=== PATIENT | female | born 1935 | race Caucasian/White ===

== ENCOUNTER 2019-03-15 10:59 | Inpatient (IN) | payer MEDICARE, OTHER, SELFPAY ==
[2019-03-15] VITALS (16 sets, daily range): BP systolic 157–183; BP diastolic 70–89; PULSE 78–97; RESP 18–32; TEMP 36.8–38.7; O2SAT 91–98; BMI 34.4
--- NOTE | 2019-03-15 11:12 | XR_ITS ---
WS: [id number] Portable AP upright chest, 03/15/2019 Clinical Data: cough Comparison: Portable chest, 12/09/2016. Findings: No nodules, masses or effusions are seen. The heart is normal. The pulmonary vascularity is not increased. No pneumonia or pneumothorax is seen. The patient has a poor inspiratory effort. The aortic arch and descending aorta are tortuous. XR/XR chest 1V portable [id number] Impression: Negative chest.
--- NOTE | 2019-03-15 11:12 | CT_ITS ---
WS: [id number] CT scan of the head, 03/15/2019 Clinical Data: CASTRO/AMS Comparison: CT head, 01/04/2019. DLP: 1464.[address] scans at [facility] use at least one of these dose optimization techniques: automat ed exposure control; mA and/or kV adjustment per patient size (includes targeted exams where dose is matched to clinical indication); or iterative reconstruction. Findings: The ventricular system is moderately dilated without shift. No recent infarct or hemorrhage is seen. There are no abnormal intracerebral masses. The cerebellum and brainstem are not remarkable. Bony windows of the skull and skull base show no fractures or erosions. The mastoid air cells, business intern al auditory canals, sella turcica, intraorbital contents, and paranasal sinuses are unremarkable. CT/CT head wo con* [id number] Impression: No change in moderate cerebral atrophy.
--- NOTE | 2019-03-15 11:12 | CT_ITS ---
WS: [id number] CT scan of the abdomen and pelvis without Oral and IV contrast. Additional two-dimensional coronal an d sagittal reconstruction was performed. 03/15/2019 Clinical Data: Abdominal Pain Comparison: CT abdomen and pelvis, 01/04/2019. DLP: 1203.[address] scans at [facility] use at least one of these dose optimization techniques: automat ed exposure control; mA and/or kV adjustment per patient size (includes targeted exams where dose is matched to clinical indication); or iterative reconstruction. Findings: The lower lungs show no nodules, masses or effusions. There is mitral valve calcification and right hilar devora calcification. The liver, spleen, adrenal glands and pancreas are normal. The gallbladder is not imaged. The kidneys show no cysts, masses, hydronephrosis or renal calculi. The abdominal aorta is normal in size with minimal calcification in the wall. No appendicitis or diverticulitis is seen. No abscess, adenopathy, ascites, mass, obstruction or free air is seen. The stomach, small bowel and colon show no abnormalities. The bladder has a catheter within. The uterus is absent.. No inguinal hernia is seen. The bones of the lower thorax, lumbar spine, pelvis, and hips show degenerative change of the lower t horacic and all lumbar vertebral bodies. There is posterior lumbar fusion of the L5-S1 level.. CT/CT abdomen pelvis wo con [id number] Impression: Negative for acute intra-abdominal or pelvic abnormalities.
--- NOTE | 2019-03-15 11:13 | ECG_ITS ---
Measurements Intervals [place] Rate: 89 P: 31 LA: 163 QRS: -34 QRSD: 100 T: 68 QT: 347 QTc: 423 SINUS RHYTHM LEFT AXIS DEVIATION [QRS AXIS < -30] PATTERN CONSISTENT WITH PULMONARY DISEASE Compared to ECG 05/17/2018 20:27:52 No significant changes Electronically Signed On 03-15-2019 13:46:57 SURGICAL SERVICES COORDINATOR by Adrianna Burk M.D. [id number]
[2019-03-15] MEDS: sodium chloride 0.9% 1,000 ML 100 ML IV (11:42)
--- NOTE | 2019-03-15 11:43 | PC.NURSE ---
pt FS blood glucose 216. RN notified.
[2019-03-15 11:45] LABS: Glucose Point of Care 216 mg/dL (70-110)
[2019-03-15] MEDS: ondansetron 2 mg/ML SDV 2 mL 4 MG IVP (11:46)
[2019-03-15] MEDS: cefTRIAXone 1,000 MG in sodium chloride 0.9% (plus) 50 ML 100 MG IV (11:51)
[2019-03-15 11:56] LABS: Basophils % 0.1 %; Hematocrit 36.2 % (37.0-47.0); Hemoglobin 12.3 g/dL (11.5-15.3); Lymphocytes # 0.6 10^3/uL (0.8-4.8); Lymphocytes % 4.3 %; Mean Corpuscular Hemoglobin 32.9 pg (28.0-34.0); Mean Corpuscular Volume 96.8 fL (81-99); Mean Platelet Volume 10.2 fL (7.4-10.4); Monocytes # 0.6 10^3/uL (0.2-0.9); Monocytes % 4.1 %; Neutrophils # 13.2 10^3/uL (1.8-7.7); Neutrophils % 88.4 %; Nucleated Red Blood Cells % 0 %; Platelet Count 125 10^3/cmm (130-400); Red Blood Count 3.74 10^6/uL (4.1-5.3)
[2019-03-15 11:57] LABS: ABG PCO2 26.9 mmHg (35-45); ABG PH Result 7.47 (7.35-7.45); Arterial Blood Gas Hematocrit 39.3 % (37-47); Base Excess ABG -2.9 mmol/L (-2.0-2.0); Blood Gas Allen Test Pos; Blood Gas Sample Site Brachial, left; Blood Gas Sample Type Arterial; HCO3 ABG 19.5 mmol/L (22-26); PO2 ABG 50.4 mmHg (80.0-100.0)
--- NOTE | 2019-03-15 12:09 | ED_ITS ---
HPI - Altered Mental Status General: Chief Complaint: Altered Mental Status Stated Complaint: Fever, UTI Time Seen by Provider: 03/15/19 11:03 Source: patient, family, EMS, RN notes reviewed and old records reviewed Mode of arrival: EMS Limitations: altered mental status History of Present Illness: HPI narrative: Nadja is a pleasant 83-year-old female brought in by her family with report of confusion and generalized weakness. The patient had symptoms of a UTI and was seen by Dr. Lara in the office 2 days ago and she was placed on antibiotics. The next day the patient began with her confusion and generalized weakness. She did not want to eat or drink. The day progressed and she improved a mild amount but was still very far off her normal. The patient lives alone with her . Today the patient is more confused and weak and unable to ambulate. It is unknown if there have been any fevers. The patient is confused and alert to self only. She denies having any pain presently. MD complaint: altered mental status, confusion and decreased responsiveness Onset (ago): day(s) (2) Severity: moderate Consistency of symptoms: Getting Worse Review of Systems General: Reports: ROS unobtainable due to medical condition (Altered mental status/confusion) PFSH ED PFSH: Statuses (acute, chronic, etc) shown below reflect problem list status as previously entered and may not be historically accurate Medical History Depression (Acute) GERD (gastroesophageal reflux disease) (Acute) HTN (hypertension) (Acute) Hypothyroidism (Acute) GERALDO (obstructive sleep apnea) (Acute) Family History Son Diabetes Brother Stroke Cancer Hypertension Sister Cancer Hypertension Social History Smoking and tobacco status: never smoked Alcohol intake: never Physical Exam Const: COMMON NORMALS: no apparent distress and well nourished EXAM LIMITATIONS: altered mental status GENERAL APPEARANCE: cooperative, disheveled, lethargic and ill appearing NUTRITIONAL APPEARANCE: obese ORIENTATION/CONSCIOUSNESS: Yes awake, Yes oriented to person and Yes lethargic HENMT: COMMON NORMALS: normocephalic, head/scalp atraumatic, hearing grossly normal bilaterally, external ears normal, EAC's normal, external nose normal and moist oral mucous membranes HEAD & SCALP: normal to inspection, normocephalic and atraumatic FACE & SINUS: normal facial exam and face symmetric NOSE: external nose normal and nares normal EXTERNAL EAR: Yes external ears normal EXTERNAL AUDITORY CANAL: EAC's normal MOUTH: oral and palatal mucosa normal and tongue normal Eye: COMMON NORMALS: PERRL, EOMs intact bilaterally, conjunctivae normal and no scleral icterus GENERAL EYE: normal appearance of both eyes and normal light reflex CONJUNCTIVA: Yes conjunctivae normal SCLERA: sclerae normal CORNEA: Yes corneas normal PUPIL: Yes PERRL DIRECT OPHTHALMOSCOPY: Yes normal light reflex Neck/C-Spine: COMMON NORMALS: full ROM, no lymphadenopathy, supple, no meningeal signs and no JVD GENERAL: Yes normal visual inspection and Yes trachea midline CERVICAL SPINE: Yes cervical ROM normal Chest: COMMONS NORMALS: inspection of chest normal and palpation of chest normal Resp: COMMON NORMALS: normal respiratory effort, no retractions, no use of accessory muscles and clear to auscultation bilaterally EFFORT & INSPECTION: Yes able to speak in complete sentences AUSCULTATION: clear to auscultation bilaterally Cardio: COMMON NORMALS: no JVD, regular rate, regular rhythm, S1 normal heart sound, S2 normal heart sound, no gallops, no clicks, no murmurs and no rub JUGULAR VENOUS DISTENTION: no JVD RATE: regular rate RHYTHM: regular rhythm HEART SOUNDS: S1 normal and S2 normal GI: COMMON NORMALS: soft to palpation, no hepatosplenomegaly and no masses INSPECTION: Yes normal to inspection PALPATION: Yes soft, Yes tender Details: LUQ and Yes no hepatosplenomegaly : COMMON NORMALS: Yes no CVA tenderness BLADDER/KIDNEY EXAM: Yes no CVA tenderness Back/Pelvis: COMMON NORMALS: no CVA tenderness, thoracic and lumbar spine normal to inspection, no thoracic nor lumbar tenderness and thoraco-lumbar ROM normal Extremity: COMMON NORMALS: normal to inspection, full ROM, normal capillary refill, no joint enlargement, no clubbing, cyanosis or edema and no calf tenderness Neuro: COMMON NORMALS: CN's II-XII intact bilaterally, moves all extremities, no focal motor deficits and no sensory deficits noted SENSORIUM/ORIENTATION: Yes oriented to person and Yes lethargic MENINGEAL SIGNS: Yes no meningeal signs Psych: COMMON NORMALS: mental status grossly normal, thought process normal, cooperative, affect normal, speech normal and activity/motor behavior normal SPEECH: Yes normal speech THOUGHT PROCESS: normal thought process Skin: COMMON NORMALS: no rashes or lesions noted, skin turgor normal, no jaundice, no petechiae and no mottling GENERAL SKIN EXAM: no rashes or lesions noted and turgor normal Course Vital Signs: Vital signs: Vital Signs Temperature 100.3 F H 03/15/19 15:12 Pulse Rate 87 03/15/19 15:12 Respiratory Rate 26 H 03/15/19 12:13 Blood Pressure 167/84 03/15/19 15:12 Pulse Oximetry 94 03/15/19 15:13 MDM - Altered Mental Status MDM Narrative: Medical decision making narrative: 1540?Mrs. Dimas is a pleasant 83-year-old female who was diagnosed as an outpatient with a UTI. She did not start her antibiotics until the next day but was already worse with confusion, generalized weakness and decreased appetite. She has acute renal insufficiency I believe from decreased intake and she still has her UTI. I have given her dose of Rocephin and IV fluids to help hydrate her. Her mental status is unchanged at this time but we will go ahead and admit her to the hospital for IV hydration. The patient continues to states she has no pain and I have reviewed the case in full with Dr. Sprague and he is agreeable to admission. Lab Data: Attestation: I reviewed the patient's lab results. Labs: Lab Results 03/15/19 03/15/19 03/15/19 Range/Units 11:32 11:32 11:32 WBC 15.0 H (4.0-10.0) 10^3/ uL RBC 3.74 L (4.1-5.3) 10^6/u L Hgb 12.3 (11.5-15.3) g/dL Hct 36.2 L (37.0-47.0) % MCV 96.8 (81-99) fL MCH 32.9 (28.0-34.0) pg MCHC 34.0 (30.0-36.0) g/dL RDW 14.0 (12.1-15.1) % Plt Count 125 L (130-400) 10^3/c mm MPV 10.2 (7.4-10.4) fL Neut % (Auto) 88.4 % Lymph % (Auto) 4.3 % Cedar % (Auto) 4.1 % Eos % (Auto) 0.0 % Baso % (Auto) 0.1 % Neut # (Auto) 13.2 H (1.8-7.7) 10^3/u L Lymph # (Auto) 0.6 L (0.8-4.8) 10^3/u L Cedar # (Auto) 0.6 (0.2-0.9) 10^3/u L Eos # (Auto) 0.0 (0.0-0.8) 10^3/u L Baso # (Auto) 0.0 (0.0-0.1) 10^3/u L Nucleated RBC % (a uto) 0 % Nucleated RBCs # 0.0 /100WBC Specimen Type Sample Site ABG pH (7.35-7.45) ABG pCO2 (35-45) mmHg ABG pO2 (80.0-100.0) mmH g ABG HCO3 (22-26) mmol/L ABG Base Excess (-2.0-2.0) mmol/ L Dario Test Hematocrit (37-47) % Oil House Attendant ID Sodium 131 L (136-145) mmol/L Potassium 4.0 (3.5-5.1) mmol/L Chloride 97 L (98-107) mmol/L Carbon Dioxide 20 L (22-29) mmol/L Anion Gap 18.0 (5-19) BUN 34 H (8-23) mg/dL Creatinine 1.9 H (0.5-0.9) mg/dL Glucose 203 H (74-106) mg/dL POC Glucose (70-110) mg/dL Lactic Acid 2.5 H (0.5-2.2) mmol/L Lactate (0.5-2.2) mmol/L Calcium 9.6 (8.8-10.2) mg/Dl Magnesium 1.9 (1.7-2.3) mg/dL Total Bilirubin 2.6 H (0.15-1.2) mg/dL AST 26 (0-32) U/L ALT 24 (0-33) U/L Alkaline Phosphata se 128 H (35-105) IU/L Ammonia (11-51) umol/L Troponin T Baselin e (0-10) ng/mL Troponin T 120 [address] [place] (0-10) ng/mL Delta Troponin T (0-10) ABS# Total Protein 7.2 (6.6-8.7) g/dL Albumin 3.8 (3.5-5.2) g/dL Globulin 3.4 (1.3-4.6) g/dL Urine Color (Yellow) Urine Appearance (CLEAR) Urine pH (5-7) Ur Specific Gravit y (1.005-1.030) Urine Protein (Negative) Urine Glucose (UA) (Normal) Urine Ketones (Negative) Urine Occult Blood (Negative) Urine Nitrate (Negative) Urine Bilirubin (NEGATIVE) Urine Urobilinogen (Negative) mg/dL Ur Leukocyte Lauren ase (Negative) Urine RBC (0-2) /hpf Urine WBC (0-5) /hpf Ur Squamous Epith Cells (0-5) Urine Bacteria (NONE) Influenza Type A A g (Negative) POC Influenza B Ag (Negative) 03/15/19 03/15/19 03/15/19 Range/Units 11:32 11:32 11:40 WBC (4.0-10.0) 10^3/ uL RBC (4.1-5.3) 10^6/u L Hgb (11.5-15.3) g/dL Hct (37.0-47.0) % MCV (81-99) fL MCH (28.0-34.0) pg MCHC (30.0-36.0) g/dL RDW (12.1-15.1) % Plt Count (130-400) 10^3/c mm MPV (7.4-10.4) fL Neut % (Auto) % Lymph % (Auto) % Cedar % (Auto) % Eos % (Auto) % Baso % (Auto) % Neut # (Auto) (1.8-7.7) 10^3/u L Lymph # (Auto) (0.8-4.8) 10^3/u L Cedar # (Auto) (0.2-0.9) 10^3/u L Eos # (Auto) (0.0-0.8) 10^3/u L Baso # (Auto) (0.0-0.1) 10^3/u L Nucleated RBC % (a uto) % Nucleated RBCs # /100WBC Specimen Type Sample Site ABG pH (7.35-7.45) ABG pCO2 (35-45) mmHg ABG pO2 (80.0-100.0) mmH g ABG HCO3 (22-26) mmol/L ABG Base Excess (-2.0-2.0) mmol/ L Dario Test Hematocrit (37-47) % Oil House Attendant ID Sodium (136-145) mmol/L Potassium (3.5-5.1) mmol/L Chloride (98-107) mmol/L Carbon Dioxide (22-29) mmol/L Anion Gap (5-19) BUN (8-23) mg/dL Creatinine (0.5-0.9) mg/dL Glucose (74-106) mg/dL POC Glucose 216 (70-110) mg/dL Lactic Acid (0.5-2.2) mmol/L Lactate (0.5-2.2) mmol/L Calcium (8.8-10.2) mg/Dl Magnesium (1.7-2.3) mg/dL Total Bilirubin (0.15-1.2) mg/dL AST (0-32) U/L ALT (0-33) U/L Alkaline Phosphata se (35-105) IU/L Ammonia 19 (11-51) umol/L Troponin T Baselin e 40 H (0-10) ng/mL Troponin T 120 Min [place] (0-10) ng/mL Delta Troponin T (0-10) ABS# Total Protein (6.6-8.7) g/dL Albumin (3.5-5.2) g/dL Globulin (1.3-4.6) g/dL Urine Color (Yellow) Urine Appearance (CLEAR) Urine pH (5-7) Ur Specific Gravit y (1.005-1.030) Urine Protein (Negative) Urine Glucose (UA) (Normal) Urine Ketones (Negative) Urine Occult Blood (Negative) Urine Nitrate (Negative) Urine Bilirubin (NEGATIVE) Urine Urobilinogen (Negative) mg/dL Ur Leukocyte Lauren ase (Negative) Urine RBC (0-2) /hpf Urine WBC (0-5) /hpf Ur Squamous Epith Cells (0-5) Urine Bacteria (NONE) Influenza Type A A g (Negative) POC Influenza B Ag (Negative) 03/15/19 03/15/19 03/15/19 Range/Units 11:40 11:45 11:45 WBC (4.0-10.0) 10^3/ uL RBC (4.1-5.3) 10^6/u L Hgb (11.5-15.3) g/dL Hct (37.0-47.0) % MCV (81-99) fL MCH (28.0-34.0) pg MCHC (30.0-36.0) g/dL RDW (12.1-15.1) % Plt Count (130-400) 10^3/c mm MPV (7.4-10.4) fL Neut % (Auto) % Lymph % (Auto) % Cedar % (Auto) % Eos % (Auto) % Baso % (Auto) % Neut # (Auto) (1.8-7.7) 10^3/u L Lymph # (Auto) (0.8-4.8) 10^3/u L Cedar # (Auto) (0.2-0.9) 10^3/u L Eos # (Auto) (0.0-0.8) 10^3/u L Baso # (Auto) (0.0-0.1) 10^3/u L Nucleated RBC % (a uto) % Nucleated RBCs # /100WBC Specimen Type Arterial Sample Site Brachial, left ABG pH 7.47 H (7.35-7.45) ABG pCO2 26.9 L (35-45) mmHg ABG pO2 50.4 L (80.0-100.0) mmH g ABG HCO3 19.5 L (22-26) mmol/L ABG Base Excess -2.9 L (-2.0-2.0) mmol/ L Dario Test Pos Hematocrit 39.3 (37-47) % Oil House Attendant ID jmn Sodium (136-145) mmol/L Potassium (3.5-5.1) mmol/L Chloride (98-107) mmol/L Carbon Dioxide (22-29) mmol/L Anion Gap (5-19) BUN (8-23) mg/dL Creatinine (0.5-0.9) mg/dL Glucose (74-106) mg/dL POC Glucose (70-110) mg/dL Lactic Acid (0.5-2.2) mmol/L Lactate (0.5-2.2) mmol/L Calcium (8.8-10.2) mg/Dl Magnesium (1.7-2.3) mg/dL Total Bilirubin (0.15-1.2) mg/dL AST (0-32) U/L ALT (0-33) U/L Alkaline Phosphata se (35-105) IU/L Ammonia (11-51) umol/L Troponin T Baselin e (0-10) ng/mL Troponin T 120 [address] [place] (0-10) ng/mL Delta Troponin T (0-10) ABS# Total Protein (6.6-8.7) g/dL Albumin (3.5-5.2) g/dL Globulin (1.3-4.6) g/dL Urine Color Dark yellow (Yellow) Urine Appearance Sl hazy (CLEAR) Urine pH 5 (5-7) Ur Specific Gravit y 1.010 (1.005-1.030) Urine Protein 1+ H (Negative) Urine Glucose (UA) Norm (Normal) Urine Ketones 1+ H (Negative) Urine Occult Blood 2+ H (Negative) Urine Nitrate Positive H (Negative) Urine Bilirubin Neg (NEGATIVE) Urine Urobilinogen 4 H (Negative) mg/dL Ur Leukocyte Lauren ase 2+ H (Negative) Urine RBC 0-4 H (0-2) /hpf Urine WBC 25-40 H (0-5) /hpf Ur Squamous Epith Cells 0-4 H (0-5) Urine Bacteria 4+ H (NONE) Influenza Type A A g Negative (Negative) POC Influenza B Ag Negative (Negative) 03/15/19 03/15/19 Range/Units 13:51 14:36 WBC (4.0-10.0) 10^3/ uL RBC (4.1-5.3) 10^6/u L Hgb (11.5-15.3) g/dL Hct (37.0-47.0) % MCV (81-99) fL MCH (28.0-34.0) pg MCHC (30.0-36.0) g/dL RDW (12.1-15.1) % Plt Count (130-400) 10^3/c mm MPV (7.4-10.4) fL Neut % (Auto) % Lymph % (Auto) % Cedar % (Auto) % Eos % (Auto) % Baso % (Auto) % Neut # (Auto) (1.8-7.7) 10^3/u L Lymph # (Auto) (0.8-4.8) 10^3/u L Cedar # (Auto) (0.2-0.9) 10^3/u L Eos # (Auto) (0.0-0.8) 10^3/u L Baso # (Auto) (0.0-0.1) 10^3/u L Nucleated RBC % (a uto) % Nucleated RBCs # /100WBC Specimen Type Sample Site ABG pH (7.35-7.45) ABG pCO2 (35-45) mmHg ABG pO2 (80.0-100.0) mmH g ABG HCO3 (22-26) mmol/L ABG Base Excess (-2.0-2.0) mmol/ L Dario Test Hematocrit (37-47) % Oil House Attendant ID Sodium (136-145) mmol/L Potassium (3.5-5.1) mmol/L Chloride (98-107) mmol/L Carbon Dioxide (22-29) mmol/L Anion Gap (5-19) BUN (8-23) mg/dL Creatinine (0.5-0.9) mg/dL Glucose (74-106) mg/dL POC Glucose (70-110) mg/dL Lactic Acid (0.5-2.2) mmol/L Lactate 3.2 H (0.5-2.2) mmol/L Calcium (8.8-10.2) mg/Dl Magnesium (1.7-2.3) mg/dL Total Bilirubin (0.15-1.2) mg/dL AST (0-32) U/L ALT (0-33) U/L Alkaline Phosphata se (35-105) IU/L Ammonia (11-51) umol/L Troponin T Baselin e (0-10) ng/mL Troponin T [address] [place] 31.64 H (0-10) ng/mL Delta Troponin T -8.36 L (0-10) ABS# Total Protein (6.6-8.7) g/dL Albumin (3.5-5.2) g/dL Globulin (1.3-4.6) g/dL Urine Color (Yellow) Urine Appearance (CLEAR) Urine pH (5-7) Ur Specific Gravit y (1.005-1.030) Urine Protein (Negative) Urine Glucose (UA) (Normal) Urine Ketones (Negative) Urine Occult Blood (Negative) Urine Nitrate (Negative) Urine Bilirubin (NEGATIVE) Urine Urobilinogen (Negative) mg/dL Ur Leukocyte Lauren ase (Negative) Urine RBC (0-2) /hpf Urine WBC (0-5) /hpf Ur Squamous Epith Cells (0-5) Urine Bacteria (NONE) Influenza Type A A g (Negative) POC Influenza B Ag (Negative) Imaging Data^: CT Head: Radiologist's impression: [place] [address] CT Scan Report Signed Patient: Nadja Dimas MR#: [id number] : 1935 Acct:[id number] Age/Sex: 83 / F ADM Date: 03/15/19 Loc: ER Attending Dr: Ordering Physician: Cristina Pineda DO Date of Service: 03/15/19 Procedure(s): CT head wo con* [id number] Accession Number(s): [id number] Report Number: [id number] WS: [id number] CT scan of the head, 03/15/2019 Clinical Data: CASTRO/AMS Comparison: CT head, 01/04/2019. DLP: 1464.[address] scans at [facility] use at least one of these dose optimization techniques: automated exposure control; mA and/or kV adjustment per patient size (includes targeted exams where dose is matched to clinical indication); or iterative reconstruction. Findings: The ventricular system is moderately dilated without shift. No recent infarct or hemorrhage is seen. There are no abnormal intracerebral masses. The cerebellum and brainstem are not remarkable. Bony windows of the skull and skull base show no fractures or erosions. The mastoid air cells, internal auditory canals, sella turcica, intraorbital contents, and paranasal sinuses are unremarkable. CT/CT head wo con* [id number] Impression: No change in moderate cerebral atrophy. Dictated By: Kathleen Duncan MD Signed By: Kathleen Duncan MD Signed Date/Time:03/15/191318 DD/ 1316 CT Abd/Pel: Radiologist's impression: [address] [place] [address] CT Scan Report Signed Patient: Nadja Dimas MR#: [id number] : 1935 Acct:[id number] Age/Sex: 83 / F ADM Date: 03/15/19 Loc: ER Attending Dr: Ordering Physician: Cristina Pineda DO Date of Service: 03/15/19 Procedure(s): CT abdomen pelvis wo con [id number] Accession Number(s): [id number] Report Number: [id number] WS: [id number] CT scan of the abdomen and pelvis without Oral and IV contrast. Additional two- dimensional coronal and sagittal reconstruction was performed. 03/15/2019 Clinical Data: Abdominal Pain Comparison: CT abdomen and pelvis, 01/04/2019. DLP: 1203.[address] scans at [facility] use at least one of these dose optimization techniques: automated exposure control; mA and/or kV adjustment per patient size (includes targeted exams where dose is matched to clinical indication); or iterative reconstruction. Findings: The lower lungs show no nodules, masses or effusions. There is mitral valve calcification and right hilar devora calcification. The liver, spleen, adrenal glands and pancreas are normal. The gallbladder is not imaged. The kidneys show no cysts, masses, hydronephrosis or renal calculi. The abdominal aorta is normal in size with minimal calcification in the wall. No appendicitis or diverticulitis is seen. No abscess, adenopathy, ascites, mass, obstruction or free air is seen. The stomach, small bowel and colon show no abnormalities. The bladder has a catheter within. The uterus is absent.. No inguinal hernia is seen. The bones of the lower thorax, lumbar spine, pelvis, and hips show degenerative change of the lower thoracic and all lumbar vertebral bodies. There is posterior lumbar fusion of the L5-S1 level.. CT/CT abdomen pelvis wo con [id number] Impression: Negative for acute intra-abdominal or pelvic abnormalities. Dictated By: Kathleen Duncan MD Signed By: Kathleen Duncan MD Signed Date/Time:03/15/191328 DD/ 132 EKG Data^: EKG 1: Attestation: I personally reviewed and interpreted this EKG as follows: (EKG performed interpreted at 1137 -normal sinus rhythm at 92 beats a minute, left axis deviation, nonspecific ST and T wave changes, normal QTC.) Discharge Plan Discharge Patient Disposition: Admitted As Inpatient Clinical Impression: Acute UTI Altered mental status Qualifiers: Altered mental status type: somnolence Qualified Code(s): R40.0 - Somnolence Sepsis Qualifiers: Sepsis type: sepsis due to unspecified organism Sepsis acute organ dysfunction status: with acute organ dysfunction Severe sepsis acute organ dysfunction type: acute renal failure Acute renal failure type: unspecified Severe sepsis shock status: without septic shock Qualified Code(s): A41.9 - Sepsis, unspecified organism Condition: Stable Coding Level of Care Code ED Warehouse Team Member for Chg Fwd Exam Problem Focused
[2019-03-15 12:10] LABS: Lactic Sepsis W/Reflex 2.5 mmol/L (0.5-2.2)
[2019-03-15 12:12] LABS: Alanine Aminotransferase 24 U/L (0-33); Albumin Level 3.8 g/dL (3.5-5.2); Alkaline Phosphatase 128 IU/L (35-105); Aspartate Amino Transferase 26 U/L (0-32); Blood Urea Nitrogen 34 mg/dL (8-23); Calcium 9.6 mg/Dl (8.8-10.2); Carbon Dioxide 20 mmol/L (22-29); Chloride 97 mmol/L (98-107); Globulin 3.4 g/dL (1.3-4.6); Glucose 203 mg/dL (74-106); Magnesium 1.9 mg/dL (1.7-2.3); Sodium 131 mmol/L (136-145); Total Bilirubin 2.6 mg/dL (0.15-1.2); Total Protein 7.2 g/dL (6.6-8.7)
[2019-03-15 12:16] LABS: Troponin(5th) Baseline 40 ng/mL (0-10)
[2019-03-15 12:17] LABS: Ammonia 19 umol/L (11-51)
[2019-03-15 12:56] LABS: Influenza A by IFA Negative (Negative); Influenza B by IFA Negative (Negative)
[2019-03-15 13:36] LABS: Reflex Lactate Order Y
[2019-03-15 14:25] LABS: Troponin 5 2HR 31.64 ng/mL (0-10)
[2019-03-15 14:38] LABS: Troponin 5 2HR Delta -8.36 ABS# (0-10)
[2019-03-15 14:54] LABS: Glucose Urine UA Norm (Normal); Protein Urine 1+ (Negative); Urine Appearance SL Hazy (CLEAR); Urine Color Dark Yellow (Yellow); pH Urine 5 (5-7)
[2019-03-15 14:55] LABS: Bilirubin Urine Neg (NEGATIVE); Blood Urine 2+ (Negative); Ketones Urine 1+ (Negative); Leukocyte Esterase Urine 2+ (Negative); Nitrate Urine Positive (Negative); Urobilinogen Urine 4 mg/dL (Negative)
[2019-03-15 14:57] LABS: Add Urine Culture? Yes; Bacteria Urine 4+; RBC Urine 0-4 /hpf (0-2); Squamous Epithelial Cell Urine 0-4 (0-5); WBC Urine 25-40 /hpf (0-5)
[2019-03-15 15:08] LABS: Lactate (Lactic Acid level) 3.2 mmol/L (0.5-2.2)
--- NOTE | 2019-03-15 17:13 | ECG_ITS ---
Measurements Intervals [place] Rate: 92 P: 49 TN: 164 QRS: -31 QRSD: 94 T: 71 QT: 343 QTc: 426 SINUS RHYTHM LEFT AXIS DEVIATION [QRS AXIS < -30] PATTERN CONSISTENT WITH PULMONARY DISEASE Compared to ECG 05/17/2018 20:27:52 No significant changes Electronically Signed On 03-15-2019 13:57:23 MOVEMENT THERAPIST by Adrianna Burk M.D. [id number]
[2019-03-15 19:30] LABS: Troponin 5 6HR 32.21 ng/L (0-10)
[2019-03-15] MEDS: acetaminophen 650 mg Supp PR (21:42)
[2019-03-15] MEDS: enoxaparin 30 mg/0.3 mL Syringe SUBCUT (21:42)
[2019-03-16] MEDS: cefTRIAXone 1,000 MG in sodium chloride 0.9% (plus) 50 ML 100 MG IV ×2 (00:13→20:49)
[2019-03-16] MEDS: sodium chloride 0.9% 1,000 ML 100 ML IV ×2 (00:14→14:37)
--- NOTE | 2019-03-16 00:45 | PM.HP ---
Providers/Chief Complaint Admitting Physician: Sarah Florentino MD Primary Care Provider: Jamal Lara Chief Complaint: Fever, UTI History of Present Illness Nadja Dimas is a 83 year old female with PMH Depression , GERD , HTN ,Hypothyroidism , GERALDO who presented to the ER with family today for AMS. No history available from patient as she is drowsy. per family at bedside she was diagnosed with a UTI three days ago by PCP when she complained of worsening incontinence and some R side abdominal pain. She started taking doxycycline as prescribed yesterday. Through the day, she gradually became more drowsy. Yesterday she was able to eat and communicate, however since this morning family has been unable to wake her. No h/o fall. on my exam, she only opens her eyes to calling name, but otherwise but is unable to answer any questions. Review of Systems General: Reports: ROS unobtainable due to mental status Medications/Allergies Allergies Allergy/AdvReac Type Severity Reaction Status Date / Time tizanidine [From Zanaflex] Allergy Mild Unknown Verified 03/15/19 11:15 ciprofloxacin [From Cipro] Allergy ALGY-Rash Verified 03/15/19 11:15 meperidine [From Demerol] Allergy ADR-Confusi Verified 03/15/19 11:15 on Penicillins Allergy ALGY-Swell Verified 03/13/19 13:10 Lip/Tongue/Throat PFSH Acute PFSH: Statuses (acute, chronic, etc) shown below reflect problem list status as previously entered and may not be historically accurate Medical History Depression (Acute) GERD (gastroesophageal reflux disease) (Acute) HTN (hypertension) (Acute) Hypothyroidism (Acute) GERALDO (obstructive sleep apnea) (Acute) Family History Son Diabetes Brother Stroke Cancer Hypertension Sister Cancer Hypertension Social History Smoking and tobacco status: never smoked Alcohol intake: never Vitals/I&O/Wt Last Vital Signs Temp 101.7 F H 03/15/19 23:31 Pulse 97 03/15/19 23:31 Resp 22 H 03/15/19 23:31 BP 158/70 03/15/19 23:31 Pulse Ox 95 03/15/19 23:31 03/15/19 03/15/19 03/16/19 14:59 22:59 06:59 Intake Total 1000 / 1000 Output Total 250 / 250 Balance 750 / 750 Weight last 48 hrs Weight 85.275 kg Physical Exam Narrative: EXAM NARRATIVE: Gen: lethargic, opens eyes to calling name but no futher response. HEENT: B/L equal and recative pupils. 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: obtunded, only opens eyes to calling name, doesnt follow other commands Urinary Catheter Management^: Hernandez: Cath Placed During This Visit: no Sepsis: Is patient septic: Yes Focused sepsis exam performed: Yes Date exam was performed: 03/16/19 Data Micro: Micro: Microbiology 03/15/19 11:32 Blood Culture - Pr eliminary Blood SPECIMEN [facility] 03/15/19 11:40 Blood Culture - Pr eliminary Blood SPECIMEN [facility] Other Data: Other data: CT head and abdomen: no acute process CXR: no pneumonia + UA A&P Assessment and plan (1) Altered mental status: Status: Acute Qualifiers: Altered mental status type: somnolence Qualified Code(s): R40.0 - Somnolence Code(s): R41.82 - Altered mental status, unspecified (2) Sepsis: meets criteria with leukocytosis and fever Status: Acute Qualifiers: Acute renal failure type: unspecified Sepsis acute organ dysfunction status: with acute organ dysfunction Sepsis type: sepsis due to unspecified organism Severe sepsis acute organ dysfunction type: acute renal failure Severe sepsis shock status: without septic shock Qualified Code(s): A41.9 - Sepsis, unspecified organism; R65.20 - Severe sepsis without septic shock; N17.9 - Acute kidney failure, unspecified Code(s): A41.9 - Sepsis, unspecified organism (3) Acute UTI: Status: Acute Code(s): N39.0 - Urinary tract infection, site not specified (4) SELVIN (acute kidney injury): Status: Acute Code(s): N17.9 - Acute kidney failure, unspecified Additional A&P Information Additional A&P Information: - Sepsis likely secondary to UTI. Started on 100 ml/hr fluids - empiric ceftriaxone for possible UTI. Urine cx pending previous cx shows E.coli, mostly susceptible isolate AMS likely related to metabolic encephalopathy from sepsis. Ct head negative for acute process. 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
[2019-03-16 04:00] VITALS: BP 160/75; PULSE 92; RESP 19; TEMP 36.9; O2SAT 96
[2019-03-16 05:24] LABS: Basophils % 0.2 %; Eosinophils % 0.1 %; Hematocrit 35.4 % (37.0-47.0); Hemoglobin 11.9 g/dL (11.5-15.3); Lymphocytes # 0.9 10^3/uL (0.8-4.8); Lymphocytes % 7.1 %; Mean Corpuscular HGB Conc 33.6 g/dL (30.0-36.0); Mean Corpuscular Hemoglobin 31.3 pg (28.0-34.0); Mean Corpuscular Volume 93.2 fL (81-99); Mean Platelet Volume 10.8 fL (7.4-10.4); Monocytes # 0.8 10^3/uL (0.2-0.9); Monocytes % 6.6 %; Neutrophils # 10.4 10^3/uL (1.8-7.7); Neutrophils % 84.6 %; Nucleated Red Blood Cells % 0 %; Platelet Count 99 10^3/cmm (130-400); Red Cell Distribution Width 14.3 % (12.1-15.1); White Blood Count 12.3 10^3/uL (4.0-10.0)
[2019-03-16 05:49] LABS: Blood Urea Nitrogen 34 mg/dL (8-23); Calcium 9.4 mg/Dl (8.8-10.2); Carbon Dioxide 19 mmol/L (22-29); Chloride 103 mmol/L (98-107); Glucose 191 mg/dL (74-106); Sodium 133 mmol/L (136-145)
[2019-03-16 07:51] VITALS: BP 163/80; PULSE 96; RESP 17; TEMP 36.8; O2SAT 91
--- NOTE | 2019-03-16 08:22 | PC.NURSE ---
pt opens eyes spontaneously, follows simple commands and does speak on occasion.
[2019-03-16 12:00] VITALS: BP 135/79; PULSE 80; RESP 16; TEMP 37.7; O2SAT 95
[2019-03-16 15:33] LABS: Lactic Sepsis W/Reflex 1.4 mmol/L (0.5-2.2)
[2019-03-16 16:00] VITALS: BP 143/84; PULSE 70; RESP 18; TEMP 37.9; O2SAT 96
--- NOTE | 2019-03-16 17:06 | PC.CHAP ---
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 matting machine operator visit [] Patient/Family/Request visit [] Outpatient visit [] Follow-up visit [] Physician referral [] Code/Alert [x] Routine visit [] Staff referral [] Actively dying [] Patient sleeping [x] Family support [] [] Out of room [] Palliative care [] [] Receiving care in room [] Pre-surgical visit [] Trauma [] Long length of stay [] ICU visit [] Other: Relational/Emotional Strength [x] Patient feels connected with others/family/visitors/staff [] Distress [] Loneliness/isolation [] Abandonment Spirituality of Patient [x] Person of Nevae[place] x[] Attends [employer] of their [place] [x] Believes in Prayer [] Reads Bible or Mu-Ism materials [] There are Spiritual issues to be addressed Assisted Living Associate Interventions [x] Prayer [x] Active listening [x] Non-anxious presence [] Spiritual/emotional support [] Crisis/trauma care [] Spiritual counseling [] Bereavement support [] Provided bereavement packet [] Provided Bible/devotional materials [] Provided toy/stuffed animal, coloring book to patient or family member [] Completed spiritual assessment [] Provided Communion [] Anointing/[place] [] Salvation [] Other: Impact on Illness or Injury [] Angry [] Fearful [] Anxious [] Often cries [] Exhaustion [] Unable to work [] Unable to attend episcopal [] Unable to walk/stand [] Unable to read [] Unable to drive [] Unable to eat/drink [] Unable to sleep [] Unable to be with family [] Other: Summary Assisted Living Associate spent 1 hour visiting with patient and sister. we had prayer. Time spent with patient
[2019-03-16 20:00] VITALS: BP 166/72; PULSE 88; RESP 20; TEMP 37.9; O2SAT 95
--- NOTE | 2019-03-16 20:03 | P.PN_ITS ---
Subjective Subjective: Interval history: Seen today morning while patient is sitting in chair. C/o mild dysuria. Denies any N/V, abd pain, CP, SOB.T max 100.8F in last 24 hrs. Bcx positive for GNR Medications: Reviewed: Yes Vitals/I&O/Wt Last Vital Signs Temp 100.2 F H 03/16/19 16:00 Pulse 70 03/16/19 16:00 Resp 18 03/16/19 16:00 BP 143/84 03/16/19 16:00 Pulse Ox 96 03/16/19 16:00 03/16/19 03/16/19 03/16/19 06:59 14:59 22:59 Intake Total 50 / 1050 950.000 / 950.000 Output Total 850 / 1100 650 / 650 Balance -800 / -50 950.000 / 950.000 -650 / 300.000 Weight last 48 hrs Weight 86.381 kg Weight 85.275 kg Physical Exam Narrative: EXAM NARRATIVE: General: No acute distress, AO x3, lethargic HEENT: PERRLA, pupils bilaterally equal and reactive Chest: Normal vesicular breath sounds, no added sounds, equal good air entry bilaterally CVS: S1-S2 regular, no murmurs, no tachycardia, no gallops, no rubs Abdomen: Soft, nontender, no organomegaly, bowel sounds present,ghotra catheter present Neuro: No focal deficits, no facial deformity, AO x3, power 3/5 in all limbs Urinary Catheter Management^: Ghotra: Cath Placed During This Visit: no Data Micro: Micro: Microbiology 03/15/19 11:40 Blood Culture - Pr eliminary Blood Gram Negative R ods 03/15/19 11:32 Blood Culture - Pr eliminary Blood Gram Negative R ods A&P Assessment and plan (1) Gram negative sepsis: Status: Acute Code(s): A41.50 - Gram-negative sepsis, unspecified (2) Acute UTI: Status: Acute Code(s): N39.0 - Urinary tract infection, site not specified (3) Altered mental status: Status: Acute Qualifiers: Altered mental status type: somnolence Qualified Code(s): R40.0 - Somnolence Code(s): R41.82 - Altered mental status, unspecified (4) SELVIN (acute kidney injury): Status: Acute Code(s): N17.9 - Acute kidney failure, unspecified (5) HTN (hypertension): Status: Acute Code(s): I10 - Essential (primary) hypertension Additional A&P Information Additional A&P Information: Gram negative sepsis with toxic metabolic encephalopathy due to UTI: Mentation improving. WBC improving. Stat BCx till negative 2 sets to determine length of Abx course c/w rocephin as patient is improving. Will de-escalate as per Cx sensitivities. Contine to monitor vitals. IVF- NS @ 100 cc/hr SELVIN:2/2 sepsis and home losartan. Improving. Baseline creat 1.0 C/e IVF HTN: Hold antihypertensive in view of sepsis. monitor BP. Hold psych meds in view of lethargy. hold methotrexate in view of SELVIN. Keep NPO as patient still lethargic. Lovenox for DVT PPx. Famotidine for PUD FC. 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
[2019-03-16 20:33] VITALS: PULSE 81; RESP 16; O2SAT 97
[2019-03-16] MEDS: enoxaparin 30 mg/0.3 mL Syringe SUBCUT (20:48)
[2019-03-17] VITALS (13 sets, daily range): BP systolic 104–170; BP diastolic 72–85; PULSE 75–100; RESP 16–26; TEMP 36.6–37.6; O2SAT 93–100
[2019-03-17] MEDS: sodium chloride 0.9% 1,000 ML 100 ML IV ×2 (00:59→09:37)
[2019-03-17] MEDS: venlafaxine 75 mg Tablet PO (09:38)
[2019-03-17] MEDS: aspirin 81 mg EC Tablet PO (09:38)
[2019-03-17 13:33] LABS: Basophils % 0.1 %; Eosinophils % 0.2 %; Hematocrit 34.4 % (37.0-47.0); Hemoglobin 10.8 g/dL (11.5-15.3); Lymphocytes # 0.9 10^3/uL (0.8-4.8); Lymphocytes % 9.2 %; Mean Corpuscular HGB Conc 31.4 g/dL (30.0-36.0); Mean Corpuscular Hemoglobin 31.4 pg (28.0-34.0); Mean Platelet Volume 10.3 fL (7.4-10.4); Monocytes # 1.1 10^3/uL (0.2-0.9); Monocytes % 11.1 %; Neutrophils # 7.7 10^3/uL (1.8-7.7); Neutrophils % 78.2 %; Nucleated Red Blood Cells % 0 %; Platelet Count 68 10^3/cmm (130-400); Red Blood Count 3.44 10^6/uL (4.1-5.3); Red Cell Distribution Width 14.5 % (12.1-15.1); White Blood Count 9.9 10^3/uL (4.0-10.0)
[2019-03-17] MEDS: amlodipine 5 mg Tablet PO (13:37)
[2019-03-17 13:45] LABS: Alanine Aminotransferase 15 U/L (0-33); Albumin Level 2.6 g/dL (3.5-5.2); Alkaline Phosphatase 124 IU/L (35-105); Anion Gap 14.9 (5-19); Aspartate Amino Transferase 19 U/L (0-32); Blood Urea Nitrogen 29 mg/dL (8-23); Calcium 9.5 mg/Dl (8.8-10.2); Carbon Dioxide 19 mmol/L (22-29); Chloride 109 mmol/L (98-107); Glucose 140 mg/dL (74-106); Potassium 3.9 mmol/L (3.5-5.1); Sodium 139 mmol/L (136-145); Total Bilirubin 1.1 mg/dL (0.15-1.2); Total Protein 6.6 g/dL (6.6-8.7)
--- NOTE | 2019-03-17 14:43 | PM.PN ---
Subjective Subjective: Interval history: No acute events overnight. This morning on evaluation patient is sitting comfortably in bed more awake than yesterday but still very lethargic. Denies of having any acute complaints. Denies of having any nausea, vomiting, chest pain, headache, dysuria. States she is feeling hungry. Medications: Reviewed: Yes (Will discontinue Lovenox as platelet counts trending down.) Vitals/I&O/Wt Last Vital Signs Temp 99.6 F 03/17/19 12:00 Pulse 84 03/17/19 12:00 Resp 18 03/17/19 12:00 BP 154/85 03/17/19 12:00 Pulse Ox 96 03/17/19 12:00 03/16/19 03/17/19 03/17/19 22:59 06:59 14:59 Intake Total 60 / 0649.113 0881 / 2010.000 863.333 / 863.333 Output Total 650 / 650 1000 / 1650 Balance -590 / 360.000 0 / 360.000 863.333 / 863.333 Weight last 48 hrs Weight 72.983 kg Weight 86.381 kg Physical Exam Narrative: EXAM NARRATIVE: EXAM NARRATIVE: General: No acute distress, AO x3, lethargic HEENT: PERRLA, pupils bilaterally equal and reactive Chest: Normal vesicular breath sounds, no added sounds, equal good air entry bilaterally CVS: S1-S2 regular, no murmurs, no tachycardia, no gallops, no rubs Abdomen: Soft, nontender, no organomegaly, bowel sounds present,ghotra catheter present Neuro: No focal deficits, no facial deformity, AO x3, power 3/5 in all limbs Urinary Catheter Management^: Ghotra: Cath Placed During This Visit: Yes. Data Micro: Micro: Microbiology 03/15/19 11:40 Urine Culture - Pr eliminary Urine,Clean Catch Gram Negative R ods 03/16/19 21:26 Blood Culture - Pr eliminary Blood SPECIMEN [facility] 03/16/19 21:20 Blood Culture - Pr eliminary Blood SPECIMEN [facility] 03/15/19 11:40 Blood Culture - Pr eliminary Blood Gram Negative R ods 03/15/19 11:32 Blood Culture - Pr eliminary Blood Gram Negative R ods A&P Assessment and plan (1) Gram negative sepsis: Status: Acute Code(s): A41.50 - Gram-negative sepsis, unspecified (2) Altered mental status: Status: Acute Qualifiers: Altered mental status type: somnolence Qualified Code(s): R40.0 - Somnolence Code(s): R41.82 - Altered mental status, unspecified (3) SELVIN (acute kidney injury): Status: Acute Code(s): N17.9 - Acute kidney failure, unspecified (4) Acute UTI: Status: Acute Code(s): N39.0 - Urinary tract infection, site not specified (5) HTN (hypertension): Status: Acute Code(s): I10 - Essential (primary) hypertension Additional A&P Information Additional A&P Information: Gram negative sepsis with toxic metabolic encephalopathy due to UTI: Mentation improving. WBC normal now. c/w rocephin as patient is improving. Follow-up blood cultures and will de-escalate as per Cx sensitivities. Contine to monitor vitals. Decrease IV fluids to 50 cc/h as patient looks tachypneic today but maintaining saturations. O2 supplementation keeping saturation over 92%. CARLY Ghotra. SELVIN:2/2 sepsis and home losartan. Improving. Baseline creat 1.0 C/w IVF HTN: Blood pressure trending up today. Morning blood pressure over 170. We will start patient on low-dose of amlodipine 5 mg daily as losartan cannot be given due to SELVIN and do not want to give a higher dose to avoid hypotension. Thrombocytopenia: Most likely secondary to sepsis. Cannot rule out HIT but following platelets count is not 50%. Continue to monitor for any bleeding. Fall precautions. We will stop Lovenox for now given the fall and platelet counts and will continue to monitor. Hold psych meds in view of lethargy. hold methotrexate in view of SELVIN. Start on cardiac diet today. Aspiration precautions. SCDs for DVT PPx. Stop Lovenox due to thrombocytopenia Famotidine for PUD FC. Attestations Medical Necessity Statement*: Needs continued hospitalization for management of gram-negative sepsis Time Spent in Patient Care: Greater than 35 minutes Coding Level of Care Code Acute Compliance Examiner for [facility] Fwd Diagnoses Gram negative sepsis A41.50 Altered mental status R40.0 Altered mental status type: somnolence SELVIN (acute kidney injury) N17.9 Acute UTI N39.0 HTN (hypertension) I10
[2019-03-17] MEDS: famotidine 20 mg/2 mL INJ IVP (15:28)
--- NOTE | 2019-03-17 18:19 | PC.NURSE ---
Pt resting in bed with eyes closed when entering room. Pt arouses to verbal stimuli and falls back to sleep easily. Sarah care done at this time.
[2019-03-17] MEDS: cefTRIAXone 1,000 MG in sodium chloride 0.9% (plus) 50 ML 100 MG IV (20:44)
--- NOTE | 2019-03-17 20:51 | PC.RESP ---
auto cpap 8-20 cmh2o
[2019-03-18] VITALS (8 sets, daily range): BP systolic 129–182; BP diastolic 72–84; PULSE 72–80; RESP 16–20; TEMP 36.6–37.2; O2SAT 90–99
[2019-03-18] MEDS: famotidine 20 mg/2 mL INJ IVP ×2 (03:29→15:46)
[2019-03-18] MEDS: sodium chloride 0.9% 1,000 ML 100 ML IV (06:03)
[2019-03-18 06:16] LABS: Basophils % 0.3 %; Eosinophils % 0.2 %; Hemoglobin 9.8 g/dL (11.5-15.3); Lymphocytes # 1.1 10^3/uL (0.8-4.8); Lymphocytes % 9.6 %; Mean Corpuscular HGB Conc 31.6 g/dL (30.0-36.0); Mean Corpuscular Hemoglobin 30.9 pg (28.0-34.0); Mean Corpuscular Volume 97.8 fL (81-99); Monocytes # 1.1 10^3/uL (0.2-0.9); Monocytes % 10.1 %; Neutrophils # 8.5 10^3/uL (1.8-7.7); Neutrophils % 76.8 %; Nucleated Red Blood Cells % 0 %; Platelet Count 56 10^3/cmm (130-400); Red Blood Count 3.17 10^6/uL (4.1-5.3); Red Cell Distribution Width 14.3 % (12.1-15.1); White Blood Count 11.1 10^3/uL (4.0-10.0)
[2019-03-18 06:53] LABS: Alanine Aminotransferase 15 U/L (0-33); Albumin Level 2.7 g/dL (3.5-5.2); Alkaline Phosphatase 122 IU/L (35-105); Anion Gap 14.6 (5-19); Aspartate Amino Transferase 22 U/L (0-32); Blood Urea Nitrogen 27 mg/dL (8-23); Calcium 9.6 mg/Dl (8.8-10.2); Carbon Dioxide 19 mmol/L (22-29); Chloride 112 mmol/L (98-107); Glucose 183 mg/dL (74-106); Potassium 3.6 mmol/L (3.5-5.1); Sodium 142 mmol/L (136-145); Total Bilirubin 1.3 mg/dL (0.15-1.2); Total Protein 5.7 g/dL (6.6-8.7)
[2019-03-18] MEDS: amlodipine 5 mg Tablet PO (08:48)
[2019-03-18] MEDS: aspirin 81 mg EC Tablet PO (08:48)
[2019-03-18] MEDS: venlafaxine 75 mg Tablet PO (08:56)
--- NOTE | 2019-03-18 09:45 | PC.NURSE ---
Dr. Foster in room at this time. Verbal order received to hold fluids and administer Lasix. Fluids stopped at this time.
--- NOTE | 2019-03-18 11:45 | PC.SOCIAL ---
Pg 2 of IMM was explained to the patient, she was too weak to sign, she verbalized understanding and had no questions. Form was initialed by nurse and placed in chart.
--- NOTE | 2019-03-18 12:24 | P.PN_ITS ---
Subjective Subjective: Interval history: Overnight patient was in no respiratory distress was found to be hypoxic on room air so was placed on BiPAP. This morning on evaluation patient is sitting comfortably in chair and continues to remain lethargic Denies of having any acute complaints. Denies of having any nausea, vomiting, chest pain, headache, dysuria. She is complaining of mild shortness of breath but denies any chest pain or cough. Medications: Reviewed: Yes (Will discontinue Lovenox as platelet counts trending down.) Vitals/I&O/Wt Last Vital Signs Temp 98.9 F 03/18/19 11:38 Pulse 76 03/18/19 11:38 Resp 18 03/18/19 11:38 BP 143/72 03/18/19 11:38 Pulse Ox 90 03/18/19 11:38 03/17/19 03/18/19 03/18/19 22:59 06:59 14:59 Intake Total 1360 / 2223.333 440 / 2663.333 240 / 240 Balance 1360 / 1123.333 440 / 1563.333 240 / 240 Weight last 48 hrs Weight 72.983 kg Physical Exam Narrative: EXAM NARRATIVE: EXAM NARRATIVE: General: No acute distress, AO x3, lethargic HEENT: PERRLA, pupils bilaterally equal and reactive Chest: Normal vesicular breath sounds, bilateral lower zone fine crackles present, equal good air entry bilaterally CVS: S1-S2 regular, no murmurs, no tachycardia, no gallops, no rubs Abdomen: Soft, nontender, no organomegaly, bowel sounds present,ghotra catheter present Neuro: No focal deficits, no facial deformity, AO x3, power 3/5 in all limbs Urinary Catheter Management^: Ghotra: Cath Placed During This Visit: no Data Micro: Micro: Microbiology 03/15/19 11:40 Blood Culture - Pr eliminary Blood Escherichia col i esbl 03/15/19 11:32 Blood Culture - Pr eliminary Blood Escherichia col i esbl 03/18/19 05:44 Blood Culture - Pr eliminary Blood SPECIMEN [facility] 03/18/19 05:48 Blood Culture - Pr eliminary Blood SPECIMEN [facility] 03/16/19 21:20 Blood Culture - Pr eliminary Blood Gram Negative R ods 03/16/19 21:26 Blood Culture - Pr eliminary Blood Gram Negative R ods 03/15/19 11:40 Urine Culture - Pr eliminary Urine,Clean Catch Gram Negative R ods A&P Assessment and plan (1) Gram negative sepsis: Status: Acute Code(s): A41.50 - Gram-negative sepsis, unspecified (2) Altered mental status: Status: Acute Qualifiers: Altered mental status type: somnolence Qualified Code(s): R40.0 - Somnolence Code(s): R41.82 - Altered mental status, unspecified (3) SELVIN (acute kidney injury): Status: Acute Code(s): N17.9 - Acute kidney failure, unspecified (4) Acute UTI: Status: Acute Code(s): N39.0 - Urinary tract infection, site not specified (5) HTN (hypertension): Status: Acute Code(s): I10 - Essential (primary) hypertension Additional A&P Information Additional A&P Information: Gram negative sepsis with toxic metabolic encephalopathy due to UTI: Blood cultures and urine culture this morning ESBL E. coli. After blood cultures remain positive antibiotics were already changed to Primaxin yesterday. We will continue with Primaxin at renal dose. Repeat blood cultures. We will continue blood cultures daily till we have 2 sets negative to determine the length of treatment. Patient will most likely need a PICC line once blood cultures clear for 14-day course of IV antibiotics after negative blood cultures. Contine to monitor vitals. O2 supplementation keeping saturation over 92%. David CARRO[place] on March 17. Patient mildly lethargic. Encouraged patient and family for oral diet. We will continue with aspiration precautions. Contact precautions for ESBL. SELVIN:2/2 sepsis and home losartan. Resolved. Creatinine 1.1 today with a baseline creatinine of 1. Discontinue IV fluids in view of mild fluid overload. Medications reviewed for nephrotoxic drugs. HTN: Blood pressures better controlled after starting 5 mg amlodipine. 1 number earlier this morning showing systolic blood pressure of 170. We will continue on 5 mg of amlodipine to avoid any low blood pressures because of gram- negative sepsis. Thrombocytopenia: Most likely secondary to sepsis. Cannot rule out HIT but following platelets count is not 50%. Platelets remain stable but low. Continue to monitor for any bleeding. Fall precautions. We will stop Lovenox for now given the fall and platelet counts and will continue to monitor. Shortness of breath: Most likely due to mild fluid overload. We will stop IV fluids. Will give IV Lasix 10 mg today and monitor intake and output. Hold psych meds in view of lethargy. hold methotrexate in view of SELVIN. Start on cardiac diet today. Aspiration precautions. SCDs for DVT PPx. Stop Lovenox due to thrombocytopenia Famotidine for PUD FC. Attestations Medical Necessity Statement*: Discontinued hospitalization for management of gram-negative bacteremia. 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
[2019-03-18] MEDS: FUROsemide 10 mg/mL SDV 2mL IVP (13:29)
[2019-03-18] MEDS: acetaminophen 325 mg Tablet 650 MG PO (21:24)
[2019-03-19] VITALS (10 sets, daily range): BP systolic 133–181; BP diastolic 70–82; PULSE 65–85; RESP 17–24; TEMP 36.3–37.6; O2SAT 93–98
[2019-03-19] MEDS: famotidine 20 mg/2 mL INJ IVP ×2 (02:50→17:02)
[2019-03-19 06:24] LABS: Basophils # 0.1 10^3/uL (0.0-0.1); Basophils % 0.4 %; Eosinophils # 0.1 10^3/uL (0.0-0.8); Eosinophils % 0.7 %; Hematocrit 33.4 % (37.0-47.0); Hemoglobin 10.9 g/dL (11.5-15.3); Lymphocytes # 1.8 10^3/uL (0.8-4.8); Lymphocytes % 11.9 %; Mean Corpuscular HGB Conc 32.6 g/dL (30.0-36.0); Mean Corpuscular Hemoglobin 32.2 pg (28.0-34.0); Mean Corpuscular Volume 98.8 fL (81-99); Mean Platelet Volume 10.5 fL (7.4-10.4); Monocytes # 1.1 10^3/uL (0.2-0.9); Monocytes % 7.6 %; Neutrophils # 10.4 10^3/uL (1.8-7.7); Neutrophils % 70.7 %; Nucleated Red Blood Cells % 0 %; Platelet Count 50 10^3/cmm (130-400); Red Blood Count 3.38 10^6/uL (4.1-5.3); Red Cell Distribution Width 14.5 % (12.1-15.1); White Blood Count 14.7 10^3/uL (4.0-10.0)
[2019-03-19 06:35] LABS: Alanine Aminotransferase 17 U/L (0-33); Albumin Level 2.5 g/dL (3.5-5.2); Alkaline Phosphatase 133 IU/L (35-105); Anion Gap 12.3 (5-19); Aspartate Amino Transferase 29 U/L (0-32); Blood Urea Nitrogen 25 mg/dL (8-23); Calcium 9.7 mg/Dl (8.8-10.2); Carbon Dioxide 21 mmol/L (22-29); Chloride 113 mmol/L (98-107); Globulin 3.1 g/dL (1.3-4.6); Glucose 164 mg/dL (74-106); Potassium 3.3 mmol/L (3.5-5.1); Sodium 143 mmol/L (136-145); Total Bilirubin 1.7 mg/dL (0.15-1.2); Total Protein 5.6 g/dL (6.6-8.7)
[2019-03-19] MEDS: aspirin 81 mg EC Tablet PO (10:20)
[2019-03-19] MEDS: venlafaxine 75 mg Tablet PO (10:21)
[2019-03-19] MEDS: amlodipine 5 mg Tablet PO (10:21)
--- NOTE | 2019-03-19 12:14 | PM.PN ---
Subjective Subjective: Interval history: No acute events overnight. On evaluation this morning patient is more awake, lying comfortably in bed is alert and oriented to self, place but is not really sure why she is in the hospital and has been intermittently confused as per the daughter who is bedside. Patient denies of having any nausea, vomiting, abdominal pain, dysuria but states he is not hungry at the moment. As per the daughter patient did not eat much of her breakfast. Medications: Reviewed: Yes (Will discontinue Lovenox as platelet counts trending down.) Vitals/I&O/Wt Last Vital Signs Temp 97.5 F L 03/19/19 11:24 Pulse 85 03/19/19 11:24 Resp 18 03/19/19 11:24 BP 150/74 03/19/19 11:24 Pulse Ox 98 03/19/19 11:24 03/18/19 03/19/19 03/19/19 22:59 06:59 14:59 Intake Total 340 / 820 340 / 1160 240 / 240 Balance 340 / 820 340 / 1160 240 / 240 Physical Exam Narrative: EXAM NARRATIVE: EXAM NARRATIVE: General: No acute distress, AO x3, more awake. HEENT: PERRLA, pupils bilaterally equal and reactive Chest: Normal vesicular breath sounds, bilateral lower zone fine crackles present, equal good air entry bilaterally CVS: S1-S2 regular, no murmurs, no tachycardia, no gallops, no rubs Abdomen: Soft, nontender, no organomegaly, bowel sounds present,ghotra catheter present Neuro: No focal deficits, no facial deformity, AO x3, power 3/5 in all limbs Urinary Catheter Management^: Ghotra: Cath Placed During This Visit: no Data Micro: Micro: Microbiology 03/18/19 05:44 Blood Culture - Pr eliminary Blood NEGATIVE TO NGOZI E 03/18/19 05:48 Blood Culture - Pr eliminary Blood NEGATIVE TO NGOZI E 03/15/19 11:40 Urine Culture - Fi nal Urine,Clean Catch Escherichia col i esbl 03/15/19 11:40 Blood Culture - Pr eliminary Blood Escherichia col i esbl 03/15/19 11:32 Blood Culture - Pr eliminary Blood Escherichia col i esbl 03/16/19 21:20 Blood Culture - Pr eliminary Blood Gram Negative R ods 03/16/19 21:26 Blood Culture - Pr eliminary Blood Gram Negative R ods A&P Assessment and plan (1) Gram negative sepsis: Status: Acute Code(s): A41.50 - Gram-negative sepsis, unspecified (2) Altered mental status: Status: Acute Qualifiers: Altered mental status type: somnolence Qualified Code(s): R40.0 - Somnolence Code(s): R41.82 - Altered mental status, unspecified (3) SELVIN (acute kidney injury): Status: Acute Code(s): N17.9 - Acute kidney failure, unspecified (4) Acute UTI: Status: Acute Code(s): N39.0 - Urinary tract infection, site not specified (5) HTN (hypertension): Status: Acute Code(s): I10 - Essential (primary) hypertension Additional A&P Information Additional A&P Information: Gram negative sepsis with toxic metabolic encephalopathy due to UTI: Blood cultures and urine culture this morning ESBL E. coli. After blood cultures remain positive antibiotics were already changed to Primaxin yesterday. While being on Primaxin patient has remained hemodynamically stable, afebrile but her white count is trending up. Patient has been getting to 50 mg every 6 hours which was renally dosed. But most likely patient needs a higher CHRIS so will increase the dose to 500 mg every 6 hours and monitor renal functions closely. Repeat blood cultures. We will continue blood cultures daily till we have 2 sets negative to determine the length of treatment. Patient will most likely need a PICC line once blood cultures clear for 14-day course of IV antibiotics after negative blood cultures. Contine to monitor vitals. O2 supplementation keeping saturation over 92%. David CARRO[place] on March 17. Patient more awake today. Encouraged patient and family for oral diet. We will continue with aspiration precautions. Contact precautions for ESBL. SELVIN:2/2 sepsis and home losartan. Resolved. Creatinine 1.1 today with a baseline creatinine of 1. Will monitor renal functions with higher dose of Primaxin. HTN: Blood pressures better controlled after starting 5 mg amlodipine. We will continue on 5 mg of amlodipine to avoid any low blood pressures because of gram-negative sepsis. Thrombocytopenia: Most likely secondary to sepsis. Cannot rule out HIT but following platelets count is not 50%. Platelets remain stable but low. Continue to monitor for any bleeding. Fall precautions. We will stop Lovenox for now given the fall and platelet counts and will continue to monitor. Shortness of breath: Resolved after stopping IV fluids and 10 mg of Lasix yesterday. Hold psych meds in view of lethargy. hold methotrexate in view of SELVIN. Continue on cardiac diet.. Aspiration precautions. SCDs for DVT PPx. Stop Lovenox due to thrombocytopenia Famotidine for PUD FC. Attestations Medical Necessity Statement*: Needs continued hospitalization for management of ESBL E. coli bacteremia Time Spent in Patient Care: 16 - 35 minutes Coding Level of Care Code Acute Disc Pad Knockout Worker for [facility] Fwd Diagnoses Gram negative sepsis A41.50 Altered mental status R40.0 Altered mental status type: somnolence SELVIN (acute kidney injury) N17.9 Acute UTI N39.0 HTN (hypertension) I10
[2019-03-20] VITALS (11 sets, daily range): BP systolic 132–181; BP diastolic 71–89; PULSE 71–81; RESP 16–20; TEMP 35.9–37.3; O2SAT 95–99
[2019-03-20] MEDS: famotidine 20 mg/2 mL INJ IVP ×2 (03:44→14:18)
[2019-03-20 04:10] LABS: Basophils # 0.1 10^3/uL (0.0-0.1); Basophils % 0.3 %; Eosinophils # 0.1 10^3/uL (0.0-0.8); Eosinophils % 0.6 %; Hematocrit 30.2 % (37.0-47.0); Lymphocytes # 2.1 10^3/uL (0.8-4.8); Lymphocytes % 13.5 %; Mean Corpuscular HGB Conc 33.1 g/dL (30.0-36.0); Mean Corpuscular Hemoglobin 30.6 pg (28.0-34.0); Mean Corpuscular Volume 92.4 fL (81-99); Mean Platelet Volume 11.6 fL (7.4-10.4); Monocytes # 0.8 10^3/uL (0.2-0.9); Monocytes % 5.4 %; Neutrophils # 10.7 10^3/uL (1.8-7.7); Neutrophils % 68.8 %; Nucleated Red Blood Cells % 0 %; Platelet Count 59 10^3/cmm (130-400); Red Blood Count 3.27 10^6/uL (4.1-5.3); Red Cell Distribution Width 14.4 % (12.1-15.1); White Blood Count 15.5 10^3/uL (4.0-10.0)
[2019-03-20 04:17] LABS: Alanine Aminotransferase 17 U/L (0-33); Alkaline Phosphatase 130 IU/L (35-105); Anion Gap 14.1 (5-19); Aspartate Amino Transferase 28 U/L (0-32); Blood Urea Nitrogen 22 mg/dL (8-23); Calcium 9.3 mg/Dl (8.8-10.2); Carbon Dioxide 21 mmol/L (22-29); Chloride 111 mmol/L (98-107); Globulin 2.4 g/dL (1.3-4.6); Glucose 178 mg/dL (74-106); Potassium 3.1 mmol/L (3.5-5.1); Sodium 143 mmol/L (136-145); Total Bilirubin 1.6 mg/dL (0.15-1.2); Total Protein 5.4 g/dL (6.6-8.7)
[2019-03-20 05:49] LABS: Slide Review Slide Review Perform
[2019-03-20] MEDS: amlodipine 5 mg Tablet PO (09:17)
[2019-03-20] MEDS: venlafaxine 75 mg Tablet PO (09:17)
[2019-03-20] MEDS: aspirin 81 mg EC Tablet PO (09:17)
--- NOTE | 2019-03-20 10:55 | PC.SOCIAL ---
IMM Update Pg 2 of IMM given and explained to patient. Voiced understanding. Copy provided to patient and chart updated.
--- NOTE | 2019-03-20 12:06 | CT_ITS ---
WS: [id number] CT ABDOMEN PELVIS TECHNIQUE: Noncontrast CT of the abdomen and pelvis with coronal and sagittal reformatted images. CLINICAL INFORMATION: r/o obstrcutive uropathy COMPARISON: DLP: 1787.[address] scans at [facility] use at least one of these dose optimization techniques: automat ed exposure control; mA and/or kV adjustment per patient size (includes targeted exams where dose is matched to clinical indication); or iterative reconstruction. FINDINGS: Noncontrast liver is normal. Splenomegaly. Spleen measures 14.3 cm pole to pole. Small splenule. Calc ified subcarinal and right hilar lymph nodes. Fatty atrophy of the pancreas. Adrenal glands are rama l. No hydronephrosis. No obstructing renal or ureteral calculi. Pelvic phleboliths. Small amount of free fluid in the pelvis. Diverticulosis. No evidence of acute diverticulitis. No abdominal lymphadenopathy. No inguinal lymphadenopathy. 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 CT/CT kidney stone 60305 IMPRESSION: 1. No hydronephrosis. No obstructing renal or ureteral calculi. 2. Splenomegaly measuring 14.3 cm [id number]. 3. No abdominal lymphadenopathy. 4. Diverticulosis. No evidence of diverticulitis. 5. Small amount of free fluid in the pelvis. 6. Prior postoperative changes pedicle screw fixation L5-S1.
--- NOTE | 2019-03-20 18:16 | PM.PN ---
Subjective Subjective: Interval history: No new events. Patient remains afebrile and hemodynamically stable. She is awake alert and oriented. White blood cell count seem to be trending up to 15 again today. No complaints of urinary underlying obstruction. Medications: Reviewed: Yes Vitals/I&O/Wt Last Vital Signs Temp 98.4 F 03/20/19 15:57 Pulse 76 03/20/19 15:57 Resp 18 03/20/19 15:57 BP 132/71 03/20/19 15:57 Pulse Ox 96 03/20/19 15:57 03/20/19 03/20/19 03/20/19 06:59 14:59 22:59 Intake Total 100 / 760 700 / 700 100 / 800 Balance 100 / 610 700 / 700 100 / 800 Weight last 48 hrs Weight 86.999 kg Weight 72.983 kg Weight 86.863 kg Physical Exam Narrative: EXAM NARRATIVE: GEN: Awake, alert and oriented, no acute distress CVS: S1S@ N RS: CTA B/L Abd: Soft, nt/nd , bs+ STORAGE BATTERY CHARGER: no focal neuro deficits Urinary Catheter Management^: Hernandez: Cath Placed During This Visit: no Data Micro: Micro: Microbiology 03/16/19 21:20 Blood Culture - Pr eliminary Blood Escherichia col i esbl 03/16/19 21:26 Blood Culture - Pr eliminary Blood Escherichia col i esbl A&P Assessment and plan (1) Gram negative sepsis: Status: Acute Code(s): A41.50 - Gram-negative sepsis, unspecified (2) Altered mental status: Status: Acute Qualifiers: Altered mental status type: somnolence Qualified Code(s): R40.0 - Somnolence Code(s): R41.82 - Altered mental status, unspecified (3) SELVIN (acute kidney injury): Status: Acute Code(s): N17.9 - Acute kidney failure, unspecified (4) Acute UTI: Status: Acute Code(s): N39.0 - Urinary tract infection, site not specified (5) HTN (hypertension): Status: Acute Code(s): I10 - Essential (primary) hypertension Additional A&P Information Gram negative sepsis with toxic metabolic encephalopathy due to UTI: Blood cultures and urine culture ESBL E. coli. Currently appropriately covered with Primaxin. While being on Primaxin patient has remained hemodynamically stable, afebrile but her white count is trending up. We will repeat a CT of her abdomen to ensure there is no ongoing urinary obstruction that may be contributing to elevated white blood cell count. Assuming white blood cell count trends down and patient's blood cultures from the 12th remain clear, we will plan to discharge patient with a 14-day course of IV ertapenem. O2 supplementation keeping saturation over 92%. Contact precautions for ESBL. SELVIN:Resolved. HTN Blood pressures better controlled after starting 5 mg amlodipine. Thrombocytopenia: Most likely secondary to sepsis. Cannot rule out HIT but following platelets count is not 50%. Platelets remain stable but low. Continue to monitor for any bleeding. Fall precautions. We will stop Lovenox for now given the fall and platelet counts and will continue to monitor. Hold psych meds in view of lethargy. hold methotrexate in view of SELVIN. Continue on cardiac diet.. Aspiration precautions. SCDs for DVT PPx. Stop Lovenox due to thrombocytopenia Famotidine for PUD FC. Attestations Medical Necessity Statement*: Remains admitted for management of gram-negative sepsis, leukocytosis currently increasing undergoing evaluation. Coding Level of Care Code Acute Dehydrogenation Converter Operator for [facility] Fwd Diagnoses Gram negative sepsis A41.50 Altered mental status R40.0 Altered mental status type: somnolence SELVIN (acute kidney injury) N17.9 Acute UTI N39.0 HTN (hypertension) I10
[2019-03-21] VITALS (9 sets, daily range): BP systolic 122–173; BP diastolic 67–82; PULSE 75–83; RESP 16–24; TEMP 36.3–36.9; O2SAT 96–100; BMI 35.0
[2019-03-21] MEDS: famotidine 20 mg/2 mL INJ IVP ×2 (02:51→16:44)
--- NOTE | 2019-03-21 09:21 | PM.PN ---
Subjective Subjective: Interval history: Patient remains afebrile and hemodynamically stable. White count climbing up to 18 today. No acute overnight events. Thrombocytopenia improving. Patient also reports 2-3 episodes of diarrhea since this morning. No complaints of pain anywhere. Daughter reports history today that patient has had on and off drainage of bile-like fluid from a possible sinus tract in the right upper quadrant. She states this is been ongoing for many years. She has not noticed any recent discharge however excoriation is seen over the site and states that she cannot be sure if she was having this more recently. Medications: Reviewed: Yes Vitals/I&O/Wt Last Vital Signs Temp 97.4 F L 03/21/19 04:00 Pulse 82 03/21/19 08:03 Resp 17 03/21/19 08:03 BP 162/82 03/21/19 04:00 Pulse Ox 98 03/21/19 08:03 03/20/19 03/21/19 03/21/19 22:59 06:59 14:59 Intake Total 320 / 1020 100 / 1120 Output Total 150 / 150 Balance 170 / 870 100 / 970 Weight last 48 hrs Weight 86.999 kg Weight 72.983 kg Weight 86.863 kg Physical Exam Narrative: EXAM NARRATIVE: GEN: Awake, alert and oriented, no acute distress CVS: S1S2 N RS: CTA B/L Abd: Soft, nt/nd , bs+ COOK FISH EGGS: no focal neuro deficits Urinary Catheter Management^: Hernandez: Cath Placed During This Visit: no Data Micro: Micro: Microbiology 03/16/19 21:20 Blood Culture - Pr eliminary Blood Escherichia col i esbl 03/16/19 21:26 Blood Culture - Pr eliminary Blood Escherichia col i esbl A&P Assessment and plan (1) Gram negative sepsis: Status: Acute Code(s): A41.50 - Gram-negative sepsis, unspecified (2) Altered mental status: Status: Acute Qualifiers: Altered mental status type: somnolence Qualified Code(s): R40.0 - Somnolence Code(s): R41.82 - Altered mental status, unspecified (3) SELVIN (acute kidney injury): Status: Acute Code(s): N17.9 - Acute kidney failure, unspecified (4) Acute UTI: Status: Acute Code(s): N39.0 - Urinary tract infection, site not specified (5) HTN (hypertension): Status: Acute Code(s): I10 - Essential (primary) hypertension Additional A&P Information Gram negative sepsis with toxic metabolic encephalopathy due to UTI: Blood cultures and urine culture ESBL E. coli. Currently appropriately covered with Primaxin. While being on Primaxin patient has remained hemodynamically stable, afebrile but her white count is trending up, now up to [address] of her abdomen did not show any obstruction within the urinary tract. Note however was made of some free pelvic fluid which was not present on initial CT. Above findings were discussed with radiology. 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 no evidence of the latter could be seen on noncontrast studies that have been performed already, however given that patient's white count continues to rise in spite of clinical improvement I would want to rule out persisting intra-abdominal sources. Therefore we will proceed with CT of the chest abdomen pelvis with contrast. Prior to the CT we will try to obtain a C. difficile PCR from the stool as C. difficile infection could also explain her rising white count. O2 supplementation keeping saturation over 92%. Contact precautions for ESBL. SELVIN:Resolved. HTN Blood pressures better controlled after starting 5 mg amlodipine. Thrombocytopenia: Most likely secondary to sepsis. Now improving. Lovenox on hold in case HIT was contributing. Continue on cardiac diet.. Aspiration precautions. SCDs for DVT PPx. Stop Lovenox due to thrombocytopenia Famotidine for PUD FC. Attestations Medical Necessity Statement*: Gram-negative septicemia improving however leukocytosis trending up. Ongoing evaluation for persistent sources of infection. Coding Level of Care Code Acute Parole Hearing Officer for g Fwd Diagnoses Gram negative sepsis A41.50 Altered mental status R40.0 Altered mental status type: somnolence SELVIN (acute kidney injury) N17.9 Acute UTI N39.0 HTN (hypertension) I10
[2019-03-21 11:12] LABS: Basophils # 0.1 10^3/uL (0.0-0.1); Basophils % 0.4 %; Eosinophils # 0.1 10^3/uL (0.0-0.8); Eosinophils % 0.5 %; Hematocrit 34.4 % (37.0-47.0); Hemoglobin 11.3 g/dL (11.5-15.3); Lymphocytes # 2.3 10^3/uL (0.8-4.8); Lymphocytes % 12.4 %; Mean Corpuscular HGB Conc 32.8 g/dL (30.0-36.0); Mean Corpuscular Hemoglobin 30.9 pg (28.0-34.0); Mean Platelet Volume 11.5 fL (7.4-10.4); Monocytes # 0.6 10^3/uL (0.2-0.9); Monocytes % 3.5 %; Neutrophils # 12.6 10^3/uL (1.8-7.7); Neutrophils % 68.9 %; Nucleated Red Blood Cells % 0 %; Platelet Count 104 10^3/cmm (130-400); Red Blood Count 3.66 10^6/uL (4.1-5.3); Red Cell Distribution Width 14.8 % (12.1-15.1); White Blood Count 18.2 10^3/uL (4.0-10.0)
[2019-03-21] MEDS: venlafaxine 75 mg Tablet PO (11:15)
[2019-03-21] MEDS: amlodipine 5 mg Tablet PO (11:15)
[2019-03-21] MEDS: aspirin 81 mg EC Tablet PO (11:15)
[2019-03-21 11:22] LABS: Alanine Aminotransferase 20 U/L (0-33); Albumin Level 3.3 g/dL (3.5-5.2); Alkaline Phosphatase 173 IU/L (35-105); Anion Gap 15.7 (5-19); Aspartate Amino Transferase 29 U/L (0-32); Blood Urea Nitrogen 16 mg/dL (8-23); Calcium 9.8 mg/Dl (8.8-10.2); Carbon Dioxide 22 mmol/L (22-29); Chloride 104 mmol/L (98-107); Globulin 3.7 g/dL (1.3-4.6); Glucose 124 mg/dL (74-106); Sodium 139 mmol/L (136-145); Total Bilirubin 1.2 mg/dL (0.15-1.2)
[2019-03-21 11:44] LABS: Slide Review Slide Review Perform
[2019-03-21 11:46] LABS: Absolute Segmented Neutrophil 12.7 10/cmm (1.6-7.1); Anisocytosis 1+; Band Neutrophils Absolute 1.8 10^3/cmm (0.0-1.2); Lymphocytes 9 %; Monocytes Absolute 0.4 10^3/cmm (0.1-0.6); Platelet Estimate Decreased (Normal); Polychromasia 1+; Segmented Neutrophils 70 %; Total Cells Counted 100 (0-100)
[2019-03-21 11:48] LABS: Potassium 2.7 mmol/L (3.5-5.1)
--- NOTE | 2019-03-21 15:57 | XR_ITS ---
WS: [id number] PORTABLE CHEST HISTORY: PICC PLACEMENT COMPARISON: 03/15/2019 RIGHT PICC line has been placed with tip in the mid SVC. No complications. Slightly better aeration bilaterally. LEFT congestion. No pleural effusion or pneumothorax. Cardiac size: Normal. Mediastinum/Aorta: Mild atherosclerosis aorta. No osseous abnormality seen. XR/XR chest 1V portable [id number] IMPRESSION: Satisfactory placement of a right-sided PICC line.
[2019-03-21] MEDS: potassium chloride premix 40 MEQ/100 ML PREMIX 25 MEQ IV ×2 (16:48→21:24)
[2019-03-21] MEDS: lidocaine 1% INJ 20 mL 5 ML IV (16:50)
--- NOTE | 2019-03-21 17:21 | PC.NURSE ---
PICC RIGHT arm in and ready for use. Primary nurse notified.
--- NOTE | 2019-03-21 18:34 | CTR_ITS ---
PROCEDURE INFORMATION: Exam: CT Chest With Contrast Exam date and time: 03/21/2019 6:48 PM Age: 83 years old Clinical indication: Abnormal findings; Abnormal lab test; Abnormal diagnostic tests; Abnormal ekg; Prior surgery; Surgery type: Cholecystectomy. Lumbar. Appendectomy; Patient HX: Elevated wbc and septicemia; Additional info: Gram negative septicemia, rising wbc, R/O intra-abdominal source TECHNIQUE: Imaging protocol: Computed tomography of the chest with intravenous contrast. Total DLP: 1984.12 mGy-cm Radiation optimization: All CT scans at this facility use at least one of these dose optimization techniques: automated exposure control; mA and/or kV adjustment per patient size (includes targeted exams where dose is matched to clinical indication); or iterative reconstruction. Contrast material: VISI 320; Contrast volume: 95 ml; Contrast route: PICC; COMPARISON: CR XR chest 1V portable [id number] 03/21/2019 4:17 PM FINDINGS: Heart size within normal limits. Calcifications noted at the periphery of the mitral valve. Enlarged right paratracheal lymph node measuring 1.6 cm short axis on series 2, image 17. Calcified lymph nodes right of the esophagus. Calcified right tracheobronchial lymph nodes. These findings are consistent with old granulomatous disease. Minimal atherosclerotic calcification of the thoracic aorta. The major mediastinal vessels are otherwise unremarkable. Mild interstitial thickening throughout both lungs, suggesting pulmonary edema. Mild atelectasis and/or pneumonia in the right lower lobe posteriorly as well as the left lower lobe posteriorly. No pneumothorax. Small bilateral pleural effusions (right is larger). Regional bones are unremarkable. IMPRESSION: 1. Mild atelectasis and/or pneumonia in the right lower lobe posteriorly as well as the left lower lobe posteriorly. 2. Mild interstitial thickening throughout both lungs, suggesting pulmonary edema. 3. Small bilateral pleural effusions (right is larger). PROCEDURE INFORMATION: Exam: CT Abdomen And Pelvis With Contrast Exam date and time: 03/21/2019 6:48 PM Age: 83 years old Clinical indication: Abnormal findings; Abnormal lab test; Abnormal diagnostic tests; Abnormal ekg; Prior surgery; Surgery type: Cholecystectomy. Lumbar. Appendectomy; Patient HX: Elevated wbc and septicemia; Additional info: Gram negative septicemia, rising wbc, R/O intra-abdominal source TECHNIQUE: Imaging protocol: Computed tomography of the abdomen and pelvis with intravenous contrast. Total DLP: 1983.12 mGy-cm Radiation optimization: All CT scans at this facility use at least one of these dose optimization techniques: automated exposure control; mA and/or kV adjustment per patient size (includes targeted exams where dose is matched to clinical indication); or iterative reconstruction. Contrast material: VISI 320; Contrast volume: 95 ml; Contrast route: PICC; COMPARISON: CR XR chest 1V portable [id number] 03/21/2019 4:17 PM FINDINGS: A few small calcified granulomata are noted in the liver. Many small calcified granuloma noted in the spleen. The pancreas, adrenal glands, and kidneys are unremarkable. The appendix is not identified, consistent with appendectomy. No evidence of bowel obstruction. Mild inflammatory change/edema near the mid ascending colon (series 3, image 48). This could indicate diverticulitis or focal colitis (such as from infection or inflammatory bowel disease). Diverticulosis of the descending and sigmoid colon without identified diverticulitis in this region. No free intraperitoneal air identified. Small amount of perihepatic and perisplenic free fluid. Mild free fluid in the left paracolic gutter and pelvis. These findings are abnormal but nonspecific. The bladder is unremarkable. The uterus is not seen and is presumed surgically absent. The abdominal aorta is nonaneurysmal. Mild degenerative changes of the lumbar spine. Status post posterior surgical fusion of L5-S1. Status post L5 laminectomy. If additional or more detailed information is needed, an addendum can be generated on request. CT/CT chest abd pel w con* IMPRESSION: 1. Mild inflammatory change/edema near the mid ascending colon. This could indicate diverticulitis or focal colitis (such as from infection or inflammatory bowel disease). No perforation or abscess identified. 2. Small amount of perihepatic and perisplenic free fluid. Mild free fluid in the left paracolic gutter and pelvis. These findings are abnormal but nonspecific. Radiation Dose CTDIVOL = (mGy): DLP = 1983.12~1983.12 (mGy-cm)
--- NOTE | 2019-03-22 02:36 | PC.PHAR ---
Renal dosing for Primaxin. Changed from 500 mg q6h to 250 mg q6h due to CRCL of 33.12
[2019-03-22 02:41] VITALS: BP 138/85; PULSE 79; RESP 24; TEMP 36.5; O2SAT 98
[2019-03-22] MEDS: famotidine 20 mg/2 mL INJ IVP ×2 (03:53→14:52)
[2019-03-22 04:00] VITALS: BP 147/76; PULSE 73; RESP 20; TEMP 36.6; O2SAT 98
[2019-03-22 04:40] LABS: Basophils % 0.2 %; Eosinophils # 0.1 10^3/uL (0.0-0.8); Eosinophils % 0.4 %; Hematocrit 27.8 % (37.0-47.0); Hemoglobin 9.1 g/dL (11.5-15.3); Lymphocytes # 1.9 10^3/uL (0.8-4.8); Lymphocytes % 15.2 %; Mean Corpuscular HGB Conc 32.7 g/dL (30.0-36.0); Mean Corpuscular Volume 97.9 fL (81-99); Mean Platelet Volume 12.3 fL (7.4-10.4); Monocytes # 0.5 10^3/uL (0.2-0.9); Monocytes % 4.1 %; Neutrophils # 8.7 10^3/uL (1.8-7.7); Neutrophils % 70.3 %; Nucleated Red Blood Cells % 0.2 %; Platelet Count 78 10^3/cmm (130-400); Red Blood Count 2.84 10^6/uL (4.1-5.3); Red Cell Distribution Width 14.6 % (12.1-15.1); White Blood Count 12.4 10^3/uL (4.0-10.0)
[2019-03-22 05:16] LABS: Alanine Aminotransferase 14 U/L (0-33); Albumin Level 2.6 g/dL (3.5-5.2); Alkaline Phosphatase 139 IU/L (35-105); Aspartate Amino Transferase 23 U/L (0-32); Blood Urea Nitrogen 15 mg/dL (8-23); Calcium 9.1 mg/Dl (8.8-10.2); Carbon Dioxide 22 mmol/L (22-29); Chloride 106 mmol/L (98-107); Glucose 146 mg/dL (74-106); Sodium 138 mmol/L (136-145); Total Bilirubin 1.2 mg/dL (0.15-1.2); Total Protein 5.6 g/dL (6.6-8.7)
[2019-03-22] MEDS: iodixanol 320 mg/mL 100mL Btl IV (06:26)
[2019-03-22 06:55] LABS: Slide Review Slide Review Perform
[2019-03-22 08:00] VITALS: BP 157/86; PULSE 76; RESP 18; TEMP 36.4; O2SAT 97
[2019-03-22] MEDS: aspirin 81 mg EC Tablet PO (08:50)
[2019-03-22] MEDS: amlodipine 5 mg Tablet PO (08:50)
[2019-03-22] MEDS: venlafaxine 75 mg Tablet PO (08:50)
[2019-03-22 09:05] VITALS: PULSE 84; RESP 16; O2SAT 98
[2019-03-22 12:00] VITALS: BP 133/67; PULSE 85; RESP 20; TEMP 36.8; O2SAT 97
--- NOTE | 2019-03-22 14:00 | PC.SOCIAL ---
IMM Update Pg 2 of IMM given and explained to patient and family. Copy provided, copy in chart updated.
--- NOTE | 2019-03-22 16:21 | PC.NURSE ---
Discharge Report called to MAY Mendez. Nurse verbalized understanding of the discharge information and did not have any further questions. Family to transport patient.
[2019-03-22 16:33] VITALS: BP 133/67; PULSE 85; RESP 20; TEMP 528.3; TEMP 983; O2SAT 97
--- NOTE | 2019-03-22 22:41 | PM.DCS ---
Discharge Providers Date of Admission: 03/15/19 15:22 Date of Discharge: 03/22/19 Attending Provider at Admission: Sarah Florentino MD Attending Provider at Discharge: Sarah Florentino MD Primary Care Provider: Baldo Lara MD Diagnoses at Discharge Discharge Diagnosis (1) Gram negative sepsis: Status: Acute (2) Altered mental status: Status: Acute Qualifiers: Altered mental status type: somnolence Qualified Code(s): R40.0 - Somnolence (3) SELVIN (acute kidney injury): Status: Acute (4) Acute UTI: Status: Acute (5) HTN (hypertension): Status: Acute Reason for Visit Reason for Visit: Reason For Visit: Fever, UTI Hospital Course Discharge Summary: Nadja Dimas is a 83 year old female with PMH Depression , GERD , HTN ,Hypothyroidism , GERALDO who presented to the ER with family for AMS over 2 days prior to presentation. Work up was significant for +UA, urine culture and blood culture that grew ESBL E.coli. She was treated with Primaxin during course of admission and received iv hydration initially. SELVIN was also noted on admission, which has since resolved. She responded well to treatment and returned back to baseline mental status in ~48 hrs. 2 days prior to discharge she started to develop 2-3 episodes of diarrhea with increasing white count and was diagnosed with uncomplicated C diff colitis for which she has been started on po vancomycin. She is being discharged with advise to complete a 14 day course of abx with iv Ertapenem (03/18-04/01). PICC line was placed on 03/22. Po vancomycin to continue 4 days beyond the last day . Diarrhea is nearly resolved. She is clinically improved compared to admission. CT was performed on admission to r/o ureteric obstruction and was negative. CT abdomen was perfromed yesetrday which showed Mild inflammatory change/edema near the mid ascending colon. This could indicate diverticulitis or focal colitis. No perforation or abscess identified. 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 Urinary Catheter Management^: Hernandez: Cath Placed During This Visit: no Discharge Data Data Completed and Pending: Completed Studies During Hospitalization Category Date Time Status CT abdomen pelvis wo con 21317 Urge nt Cat Scan 03/15/19 11:[address] chest abd pel w con* Routine Cat Scan 03/21/19 18:[address] head wo con* 7 0450 Urgent Cat Scan 03/15/19 11:[address] kidney stone 7 4176 Routine Cat Scan 03/20/19 12:06 Completed CXRP [XR chest 1V portable [id number]] S tat Exams 03/21/19 15:57 Completed XR chest 1V judit ble [id number] Stat Exams 03/15/19 11:12 Completed Pending at discharge Category Date Time Status Blood Culture AM LABS Lab 03/18/19 05:44 Results Blood Culture AM LABS Lab 03/22/19 14:50 Results Blood Culture Sta t Lab 03/15/19 11:32 Results Blood Culture Sta t Lab 03/21/19 17:42 Results Labs from last 24 hours 03/22/19 03/22/19 03:00 03:00 WBC 12.4 H RBC 2.84 L Hgb 9.1 L Hct 27.8 L MCV 97.9 MCH 32.0 MCHC 32.7 RDW 14.6 Plt Count 78 L MPV 12.3 H Neut % (Auto) 70.3 Lymph % (Auto) 15.2 Robeson % (Auto) 4.1 Eos % (Auto) 0.4 Baso % (Auto) 0.2 Neut # (Auto) 8.7 H Lymph # (Auto) 1.9 Robeson # (Auto) 0.5 Eos # (Auto) 0.1 Baso # (Auto) 0.0 Nucleated RBC % (a uto) 0.2 Nucleated RBCs # 0.0 Sodium 138 Potassium 4.0 Chloride 106 Carbon Dioxide 22 Anion Gap 14.0 BUN 15 Creatinine 0.8 Glucose 146 H Calcium 9.1 Total Bilirubin 1.2 AST 23 ALT 14 Alkaline Phosphata se 139 H Total Protein 5.6 L Albumin 2.6 L Globulin 3.0 Vitals: Last Vital Signs Temp 983 F H 03/22/19 16:33 Pulse 85 03/22/19 16:33 Resp 20 H 03/22/19 16:33 BP 133/67 03/22/19 16:33 Pulse Ox 97 03/22/19 16:33 Discharge Plan Discharge Patient Disposition: Xfer SNF Condition: Stable Prescriptions: New ertapenem 1 gram recon soln 1 gm IV DAILY 10 Days RF: 0 acetaminophen 325 mg Tablet 650 mg PO Q4H PRN (Reason: Mild Pain Or Increase Temp) Qty: 0 RF: 0 amlodipine 5 mg Tablet 5 mg PO DAILY 30 Days Qty: 30 RF: 0 bisacodyl 5 mg Tablet,Delayed Release (Dr/Ec) 10 mg PO DAILY PRN (Reason: Constipation) Qty: 0 RF: 0 vancomycin 250 mg capsule 250 mg PO QID 14 Days Qty: 56 RF: 0 Continued venlafaxine 75 mg tablet extended release 24 hr 75 mg PO DAILY RF: 0 tolterodine [Detrol LA] 2 mg capsule,extended release 24hr 2 mg PO BEDTIME RF: 0 pantoprazole 40 mg tablet,delayed release (DR/EC) 40 mg PO BID RF: 0 losartan 100 mg tablet 100 mg PO DAILY RF: 0 albuterol sulfate [Ventolin HFA] 90 mcg/actuation HFA aerosol inhaler 2 puff INHALATION Q4H PRN (Reason: Shortness Of Breath) RF: 0 loratadine 10 mg capsule 10 mg PO DAILY PRN (Reason: Allergy Symptoms) RF: 0 folic acid 1 mg tablet See Rx Instructions .ROUTE .COMPLEX RF: 0 alprazolam 0.25 mg tablet See Rx Instructions .ROUTE .COMPLEX PRN (Reason: anxiety) RF: 0 methotrexate sodium 2.5 mg tablet See Rx Instructions PO .daily as directed RF: 0 doxepin 10 mg capsule 10 - 20 mg PO BEDTIME RF: 0 aspirin [Enteric Coated Aspirin] 81 mg tablet,delayed release (DR/EC) 81 mg PO DAILY RF: 0 Discontinued doxycycline hyclate 100 mg capsule 100 mg PO BID Qty: 10 RF: 0 Discharge Orders: Discharge Order (Routine); Ordered 03/22/19 Ordered By: Sarah Florentino Referrals: [facility] [Outside] Baldo Lara MD [Primary Care Provider] - Discharge Diet: Advance as tolerated Discharge Activity: Resume usual activity Patient Instructions: Laxative, Stimulant (By mouth), Amlodipine (By mouth), Vancomycin (By mouth), Ertapenem (Injection), Urinary Tract Infection in Women (DC), Sepsis (GEN) Discharge Date/Time: 03/22/19 16:30 Discharge Attestations Time Spent in Discharge Care*: greater than 30 min Quality Metrics Clinical Quality Measures During this hospital stay, did patient experience: None Coding Level of Care Code Acute 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
== END 2019-03-22 16:30 | disposition home or self-care (01) | DRG 871 ==
LOC: ER 15:21 → MEDSURG 15:59
PROVIDERS: Student in an Organized Health Care Education/Training Program; Admitting Provider Student in an Organized Health Care Education/Training Program; Emergency Provider Emergency Medicine; Family Provider Internal Medicine; PCP Internal Medicine; Visit Provider Student in an Organized Health Care Education/Training Program
DX: A41.50 Gram-negative sepsis, unspecified (principal); G92 Toxic encephalopathy; N39.0 Urinary tract infection, site not specified; N17.9 Acute kidney failure, unspecified; A04.72 Enterocolitis due to Clostridium difficile, not specified as recurrent; F32.9 Major depressive disorder, single episode, unspecified; K21.9 Gastro-esophageal reflux disease without esophagitis; I10 Essential (primary) hypertension; E03.9 Hypothyroidism, unspecified; G47.33 Obstructive sleep apnea (adult) (pediatric); D69.59 Other secondary thrombocytopenia; B96.20 Unspecified Escherichia coli [E. coli] as the cause of diseases classified elsewhere
CPT/HCPCS: 12345; 36415; 36416; 36592; 36600; 51702; 70450; 71045; 71260; 74176; 74177; 80048; 80053; 81001; 82140; 82803; 82962; 83605; 83735; 84484; 85007; 85025; 87040; 87077; 87086; 87186; 87205; 87493; 87804; 93005; 94640; 94660; 94664; 96360; 96361; 96372; 96374; 96375; 97110; 97161; 97530; 99283; C1751; J0131; J0696; J0743; J1650; J1940; J2001; J2405; J3370; J3480; J3490; J7030; J7050; J7611; Q9967

== ENCOUNTER → 2019-04-16 10:17 | Outpatient (BNVA) | payer MEDICARE, OTHER, SELFPAY | PROVIDERS: Family Provider Internal Medicine; PCP Internal Medicine; Visit Provider Internal Medicine | DX: N39.0 Urinary tract infection, site not specified (principal) | CPT/HCPCS: 81003; 87086 ==

== ENCOUNTER → 2019-07-16 08:43 | Outpatient (BNVA) | payer MEDICARE, OTHER, SELFPAY | PROVIDERS: Family Provider Internal Medicine; PCP Internal Medicine; Visit Provider Specialist | DX: R26.9 Unspecified abnormalities of gait and mobility (principal); I99.8 Other disorder of circulatory system; Z86.73 Personal history of transient ischemic attack (TIA), and cerebral infarction without residual deficits | CPT/HCPCS: 99213 ==

== ENCOUNTER → 2019-07-20 11:13 | Outpatient (BNVA) | payer MEDICARE, OTHER, SELFPAY | PROVIDERS: Family Provider Internal Medicine; PCP Internal Medicine; Visit Provider Dermatology | DX: Z79.899 Other long term (current) drug therapy (principal) | CPT/HCPCS: 80053; 85025 ==

== ENCOUNTER → 2019-09-03 12:02 | Outpatient (BNVA) | payer MEDICARE, OTHER, SELFPAY | PROVIDERS: Family Provider Internal Medicine; PCP Internal Medicine; Visit Provider Dermatology | DX: N39.0 Urinary tract infection, site not specified (principal); Z79.899 Other long term (current) drug therapy | CPT/HCPCS: 80053; 81001; 85025 ==

== ENCOUNTER 2019-10-22 22:20 | Emergency (ER) | payer MEDICARE, OTHER, SELFPAY ==
[2019-10-22 22:37] VITALS: BP 156/79; PULSE 73; RESP 17; TEMP 36.6; O2SAT 95; BMI 34.4
--- NOTE | 2019-10-22 23:10 | W.ED.GENADLT ---
HPI - General Adult General: Chief complaint: General Medical Stated complaint: SWELLING LEFT LEG/FOOT Time Seen by Provider: 10/22/19 23:08 History of Present Illness: HPI narrative: Patient is an 83-year-old female who comes to the ED with bilateral leg swelling. Patient has a past medical history of GERD hypertension and hypothyroidism. She does not currently take any blood thinners. Patient noticed swelling starting approximately a week ago. She noticed some clear fluid weeping from her legs and this past week as well. She noticed that her left leg appears to be a little more swollen than her right. In the last 2 to 3 days she noticed her skin on left foot was developing a red rash. Patient says she has sores on both right and left lower extremities but she has been dealing with those for the past 2 years and there is no acute change in this. Patient is already taking a medication for these chronic sores. Denies fever, chills, chest pain, shortness of breath, nausea/vomiting, bladder or bowel symptoms. Associated symptoms: Reports rash (left foot); Deny chest pain, dyspnea, headache(s), nausea, palpitations or vomiting Review of Systems Const: Denies: fever(s), chills or fatigue Eyes: Denies: change in vision or eye discomfort ENMT: Denies: throat pain, odynophagia, nasal discharge or nasal congestion Card: Denies: chest pain, palpitations, edema, swelling of feet/ankles, dyspnea on exertion or orthopnea Resp: Denies: dyspnea, productive cough or non-productive cough GI: Denies: abdominal pain, nausea, vomiting, diarrhea, constipation or hematochezia : Denies: flank pain, dysuria or hematuria Musc: Reports: extremity swelling (Both right and left lower extremity swelling.); Denies: neck pain or back pain Skin/Breast: Reports: rash (left foot) and skin tenderness (Left foot); Denies: new lesions Neuro: Denies: headache(s), numbness in extremities or weakness in extremities [facility] ED PFSH: Medical History Depression GERD (gastroesophageal reflux disease) HTN (hypertension) Hypothyroidism GERALDO (obstructive sleep apnea) Sepsis Family History Son Diabetes Brother Stroke Cancer Hypertension Sister Cancer Hypertension Social History Smoking and tobacco status: never smoked Alcohol intake: never Marital status: History of recent travel: No Current gender identity: Female Physical Exam Const: COMMON NORMALS: no acute distress, patient oriented x3 and alert GENERAL APPEARANCE: cooperative and comfortable HENMT: COMMON NORMALS: normocephalic HEAD & SCALP: normocephalic MOUTH: Normal oral and palatal mucosa present THROAT: posterior oropharynx normal and uvula midline Eye: COMMON NORMALS: Equal, round and reactive pupils present PUPIL: Yes Equal, round and reactive pupils present Neck/C-Spine: COMMON NORMALS: supple GENERAL: Yes normal visual inspection Resp: COMMON NORMALS: normal respiratory effort, No retractions, No use of accessory muscles and clear to auscultation bilaterally AUSCULTATION: clear to auscultation bilaterally Cardio: COMMON NORMALS: regular rate, regular rhythm, S1 normal heart sound present, S2 normal heart sound present, No gallops present (Cardio), No clicks present (Cardio), No murmurs present (Cardio) and Peripheral pulses 2+ throughout RATE: regular rate RHYTHM: regular rhythm HEART SOUNDS: S1 normal heart sound present and S2 normal heart sound present PERIPHERAL PULSES: Peripheral pulses 2+ throughout GI: COMMON NORMALS: Normal to inspection, nondistended, normoactive bowel sounds present, Soft to palpation, non-tender and no masses PALPATION: Yes Soft to palpation : COMMON NORMALS: Yes no CVA tenderness BLADDER/KIDNEY EXAM: Yes no CVA tenderness Back/Pelvis: COMMON NORMALS: no CVA tenderness Extremity: NARRATIVE EXTREMITY EXAM: Patient also has some red ulcer type sores. GENERAL: Yes edema (2+ pitting edema on lower extremities bilaterally. Edema starts at approximately the ankle and goes all the way up to just below the knee on both legs.) LEFT LOWER EXTREMITY: Yes foot & digits Left foot and digits: Yes inspection (Patient has some erythema of the skin on the left foot approximately over the midfoot.), Yes palpation (Skin is tender and warm upon palpation over rash on midfoot of left foot.) and Yes neurovascular exam (intact) Neuro: COMMON NORMALS: patient oriented x3 and moves all extremities SENSORIUM/ORIENTATION: Yes alert Skin: GENERAL SKIN EXAM: dry skin RASHES: rashes noted Left foot Rash type: Yes maculopapular Rash size (cm): 8 Rash location: on mid left foot Rash distribution: Yes asymmetrical Rash color: Yes erythematous Rash surface: Yes dry, Yes shiny and Yes warm Rash border: Yes smooth Rash tenderness: Yes mild Rash findings consistent with: Yes cellulitis Course Vital Signs: Vital signs: Vital Signs Temperature 97.8 F 10/22/19 22:37 Pulse Rate 78 10/23/19 00:31 Respiratory Rate 16 10/23/19 00:31 Blood Pressure 161/81 10/23/19 00:31 Pulse Oximetry 97 10/23/19 00:31 MDM - General Adult MDM Narrative: Medical decision making narrative: Patient is an 83-year-old male who comes to the ED with bilateral lower extremity edema with left foot rash forming as well. Physical exam showed a patient in no acute distress or pain. She is not short of breath and has no past history of blood clots. Physical exam showed some possible developing cellulitis on left foot with erythema and warmth and tenderness to touch. She has 2+ pitting edema in both right and left lower extremities. Ultrasound venous duplex of left and right lower extremities showed no DVTs or blood clots. Patient diagnosed with cellulitis and lower leg edema and given a prescription for Bactrim. Patient told to follow-up with PCP in the next 7 days for reevaluation. Return to ED precautions given. Patient understood and agreed with plan. Imaging Data^: US Vascular: Attestation: I personally reviewed and interpreted this imaging study as follows: Radiologist's impression: Ultrasound venous duplex of both left and right lower extremities performed?prelim report showed no DVTs or blood clots seen. Discharge Plan Discharge Patient Disposition: Home Clinical Impression: Leg edema Cellulitis Qualifiers: Site of cellulitis: extremity Site of cellulitis of extremity: lower extremity Laterality: left Qualified Code(s): L03.116 - Cellulitis of left lower limb Condition: Stable Prescriptions: New Bactrim DS 800-160 mg tablet 1 tab PO BID 7 Days Qty: 14 RF: 0 No Action pantoprazole 40 mg tablet,delayed release (DR/EC) 40 mg PO BID RF: 0 albuterol sulfate [Ventolin HFA] 90 mcg/actuation HFA aerosol inhaler 2 puff INHALATION Q4H PRN (Reason: Shortness Of Breath) RF: 0 folic acid 1 mg tablet See Rx Instructions .ROUTE .COMPLEX RF: 0 alprazolam 0.25 mg tablet See Rx Instructions .ROUTE .COMPLEX PRN (Reason: anxiety) RF: 0 doxepin 10 mg capsule 10 - 20 mg PO BEDTIME RF: 0 fluconazole [Diflucan] 150 mg tablet 150 mg PO DAILY Qty: 7 RF: 0 loratadine 10 mg capsule 10 mg PO DAILY PRN (Reason: Allergy Symptoms) Qty: 90 RF: 3 tolterodine [Detrol LA] 2 mg capsule,extended release 24hr 2 mg PO BEDTIME Qty: 30 RF: 3 losartan 100 mg tablet 100 mg PO DAILY Qty: 90 RF: 3 venlafaxine 75 mg tablet extended release 24hr 75 mg PO DAILY Qty: 30 RF: 3 acetaminophen 325 mg Tablet 650 mg PO Q4H PRN (Reason: Mild Pain Or Increase Temp) Qty: 0 RF: 0 bisacodyl 5 mg Tablet,Delayed Release (Dr/Ec) 10 mg PO DAILY PRN (Reason: Constipation) Qty: 0 RF: 0 Discharge Orders: Discharge Order (Routine); Ordered 10/23/19 Ordered By: Jesse Guerrier Referrals: Baldo Lara MD [Primary Care Provider] - Discharge Diet: Regular Discharge Activity: Increase activity as tolerated Patient Instructions: Cellulitis (ED), Leg Edema (ED) Activity Restrictions/Additional Instructions: Follow-up with medical provider at your scheduled appointment this coming Tuesday for reevaluation. Take medications as prescribed. Return to the ER or your medical provider if condition worsens. Please read and understand discharge instructions. If any questions, please ask. 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
--- NOTE | 2019-10-22 23:11 | USCV_ITS ---
Nadja Dimas Age: 83 Gender: F : 1935 Exam Date: 10/22/2019 23:58 Ordering Phys: Jesse Guerrier Technologist: Emmanuel Gomez Exam Location: [facility] – [place]_ Indication: BILAT EDEMA HISTORY: Lower extremity pain. PROCEDURES: The venous duplex Doppler examination of both lower extremities was performed in the standard fashion. The following venous structures were evaluated: common femoral vein, profunda vein, proximal portion of the greater saphenous vein, superficial femoral vein, and the popliteal vein. In addition, the posterior tibial and peroneal trunk were evaluated. FINDINGS: Normal 2-D Doppler and augmentation and compressibility throughout the lower extremity venous structures. Additional imaging through the proximal calf veins also reveals no thrombus. Limited evaluation of the greater saphenous vein is patent with no thrombus. CONCLUSIONS No DVT bilateral lower extremities. Dr. Vicki Jay DO (Electronically Signed) Final Date: 23 October 2019 10:44 S
[2019-10-23 00:31] VITALS: BP 161/81; PULSE 78; RESP 16; O2SAT 97
[2019-10-23] MEDS: sulfamethoxazole-trimeth DS 160-800 mg Tablet 1 TAB PO (00:45)
== END 2019-10-23 00:45 | disposition home or self-care (01) ==
PROVIDERS: Emergency Provider Physician Assistant; PCP Internal Medicine
DX: L03.116 Cellulitis of left lower limb (principal); I10 Essential (primary) hypertension; R06.00 Dyspnea, unspecified
CPT/HCPCS: 12345; 93970; 99281; 99283

== ENCOUNTER 2020-05-07 12:43 | Outpatient (CLI) | payer MEDICARE, OTHER, SELFPAY ==
--- NOTE | 2020-05-07 12:59 | MR_ITS ---
WS: [id number] MRI HEAD WITH CONTRAST TECHNIQUE: Sagittal T1, T2 axial, T2 axial FLAIR, axial susceptibility weighted imaging, axial diffus ion weighted images, and coronal T2 images were obtained. Pre and post-T1 axial and post T1 coronal i mages. ADC and FSPGR images. CLINICAL INFORMATION: DEMENTIA COMPARISON: CT March 15, 2019 MRI FINDINGS: No evidence of restricted diffusion to suggest acute ischemia. Incidental T2 shine through in the rig ht periventricular white matter. Moderate small vessel changes. Moderate parenchymal volume loss. Chr onic lacunar infarct in the right ashley radiata. Small vessel changes in the prasanna. Chronic lacunar i nfarct left cerebellum. Normal vascular flow voids at the skull base. No extra axial fluid collection s. No evidence of mass or mass effect. Paranasal sinuses and mastoid air cells well aerated. Normal optic chiasm and pituitary infundibulum. Moderate to advanced symmetric atrophy involving the temporal lobes and hippocampal formations. Normal cavernous sinuses and Meckel's cave. No abnormal ga dolinium enhancement. Normal dural venous sinuses. MR/MR head wo/w con [id number] IMPRESSION: 1. No evidence of restricted diffusion to suggest acute ischemia. 2. Moderate small vessel changes with moderate parenchymal volume loss progres sed since 2018. 3. Small vessel changes in the prasanna. 4. 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 5. Moderate to advanced symmetric atrophy temporal lobes and hippocampal forma tions. 6. No abnormal gadolinium enhancement. 7. No hemosiderin on the susceptibly weighted images.
[2020-05-07] MEDS: gadobenate dimeglumine 20 mL vial IV (13:50)
== END 2020-05-07 12:44 | disposition home or self-care (01) ==
LOC: RADWPI 12:43
PROVIDERS: PCP Internal Medicine; Visit Provider Physician Assistant
DX: F03.90 Unspecified dementia, unspecified severity, without behavioral disturbance, psychotic disturbance, mood disturbance, and anxiety (principal); G31.9 Degenerative disease of nervous system, unspecified; I63.9 Cerebral infarction, unspecified
CPT/HCPCS: 70553; A9577

== ENCOUNTER 2020-05-25 07:32 | Emergency (ER) | payer MEDICARE, OTHER, SELFPAY ==
[2020-05-25 07:33] VITALS: BP 190/99; PULSE 77; RESP 17; TEMP 36.4; O2SAT 97; BMI 31.8
--- NOTE | 2020-05-25 07:42 | W.ED.EXTPRO ---
HPI - Extremity Problem General: Chief complaint: Extremity Problem,Nontraumatic Stated complaint: R HIP PAIN RADIATING DOWN R LEG Time Seen by Provider: 05/25/20 07:33 Source: patient and family Mode of arrival: wheelchair Limitations: no limitations History of Present Illness: HPI Narrative: Patient is an 84-year-old female who presents to ED today with a complaint of right hip pain. She states pain is been present over the past few days. She has not had any known injury or trauma. She states pain seems to start in the posterior lateral aspect of her hip and radiate down into her leg. She has not had any problems with sciatica previously. She denies lower back pain. Patient has been ambulatory without assistance. She denies lower extremity weakness. She is not having any issues with urinary retention or bowel incontinence. MD Complaint: extremity pain (R hip) Onset (ago): day(s) Pain Consistency: constant Location: right and lower extremity Severity scale (1-10): 10 Relieving factors: nothing Exacerbating factors: weight bearing and walking Associated symptoms: Reports no associated symptoms; Deny chest pain or fever(s) Review of Systems Const: Denies: fever(s), chills, fatigue or malaise Card: Denies: chest pain Resp: Denies: dyspnea GI: Denies: abdominal pain, nausea or vomiting : Denies: flank pain, difficulty voiding, dysuria, urinary frequency, urinary urgency or urinary hesitancy Musc: Reports: joint pain (R hip); Denies: neck pain, back pain, extremity pain, extremity swelling, joint swelling, joint redness, joint warmth or limited range of motion Skin/Breast: Denies: erythema Neuro: Denies: numbness in extremities, weakness in extremities, sensory changes or frequent falls [facility] ED PFSH: Medical History Depression GERD (gastroesophageal reflux disease) HTN (hypertension) Hypothyroidism GERALDO (obstructive sleep apnea) Sepsis Family History Son Diabetes Brother Stroke Cancer Hypertension Sister Cancer Hypertension Social History Smoking and tobacco status: never smoked Alcohol intake: never Marital status: History of recent travel: No Current gender identity: Female Physical Exam Const: COMMON NORMALS: no acute distress, average body habitus, patient oriented x3, no limitations, healthy appearing, alert and well nourished GENERAL APPEARANCE: cooperative ORIENTATION/CONSCIOUSNESS: Yes awake, Yes oriented to person, Yes oriented to place and Yes oriented to time Neck/C-Spine: COMMON NORMALS: full ROM CERVICAL SPINE: No pain with cervical ROM and No Cervical spine tenderness : COMMON NORMALS: Yes no CVA tenderness BLADDER/KIDNEY EXAM: Yes no CVA tenderness Back/Pelvis: COMMON NORMALS: no CVA tenderness, thoracic and lumbar spine normal to inspection, no thoracic nor lumbar tenderness and thoraco-lumbar ROM normal THORACIC SPINE/UPPER BACK: Yes normal to inspection and Yes thoracic ROM normal LUMBAR SPINE/LOWER BACK: Yes normal to inspection and Yes lumbar ROM normal PELVIS: Yes no pain with lateral compression SACROILIAC JOINTS: Yes SI joints normal Extremity: GENERAL: Yes normal exam except as noted RIGHT LOWER EXTREMITY: Yes hip joint Right hip: Yes palpation (TTP posterior/lateral hip), Yes ROM (normal) and Yes neurovascular exam (normal) Neuro: COMMON NORMALS: patient oriented x3, moves all extremities, no focal motor deficits, no sensory deficits noted and gait normal SENSORIUM/ORIENTATION: Yes alert, Yes oriented to person, Yes oriented to place and Yes oriented to time Skin: COMMON NORMALS: no rashes or lesions noted GENERAL SKIN EXAM: no rashes or lesions noted Course Vital Signs: Vital signs: Vital Signs Temperature 97.5 F L 05/25/20 07:33 Pulse Rate 70 05/25/20 08:01 Respiratory Rate 18 05/25/20 08:01 Blood Pressure 174/108 05/25/20 08:01 Pulse Oximetry 98 05/25/20 08:01 MDM - Extremity (Nontraumatic) Imaging Data^: XR R hip: Radiologist's impression: [address] [address] XRay Report Signed Patient: Nadja Dimas Unit #: [id number] : 1935 Age/Sex: 84 / F ADM Date: 05/25/20 Loc: ER Room/Bed: Attending Dr: Ordering Provider/Ordering MD: Gem Baptiste Date of Service: 05/25/20 Procedure(s): XR hip RT 2-3V wo/w pel* [id number] Accession Number(s): [id number] Report Number: [id number] PROCEDURE INFORMATION: Exam: XR Right Hip Exam date and time: 05/25/2020 7:45 AM Age: 84 years old Clinical indication: Hip pain; Right hip; Additional info: Pain; One view pelvis too please TECHNIQUE: Imaging protocol: XR Right hip. Views: 1 view hip with pelvis when performed. COMPARISON: CT chest abd pel w con* 03/22/2019 6:39 AM FINDINGS: Bones/joints: No fracture or dislocation. There is mild degenerative changes of the hip joints, manifested by small periarticular osteophytes. The patient is status post L5-S1 fusion. No evidence of hardware related complication. Degenerative changes of the lower lumbar spine seen. Soft tissues: Unremarkable. XR/XR hip RT 2-3V wo/w pel* [id number] IMPRESSION: No acute injury identified. Dictated By: Jimmy Guadalupe Signed By: Jimmy Guadalupe Signed Date/Time: 05/25/20814 DD/ 3 Discharge Plan Discharge Condition: Stable Prescriptions: New Medrol (Jose) 4 mg tablets,dose pack See Rx Instructions .ROUTE .COMPLEX Qty: 21 RF: 0 acetaminophen-codeine 300-15 mg tablet 1 tab PO TID PRN (Reason: pain) Qty: 20 RF: 0 No Action albuterol sulfate [Ventolin HFA] 90 mcg/actuation HFA aerosol inhaler 2 puff INHALATION Q4H PRN (Reason: Shortness Of Breath) RF: 0 folic acid 1 mg tablet See Rx Instructions .ROUTE .COMPLEX RF: 0 alprazolam 0.25 mg tablet See Rx Instructions .ROUTE .COMPLEX PRN (Reason: anxiety) RF: 0 fluconazole [Diflucan] 150 mg tablet 150 mg PO DAILY Qty: 7 RF: 0 loratadine 10 mg capsule 10 mg PO DAILY PRN (Reason: Allergy Symptoms) Qty: 90 RF: 3 losartan 100 mg tablet 100 mg PO DAILY Qty: 90 RF: 3 venlafaxine 75 mg capsule,extended release 24hr See Rx Instructions .ROUTE .COMPLEX Qty: 30 RF: 3 tolterodine 4 mg capsule,extended release 24hr See Rx Instructions .ROUTE .COMPLEX Qty: 30 RF: 3 pantoprazole 40 mg tablet,delayed release (DR/EC) See Rx Instructions .ROUTE .COMPLEX Qty: 180 RF: 3 acetaminophen 325 mg Tablet 650 mg PO Q4H PRN (Reason: Mild Pain Or Increase Temp) Qty: 0 RF: 0 bisacodyl 5 mg Tablet,Delayed Release (Dr/Ec) 10 mg PO DAILY PRN (Reason: Constipation) Qty: 0 RF: 0 Discharge Orders: Discharge ED (Routine); Ordered 05/25/20 Ordered By: Gem Baptiste Referrals: Christofer William MD [Primary Care Provider] - Activity Restrictions/Additional Instructions: As discussed please follow-up with your primary care provider if pain persists past the next week. Do not take Tylenol with the pain medication I prescribed you today as it already has Tylenol in it. Coding Level of Care Code ED Director Of Sustainability for Joelle Marcelino
[2020-05-25] MEDS: ketorolac 30 mg/mL INJ 15 MG IM (07:50)
[2020-05-25 08:01] VITALS: BP 174/108; PULSE 70; RESP 18; O2SAT 98
[2020-05-25] MEDS: orphenadrine 30 mg/mL Inj 2 mL 60 MG IM (08:19)
[2020-05-25 08:53] VITALS: BP 164/101; PULSE 74; RESP 16; O2SAT 97
== END 2020-05-25 08:54 ==
PROVIDERS: Emergency Provider Physician Assistant; PCP Family Medicine
DX: M25.551 Pain in right hip (principal); I10 Essential (primary) hypertension
CPT/HCPCS: 73502; 96372; 99283; J1885; J2360

== ENCOUNTER → 2020-07-01 00:01 | Outpatient (BNVA) | payer MEDICARE, OTHER, SELFPAY | PROVIDERS: PCP Family Medicine; Visit Provider Nurse Practitioner Family | DX: S41.102A Unspecified open wound of left upper arm, initial encounter (principal); X58.XXXA Exposure to other specified factors, initial encounter | CPT/HCPCS: 87070; 87075; 87077; 87184; 87205 ==

== ENCOUNTER 2020-07-17 18:54 | Emergency (ER) | payer MEDICARE, OTHER, SELFPAY ==
[2020-07-17] VITALS (7 sets, daily range): BP systolic 128–142; BP diastolic 64–83; PULSE 72–80; RESP 22–26; O2SAT 93–100; BMI 31.8
--- NOTE | 2020-07-17 19:09 | ECG_ITS ---
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 Measurements Intervals [place] Rate: 78 P: 29 CT: 142 QRS: -37 QRSD: 100 T: 60 QT: 408 QTc: 466 Interpretive Statements SINUS RHYTHM WITH OCCASIONAL SUPRAVENTRICULAR PREMATURE COMPLEXES LEFT AXIS DEVIATION [QRS AXIS < -30] INCOMPLETE RIGHT BUNDLE BRANCH BLOCK [90+ ms QRS DURATION, TERMINAL R IN V1/V2, 40+ ms S IN I/aVL/V4/V5/V6] MINIMAL VOLTAGE CRITERIA FOR LVH, CONSIDER NORMAL VARIANT [MEETS CRITERIA IN ONE OF: R(aVL), S(V1), R(V5), R(V5/V6)+S(V1)] Compared to ECG 03/15/2019 13:13:05 Incomplete right bundle-branch block now present Electronically Signed On 07-18-2020 21:55:45 CDT by Kristopher Fuchs M.D. [id number]
--- NOTE | 2020-07-17 19:10 | XRR_ITS ---
PROCEDURE INFORMATION: Exam: XR Right Ribs with PA Chest Exam date and time: 07/17/2020 7:12 PM Age: 84 years old Clinical indication: Injury or trauma; Fall; Rib area; Blunt trauma (contusions or hematomas); Prior surgery; Surgery type: Lt lumpectomy; Additional info: Right rib pain TECHNIQUE: Imaging protocol: XR Right ribs with PA chest. Views: 3 views Total images: 1 COMPARISON: No relevant prior studies available. FINDINGS: Lungs: No visible pulmonary contusion or consolidated alveolar airspace disease right lung. Left lung not fully imaged. Pleural spaces: No visible pneumothorax, hemothorax, or pleural effusion right lung. Left lung not fully visualized. Heart/Mediastinum: Cardiac structures and configuration with arteriosclerosis. Bones/joints: No radiographically visible rib fracture. Other findings: Obesity. XR/XR ribs RT mn 3V w CXR1V [id number] IMPRESSION: No radiographically visible right rib fracture.
--- NOTE | 2020-07-17 19:10 | XRR_ITS ---
PROCEDURE INFORMATION: Exam: XR Right Shoulder Exam date and time: 07/17/2020 7:12 PM Age: 84 years old Clinical indication: Injury or trauma; Fall; Blunt trauma (contusions or hematomas); Shoulder; Right; Additional info: Right shoulder pain TECHNIQUE: Imaging protocol: XR Right shoulder. Views: 2 or more views. Total images: 3 COMPARISON: No relevant prior studies available. FINDINGS: Bones/joints: No visible fracture, subluxation, or dislocation. Osteopenia/osteoporosis. Mild arthrosis AC joint. Soft tissues: Unremarkable. XR/XR shoulder RT min 2V* [id number] IMPRESSION: No visible fracture.
--- NOTE | 2020-07-17 19:30 | ED_ITS ---
HPI - Chest Pain General: Chief Complaint: Chest Pain Stated Complaint: chest pain Time Seen by Provider: 07/17/20 18:56 History of Present Illness: HPI narrative: The patient is an 84-year-old female who comes to the ER complaining of right-sided chest and shoulder and rib pain that started around 5 PM. She has no history of coronary artery disease. She says she did fall on her left side 4 days ago but has felt fine and is not complaining of pain there. She says it does hurt when she takes deep breath and moves on the right side. EMS picked her up and noted her satting in the lower 90s and placed her on oxygen. They gave 3 nitroglycerin which improved her pain from a 10 to a 7 though it did make her systolic dipped down to 70 briefly. On arrival her blood pressure is 142/64. She points to her right chest and movement of her right shoulder reproduces her pain. MD complaint: chest pain Timing of current episode: constant Onset: during rest Pain location: right chest Pain radiation: none Severity: moderate Quality: sharp Relieving factors: nothing Exacerbating factors: inspiration and movement Associated symptoms: Reports no associated symptoms; Deny abdominal pain, dyspnea or palpitations Review of Systems General: Reports: 10 or more systems reviewed and unremarkable except in HPI and below Const: Denies: fatigue Eyes: Denies: change in vision, blurry vision or eye redness ENMT: Denies: throat pain, swelling of lips/tongue, ear or mastoid pain or nasal congestion Card: Reports: chest pain (Right chest and right shoulder pain); Denies: palpitations, irregular heart rhythm, edema, dyspnea on exertion or orthopnea Resp: Denies: dyspnea, productive cough or non-productive cough GI: Denies: abdominal pain, diarrhea or GI cramping : Denies: flank pain, difficulty voiding, urinary frequency or urinary urgency Musc: Denies: neck pain, back pain, extremity pain, joint pain, joint redness, limited range of motion or muscle weakness Skin/Breast: Denies: rash, pruritus, erythema, skin pain or skin tenderness Neuro: Denies: headache(s), numbness in extremities, weakness in extremities, sensory changes, difficulty walking, dizziness, confusion or Slurred speech present Psych: Denies: anxiety or depression Endo: Denies: polyuria All/Imm: Denies: urticaria, throat swelling or tongue swelling PFSH ED PFS: Medical History (Updated 07/17/20 @ 22:45 by Wilbur Cobos MD) Depression GERD (gastroesophageal reflux disease) HTN (hypertension) Hypothyroidism GERALDO (obstructive sleep apnea) Sepsis Family History Son Diabetes Brother Stroke Cancer Hypertension Sister Cancer Hypertension Social History Smoking and tobacco status: never smoked Second hand smoke exposure: No Alcohol intake: never Lives independently: Yes Household members: spouse Marital status: service: No Current occupational status: retired History of recent travel: No Current gender identity: Female Physical Exam Const: COMMON NORMALS: no acute distress, average body habitus, patient oriented x3, no limitations, healthy appearing, alert and well nourished GENERAL APPEARANCE: cooperative, comfortable, well kempt and well developed ORIENTATION/CONSCIOUSNESS: Yes awake, Yes oriented to person, Yes oriented to place and Yes oriented to time HENMT: COMMON NORMALS: normocephalic, external ears normal and Normal external nose present HEAD & SCALP: normal to inspection and normocephalic NOSE: Normal external nose present EXTERNAL EAR: Yes external ears normal MOUTH: Normal oral and palatal mucosa present THROAT: posterior oropharynx normal Eye: COMMON NORMALS: Equal, round and reactive pupils present and EOMs intact bilaterally GENERAL EYE: appearance normal, both eyes and all related structures PUPIL: Yes Equal, round and reactive pupils present Neck/C-Spine: COMMON NORMALS: full ROM, no lymphadenopathy, no meningeal signs and no JVD GENERAL: Yes normal visual inspection Lymph: LYMPHATIC: no lymphadenopathy noted Chest: COMMONS NORMALS: normal inspection of the chest and normal palpation of entire chest wall Resp: COMMON NORMALS: normal respiratory effort, No retractions, No use of accessory muscles, clear to auscultation bilaterally and percussion normal EFFORT & INSPECTION: Yes able to speak in complete sentences AUSCULTATION: clear to auscultation bilaterally PERCUSSION: percussion normal Cardio: COMMON NORMALS: no JVD, regular rate, regular rhythm, S1 normal heart sound present, S2 normal heart sound present and Peripheral pulses 2+ throughout RATE: regular rate RHYTHM: regular rhythm HEART SOUNDS: S1 normal heart sound present and S2 normal heart sound present PERIPHERAL PULSES: Peripheral pulses 2+ throughout GI: COMMON NORMALS: Normal to inspection, nondistended, normoactive bowel sounds present, Soft to palpation, non-tender and no masses INSPECTION: Yes normal to inspection PALPATION: Yes Soft to palpation : COMMON NORMALS: Yes no CVA tenderness BLADDER/KIDNEY EXAM: Yes no CVA tenderness Back/Pelvis: COMMON NORMALS: no CVA tenderness, thoracic and lumbar spine normal to inspection, no thoracic nor lumbar tenderness and thoraco-lumbar ROM normal Extremity: COMMON NORMALS: normal to inspection, full ROM, capillary refill normal, no joint enlargement and no pedal edema NARRATIVE EXTREMITY EXAM: Mild tenderness to right shoulder. Pain with movement of the shoulder reproduces her chief complaint. Also mild pain to the right lateral ribs. GENERAL: Yes normal exam except as noted Neuro: COMMON NORMALS: patient oriented x3, CN's II-XII intact bilaterally, moves all extremities, no focal motor deficits, no sensory deficits noted and gait normal SENSORIUM/ORIENTATION: Yes alert, Yes oriented to person, Yes oriented to place and Yes oriented to time MENINGEAL SIGNS: Yes no meningeal signs Psych: COMMON NORMALS: mental status grossly normal, Normal thought process present, cooperative, normal affect and speech normal APPEARANCE: Yes well kempt ATTITUDE: Yes calm SPEECH: Yes normal speech THOUGHT PROCESS: Normal thought process present Skin: COMMON NORMALS: no rashes or lesions noted GENERAL SKIN EXAM: no rashes or lesions noted Course Vital Signs: Vital signs: Vital Signs Pulse Rate 78 07/17/20 19:16 Respiratory Rate 22 H 07/17/20 19:00 Blood Pressure 142/64 07/17/20 19:00 Pulse Oximetry 99 07/17/20 19:00 MDM - Chest Pain MDM Narrative: Medical decision making narrative: The patient came to the ER complaining of right-sided chest pain and right shoulder pain. She has had multiple falls in the past 4 days. She uses a walker to get around and her daughter says sometimes she does not use it and falls. The pain is very atypical. First troponin is normal and they declined the second troponin. 2 normal EKGs. The chest pain is very atypical and reproduced by palpation and it is very right-sided. Likely musculoskeletal pain from her falls. Stable for discharge. She will follow-up with her central office repairer next week. Tylenol for pain and return to the ER with worsening symptoms Lab Data: Labs: Lab Results 07/17/20 07/17/20 07/17/20 Range/Units 20:00 20:00 20:00 WBC 9.7 (4.0-10.0) 10^3/ uL RBC 3.52 L (4.1-5.3) 10^6/u L Hgb 11.4 L (11.5-15.3) g/dL Hct 34.4 L (37.0-47.0) % MCV 97.7 (81-99) fL MCH 32.4 (28.0-34.0) pg MCHC 33.1 (30.0-36.0) g/dL RDW 16.2 H (12.1-15.1) % Plt Count 111 L (130-400) 10^3/c mm MPV 9.7 (7.4-10.4) fL Neut % (Auto) 80.7 % Lymph % (Auto) 7.4 % [place] % (Auto) 7.0 % Eos % (Auto) 4.1 % Baso % (Auto) 0.3 % Neut # (Auto) 7.80 H (1.8-7.7) 10^3/u L Lymph # (Auto) 0.7 L (0.8-4.8) 10^3/u L [place] # (Auto) 0.7 (0.2-0.9) 10^3/u L Eos # (Auto) 0.4 (0.0-0.8) 10^3/u L Baso # (Auto) 0.0 (0.0-0.1) 10^3/u L Nucleated RBC % (a uto) 0 % Nucleated RBCs # 0.0 /100WBC D-Dimer 0.59 (0-0.59) ug/mIFE U Sodium 130 L (136-145) mmol/L Potassium 3.8 (3.5-5.1) mmol/L Chloride 100 (98-107) mmol/L Carbon Dioxide 22 (22-29) mmol/L Anion Gap 11.8 (5-19) BUN 17 (8-23) mg/dL Creatinine 1.0 H (0.5-0.9) mg/dL GFR Calculation Not Reportable Glucose 165 H (65-115) mg/dL Calculated Osmolal ity 275 L (285-295) mOsm/k g Calcium 8.5 (8.5-10.5) mg/dL Total Bilirubin 1.6 H (0.15-1.2) mg/dL AST 28 (0-32) U/L ALT 22 (0-33) U/L Alkaline Phosphata se 103 (35-105) IU/L Troponin T Baselin e (0-10) ng/L NT-Pro-B Natriuret Pep 774 H (0-450) pg/mL Total Protein 6.2 L (6.6-8.7) g/dL Albumin 3.4 L (3.5-5.2) g/dL Globulin 2.8 (1.3-4.6) g/dL 07/17/20 Range/Units 20:00 WBC (4.0-10.0) 10^3/ uL RBC (4.1-5.3) 10^6/u L Hgb (11.5-15.3) g/dL Hct (37.0-47.0) % MCV (81-99) fL MCH (28.0-34.0) pg MCHC (30.0-36.0) g/dL RDW (12.1-15.1) % Plt Count (130-400) 10^3/c mm MPV (7.4-10.4) fL Neut % (Auto) % Lymph % (Auto) % [place] % (Auto) % Eos % (Auto) % Baso % (Auto) % Neut # (Auto) (1.8-7.7) 10^3/u L Lymph # (Auto) (0.8-4.8) 10^3/u L [place] # (Auto) (0.2-0.9) 10^3/u L Eos # (Auto) (0.0-0.8) 10^3/u L Baso # (Auto) (0.0-0.1) 10^3/u L Nucleated RBC % (a uto) % Nucleated RBCs # /100WBC D-Dimer (0-0.59) ug/mIFE U Sodium (136-145) mmol/L Potassium (3.5-5.1) mmol/L Chloride (98-107) mmol/L Carbon Dioxide (22-29) mmol/L Anion Gap (5-19) BUN (8-23) mg/dL Creatinine (0.5-0.9) mg/dL GFR Calculation Glucose (65-115) mg/dL Calculated Osmolal ity (285-295) mOsm/k g Calcium (8.5-10.5) mg/dL Total Bilirubin (0.15-1.2) mg/dL AST (0-32) U/L ALT (0-33) U/L Alkaline Phosphata se (35-105) IU/L Troponin T Baselin e 18 H (0-10) ng/L NT-Pro-B Natriuret Pep (0-450) pg/mL Total Protein (6.6-8.7) g/dL Albumin (3.5-5.2) g/dL Globulin (1.3-4.6) g/dL Discharge Plan Discharge Patient Disposition: Home Clinical Impression: Atypical chest pain Condition: Stable Prescriptions: No Action albuterol sulfate [Ventolin HFA] 90 mcg/actuation HFA aerosol inhaler 2 puff INHALATION Q4H PRN (Reason: Shortness Of Breath) RF: 0 folic acid 1 mg tablet See Rx Instructions .ROUTE .COMPLEX RF: 0 alprazolam 0.25 mg tablet See Rx Instructions .ROUTE .COMPLEX PRN (Reason: anxiety) RF: 0 sulfamethoxazole-trimethoprim [Bactrim DS] 800-160 mg tablet 1 tab PO BID Qty: 20 RF: 0 losartan 100 mg tablet 100 mg PO DAILY Qty: 90 RF: 3 tolterodine 4 mg capsule,extended release 24hr See Rx Instructions .ROUTE .COMPLEX Qty: 30 RF: 3 pantoprazole 40 mg tablet,delayed release (DR/EC) See Rx Instructions .ROUTE .COMPLEX Qty: 180 RF: 3 venlafaxine 75 mg capsule,extended release 24hr See Rx Instructions .ROUTE .COMPLEX Qty: 30 RF: 3 loratadine 10 mg capsule 10 mg PO DAILY PRN (Reason: Allergy Symptoms) Qty: 90 RF: 3 mupirocin 2 % ointment 1 applic topical BID Qty: 22 RF: 0 acetaminophen 325 mg Tablet 650 mg PO Q4H PRN (Reason: Mild Pain Or Increase Temp) Qty: 0 RF: 0 bisacodyl 5 mg Tablet,Delayed Release (Dr/Ec) 10 mg PO DAILY PRN (Reason: Constipation) Qty: 0 RF: 0 acetaminophen-codeine 300-15 mg tablet 1 tab PO TID PRN (Reason: pain) Qty: 20 RF: 0 Discharge Orders: Discharge ED (Routine); Ordered 07/17/20 Ordered By: Wilbur Cobos Referrals: Christofer William MD [Primary Care Provider] - Discharge Diet: Advance as tolerated Discharge Activity: Resume usual activity Patient Instructions: Opioid Safety Activity Restrictions/Additional Instructions: You have atypical chest pain as it hurts on the right side of your chest and right shoulder. X-rays have been normal and so has your lab testing. Your first troponin was mostly normal. EKG is also normal. Please follow-up with your central office repairer next week and return to the ER with worsening symptoms. Please be careful not to fall as it is likely your recent falls that are causing your pain. Take Tylenol for your pain Coding Level of Care Code ED Soap Maker for Chg Fwd Exam Comprehensive
[2020-07-17 20:16] LABS: Basophils % 0.3 %; Eosinophils # 0.4 10^3/uL (0.0-0.8); Eosinophils % 4.1 %; Hematocrit 34.4 % (37.0-47.0); Hemoglobin 11.4 g/dL (11.5-15.3); Lymphocytes # 0.7 10^3/uL (0.8-4.8); Lymphocytes % 7.4 %; Mean Corpuscular HGB Conc 33.1 g/dL (30.0-36.0); Mean Corpuscular Hemoglobin 32.4 pg (28.0-34.0); Mean Corpuscular Volume 97.7 fL (81-99); Mean Platelet Volume 9.7 fL (7.4-10.4); Monocytes # 0.7 10^3/uL (0.2-0.9); Neutrophils % 80.7 %; Nucleated Red Blood Cells % 0 %; Platelet Count 111 10^3/cmm (130-400); Red Blood Count 3.52 10^6/uL (4.1-5.3); Red Cell Distribution Width 16.2 % (12.1-15.1); White Blood Count 9.7 10^3/uL (4.0-10.0)
[2020-07-17 20:38] LABS: D Dimer 0.59 ug/mIFEU (0-0.59)
[2020-07-17 20:39] LABS: Troponin(5th) Baseline 18 ng/L (0-10)
[2020-07-17 20:49] LABS: Alanine Aminotransferase 22 U/L (0-33); Albumin Level 3.4 g/dL (3.5-5.2); Alkaline Phosphatase 103 IU/L (35-105); Anion Gap 11.8 (5-19); Aspartate Amino Transferase 28 U/L (0-32); Blood Urea Nitrogen 17 mg/dL (8-23); Calcium 8.5 mg/dL (8.5-10.5); Carbon Dioxide 22 mmol/L (22-29); Chloride 100 mmol/L (98-107); Globulin 2.8 g/dL (1.3-4.6); Glucose 165 mg/dL (65-115); NT Pro B Type Natriuretic Pept 774 pg/mL (0-450); Osmolality Calculated 275 mOsm/kg (285-295); Potassium 3.8 mmol/L (3.5-5.1); Sodium 130 mmol/L (136-145); Total Bilirubin 1.6 mg/dL (0.15-1.2); Total Protein 6.2 g/dL (6.6-8.7)
[2020-07-17 20:53] LABS: Creatinine Clr Calc Pharmacy 41.6197
[2020-07-17] MEDS: acetaminophen 325 mg Tablet 650 MG PO (22:55)
== END 2020-07-17 23:11 | disposition home or self-care (01) ==
PROVIDERS: Emergency Provider Family Medicine; PCP Family Medicine
DX: R07.89 Other chest pain (principal); I10 Essential (primary) hypertension
CPT/HCPCS: 36415; 71101; 73030; 80053; 83880; 84484; 85025; 85378; 93005; 99284

== ENCOUNTER 2020-10-12 01:16 | Inpatient (IN) | payer MEDICARE, OTHER, SELFPAY ==
[2020-10-12] VITALS (8 sets, daily range): BP systolic 100–169; BP diastolic 49–83; PULSE 72–81; RESP 17–22; TEMP 36.2–37.1; O2SAT 95–100; BMI 31.3
--- NOTE | 2020-10-12 01:21 | XRR_ITS ---
PROCEDURE INFORMATION: Exam: XR Chest Exam date and time: 10/12/2020 1:21 AM Age: 84 years old Clinical indication: Other: AMS TECHNIQUE: Imaging protocol: XR of the chest. Views: 1 view. COMPARISON: CR XR ribs RT mn 3V w CXR1V [id number] 07/17/2020 7:13 PM FINDINGS: Lungs: No definite CHF/pulmonary edema. Poor inspiration somewhat limits evaluation, especially of the lung bases. Visible lungs appear essentially clear. Pleural spaces: No visible pneumothorax. No definite pleural fluid. Heart/Mediastinum: Heart size is upper range of normal. Bones/joints: No significant acute finding. XR/XR chest 1V portable [id number] IMPRESSION: 1. No definite CHF or pneumonia. 2. Other findings discussed above.
--- NOTE | 2020-10-12 01:21 | CTR_ITS ---
PROCEDURE INFORMATION: Exam: CT Head Without Contrast Exam date and time: 10/12/2020 1:21 AM Age: 84 years old Clinical indication: Altered mental status/memory loss; Confusion or disorientation; Additional info: AMS TECHNIQUE: Imaging protocol: Computed tomography of the head without contrast. Radiation optimization: All CT scans at this facility use at least one of these dose optimization techniques: automated exposure control; mA and/or kV adjustment per patient size (includes targeted exams where dose is matched to clinical indication); or iterative reconstruction. COMPARISON: CT Brain 03/15/2019 1:02 PM RADIATION DOSE METRICS: Total DLP (mGy-cm): 859.18 FINDINGS: Brain: No acute intracranial hemorrhage or mass effect. There is mild decreased attenuation in the periventricular white matter, likely from microvascular disease. No definite acute infarct by CT. Cerebral ventricles: Ventricle size is normal for age. Paranasal sinuses: Moderate fluid/mucosal thickening in the left frontal sinus. This could represent acute sinusitis, please correlate clinically. Included paranasal sinuses otherwise appear essentially clear. Mastoid air cells: No significant acute finding. Vasculature: Vascular calcifications in the internal carotid and vertebral basilar systems. Bones/joints: No definite acute skull fracture. CT/CT head wo con* [id number] IMPRESSION: 1. No acute intracranial hemorrhage or mass effect. 2. Changes of microvascular disease. 3. Paranasal sinus findings as discussed above. 4. Other findings discussed above. Radiation Dose CTDIVOL = (mGy): DLP = 859.18 (mGy-cm)
--- NOTE | 2020-10-12 01:22 | ECG_ITS ---
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 Measurements Intervals [place] Rate: 77 P: 45 [place]: 190 QRS: -42 QRSD: 89 T: 47 QT: 423 QTc: 481 Interpretive Statements SINUS RHYTHM MARKED LEFT AXIS DEVIATION [QRS AXIS < -30] MODERATE VOLTAGE CRITERIA FOR LVH, CONSIDER NORMAL VARIANT [MEETS CRITERIA IN ONE OF: R(aVL), S(V1), R(V5), R(V5/V6)+S(V1)] POSSIBLE ANTERIOR MYOCARDIAL INFARCTION [30 ms Q WAVE IN V3/V4, OR R < 0.2 mV IN V4], PROBABLY OLD Compared to ECG 07/17/2020 20:20:18 Myocardial infarct finding now present Incomplete right bundle-branch block no longer present Electronically Signed On 10-12-2020 12:13:40 CDT by Kristopher Fuchs M.D. [id number]
--- NOTE | 2020-10-12 01:27 | ED_ITS ---
Documented by User: James Lorenzo MD 10/12/20 03:18 HPI - Altered Mental Status General: Source: EMS Mode of arrival: EMS Limitations: altered mental status History of Present Illness: HPI narrative: 84-year-old female who is here with EMS has had increasing altered mental status and weakness at home over the last day. She lives at home with family. EMS states that family states she has been like this in the past when she gets urinary tract infections. Patient here is able to follow commands but is extremely weak. She is able to tell me her name but is disoriented to time and place and not able to answer very many questions. No known vomiting or diarrhea. No recent head injuries. Review of Systems General: Reports: ROS unobtainable due to mental status PFS ED PFSH: Medical History (Updated 10/12/20 @ 03:03 by James Lorenzo MD) Depression GERD (gastroesophageal reflux disease) HTN (hypertension) Hypothyroidism GERALDO (obstructive sleep apnea) Sepsis Family History Son Diabetes Brother Stroke Cancer Hypertension Sister Cancer Hypertension Social History Smoking and tobacco status: never smoked Second hand smoke exposure: No Alcohol intake: never Lives independently: Yes Household members: spouse Marital status: service: No Current occupational status: retired History of recent travel: No Current gender identity: Female Physical Exam Const: COMMON NORMALS: no acute distress and alert; negative for patient oriented x3 GENERAL APPEARANCE: ill appearing ORIENTATION/CONSCIOUSNESS: Yes oriented to person; not oriented to place and not oriented to time HENMT: COMMON NORMALS: normocephalic and atraumatic HEAD & SCALP: normocephalic and atraumatic Eye: COMMON NORMALS: Equal, round and reactive pupils present and EOMs intact bilaterally PUPIL: Yes Equal, round and reactive pupils present Neck/C-Spine: COMMON NORMALS: full ROM and supple Chest: COMMONS NORMALS: normal inspection of the chest and normal palpation of entire chest wall Resp: COMMON NORMALS: normal respiratory effort, No retractions, No use of accessory muscles and clear to auscultation bilaterally AUSCULTATION: clear to auscultation bilaterally Cardio: COMMON NORMALS: regular rate, regular rhythm and No murmurs present (Cardio) RATE: regular rate RHYTHM: regular rhythm GI: COMMON NORMALS: Normal to inspection, nondistended, normoactive bowel sounds present, Soft to palpation, non-tender and no masses PALPATION: Yes Soft to palpation Extremity: COMMON NORMALS: normal to inspection and full ROM Neuro: COMMON NORMALS: moves all extremities and no focal motor deficits; negative for patient oriented x3 SENSORIUM/ORIENTATION: Yes alert, Yes oriented to person, No oriented to place and No oriented to time Psych: COMMON NORMALS: negative for mental status grossly normal Skin: COMMON NORMALS: no rashes or lesions noted and no wounds GENERAL SKIN EXAM: no rashes or lesions noted Course Vital Signs: Vital signs: Vital Signs Pulse Rate 81 10/12/20 01:31 Respiratory Rate 18 10/12/20 01:31 Blood Pressure 102/49 10/12/20 01:31 Pulse Oximetry 97 10/12/20 01:31 MDM - Altered Mental Status MDM Narrative: Medical decision making narrative: Patient presents here with altered mental status. Patient's head CT here is normal she has no signs of acute stroke. I spoke to the hospitalist who saw patient down the ER and will admit. Lab Data: Labs: Lab Results 10/12/20 10/12/20 10/12/20 Range/Units 01:20 01:20 01:20 WBC 5.4 (4.0-10.0) 10^3/ uL RBC 3.27 L (4.1-5.3) 10^6/u L Hgb 10.6 L (11.5-15.3) g/dL Hct 32.0 L (37.0-47.0) % MCV 97.9 (81-99) fL MCH 32.4 (28.0-34.0) pg MCHC 33.1 (30.0-36.0) g/dL RDW 14.9 (12.1-15.1) % Plt Count 105 L (130-400) 10^3/c mm MPV 10.1 (7.4-10.4) fL Neut % (Auto) 55.1 % Lymph % (Auto) 26.8 % Gosper % (Auto) 14.9 % Eos % (Auto) 2.4 % Baso % (Auto) 0.2 % Neut # (Auto) 3.00 (1.8-7.7) 10^3/u L Lymph # (Auto) 1.5 (0.8-4.8) 10^3/u L Gosper # (Auto) 0.8 (0.2-0.9) 10^3/u L Eos # (Auto) 0.1 (0.0-0.8) 10^3/u L Baso # (Auto) 0.0 (0.0-0.1) 10^3/u L Nucleated RBC % (a uto) 0 % Nucleated RBCs # 0.0 /100WBC PT 15.20 H (12.1-14.9) SECO NDS INR 1.16 (0.8-1.2) Sodium 133 L (136-145) mmol/L Potassium 3.7 (3.5-5.1) mmol/L Chloride 100 (98-107) mmol/L Carbon Dioxide 22 (22-29) mmol/L Anion Gap 14.7 (5-19) BUN 14 (8-23) mg/dL Creatinine 1.5 H (0.5-0.9) mg/dL GFR Calculation Not Reportable Glucose 127 H (65-115) mg/dL POC Glucose (70-110) mg/dL Calculated Osmolal ity 278 L (285-295) mOsm/k g Lactate (0.5-2.2) mmol/L Calcium 8.4 L (8.5-10.5) mg/dL Magnesium 1.8 (1.7-2.3) mg/dL Total Bilirubin 0.8 (0.15-1.2) mg/dL AST 21 (0-32) U/L ALT 13 (0-33) U/L Alkaline Phosphata se 89 (35-105) IU/L Total Protein 5.1 L (6.6-8.7) g/dL Albumin 3.2 L (3.5-5.2) g/dL Globulin 1.9 (1.3-4.6) g/dL Lipase 31 (13-60) U/L Urine Color (Yellow) Urine Appearance (CLEAR) Urine pH (5-7) Ur Specific Gravit y (1.005-1.030) Urine Protein (Negative) Urine Glucose (UA) (Normal) Urine Ketones (Negative) Urine Blood (Negative) Urine Nitrate (Negative) Urine Bilirubin (Negative) Urine Urobilinogen (Negative) mg/dL Ur Leukocyte Lauren ase (Negative) Urine RBC (0-2) /hpf Urine WBC (0-5) /hpf Ur Squamous Epith Cells (0-5) /hpf Amorphous Sediment Urine Bacteria (NONE) /hpf 10/12/20 10/12/20 10/12/20 Range/Units 01:20 01:20 01:43 WBC (4.0-10.0) 10^3/ uL RBC (4.1-5.3) 10^6/u L Hgb (11.5-15.3) g/dL Hct (37.0-47.0) % MCV (81-99) fL MCH (28.0-34.0) pg MCHC (30.0-36.0) g/dL RDW (12.1-15.1) % Plt Count (130-400) 10^3/c mm MPV (7.4-10.4) fL Neut % (Auto) % Lymph % (Auto) % Gosper % (Auto) % Eos % (Auto) % Baso % (Auto) % Neut # (Auto) (1.8-7.7) 10^3/u L Lymph # (Auto) (0.8-4.8) 10^3/u L Gosper # (Auto) (0.2-0.9) 10^3/u L Eos # (Auto) (0.0-0.8) 10^3/u L Baso # (Auto) (0.0-0.1) 10^3/u L Nucleated RBC % (a uto) % Nucleated RBCs # /100WBC PT (12.1-14.9) SECO NDS INR (0.8-1.2) Sodium (136-145) mmol/L Potassium (3.5-5.1) mmol/L Chloride (98-107) mmol/L Carbon Dioxide (22-29) mmol/L Anion Gap (5-19) BUN (8-23) mg/dL Creatinine (0.5-0.9) mg/dL GFR Calculation Glucose (65-115) mg/dL POC Glucose 155 H (70-110) mg/dL Calculated Osmolal ity (285-295) mOsm/k g Lactate 3.0 H (0.5-2.2) mmol/L Calcium (8.5-10.5) mg/dL Magnesium (1.7-2.3) mg/dL Total Bilirubin (0.15-1.2) mg/dL AST (0-32) U/L ALT (0-33) U/L Alkaline Phosphata se (35-105) IU/L Total Protein (6.6-8.7) g/dL Albumin (3.5-5.2) g/dL Globulin (1.3-4.6) g/dL Lipase (13-60) U/L Urine Color Yellow (Yellow) Urine Appearance Clear (CLEAR) Urine pH 5 (5-7) Ur Specific Gravit y 1.010 (1.005-1.030) Urine Protein Trace (Negative) Urine Glucose (UA) Norm (Normal) Urine Ketones Negative (Negative) Urine Blood Neg (Negative) Urine Nitrate Negative (Negative) Urine Bilirubin Neg (Negative) Urine Urobilinogen 1 H (Negative) mg/dL Ur Leukocyte Lauren ase Negative (Negative) Urine RBC 0-4 H (0-2) /hpf Urine WBC 0-4 H (0-5) /hpf Ur Squamous Epith Cells 15-25 H (0-5) /hpf Amorphous Sediment Not Reportable Urine Bacteria 1+ H (NONE) /hpf Imaging Data^: CT Head: Attestation: I personally reviewed and interpreted this imaging study as follows: Radiologist's impression: [address] [address] [address] Scan Report Signed Patient: Nadja Dimas Unit #: [id number] : 1935 Age/Sex: 84 / F ADM Date: 10/12/20 Loc: ER Room/Bed: Attending Dr: Ordering Provider/Ordering MD: James Lorenzo MD Date of Service: 10/12/20 Procedure(s): CT head wo con* [id number] Accession Number(s): [id number] Report Number: [id number] PROCEDURE INFORMATION: Exam: CT Head Without Contrast Exam date and time: 10/12/2020 1:21 AM Age: 84 years old Clinical indication: Altered mental status/memory loss; Confusion or disorientation; Additional info: AMS TECHNIQUE: Imaging protocol: Computed tomography of the head without contrast. Radiation optimization: All CT scans at this facility use at least one of these dose optimization techniques: automated exposure control; mA and/or kV adjustment per patient size (includes targeted exams where dose is matched to clinical indication); or iterative reconstruction. COMPARISON: CT Brain 03/15/2019 1:02 PM RADIATION DOSE METRICS: Total DLP (mGy-cm): 859.18 FINDINGS: Brain: No acute intracranial hemorrhage or mass effect. There is mild decreased attenuation in the periventricular white matter, likely from microvascular disease. No definite acute infarct by CT. Cerebral ventricles: Ventricle size is normal for age. Paranasal sinuses: Moderate fluid/mucosal thickening in the left frontal sinus. This could represent acute sinusitis, please correlate clinically. Included paranasal sinuses otherwise appear essentially clear. Mastoid air cells: No significant acute finding. Vasculature: Vascular calcifications in the internal carotid and vertebral basilar systems. Bones/joints: No definite acute skull fracture. CT/CT head wo con* [id number] IMPRESSION: 1. No acute intracranial hemorrhage or mass effect. 2. Changes of microvascular disease. 3. Paranasal sinus findings as discussed above. 4. Other findings discussed above. Radiation Dose CTDIVOL = (mGy): DLP = 859.18 (mGy-cm) Dictated By: Saad Lee MD Signed By: Saad Lee MD Signed Date/Time: 10/12/20312 DD/ 0 EKG Data^: EKG 1: Attestation: I personally reviewed and interpreted this EKG as follows: EKG interpretation date: 10/12/20 EKG interpretation time: 01:40 Interpretation: nsr hr [address] or t wave abnormalities qrs 89 qtc 455 Discharge Plan Discharge Patient Disposition: Admitted As Inpatient Admit Provider: Genie Paul Clinical Impression: Altered mental status Qualifiers: Altered mental status type: somnolence Qualified Code(s): R40.0 - Somnolence Condition: Stable Coding Level of Care Code 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 [facility] 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 Comprehensive Documented by User: Genie Paul MD 10/12/20 05:53 PFSH ED PFSH: Medical History (Updated 10/12/20 @ 03:03 by James Lorenzo MD) Depression GERD (gastroesophageal reflux disease) HTN (hypertension) Hypothyroidism GERALDO (obstructive sleep apnea) Sepsis Family History Son Diabetes Brother Stroke Cancer Hypertension Sister Cancer Hypertension Social History Smoking and tobacco status: never smoked Second hand smoke exposure: No Alcohol intake: never Lives independently: Yes Household members: spouse Marital status: service: No Current occupational status: retired History of recent travel: No Current gender identity: Female Course Vital Signs: Vital signs: Vital Signs Pulse Rate 81 10/12/20 01:31 Respiratory Rate 18 10/12/20 01:31 Blood Pressure 102/49 10/12/20 01:31 Pulse Oximetry 97 10/12/20 01:31 MDM - Altered Mental Status Lab Data: Labs: Lab Results 10/12/20 10/12/20 10/12/20 Range/Units 01:20 01:20 01:20 WBC 5.4 (4.0-10.0) 10^3/ uL RBC 3.27 L (4.1-5.3) 10^6/u L Hgb 10.6 L (11.5-15.3) g/dL Hct 32.0 L (37.0-47.0) % MCV 97.9 (81-99) fL MCH 32.4 (28.0-34.0) pg MCHC 33.1 (30.0-36.0) g/dL RDW 14.9 (12.1-15.1) % Plt Count 105 L (130-400) 10^3/c mm MPV 10.1 (7.4-10.4) fL Neut % (Auto) 55.1 % Lymph % (Auto) 26.8 % Gosper % (Auto) 14.9 % Eos % (Auto) 2.4 % Baso % (Auto) 0.2 % Neut # (Auto) 3.00 (1.8-7.7) 10^3/u L Lymph # (Auto) 1.5 (0.8-4.8) 10^3/u L Gosper # (Auto) 0.8 (0.2-0.9) 10^3/u L Eos # (Auto) 0.1 (0.0-0.8) 10^3/u L Baso # (Auto) 0.0 (0.0-0.1) 10^3/u L Nucleated RBC % (a uto) 0 % Nucleated RBCs # 0.0 /100WBC PT 15.20 H (12.1-14.9) SECO NDS INR 1.16 (0.8-1.2) Sodium 133 L (136-145) mmol/L Potassium 3.7 (3.5-5.1) mmol/L Chloride 100 (98-107) mmol/L Carbon Dioxide 22 (22-29) mmol/L Anion Gap 14.7 (5-19) BUN 14 (8-23) mg/dL Creatinine 1.5 H (0.5-0.9) mg/dL GFR Calculation Not Reportable Glucose 127 H (65-115) mg/dL POC Glucose (70-110) mg/dL Calculated Osmolal ity 278 L (285-295) mOsm/k g Lactate (0.5-2.2) mmol/L Calcium 8.4 L (8.5-10.5) mg/dL Magnesium 1.8 (1.7-2.3) mg/dL Total Bilirubin 0.8 (0.15-1.2) mg/dL AST 21 (0-32) U/L ALT 13 (0-33) U/L Alkaline Phosphata se 89 (35-105) IU/L Total Protein 5.1 L (6.6-8.7) g/dL Albumin 3.2 L (3.5-5.2) g/dL Globulin 1.9 (1.3-4.6) g/dL Lipase 31 (13-60) U/L Urine Color (Yellow) Urine Appearance (CLEAR) Urine pH (5-7) Ur Specific Gravit y (1.005-1.030) Urine Protein (Negative) Urine Glucose (UA) (Normal) Urine Ketones (Negative) Urine Blood (Negative) Urine Nitrate (Negative) Urine Bilirubin (Negative) Urine Urobilinogen (Negative) mg/dL Ur Leukocyte Lauren ase (Negative) Urine RBC (0-2) /hpf Urine WBC (0-5) /hpf Ur Squamous Epith Cells (0-5) /hpf Amorphous Sediment Urine Bacteria (NONE) /hpf 10/12/20 10/12/20 10/12/20 Range/Units 01:20 01:20 01:43 WBC (4.0-10.0) 10^3/ uL RBC (4.1-5.3) 10^6/u L Hgb (11.5-15.3) g/dL Hct (37.0-47.0) % MCV (81-99) fL MCH (28.0-34.0) pg MCHC (30.0-36.0) g/dL RDW (12.1-15.1) % Plt Count (130-400) 10^3/c mm MPV (7.4-10.4) fL Neut % (Auto) % Lymph % (Auto) % Gosper % (Auto) % Eos % (Auto) % Baso % (Auto) % Neut # (Auto) (1.8-7.7) 10^3/u L Lymph # (Auto) (0.8-4.8) 10^3/u L Gosper # (Auto) (0.2-0.9) 10^3/u L Eos # (Auto) (0.0-0.8) 10^3/u L Baso # (Auto) (0.0-0.1) 10^3/u L Nucleated RBC % (a uto) % Nucleated RBCs # /100WBC PT (12.1-14.9) SECO NDS INR (0.8-1.2) Sodium (136-145) mmol/L Potassium (3.5-5.1) mmol/L Chloride (98-107) mmol/L Carbon Dioxide (22-29) mmol/L Anion Gap (5-19) BUN (8-23) mg/dL Creatinine (0.5-0.9) mg/dL GFR Calculation Glucose (65-115) mg/dL POC Glucose 155 H (70-110) mg/dL Calculated Osmolal ity (285-295) mOsm/k g Lactate 3.0 H (0.5-2.2) mmol/L Calcium (8.5-10.5) mg/dL Magnesium (1.7-2.3) mg/dL Total Bilirubin (0.15-1.2) mg/dL AST (0-32) U/L ALT (0-33) U/L Alkaline Phosphata se (35-105) IU/L Total Protein (6.6-8.7) g/dL Albumin (3.5-5.2) g/dL Globulin (1.3-4.6) g/dL Lipase (13-60) U/L Urine Color Yellow (Yellow) Urine Appearance Clear (CLEAR) Urine pH 5 (5-7) Ur Specific Gravit y 1.010 (1.005-1.030) Urine Protein Trace (Negative) Urine Glucose (UA) Norm (Normal) Urine Ketones Negative (Negative) Urine Blood Neg (Negative) Urine Nitrate Negative (Negative) Urine Bilirubin Neg (Negative) Urine Urobilinogen 1 H (Negative) mg/dL Ur Leukocyte Lauren ase Negative (Negative) Urine RBC 0-4 H (0-2) /hpf Urine WBC 0-4 H (0-5) /hpf Ur Squamous Epith Cells 15-25 H (0-5) /hpf Amorphous Sediment Not Reportable Urine Bacteria 1+ H (NONE) /hpf Discharge Plan Discharge Patient Disposition: Admitted As Inpatient Admit Provider: Genie Paul Clinical Impression: Altered mental status Qualifiers: Altered mental status type: somnolence Qualified Code(s): R40.0 - Somnolence Condition: Stable Coding Level of Care Code 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
[2020-10-12] MEDS: sodium chloride 0.9% 1,000 ML 999 ML IV ×2 (01:36→03:01)
[2020-10-12 01:47] LABS: Glucose Point of Care 155 mg/dL (70-110)
[2020-10-12 01:53] LABS: Basophils % 0.2 %; Eosinophils # 0.1 10^3/uL (0.0-0.8); Eosinophils % 2.4 %; Hemoglobin 10.6 g/dL (11.5-15.3); Lymphocytes # 1.5 10^3/uL (0.8-4.8); Lymphocytes % 26.8 %; Mean Corpuscular HGB Conc 33.1 g/dL (30.0-36.0); Mean Corpuscular Hemoglobin 32.4 pg (28.0-34.0); Mean Corpuscular Volume 97.9 fL (81-99); Mean Platelet Volume 10.1 fL (7.4-10.4); Monocytes # 0.8 10^3/uL (0.2-0.9); Monocytes % 14.9 %; Neutrophils % 55.1 %; Nucleated Red Blood Cells % 0 %; Platelet Count 105 10^3/cmm (130-400); Red Blood Count 3.27 10^6/uL (4.1-5.3); Red Cell Distribution Width 14.9 % (12.1-15.1); White Blood Count 5.4 10^3/uL (4.0-10.0)
[2020-10-12 02:00] LABS: Bilirubin Urine Neg (Negative); Blood Urine Neg (Negative); Glucose Urine UA Norm (Normal); Ketones Urine Negative (Negative); Nitrate Urine Negative (Negative); Protein Urine Trace (Negative); Urine Appearance Clear (CLEAR); Urine Color Yellow (Yellow); pH Urine 5 (5-7)
[2020-10-12 02:01] LABS: Add Urine Microscopic? YES; Leukocyte Esterase Urine Negative (Negative); Urobilinogen Urine 1 mg/dL (Negative)
[2020-10-12 02:02] LABS: Add Urine Culture? No; Bacteria Urine 1+ /hpf; RBC Urine 0-4 /hpf (0-2); Squamous Epithelial Cell Urine 15-25 /hpf (0-5); WBC Urine 0-4 /hpf (0-5)
[2020-10-12 02:08] LABS: Alanine Aminotransferase 13 U/L (0-33); Albumin Level 3.2 g/dL (3.5-5.2); Alkaline Phosphatase 89 IU/L (35-105); Anion Gap 14.7 (5-19); Aspartate Amino Transferase 21 U/L (0-32); Blood Urea Nitrogen 14 mg/dL (8-23); Calcium 8.4 mg/dL (8.5-10.5); Carbon Dioxide 22 mmol/L (22-29); Chloride 100 mmol/L (98-107); Globulin 1.9 g/dL (1.3-4.6); Glucose 127 mg/dL (65-115); Lipase 31 U/L (13-60); Magnesium 1.8 mg/dL (1.7-2.3); Osmolality Calculated 278 mOsm/kg (285-295); Potassium 3.7 mmol/L (3.5-5.1); Sodium 133 mmol/L (136-145); Total Bilirubin 0.8 mg/dL (0.15-1.2); Total Protein 5.1 g/dL (6.6-8.7)
[2020-10-12 02:09] LABS: INR 1.16 (0.8-1.2)
[2020-10-12] MEDS: cefTRIAXone 1,000 MG in sodium chloride 0.9% (plus) 50 ML 100 MG IV (02:20)
--- NOTE | 2020-10-12 05:53 | PM.HP ---
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 Patients daughter stated this is similar Presentation to her prior Urine tract infections. last seen normal around 8:00 p.m.. Patients daughter upon returning home noted that she was difficult to arouse. Due to this EMS was called. Upon arrival patients mental status had slowly improved. She was becoming more alert. Also had been complaining of generalized body aches. Laboratory workup on arrival showed a WBC of 5.4, hemoglobin 10.6 and hematocrit 32.0And a platelet count of 105. Sodium 133, potassium 3.7, chloride of 100, bicarb of 22, BUN of 14 and creatinine of 1.5 which is increased from 1.0 in July of this year. Lactic acid was elevated at 3.0. Head CT and chest x-ray report negative for any acute abnormality. Patient in the emergency room was given Rocephin 1 g IV x1. Upon admission this was changed to Primaxin. Code status was discussed with patients daughter stated that she wished to be a DNR. Review of Systems General: Reports: ROS unobtainable due to medical condition Medications/Allergies Home Medications Medication Instructions Recorded Confirmed Last Taken Type albuterol sulfate 90 mcg/actuation 2 puff INHALATION Q4H PRN 03/02/19 07/01/20 Unknown History aerosol inhaler alprazolam 0.25 mg tablet See Rx Instructions .ROUTE 03/02/19 07/01/20 Unknown History .COMPLEX PRN tab folic acid 1 mg tablet See Rx Instructions .ROUTE 03/02/19 07/01/20 Unknown History .COMPLEX tab acetaminophen 650 mg PO Q4H PRN #0 tab 03/21/19 07/01/20 Unknown Rx bisacodyl 10 mg PO DAILY PRN #0 tab 03/21/19 07/01/20 Unknown Rx tolterodine 4 mg capsule,extended See Rx Instructions .ROUTE 03/31/20 07/01/20 Unknown Rx release 24 hr .COMPLEX #30 cap pantoprazole 40 mg tablet,delayed See Rx Instructions .ROUTE 04/24/20 07/01/20 Unknown Rx release .COMPLEX #180 tab acetaminophen-codeine 1 tab PO TID PRN #20 tab 05/25/20 07/01/20 Unknown Rx venlafaxine 75 mg capsule,extended See Rx Instructions .ROUTE 05/30/20 07/01/20 Unknown Rx release 24 hr .COMPLEX #30 capsule loratadine 10 mg capsule 10 mg PO DAILY PRN #90 cap 06/25/20 07/01/20 Unknown Rx sulfamethoxazole 800 1 tab PO BID #20 tab 07/01/20 07/01/20 Unknown Rx mg-trimethoprim 160 mg tablet mupirocin 2 % topical ointment 1 applic TOPICAL BID #22 g 07/16/20 Unknown Rx losartan 100 mg tablet 100 mg PO DAILY #90 tab 08/26/20 Unknown Rx Allergies Allergy/AdvReac Type Severity Reaction Status Date / Time tizanidine [From Zanaflex] Allergy Mild Unknown Verified 07/17/20 19:17 ciprofloxacin [From Cipro] Allergy ALGY-Rash Verified 07/17/20 19:17 meperidine [From Demerol] Allergy ADR-Confusi Verified 07/17/20 19:17 on Penicillins Allergy ALGY-Swell Verified 07/17/20 19:17 Lip/Tongue/Throat PFSH Acute PFSH: Medical History (Updated 10/12/20 @ 05:59 by Genie Paul MD) Depression GERD (gastroesophageal reflux disease) HTN (hypertension) Hypothyroidism GERALDO (obstructive sleep apnea) Sepsis Family History Son Diabetes Brother Stroke Cancer Hypertension Sister Cancer Hypertension Social History Smoking and tobacco status: never smoked Second hand smoke exposure: No Alcohol intake: never Lives independently: Yes Household members: spouse Marital status: service: No Current occupational status: retired History of recent travel: No Current gender identity: Female Vitals/I&O/Wt Last Vital Signs Temp 97.2 F L 10/12/20 04:20 Pulse 80 10/12/20 04:20 Resp 17 10/12/20 04:20 BP 132/75 10/12/20 04:20 Pulse Ox 95 10/12/20 04:20 10/11/20 10/11/20 10/12/20 14:59 22:59 06:59 Intake Total 2049 Balance 2049 Weight last 48 hrs Weight 80.286 kg Weight 80.286 kg Physical Exam Narrative: EXAM NARRATIVE: General-Confused chronically ill-appearing CVS -regular rate rhythm Chest -nonlabored respiration Abdomen -soft nontender nondistended Extremities- no edema however tender to touch Urinary Catheter Management^: Hernandez: Cath Placed During This Visit: yes Urinary Catheter Date of Insertion: 10/12/20 Data : 10/12/20 01:20 10/12/20 01:20 Micro: Microbiology 10/12/20 01:00 Blood Culture - Preliminary Blood SPECIMEN COLLECTED 10/12/20 01:20 Blood Culture - Preliminary Blood SPECIMEN COLLECTED A&P Assessment and plan (1) Altered mental status: Likely age Infectious NPO until bedside swallow Fall precautions Seizure precautions new line Status: Acute (2) Suspected urinary tract infection: Previous history of ESBL Resume carbapenems Follow-up on blood in urine cultures Repeat lactic acid in a.m. Status: Acute (3) Wound of left upper extremity: Wound care Status: Acute Qualifiers: Encounter type: initial encounter Qualified Code(s): S41.102A - Unspecified open wound of left upper arm, initial encounter (4) SELVIN (acute kidney injury): IV fluids Hernandez catheter placed in ER Repeat BMP soon Status: Acute (5) GERD (gastroesophageal reflux disease): PPI Status: Acute (6) HTN (hypertension): Status: Acute (7) GERALDO (obstructive sleep apnea): Status: Acute Attestations Medical Necessity Statement*: Anticipate over 2 midnights stay in hospital for evaluation and treatment of altered mental status likely due to infectious source Time Spent in Patient Care: Greater than 35 minutes Coding Level of Care Code Acute Tactical Deception Plans Officer for [facility] Fwd Diagnoses Altered mental status R41.82 Suspected urinary tract infection R39.89 Wound of left upper extremity S41.102A Encounter type: initial encounter SELVIN (acute kidney injury) N17.9 GERD (gastroesophageal reflux disease) K21.9 HTN (hypertension) I10 GERALDO (obstructive sleep apnea) G47.33
[2020-10-12] MEDS: heparin 5,000 unit/mL INJ 1 mL 5000 UNIT SUBCUT ×2 (06:21→16:31)
[2020-10-12] MEDS: sodium chloride 0.9% 1,000 ML 75 ML IV (06:24)
[2020-10-12 06:25] LABS: Glucose Point of Care 142 mg/dL (70-110)
[2020-10-12] MEDS: pantoprazole 40 mg SDV IVP (06:27)
--- NOTE | 2020-10-12 10:23 | CTR_ITS ---
PROCEDURE INFORMATION: Exam: CT Abdomen And Pelvis Without Contrast Exam date and time: 10/12/2020 10:23 AM Age: 84 years old Clinical indication: Abdominal pain; Generalized; Additional info: UTI, prince, R/O obstructive uropathy TECHNIQUE: Imaging protocol: Computed tomography of the abdomen and pelvis without contrast. Radiation optimization: All CT scans at this facility use at least one of these dose optimization techniques: automated exposure control; mA and/or kV adjustment per patient size (includes targeted exams where dose is matched to clinical indication); or iterative reconstruction. COMPARISON: CT chest abd pel w con* 03/22/2019 6:39 AM RADIATION DOSE METRICS: Total DLP (mGy-cm): 1733.47 FINDINGS: Tubes, catheters and devices: A balloon bladder catheter is present. Heart: The heart is enlarged. Mediastinal space: A small hiatal hernia is present. The wall of the distal esophagus is mildly thickened in this may reflect lack of distention or mild esophagitis. Liver: Unremarkable.No mass. Gallbladder and bile ducts: The gallbladder is not visualized and there are no clips in the right upper quadrant. It is presumed this is from prior cholecystectomy. No duct dilatation. Pancreas: There is marked haziness of the fat in the upper abdomen adjacent to the pancreas concerning for mild edema of early acute pancreatitis versus motion artifact. Pancreas is otherwise unremarkable in appearance. Spleen: There is mild splenomegaly. An accessory splenule is present. Adrenal glands: Normal. No mass. Kidneys and ureters: There is no evidence of hydronephrosis. There is no evidence of renal calcifications. No obstructing calculus is identified in the ureters. Stomach and bowel: This could also reflect mild reactive edema from adjacent colitis. There is no evidence of intestinal perforation or obstruction. Extensive diverticulosis is present in the distal colon. There is mild wall thickening of the entire colon with subtle haziness of the adjacent fat concerning for diffuse mild colitis greatest involving the cecum and ascending colon. Appendix: No evidence of appendicitis. Intraperitoneal space: There is a small amount of free fluid in the pelvis. No free intraperitoneal air or abscess. Vasculature: The aorta demonstrates mild atherosclerotic calcification. Prominent phleboliths and vascular calcifications are noted in the pelvis. Lymph nodes: Unremarkable.No enlarged lymph nodes. Urinary bladder: The bladder is decompressed. No calculi are identified in the bladder. Reproductive: Unremarkable as visualized. Bones/joints: There is osteopenia. There is a satisfactory appearance of the postoperative fusion in the lower lumbar spine. No acute bony abnormality is identified. Soft tissues: Unremarkable. CT/CT abdomen pelvis wo con [id number] IMPRESSION: 1. There is mild wall thickening of the entire colon with subtle haziness of the adjacent fat concerning for diffuse mild colitis greatest involving the cecum and ascending colon. 2. There is a small amount of free fluid in the pelvis. No free intraperitoneal air or abscess. 3. There is marked haziness of the fat in the upper abdomen adjacent to the pancreas concerning for mild edema of early acute pancreatitis versus motion artifact. This could also reflect mild reactive edema from adjacent colitis. 4. No hydronephrosis or obstructing calculi. The collapsed bladder is unremarkable in appearance. Radiation Dose CTDIVOL = (mGy): DLP = 1733.47 (mGy-cm)
--- NOTE | 2020-10-12 10:31 | PM.PN ---
Subjective Subjective: Interval history: Admitted overnight. H&P and labs appreciated. Patient seen lying comfortably in bed. Awake and alert to self, place, reason being in hospital. States she is feeling a lot better now. Complaining of mild dysuria. Has remained hemodynamically stable and afebrile since admission. As per communication with the daughter over the phone patient has been having occasional dysuria for last 2 to 3 days, occasional chills and myalgias for last 3 days getting worse and yesterday was found to be agitated and confused so was brought to the hospital. Patient did have COVID-19 vaccine earlier in the April. Vitals/I&O/Wt Last Vital Signs Temp 97.7 F 10/12/20 08:00 Pulse 72 10/12/20 08:00 Resp 18 10/12/20 08:00 BP 128/69 10/12/20 08:00 Pulse Ox 96 10/12/20 08:00 10/11/20 10/12/20 10/12/20 22:59 06:59 14:59 Intake Total 2050 / 2050 100 / 100 Output Total 500 / 500 Balance 1550 / 1550 100 / 100 Weight last 48 hrs Weight 84.595 kg Weight 80.286 kg Weight 80.286 kg Physical Exam Narrative: EXAM NARRATIVE: General: No acute distress, AO x 2-3, frail, appearing HEENT: PERRLA, pupils bilaterally equal and reactive Chest: Normal vesicular breath sounds, no added sounds, equal good air entry bilaterally CVS: S1-S2 regular, no murmurs, no tachycardia, no gallops, no rubs Abdomen: Soft, nontender, no organomegaly, bowel sounds present Neuro: No focal deficits, no facial deformity, AO x3, power 5/5 in all limbs Urinary Catheter Management^: Hernandez: Cath Placed During This Visit: yes Reason for Continuing Indwelling Catheter: Other Urinary Catheter Date of Insertion: 10/12/20 Data : 10/12/20 01:20 10/12/20 01:20 Micro: Microbiology 10/12/20 01:00 Blood Culture - Preliminary Blood SPECIMEN COLLECTED 10/12/20 01:20 Blood Culture - Preliminary Blood SPECIMEN COLLECTED A&P Assessment and plan (1) Altered mental status: Status: Acute (2) Suspected urinary tract infection: Status: Acute (3) SELVIN (acute kidney injury): IV fluids Hernandez catheter placed in ER Repeat BMP soon Status: Acute (4) GERD (gastroesophageal reflux disease): PPI Status: Acute (5) HTN (hypertension): Status: Acute (6) GERALDO (obstructive sleep apnea): Status: Acute (7) Wound of left upper extremity: Wound care Status: Acute Qualifiers: Encounter type: initial encounter Qualified Code(s): S41.102A - Unspecified open wound of left upper arm, initial encounter Additional A&P Information Altered mental status: Seems to be improving. Could be secondary to hyponatremia, possible dehydration evident from SELVIN, possible infection. Infectious source could be UTI. UA negative for signs of infection with negative nitrite and leukoesterase but patient complaining of occasional dysuria with a history of ESBL UTI. Hyponatremia:Baseline sodium around 140. Currently 133. Continue with normal saline at 75 cc/h. Check urine lites, urine creatinine, urine lites. Possible infection: Follow blood cultures, urine culture. Check procalcitonin, MRSA swab. Continue with imipenem. Given history of recent MRSA infection start patient on vancomycin. Patient remains afebrile, without leukocytosis for next 24 hours will discontinue antibiotics and monitor. Check COVID-19 PCR, COVID-19 antigen. Isolation precautions. Repeat lactate in a.m. Keep mean arterial pressure over 65, saturation over 90%. Acute kidney injury: Urine studies as above. Strict input output charting. Normal saline at 75 cc/h. Medical reconciliation done for nephrotoxic drugs. Monitor BMP daily. No metabolic acidosis currently. Hypertension: Goal blood pressure less than 140/90 emergency. Blood pressure soft for now. Hold off on home dose of losartan for now. If blood pressures elevated will start patient on amlodipine 10 mg daily. CODE STATUS: Allow natural . Confirmed with patient's daughter. Famotidine for PUD prophylaxis. Heparin for DVT prophylaxis. Clear liquid diet for now. Swallow evaluations. Attestations Medical Necessity Statement*: Patient requires further hospitalization for management of altered mental status, possible UTI, rule out COVID-19, acute kidney injury, hyponatremia requiring IV fluids. Time Spent in Patient Care: Greater than 35 minutes (>than 50% of time spent in counselling and/or direct pt care on unit). Coding Level of Care Code Acute [employer] for Jo[facility] Diagnoses Altered mental status R41.82 Suspected urinary tract infection R39.89 SELVIN (acute kidney injury) N17.9 GERD (gastroesophageal reflux disease) K21.9 HTN (hypertension) I10 GERALDO (obstructive sleep apnea) G47.33 Wound of left upper extremity S41.102A Encounter type: initial encounter
--- NOTE | 2020-10-12 11:11 | PC.PHAR ---
PT IS UNABLE TO VERIFY MEDICATIONS, SPOKE WITH PT DAUGHTER LORETTA DUE TO [facility] BEING CLOSED. LORETTA VERIFIED HOME MEDS. SHE IS UNSURE IF PT IS PROPERLY TAKING MEDS
[2020-10-12 12:30] LABS: Glucose Point of Care 94 mg/dL (70-110)
[2020-10-12 13:07] LABS: SARS Covid-2 Antigen Negative (Negative)
[2020-10-12] MEDS: vancomycin 1,250 MG/250 ML PIGGYBACK 250 MG IV (13:52)
[2020-10-12 14:31] LABS: Procalcitonin 0.12 ng/mL (0-0.5)
[2020-10-12 14:35] LABS: Thyroid Stimulating Hormone 3.99 uIU/mL (0.27-4.20)
[2020-10-12 15:40] LABS: Iron 41 ug/dL (37-145); Percent Saturation 15.1 % (20-50); Total Iron Binding Capacity 270 mcg/dl; Unsaturated Iron Binding 229 ug/dL (112-347)
--- NOTE | 2020-10-12 16:18 | PC.NURSE ---
No Diet Order.
[2020-10-12 17:18] LABS: Glucose Point of Care 103 mg/dL (70-110)
[2020-10-12 22:58] LABS: Potassium, Radom Urine 35 mmol/L; Urine Creatinine 115 mg/dL (28-217); Urine Random Chloride 21 mmol/L; Urine Random Sodium 31 mmol/L
[2020-10-13] VITALS (7 sets, daily range): BP systolic 134–186; BP diastolic 70–84; PULSE 16–88; RESP 16–20; TEMP 36.2–37.1; O2SAT 94–100
[2020-10-13] MEDS: sodium chloride 0.9% 1,000 ML 75 ML IV ×2 (00:24→14:38)
[2020-10-13 02:59] LABS: Glucose Point of Care 165 mg/dL (70-110)
[2020-10-13] MEDS: heparin 5,000 unit/mL INJ 1 mL 5000 UNIT SUBCUT ×2 (03:48→14:38)
[2020-10-13] MEDS: acetaminophen 325 mg Tablet 650 MG PO (03:52)
[2020-10-13] MEDS: pantoprazole 40 mg SDV IVP (05:48)
[2020-10-13 07:37] LABS: Basophils % 0.3 %; Eosinophils # 0.1 10^3/uL (0.0-0.8); Eosinophils % 1.8 %; Hematocrit 37.6 % (37.0-47.0); Hemoglobin 12.5 g/dL (11.5-15.3); Lymphocytes # 1.5 10^3/uL (0.8-4.8); Lymphocytes % 21.9 %; Mean Corpuscular HGB Conc 33.2 g/dL (30.0-36.0); Mean Corpuscular Hemoglobin 32.2 pg (28.0-34.0); Mean Corpuscular Volume 96.9 fL (81-99); Mean Platelet Volume 9.7 fL (7.4-10.4); Monocytes # 0.5 10^3/uL (0.2-0.9); Monocytes % 6.8 %; Neutrophils # 4.54 10^3/uL (1.8-7.7); Neutrophils % 68.7 %; Nucleated Red Blood Cells % 0 %; Platelet Count 109 10^3/cmm (130-400); Red Blood Count 3.88 10^6/uL (4.1-5.3); Red Cell Distribution Width 14.9 % (12.1-15.1); White Blood Count 6.6 10^3/uL (4.0-10.0)
[2020-10-13] MEDS: amlodipine 10 mg Tablet PO (07:42)
[2020-10-13] MEDS: oxybutynin 5 mg Tablet PO (07:42)
[2020-10-13] MEDS: folic acid 1 mg Tablet PO (07:42)
[2020-10-13] MEDS: venlafaxine ER (24HR) 75 mg Capsule PO (07:42)
[2020-10-13] MEDS: ALPRAZolam 0.5 mg Tablet 0.25 MG PO ×3 (07:43→21:07)
[2020-10-13 07:51] LABS: Lactic Sepsis W/Reflex 1.1 mmol/L (0.5-2.2)
[2020-10-13 07:56] LABS: Alanine Aminotransferase 12 U/L (0-33); Albumin Level 3.4 g/dL (3.5-5.2); Alkaline Phosphatase 100 IU/L (35-105); Anion Gap 11.8 (5-19); Aspartate Amino Transferase 18 U/L (0-32); Blood Urea Nitrogen 13 mg/dL (8-23); Calcium 8.5 mg/dL (8.5-10.5); Carbon Dioxide 22 mmol/L (22-29); Chloride 108 mmol/L (98-107); Globulin 2.1 g/dL (1.3-4.6); Glucose 121 mg/dL (65-115); Osmolality Calculated 287 mOsm/kg (285-295); Potassium 3.8 mmol/L (3.5-5.1); Sodium 138 mmol/L (136-145); Total Bilirubin 1.1 mg/dL (0.15-1.2); Total Protein 5.5 g/dL (6.6-8.7)
[2020-10-13 08:19] LABS: Procalcitonin 0.16 ng/mL (0-0.5)
[2020-10-13 11:42] LABS: Glucose Point of Care 203 mg/dL (70-110)
--- NOTE | 2020-10-13 16:25 | PM.PN ---
Subjective Subjective: Interval history: No complaints overnight. Has remained hemodynamically stable and afebrile overnight. Currently on examination sitting up in chair. She is awake and alert to self, place, date, reason for her being in the hospital. She is aware that she was tested for COVID-19 yesterday. She recognizes me as soon as I entered the room. Denies any nausea vomiting, headache. Asking when she can be discharged home. Vitals/I&O/Wt Last Vital Signs Temp 97.1 F L 10/13/20 16:00 Pulse 74 10/13/20 16:00 Resp 17 10/13/20 16:00 BP 138/84 10/13/20 16:00 Pulse Ox 100 10/13/20 16:00 10/13/20 10/13/20 10/13/20 06:59 14:59 22:59 Intake Total 668.75 / 2428.75 1793.75 / 1793.75 100 / 1893.75 Output Total 2300 / 4100 600 / 600 Balance -1631.25 / -1671.25 1193.75 / 1193.75 100 / 1293.75 Weight last 48 hrs Weight 84.595 kg Weight 80.286 kg Weight 80.286 kg Physical Exam Narrative: EXAM NARRATIVE: General: No acute distress, AO x 2-3, frail, appearing HEENT: PERRLA, pupils bilaterally equal and reactive Chest: Normal vesicular breath sounds, no added sounds, equal good air entry bilaterally CVS: S1-S2 regular, no murmurs, no tachycardia, no gallops, no rubs Abdomen: Soft, nontender, no organomegaly, bowel sounds present Neuro: No focal deficits, no facial deformity, AO x3, power 5/5 in all limbs Urinary Catheter Management^: Hernandez: Cath Placed During This Visit: yes Reason for Continuing Indwelling Catheter: Other Urinary Catheter Date of Insertion: 10/12/20 Data : 10/13/20 07:19 10/13/20 07:19 Micro: Microbiology 10/12/20 01:00 Blood Culture - Preliminary Blood NEGATIVE TO DATE 10/12/20 01:20 Blood Culture - Preliminary Blood NEGATIVE TO DATE A&P Assessment and plan (1) Altered mental status: Status: Acute (2) Suspected urinary tract infection: Status: Acute (3) SELVIN (acute kidney injury): Status: Acute (4) GERD (gastroesophageal reflux disease): PPI Status: Acute (5) HTN (hypertension): Status: Acute (6) GERALDO (obstructive sleep apnea): Status: Acute (7) Wound of left upper extremity: Wound care Status: Acute Qualifiers: Encounter type: initial encounter Qualified Code(s): S41.102A - Unspecified open wound of left upper arm, initial encounter Additional A&P Information Altered mental status: Seems to be improving. Could be secondary to hyponatremia, possible dehydration evident from SELVIN, possible infection. Infectious source could be UTI versus colitis. UA negative for signs of infection with negative nitrite and leukoesterase but patient complaining of occasional dysuria with a history of ESBL UTI. CT abdomen pelvis done yesterday shows possible colitis. Hyponatremia:Baseline sodium around 140. Currently 133. Continue with normal saline at 75 cc/h. Check urine lites, urine creatinine, urine lites. Possible infection: Follow blood cultures, urine culture. Procalcitonin negative. Continue with imipenem and vancomycin given recent MRSA skin infection. Wound care Check stool studies. Patient remains afebrile, without leukocytosis for next 24 hours will discontinue antibiotics and monitor. COVID-19 antigen antigen negative. PCR pending. Continue isolation precautions for now. Lactic acidosis has resolved. Keep mean arterial pressure over 65, saturation over 90%. Acute kidney injury: Resolved. Creatinine back at baseline. Normal saline at 75 cc/h. Medical reconciliation done for nephrotoxic drugs. Monitor BMP daily. No metabolic acidosis currently. Hypertension: Goal blood pressure less than 140/90 emergency. Blood pressure soft for now. Hold off on home dose of losartan for now. Continue with amlodipine 10 mg daily for now. CODE STATUS: Allow natural . Confirmed with patient's daughter. Famotidine for PUD prophylaxis. Heparin for DVT prophylaxis. Diet changed to regular as per swallow evaluation. Attestations Medical Necessity Statement*: Requires further hospitalization for management of altered mental status secondary to hyponatremia, possible colitis and UTI, resolving SELVIN while COVID-19 PCR is pending. Time Spent in Patient Care: Greater than 35 minutes (>than 50% of time spent in counselling and/or direct pt care on unit). Coding Level of Care Code Acute Triage Rn for [facility] [place] Diagnoses Altered mental status R41.82 Suspected urinary tract infection R39.89 SELVIN (acute kidney injury) N17.9 GERD (gastroesophageal reflux disease) K21.9 HTN (hypertension) I10 GERALDO (obstructive sleep apnea) G47.33 Wound of left upper extremity S41.102A Encounter type: initial encounter
[2020-10-13 16:44] LABS: Lipase 22 U/L (13-60)
[2020-10-13 17:12] LABS: Glucose Point of Care 123 mg/dL (70-110)
[2020-10-13 21:53] LABS: Quest SARS-CoV-2 RNA NOT DETECTED (NOT DETECTED)
[2020-10-14 00:11] VITALS: BP 166/82; PULSE 76; RESP 15; O2SAT 99
[2020-10-14] MEDS: vancomycin 1,250 MG/250 ML PIGGYBACK 200 MG IV (01:47)
[2020-10-14] MEDS: acetaminophen 325 mg Tablet 650 MG PO (02:45)
[2020-10-14] MEDS: heparin 5,000 unit/mL INJ 1 mL 5000 UNIT SUBCUT (02:49)
[2020-10-14] MEDS: pantoprazole 40 mg SDV IVP (03:27)
[2020-10-14 04:12] VITALS: BP 148/77; PULSE 80; RESP 18; TEMP 36.3; O2SAT 100
[2020-10-14 05:00] LABS: Basophils % 0.5 %; Eosinophils # 0.2 10^3/uL (0.0-0.8); Eosinophils % 2.4 %; Hematocrit 37.4 % (37.0-47.0); Hemoglobin 12.8 g/dL (11.5-15.3); Lymphocytes # 1.4 10^3/uL (0.8-4.8); Lymphocytes % 21.2 %; Mean Corpuscular HGB Conc 34.2 g/dL (30.0-36.0); Mean Corpuscular Hemoglobin 32.4 pg (28.0-34.0); Mean Corpuscular Volume 94.7 fL (81-99); Mean Platelet Volume 9.6 fL (7.4-10.4); Monocytes # 0.6 10^3/uL (0.2-0.9); Monocytes % 8.5 %; Neutrophils # 4.43 10^3/uL (1.8-7.7); Neutrophils % 66.9 %; Nucleated Red Blood Cells % 0 %; Platelet Count 130 10^3/cmm (130-400); Red Blood Count 3.95 10^6/uL (4.1-5.3); Red Cell Distribution Width 14.9 % (12.1-15.1); White Blood Count 6.6 10^3/uL (4.0-10.0)
[2020-10-14 05:21] LABS: Alanine Aminotransferase 12 U/L (0-33); Albumin Level 3.6 g/dL (3.5-5.2); Alkaline Phosphatase 99 IU/L (35-105); Anion Gap 12.7 (5-19); Aspartate Amino Transferase 17 U/L (0-32); Blood Urea Nitrogen 11 mg/dL (8-23); Calcium 8.9 mg/dL (8.5-10.5); Carbon Dioxide 23 mmol/L (22-29); Chloride 107 mmol/L (98-107); Globulin 2.4 g/dL (1.3-4.6); Glucose 132 mg/dL (65-115); Osmolality Calculated 289 mOsm/kg (285-295); Potassium 3.7 mmol/L (3.5-5.1); Sodium 139 mmol/L (136-145); Total Bilirubin 0.9 mg/dL (0.15-1.2)
--- NOTE | 2020-10-14 05:34 | PC.NURSE ---
Shift Note Frequent safety and comfort rounds continue. Orders and nursing care completed as indicated. Patient monitored for response to intervention and treatment(s). Education provided includes cath safety and need, safety with transfers]. Patient verbalized understanding, rested in bed, had difficulty sleeping, Will continue to monitor.
[2020-10-14] MEDS: sodium chloride 0.9% 1,000 ML 75 ML IV (06:01)
[2020-10-14 06:31] LABS: Glucose Point of Care 142 mg/dL (70-110)
[2020-10-14 08:00] VITALS: BP 167/80; PULSE 76; RESP 16; TEMP 36.4; O2SAT 100
[2020-10-14] MEDS: oxybutynin 5 mg Tablet PO (08:46)
[2020-10-14] MEDS: venlafaxine ER (24HR) 75 mg Capsule PO (08:46)
[2020-10-14] MEDS: amlodipine 10 mg Tablet PO (08:46)
[2020-10-14] MEDS: folic acid 1 mg Tablet PO (08:46)
[2020-10-14 11:38] VITALS: BP 138/77; PULSE 84; RESP 16; TEMP 37; O2SAT 99
[2020-10-14 11:45] LABS: Glucose Point of Care 201 mg/dL (70-110)
[2020-10-14 11:55] VITALS: BP 138/77
[2020-10-14] MEDS: losartan 50 mg Tablet PO (11:55)
--- NOTE | 2020-10-14 12:11 | P.DS_ITS ---
Discharge Providers Date of Admission: 10/12/20 03:02 Date of Discharge: October 14, 2020 Attending Provider at Admission: Genie Paul Attending Provider at Discharge: Bib Arevalo MD Primary Care Provider: Christofer William MD Diagnoses at Discharge Discharge Diagnosis (1) Altered mental status: Status: Acute (2) Suspected urinary tract infection: Status: Acute (3) SELVIN (acute kidney injury): Status: Acute (4) GERD (gastroesophageal reflux disease): Status: Acute (5) HTN (hypertension): Status: Acute (6) GERALDO (obstructive sleep apnea): Status: Acute (7) Wound of left upper extremity: Status: Acute Qualifiers: Encounter type: initial encounter Qualified Code(s): S41.102A - Unspecified open wound of left upper arm, initial encounter Reason for Visit Reason for Visit: AMS/ URINARY EPISODE Hospital Course Hospital Course Most of the history taken from patient's daughter over the phone. 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 Patient daughter reported that these symptoms are similar to her past UTIs. As per the daughter she was away taking care of her family in [facility] and when she came back and saw the patient she found her to be altered. As per her this has been ongoing for last 2 weeks and in between patient has been verbally sharp with the patient before and now when she was difficult to arouse she came to the ER. Upon arrival to the ER patients mental status had slowly improved. She was becoming more alert. Also had been complaining of generalized body aches. Laboratory workup on arrival showed a WBC of 5.4, hemoglobin 10.6 and hematocrit 32.0And a platelet count of 105. Sodium 133, potassium 3.7, chloride of 100, bicarb of 22, BUN of 14 and creatinine of 1.5 which is increased from 1.0 in July of this year. Lactic acid was elevated at 3.0. Head CT and chest x-ray report negative for any acute abnormality. Patient in the emergency room was given Rocephin 1 g IV x1. Upon admission this was changed to Primaxin. Code status was discussed with patients daughter stated that she wished to be a DNR. Patient admitted to the hospital for further management of altered mental status which on admission was thought to be secondary to infectious process most likely UTI versus possibly secondary to hyponatremia from dehydration and polypharmacy with psych medication in setting of acute kidney injury. As per daughter patient has also been complaining of ongoing myalgias and subjective fever for which COVID-19 PCR was sent and was ruled out. Patient's UA was not concerning for UTI and urine culture remained negative. During hospitalization patient was on broad-spectrum antibiotics at start which was later deescalated as per the culture results. Patient blood culture, urine culture remained negative. CT abdomen pelvis was done to rule out obstructive nephropathy given SELVIN on presentation. CT abdomen pelvis was consistent with possible colitis. Patient denied having any abdominal pain or diarrhea during hospitalization. Stool studies could not be sent as patient did not have any diarrhea during hospitalization. Her SELVIN improved with IV hydration. Patient worked well with physical and Occupational Therapy. Her mentation also improved and is currently AOx4. Patient is been discharged in hemodynamically stable condition on dose modified psych medications with advised to follow-up with a primary care provider within next 1 week for repeat BMP. Physical Exam Narrative: EXAM NARRATIVE: General: No acute distress, AO x 3, frail, appearing HEENT: PERRLA, pupils bilaterally equal and reactive Chest: Normal vesicular breath sounds, no added sounds, equal good air entry bilaterally CVS: S1-S2 regular, no murmurs, no tachycardia, no gallops, no rubs Abdomen: Soft, nontender, no organomegaly, bowel sounds present Neuro: No focal deficits, no facial deformity, AO x3, power 5/5 in all limbs Urinary Catheter Management^: Hernandez: Cath Placed During This Visit: yes, but has since been removed by the nurse Reason for Continuing Indwelling Catheter: Decision to DC Catheter Urinary Catheter Date of Insertion: 10/12/20 Date Urinary Catheter Removed: 10/14/20 Time Urinary Catheter Discontinued: 11:56 Discharge Data Data Completed and Pending: Completed Studies During Hospitalization Category Date Time Status CT abdomen pelvis wo con 30044 Rout ine Cat Scan 10/12/20 10:[address] head wo con* 7 0450 Urgent Cat Scan 10/12/20 01:21 Completed XR chest 1V judit ble [id number] Urgent Exams 10/12/20 01:21 Completed Pending at discharge Category Date Time Status Blood Culture Sta t Lab 10/12/20 01:00 Results Clostridioides Di fficile PCR Routin e Lab 10/13/20 11:28 Ordered Complete Blood Co unt w/Auto AM LABS Lab 10/15/20 04:00 Ordered Comprehensive Met abolic Panel AM LA BS Lab 10/15/20 04:00 Ordered Enteric Bacterial Panel by PCR Rout ine Lab 10/13/20 11:28 Ordered Enteric Parasite Panel by PCR Routi ne Lab 10/13/20 11:28 Ordered Immunochemical Fe braulio OCB Routine Lab 10/13/20 11:28 Ordered Lactoferrin Routi ne Lab 10/13/20 11:28 Ordered Vancomycin Trough Timed Lab 10/15/20 12:00 Ordered Labs from last 24 hours 10/14/20 10/14/20 10/14/20 11:35 06:25 04:33 WBC RBC Hgb Hct MCV MCH MCHC RDW Plt Count MPV Neut % (Auto) Lymph % (Auto) [place] % (Auto) Eos % (Auto) Baso % (Auto) Neut # (Auto) Lymph # (Auto) [place] # (Auto) Eos # (Auto) Baso # (Auto) Nucleated RBC % (a uto) Nucleated RBCs # Sodium 139 Potassium 3.7 Chloride 107 Carbon Dioxide 23 Anion Gap 12.7 BUN 11 Creatinine 0.8 GFR Calculation Not Reportable Glucose 132 H POC Glucose 201 H 142 H Calculated Osmolal ity 289 Calcium 8.9 Total Bilirubin 0.9 AST 17 ALT 12 Alkaline Phosphata se 99 Total Protein 6.0 L Albumin 3.6 Globulin 2.4 Lipase SARS-CoV-2 RNA (RT -PCR) 10/14/20 10/13/20 10/13/20 04:33 17:04 12:40 WBC 6.6 RBC 3.95 L Hgb 12.8 Hct 37.4 MCV 94.7 MCH 32.4 MCHC 34.2 RDW 14.9 Plt Count 130 MPV 9.6 Neut % (Auto) 66.9 Lymph % (Auto) 21.2 [place] % (Auto) 8.5 Eos % (Auto) 2.4 Baso % (Auto) 0.5 Neut # (Auto) 4.43 Lymph # (Auto) 1.4 [place] # (Auto) 0.6 Eos # (Auto) 0.2 Baso # (Auto) 0.0 Nucleated RBC % (a uto) 0 Nucleated RBCs # 0.0 Sodium Potassium Chloride Carbon Dioxide Anion Gap BUN Creatinine GFR Calculation Glucose POC Glucose 123 H Calculated Osmolal ity Calcium Total Bilirubin AST ALT Alkaline Phosphata se Total Protein Albumin Globulin Lipase 22 SARS-CoV-2 RNA (RT -PCR) 10/12/20 12:30 WBC RBC Hgb Hct MCV MCH MCHC RDW Plt Count MPV Neut % (Auto) Lymph % (Auto) [place] % (Auto) Eos % (Auto) Baso % (Auto) Neut # (Auto) Lymph # (Auto) [place] # (Auto) Eos # (Auto) Baso # (Auto) Nucleated RBC % (a uto) Nucleated RBCs # Sodium Potassium Chloride Carbon Dioxide Anion Gap BUN Creatinine GFR Calculation Glucose POC Glucose Calculated Osmolal ity Calcium Total Bilirubin AST ALT Alkaline Phosphata se Total Protein Albumin Globulin Lipase SARS-CoV-2 RNA (RT -PCR) Not detected Addt'l Data from Hospital Stay: Laboratory Results WBC 6.6 10^3/uL (4.0- 10.0) 10/14/20 04:33 RBC 3.95 10^6/uL (4.1 -5.3) L 10/14/20 04:33 Hgb 12.8 g/dL (11.5-1 5.3) 10/14/20 04:33 Hct 37.4 % (37.0-47.0 ) 10/14/20 04:33 MCV 94.7 fL (81-99) 10/14/20 04:33 MCH 32.4 pg (28.0-34. 0) 10/14/20 04:33 MCHC 34.2 g/dL (30.0-3 6.0) 10/14/20 04:33 RDW 14.9 % (12.1-15.1 ) 10/14/20 04:33 Plt Count 130 10^3/cmm (130 -400) 10/14/20 04:33 MPV 9.6 fL (7.4-10.4) 10/14/20 04:33 Neut % (Auto) 66.9 % 10/14/20 04:33 Lymph % (Auto) 21.2 % 10/14/20 04:33 [place] % (Auto) 8.5 % 10/14/20 04:33 Eos % (Auto) 2.4 % 10/14/20 04:33 Baso % (Auto) 0.5 % 10/14/20 04:33 Neut # (Auto) 4.43 10^3/uL (1.8 -7.7) 10/14/20 04:33 Lymph # (Auto) 1.4 10^3/uL (0.8- 4.8) 10/14/20 04:33 [place]oux # (Auto) 0.6 10^3/uL (0.2- 0.9) 10/14/20 04:33 Eos # (Auto) 0.2 10^3/uL (0.0- 0.8) 10/14/20 04:33 Baso # (Auto) 0.0 10^3/uL (0.0- 0.1) 10/14/20 04:33 Nucleated RBC % (a uto) 0 % 10/14/20 04:33 Nucleated RBCs # 0.0 /100WBC 10/14/20 04:33 PT 15.20 SECONDS (12 .1-14.9) H 10/12/20 01:20 INR 1.16 (0.8-1.2) 10/12/20 01:20 Sodium 139 mmol/L (136-1 45) 10/14/20 04:33 Potassium 3.7 mmol/L (3.5-5 .1) 10/14/20 04:33 Chloride 107 mmol/L (98-10 7) 10/14/20 04:33 Carbon Dioxide 23 mmol/L (22-29) 10/14/20 04:33 Anion Gap 12.7 (5-19) 10/14/20 04:33 BUN 11 mg/dL (8-23) 10/14/20 04:33 Creatinine 0.8 mg/dL (0.5-0. 9) 10/14/20 04:33 GFR Calculation Not Reportable 10/14/20 04:33 Glucose 132 mg/dL (65-115 ) H 10/14/20 04:33 POC Glucose 201 mg/dL (70-110 ) H 10/14/20 11:35 Calculated Osmolal ity 289 mOsm/kg (285- 295) 10/14/20 04:33 Lactic Acid 1.1 mmol/L (0.5-2 .2) 10/13/20 07:19 Lactate 3.0 mmol/L (0.5-2 .2) H 10/12/20 01:20 Calcium 8.9 mg/dL (8.5-10 .5) 10/14/20 04:33 Magnesium 1.8 mg/dL (1.7-2. 3) 10/12/20 01:20 Iron 41 ug/dL (37-145) 10/12/20 01:20 TIBC 270 mcg/dl 10/12/20 01:20 % Saturation 15.1 % (20-50) L 10/12/20 01:20 Unsat Iron Binding 229 ug/dL (112-34 7) 10/12/20 01:20 Total Bilirubin 0.9 mg/dL (0.15-1 .2) 10/14/20 04:33 AST 17 U/L (0-32) 10/14/20 04:33 ALT 12 U/L (0-33) 10/14/20 04:33 Alkaline Phosphata se 99 IU/L (35-105) 10/14/20 04:33 Total Protein 6.0 g/dL (6.6-8.7 ) L 10/14/20 04:33 Albumin 3.6 g/dL (3.5-5.2 ) 10/14/20 04:33 Globulin 2.4 g/dL (1.3-4.6 ) 10/14/20 04:33 Lipase 22 U/L (13-60) 10/13/20 12:40 Procalcitonin 0.16 ng/mL (0-0.5 ) 10/13/20 07:19 TSH 3.99 uIU/mL (0.27 -4.20) 10/12/20 01:20 Urine Color Yellow (Yellow) 10/12/20 01:20 Urine Appearance Clear (CLEAR) 10/12/20 01:20 Urine pH 5 (5-7) 10/12/20 01:20 Ur Specific Gravit y 1.010 (1.005-1.0 30) 10/12/20 01:20 Urine Protein Trace (Negative) 10/12/20 01:20 Urine Glucose (UA) Norm (Normal) 10/12/20 01:20 Urine Ketones Negative (Negati ve) 10/12/20 01:20 Urine Blood Neg (Negative) 10/12/20 01:20 Urine Nitrate Negative (Negati ve) 10/12/20 01:20 Urine Bilirubin Neg (Negative) 10/12/20 01:20 Urine Urobilinogen 1 mg/dL (Negative ) H 10/12/20 01:20 Ur Leukocyte Lauren ase Negative (Negati ve) 10/12/20 01:20 Urine RBC 0-4 /hpf (0-2) H 10/12/20 01:20 Urine WBC 0-4 /hpf (0-5) H 10/12/20 01:20 Ur Squamous Epith Cells 15-25 /hpf (0-5) H 10/12/20 01:20 Amorphous Sediment Not Reportable 10/12/20 01:20 Urine Bacteria 1+ /hpf (NONE) H 10/12/20 01:20 Ur Random Sodium 31 mmol/L 10/12/20 01:20 Ur Random Potassiu m 35 mmol/L 10/12/20 01:20 Ur Random Chloride 21 mmol/L 10/12/20 01:20 Urine Creatinine 115 mg/dL (28-217 ) 10/12/20 01:20 SARS-CoV-2 RNA (RT -PCR) Not detected (NO T DETECTED) 10/12/20 12:30 SARS-CoV-2 Ag (Rap id) Negative (Negati ve) 10/12/20 12:30 Impressions Chest X-Ray 10/12/20 01:21 IMPRESSION: 1. No definite CHF or pneumonia. 2. Other findings discussed above. Head CT 10/12/20 01:21 IMPRESSION: 1. No acute intracranial hemorrhage or mass effect. 2. Changes of microvascular disease. 3. Paranasal sinus findings as discussed above. 4. Other findings discussed above. Radiation Dose CTDIVOL = (mGy): DLP = 859.18 (mGy-cm) Abdomen/Pelvis CT 10/12/20 10:23 IMPRESSION: 1. There is mild wall thickening of the entire colon with subtle haziness of the adjacent fat concerning for diffuse mild colitis greatest involving the cecum and ascending colon. 2. There is a small amount of free fluid in the pelvis. No free intraperitoneal air or abscess. 3. There is marked haziness of the fat in the upper abdomen adjacent to the pancreas concerning for mild edema of early acute pancreatitis versus motion artifact. This could also reflect mild reactive edema from adjacent colitis. 4. No hydronephrosis or obstructing calculi. The collapsed bladder is unremarkable in appearance. Radiation Dose CTDIVOL = (mGy): DLP = 1733.47 (mGy-cm) Microbiology 10/12/20 01:00 Blood Blood Culture - Preliminary NEGATIVE TO DATE 10/12/20 01:20 Blood Blood Culture - Preliminary NEGATIVE TO DATE Vitals: Last Vital Signs Temp 98.6 F 10/14/20 11:38 Pulse 84 10/14/20 11:38 Resp 16 10/14/20 11:38 BP 138/77 10/14/20 11:55 Pulse Ox 99 10/14/20 11:38 Discharge Plan Discharge Patient Disposition: Home Health Service Condition: Stable Prescriptions: New amlodipine 10 mg Tablet 10 mg PO DAILY 30 Days Qty: 30 RF: 0 metronidazole [Flagyl] 500 mg tablet 500 mg PO BID 5 Days Qty: 10 RF: 0 Continued albuterol sulfate [Ventolin HFA] 90 mcg/actuation HFA aerosol inhaler 2 puff INHALATION Q4H PRN (Reason: Shortness Of Breath) RF: 0 folic acid 1 mg tablet 1 mg PO DAILY RF: 0 alprazolam 0.25 mg tablet 0.25 mg PO BID PRN (Reason: anxiety) RF: 0 pantoprazole 40 mg tablet,delayed release (DR/EC) See Rx Instructions .ROUTE .COMPLEX Qty: 180 RF: 3 loratadine 10 mg capsule 10 mg PO DAILY PRN (Reason: Allergy Symptoms) Qty: 90 RF: 3 mupirocin 2 % ointment 1 applic topical BID Qty: 22 RF: 0 acetaminophen 325 mg Tablet 650 mg PO Q4H PRN (Reason: Mild Pain Or Increase Temp) Qty: 0 RF: 0 bisacodyl 5 mg Tablet,Delayed Release (Dr/Ec) 10 mg PO DAILY PRN (Reason: Constipation) Qty: 0 RF: 0 methotrexate sodium 2.5 mg Tablet 17.5 mg PO Q7D RF: 0 oxybutynin chloride 5 mg Tablet 5 mg PO DAILY RF: 0 Changed losartan 100 mg tablet 50 mg PO DAILY Qty: 90 RF: 3 venlafaxine 150 mg Tablet Extended Release 24hr 75 mg PO DAILY Qty: 0 RF: 0 Discharge Orders: Discharge Order (Routine); Ordered 10/14/20 Ordered By: Bib Arevalo Referrals: Christofer William MD [Primary Care Provider] - 7-10 days Discharge Diet: Cardiac Discharge Activity: Resume usual activity Patient Instructions: Opioid Safety Activity Restrictions/Additional Instructions: Please follow-up with a primary care provider within next 1 week. Your dose of losartan has been decreased to 50 mg daily. Amlodipine has been added to your medication list. Your dose of venlafaxine has been decreased to 75 mg. Please repeat CMP in 1 week when you follow-up with a primary care provider. Please take MetroGel which is the antibiotic for next 5 days. Discharge Attestations Time Spent in Discharge Care*: greater than 30 min Specific Discharge Activities: educating patient, discussing with outsole caser/social workers/dc planners, documenting/other paperwork and evaluating patient/reviewing data Status at Discharge: Cognitive status at discharge: cognitively intact , Behavioral status at discharge: cooperative , Functional status at discharge: uses cane/walker Overall status at discharge: patient is back to baseline Quality Metrics Clinical Quality Measures During this hospital stay, did patient experience: None Coding Level of Care Code Acute [facility] DC note Diagnoses Altered mental status R41.82 Suspected urinary tract infection R39.89 SELVIN (acute kidney injury) N17.9 GERD (gastroesophageal reflux disease) K21.9 HTN (hypertension) I10 GERALDO (obstructive sleep apnea) G47.33 Wound of left upper extremity S41.102A Encounter type: initial encounter
--- NOTE | 2020-10-20 10:27 | PC.SOCIAL ---
discharge follow up call made to patient. patient hadn't yet filled her new prescription for amlodipine. wasn't aware of medication changes. went over this information with patient. she states she will have someone pick up attendant new prescription. Patient is receiving home health through [facility]. i spoke with patients nurse, Vera. She is planning to see patient this week and will make sure patients medications are correct. i attempt to call pts daughter Nickie about medications and didn't have success. Patient has follow up appointment with PCP this Tuesday.
== END 2020-10-14 14:27 | disposition home health service (06) | DRG 684 ==
LOC: ER 03:03 → MEDSURG 03:53
PROVIDERS: Admitting Provider Hospitalist; Emergency Provider Emergency Medicine; PCP Family Medicine; Visit Provider Student in an Organized Health Care Education/Training Program
DX: N17.9 Acute kidney failure, unspecified (principal); I10 Essential (primary) hypertension; K21.9 Gastro-esophageal reflux disease without esophagitis; E03.9 Hypothyroidism, unspecified; G47.33 Obstructive sleep apnea (adult) (pediatric); R40.0 Somnolence; S41.102A Unspecified open wound of left upper arm, initial encounter; X58.XXXA Exposure to other specified factors, initial encounter; Z20.822 Contact with and (suspected) exposure to COVID-19; Y99.9 Unspecified external cause status; Z80.9 Family history of malignant neoplasm, unspecified; Z83.3 Family history of diabetes mellitus; Z82.3 Family history of stroke; Z82.49 Family history of ischemic heart disease and other diseases of the circulatory system; Z88.0 Allergy status to penicillin; Z88.8 Allergy status to other drugs, medicaments and biological substances
CPT/HCPCS: 36415; 36416; 51702; 70450; 71045; 74176; 80053; 81001; 82436; 82570; 82962; 83540; 83550; 83605; 83690; 83735; 84133; 84145; 84300; 84443; 85025; 85610; 87040; 87426; 87635; 92610; 93005; 96365; 96367; 96372; 96375; 97161; 97165; 97530; 97535; 99285; C9113; J0696; J0743; J1644; J3370; J7030

== ENCOUNTER → 2020-11-14 10:28 | Outpatient (BNVA) | payer MEDICARE, OTHER, SELFPAY | PROVIDERS: PCP Family Medicine; Visit Provider Physician Assistant | DX: R41.82 Altered mental status, unspecified (principal) | CPT/HCPCS: 81000; 87077; 87086; 87184 ==

== ENCOUNTER → 2020-12-30 11:04 | Outpatient (BNVA) | payer MEDICARE, OTHER, SELFPAY | PROVIDERS: PCP Family Medicine; Visit Provider Urology | DX: N39.0 Urinary tract infection, site not specified (principal); R39.89 Other symptoms and signs involving the genitourinary system | CPT/HCPCS: 81003; 87086 ==

== ENCOUNTER 2021-01-28 10:23 | Inpatient (IN) | payer MEDICARE, OTHER, SELFPAY ==
--- NOTE | 2021-01-28 10:27 | W.ED.GENADLT ---
HPI - General Adult General: Chief complaint: Altered Mental Status Stated complaint: RENAL FAIURE/ LETHARGY/ AMS Time Seen by Provider: 01/28/21 10:27 History of Present Illness: HPI narrative: Ms. Dimas is a 85-year-old lady with history of recurrent UTI ESBL who presents to the emergency department due to altered mental status. Her complaint is shingles which she has on her abdomen and has been present for approximately 1 week. She endorses pain with it but cannot quantify much else. She reports falling and possibly hitting her head 3 days ago preceding dizziness associated with this. History is otherwise limited by patient's mental status, unclear baseline. Supplemental history provided by daughter upon arrival. Typical of patient's UTIs she gets fevers and behavior changes. Over the past day she has had behavior change. She was diagnosed with shingles underneath her right breast and on the right flank/back yesterday and started on valacyclovir and analgesic. Review of Systems General: Reports: ROS unobtainable due to mental status PFS ED PFSH: Medical History Depression GERD (gastroesophageal reflux disease) HTN (hypertension) Hypothyroidism GERALDO (obstructive sleep apnea) Recurrent UTI Sepsis Urgency incontinence Family History Son Diabetes Brother Stroke Cancer Hypertension Sister Cancer Hypertension Mother , at age 86 Heart attack Dementia Father , at age 73 Heart attack Social History Alcohol intake: never Marital status: Current occupational status: retired History of recent travel: No Physical Exam Narrative: EXAM NARRATIVE: GENERAL/CONSTITUTIONAL - well-appearing. No acute distress. Eyes -no scleral icterus, no conjunctival injection ENMT - Atraumatic external nose and ears. Moist mucous membranes NECK - supple. trachea midline CARDIOVASCULAR - regular rate and rhythm. RESPIRATORY -clear to auscultation bilaterally. ABDOMEN/GI - no tenderness to palpation. No distention. No evidence of peritonitis. MSK - Extremities without obvious deformity or tenderness to palpation SKIN - Warm, Dry NEURO - alert but confused. No focal neurologic deficits appreciated on exam. moves all extremities equally. Course ED course: - Patient was seen and evaluated by me at bedside - Patient placed on cardiac monitors, IV access obtained - Initial evaluation notable for no acute distress, nontoxic appearance. Patient is extremely poor historian with somewhat unclear baseline. - Labs notable for no leukocytosis. Mild hyponatremia and decreased bicarb. Negative delta troponin. Urinalysis without obvious evidence of urinary tract infection though upon review of prior this is not uncommon for the patient. - Imaging notable for no acute abnormality noted on head CT to explain the patient's mental status. Due to possible reported fall CT cervical spine was also done and negative for acute fracture. As it turns out it does not sound like patient fell however that was unclear initially. No evidence of pneumonia. - Upon the patient's daughter's arrival further clarification that this is not the patient's typical mental status. She is much more angry and confused. Typically she is well oriented and lives at home. I did witness significant behavior changes and anger expressed by the patient. The daughter reports that this behavior is very typical for the patient has urinary tract infections. - I discussed the case with urology. - Very challenging situation given patient's history. I do not have solid evidence of urinary tract infection however this is been the patient's pattern in the past even when she has urinary tract infections that are culture proven. Therefore antibiotics ordered and patient requires further inpatient treatment as prior ESBL cultures do not allow for further oral antibiotic therapy at home. - Based on patient history, evaluation, labs, and imaging as interpreted the most likely cause of the patient's condition is altered mental status possibly secondary to ESBL urinary tract infection - The results of ED evaluation were discussed with the patient including plan for admission due to requirement for level of care not available if discharged to prevent significant worsening/deterioration. -Hospitalist service contacted and agreed to admit patient. - Patient was admitted without further deterioration or significant events. Vital Signs: Vital signs: Vital Signs Temperature 97.6 F 02/02/21 14:05 Pulse Rate 78 02/02/21 14:05 Respiratory Rate 16 02/02/21 14:05 Blood Pressure 116/74 02/02/21 14:05 Pulse Oximetry 97 02/02/21 14:05 [facility] - General Adult Medical Records: Attestation: I reviewed the patient's medical records. Lab Data: Attestation: I reviewed the patient's lab results. Labs: Lab Results 01/28/21 01/28/21 01/28/21 11:15 11:17 11:17 WBC 7.0 10^3/uL 10^3/ uL (4.0-10.0) RBC 4.00 10^6/uL L 10 ^6/uL (4.1-5.3) Hgb 13.7 g/dL g/dL (11.5-15.3) Hct 39.4 % % (37.0-47.0) MCV 98.5 fl fl (81-99) MCH 34.3 pg H pg (28.0-34.0) MCHC 34.8 g/dL g/dL (30.0-36.0) RDW 14.7 % % (12.1-15.1) Plt Count 125 10^3/cmm L 10 ^3/cmm (130-400) MPV 10.0 fL fL (7.4-10.4) Neut % (Auto) 66.5 % % Lymph % (Auto) 16.9 % % [place] % (Auto) 13.2 % % Eos % (Auto) 2.0 % % Baso % (Auto) 0.4 % % Neut # (Auto) 4.63 10^3/uL 10^3 /uL (1.8-7.7) Lymph # (Auto) 1.2 10^3/uL 10^3/ uL (0.8-4.8) [place] # (Auto) 0.9 10^3/uL 10^3/ uL (0.2-0.9) Eos # (Auto) 0.1 10^3/uL 10^3/ uL (0.0-0.8) Baso # (Auto) 0.0 10^3/uL 10^3/ uL (0.0-0.1) Nucleated RBC % (a uto) 0 % % Nucleated RBCs # 0.0 /100WBC /100W BC Sodium 131 mmol/L L mmol /L (136-145) Potassium 4.0 mmol/L mmol/L (3.5-5.1) Chloride 99 mmol/L mmol/L (98-107) Carbon Dioxide 21 mmol/L L mmol/ L (22-29) Anion Gap 15.0 (5-19) BUN 11 mg/dL mg/dL (8-23) Creatinine 0.8 mg/dL mg/dL (0.5-0.9) GFR Calculation Not Reportable Glucose 137 mg/dL H mg/dL (65-115) POC Glucose 149 mg/dL H mg/dL (70-110) Calculated Osmolal ity 274 mOsm/kg L mOs m/kg (285-295) Lactate Calcium 8.7 mg/dL mg/dL (8.5-10.5) Phosphorus 2.8 mg/dL mg/dL (2.5-4.5) Magnesium 2.0 mg/dL mg/dL (1.7-2.3) Total Bilirubin 1.6 mg/dL H mg/dL (0.15-1.2) AST 29 U/L U/L (0-32) ALT 20 U/L U/L (0-33) Alkaline Phosphata se 144 IU/L H IU/L (35-105) Troponin T Baselin e Troponin T 120 Min [place] Delta Troponin T Total Protein 6.5 g/dL L g/dL (6.6-8.7) Albumin 3.5 g/dL g/dL (3.5-5.2) Globulin 3.0 g/dL g/dL (1.3-4.6) TSH 0.99 uIU/mL uIU/m L (0.27-4.20) Urine Color Urine Appearance Urine pH Ur Specific Gravit y Urine Protein Urine Glucose (UA) Urine Ketones Urine Blood Urine Nitrate Urine Bilirubin Urine Urobilinogen Ur Leukocyte Lauren ase Urine RBC Urine WBC Ur Squamous Epith Cells Amorphous Sediment Urine Bacteria 01/28/21 01/28/21 01/28/21 11:17 11:17 11:22 WBC RBC Hgb Hct MCV MCH MCHC RDW Plt Count MPV Neut % (Auto) Lymph % (Auto) [place] % (Auto) Eos % (Auto) Baso % (Auto) Neut # (Auto) Lymph # (Auto) [place] # (Auto) Eos # (Auto) Baso # (Auto) Nucleated RBC % (a uto) Nucleated RBCs # Sodium Potassium Chloride Carbon Dioxide Anion Gap BUN Creatinine GFR Calculation Glucose POC Glucose Calculated Osmolal ity Lactate 1.5 mmol/L mmol/L (0.5-2.2) Calcium Phosphorus Magnesium Total Bilirubin AST ALT Alkaline Phosphata se Troponin T Baselin e 16 ng/L H ng/L (0-10) Troponin T 120 Min [place] Troponin T Total Protein Albumin Globulin TSH Urine Color Lavern (Yellow) Urine Appearance Clear (CLEAR) Urine pH 5 (5-7) Ur Specific Gravit y 1.015 (1.005-1.030) Urine Protein 2+ H (Negative) Urine Glucose (UA) Norm (Normal) Urine Ketones 1+ H (Negative) Urine Blood Trace H (Negative) Urine Nitrate Negative (Negative) Urine Bilirubin 2+ H (Negative) Urine Urobilinogen 1 mg/dL H mg/dL (Negative) Ur Leukocyte Lauren ase Negative (Negative) Urine RBC 0-4 /hpf H /hpf (0-2) Urine WBC 0-4 /hpf H /hpf (0-5) Ur Squamous Epith Cells 5-10 /hpf H /hpf (0-5) Amorphous Sediment Not Reportable Urine Bacteria 1+ /hpf H /hpf (NONE) 01/28/21 13:35 WBC RBC Hgb Hct MCV MCH MCHC RDW Plt Count MPV Neut % (Auto) Lymph % (Auto) [place] % (Auto) Eos % (Auto) Baso % (Auto) Neut # (Auto) Lymph # (Auto) [place] # (Auto) Eos # (Auto) Baso # (Auto) Nucleated RBC % (a uto) Nucleated RBCs # Sodium Potassium Chloride Carbon Dioxide Anion Gap BUN Creatinine GFR Calculation Glucose POC Glucose Calculated Osmolal ity Lactate Calcium Phosphorus Magnesium Total Bilirubin AST ALT Alkaline Phosphata se Troponin T Baselin e Troponin T 120 Min [place] 13.64 ng/L H ng/L (0-10) Delta Troponin T -2.36 ABS# L ABS# (0-10) Total Protein Albumin Globulin TSH Urine Color Urine Appearance Urine pH Ur Specific Gravit y Urine Protein Urine Glucose (UA) Urine Ketones Urine Blood Urine Nitrate Urine Bilirubin Urine Urobilinogen Ur Leukocyte Lauren ase Urine RBC Urine WBC Ur Squamous Epith Cells Amorphous Sediment Urine Bacteria EKG Data^: EKG 1: Attestation: I personally reviewed and interpreted this EKG as follows: EKG interpretation date: 01/28/21 EKG interpretation time: 11:20 Interpretation: Twelve-lead EKG shows an irregular rhythm at a rate of 84. MA interval 169, QRS duration 93, QTc 419. Left axis deviation. Interpretation: Sinus rhythm. PACs. Computer generated interpretation: Cervical Spine CT 01/28/21 10:41 IMPRESSION: 1. No acute cervical spine fracture. 2. Multilevel extensive bilateral foraminal stenosis and facet arthropathy as above. Chest X-Ray 01/28/21 10:41 IMPRESSION: Stable appearance of the chest, not significantly changed from 10/12/20. Radiation Dose CTDIVOL = (mGy): DLP = (mGy-cm) Head CT 01/28/21 10:41 IMPRESSION: 1. No acute intracranial hemorrhage or edema. 2. Mild atrophy and mild chronic microvascular ischemic disease. Head MRI 01/30/21 11:18 IMPRESSION: 1. Multiple small bilateral lacunar infarcts in several arterial distributions. Consistent with embolic source. Consider evaluation of the heart for source of the emboli. 2. Mild progression of chronic microvascular ischemic changes and prior lacunar infarcts since 05/07/2020. 3. No hemorrhage. Head/Neck CTA 01/31/21 07:00 IMPRESSION: 1. Approximately 60% short-segment stenosis of the ostium left internal carotid artery. 2. Arteriosclerosis of the right common carotid artery bulb with approximately 50% stenosis. 3. Small 4 mm pulmonary nodule left upper lobe. For patients at low risk (minimal or absent history of smoking and of other known risk factors), no routine follow-up is indicated. For patients at high risk (history of smoking or of other known risk factors), consider optional CT Chest at 12 months. (Reference: Stephanie) REFERENCES: 1. Stephanie Treadwell, et al. Guidelines for Management of Incidental Pulmonary Nodules Detected on CT Images: From the Fleischner Society 2017. Radiology. 2017;284(1):228-243. 2. NASCET CRITERIA. The degree of internal carotid artery stenosis is based on NASCET criteria. Normal is no stenosis. Mild is less than 50% stenosis. Moderate is 50-69% stenosis. Severe is 70% to 99% stenosis. Total occlusion is no detectable patent lumen. Radiation Dose CTDIVOL = (mGy): DLP = 1869.2~1869.2 (mGy-cm) EKG 2: Attestation: I personally reviewed and interpreted this EKG as follows: EKG interpretation date: 01/28/21 EKG interpretation time: 13:39 Interpretation: Twelve-lead EKG shows a irregular rhythm at a rate of 83 MA interval 174, QRS duration 93, QTc 418 Left axis deviation Interpretation: Sinus rhythm. PACs. Computer generated interpretation: Cervical Spine CT 01/28/21 10:41 IMPRESSION: 1. No acute cervical spine fracture. 2. Multilevel extensive bilateral foraminal stenosis and facet arthropathy as above. Chest X-Ray 01/28/21 10:41 IMPRESSION: Stable appearance of the chest, not significantly changed from 10/12/20. Radiation Dose CTDIVOL = (mGy): DLP = (mGy-cm) Head CT 01/28/21 10:41 IMPRESSION: 1. No acute intracranial hemorrhage or edema. 2. Mild atrophy and mild chronic microvascular ischemic disease. Head MRI 01/30/21 11:18 IMPRESSION: 1. Multiple small bilateral lacunar infarcts in several arterial distributions. Consistent with embolic source. Consider evaluation of the heart for source of the emboli. 2. Mild progression of chronic microvascular ischemic changes and prior lacunar infarcts since 05/07/2020. 3. No hemorrhage. Head/Neck CTA 01/31/21 07:00 IMPRESSION: 1. Approximately 60% short-segment stenosis of the ostium left internal carotid artery. 2. Arteriosclerosis of the right common carotid artery bulb with approximately 50% stenosis. 3. Small 4 mm pulmonary nodule left upper lobe. For patients at low risk (minimal or absent history of smoking and of other known risk factors), no routine follow-up is indicated. For patients at high risk (history of smoking or of other known risk factors), consider optional CT Chest at 12 months. (Reference: Stephanie) REFERENCES: 1. Stephanie Treadwell, et al. Guidelines for Management of Incidental Pulmonary Nodules Detected on CT Images: From the Fleischner Society 2017. Radiology. 2017;284(1):228-243. 2. NASCET CRITERIA. The degree of internal carotid artery stenosis is based on NASCET criteria. Normal is no stenosis. Mild is less than 50% stenosis. Moderate is 50-69% stenosis. Severe is 70% to 99% stenosis. Total occlusion is no detectable patent lumen. Radiation Dose CTDIVOL = (mGy): DLP = 1869.2~1869.2 (mGy-cm) Discharge Plan Discharge Patient Disposition: Admitted As Inpatient Admit Provider: Sujit Mora Condition: Stable Discharge Diet: Cardiac Discharge Activity: Resume usual activity Coding Level of Care Code ED Industrial Hygenist for Joelle Marcelino
[2021-01-28 10:31] VITALS: BP 186/84; PULSE 84; RESP 16; TEMP 37.3; O2SAT 92
--- NOTE | 2021-01-28 10:41 | XRR_ITS ---
PROCEDURE INFORMATION: Exam: XR Chest Exam date and time: 01/28/2021 10:41 AM Age: 85 years old Clinical indication: Other: AMS TECHNIQUE: Imaging protocol: XR of the chest. Views: 1 view. COMPARISON: CR (CHEST, ) 10/12/2020 1:54 AM FINDINGS: Lungs: Chronic granulomatous disease. Pleural spaces: No pleural effusion. Heart/Mediastinum: No cardiomegaly. Vasculature: Ectasia of the thoracic aorta. Bones/joints: Osteopenia and degenerative change. When correlating with the previous study, no significant interval changes are present. XR/XR chest 1V portable [id number] IMPRESSION: Stable appearance of the chest, not significantly changed from 10/12/20. Radiation Dose CTDIVOL = (mGy): DLP = (mGy-cm)
--- NOTE | 2021-01-28 10:41 | CT_ITS ---
WS: [id number] CT CERVICAL SPINE HISTORY: fall, ams TECHNIQUE: Contiguous 2.5 mm axial imaging performed through the entire cervical spine. Sagittal and coronal reformats also performed. All CT scans at [facility] use at least one of these dose o ptimization techniques: automated exposure control; mA and/or kV adjustment per patient size (include s targeted exams where dose is matched to clinical indication); or iterative reconstruction. DLP: 818.66 mGy.cm COMPARISON: 01/04/2019 Mild curvature cervical spine. Posterior alignment is normal. Craniocervical junction is normal. Late ral masses of C1 and C2 are aligned. Odontoid process is intact. Multilevel facet joint arthritis. Ma rked narrowing of the predental space. No fractures are identified. C2-C3: Central disc protrusion without cord contact. C3-C4: Moderate to severe bilateral facet joint arthritis and hypertrophy. Moderate foraminal stenosi s. C4-C5: Moderate bilateral facet joint arthritis and bony hypertrophy with foraminal stenosis and cent ral disc protrusion. C5-C6: Osteophytic ridging with moderate bilateral facet joint arthritis. Mild bilateral foraminal na rrowing. C6-C7: Diffuse osteophytic ridging. Mild bilateral foraminal narrowing. C7-T1: Normal. Lung apices are clear. Atherosclerotic plaque within the aortic arch. CT/CT cervical spin wo con* [id number] IMPRESSION: 1. No acute cervical spine fracture. 2. Multilevel extensive bilateral foraminal stenosis and facet arthropathy as above.
--- NOTE | 2021-01-28 10:41 | CT_ITS ---
WS: [id number] CT HEAD NONCONTRAST HISTORY: fall, headstrike TECHNIQUE: Contiguous axial imaging performed through the brain in 2.5 mm imaging. Bone and soft tiss ue windows. Sagittal and coronal reformats reviewed. All CT scans at [facility] use at least one of these dose optimization techniques: automated exposure control; mA and/or kV adjustment per pa tient size (includes targeted exams where dose is matched to clinical indication); or iterative recon struction. DLP: 1595.82 mGy.cm COMPARISON: 10/12/2020 No acute intracranial hemorrhage, midline shift or mass effect. Mild symmetric atrophy with mild diffuse chronic microvascular ischemic disease. Tiny lacunar infarct in the anterior limb of the RIGHT internal capsule. Ventricles: Normal size with no hydrocephalus. Paranasal sinuses: As visualized are clear. Mastoid air cells: Well pneumatized. Calvarium and scalp: Skull is intact with no soft tissue edema or swelling. CT/CT head wo con* [id number] IMPRESSION: 1. No acute intracranial hemorrhage or edema. 2. Mild atrophy and mild chronic microvascular ischemic disease.
[2021-01-28 11:25] VITALS: BP 167/89; PULSE 82; O2SAT 92
[2021-01-28 11:25] LABS: Glucose Point of Care 149 mg/dL (70-110)
[2021-01-28 11:32] LABS: Basophils % 0.4 %; Eosinophils # 0.1 10^3/uL (0.0-0.8); Hematocrit 39.4 % (37.0-47.0); Hemoglobin 13.7 g/dL (11.5-15.3); Lymphocytes # 1.2 10^3/uL (0.8-4.8); Lymphocytes % 16.9 %; Mean Corpuscular HGB Conc 34.8 g/dL (30.0-36.0); Mean Corpuscular Hemoglobin 34.3 pg (28.0-34.0); Mean Corpuscular Volume 98.5 fl (81-99); Monocytes # 0.9 10^3/uL (0.2-0.9); Monocytes % 13.2 %; Neutrophils # 4.63 10^3/uL (1.8-7.7); Neutrophils % 66.5 %; Nucleated Red Blood Cells % 0 %; Platelet Count 125 10^3/cmm (130-400); Red Cell Distribution Width 14.7 % (12.1-15.1)
[2021-01-28 11:42] LABS: Add Urine Microscopic? YES; Bilirubin Urine 2+ (Negative); Blood Urine Trace (Negative); Glucose Urine UA Norm (Normal); Ketones Urine 1+ (Negative); Leukocyte Esterase Urine Negative (Negative); Nitrate Urine Negative (Negative); Protein Urine 2+ (Negative); Specific Gravity, Urine 1.015 (1.005-1.030); Urine Appearance Clear (CLEAR); Urine Color Amber (Yellow); Urobilinogen Urine 1 mg/dL (Negative); pH Urine 5 (5-7)
[2021-01-28 11:45] LABS: Lactate (Lactic Acid level) 1.5 mmol/L (0.5-2.2)
[2021-01-28 12:11] LABS: Alanine Aminotransferase 20 U/L (0-33); Albumin Level 3.5 g/dL (3.5-5.2); Alkaline Phosphatase 144 IU/L (35-105); Aspartate Amino Transferase 29 U/L (0-32); Blood Urea Nitrogen 11 mg/dL (8-23); Calcium 8.7 mg/dL (8.5-10.5); Carbon Dioxide 21 mmol/L (22-29); Chloride 99 mmol/L (98-107); Glucose 137 mg/dL (65-115); Osmolality Calculated 274 mOsm/kg (285-295); Phosphorus 2.8 mg/dL (2.5-4.5); Sodium 131 mmol/L (136-145); Thyroid Stimulating Hormone 0.99 uIU/mL (0.27-4.20); Total Bilirubin 1.6 mg/dL (0.15-1.2); Total Protein 6.5 g/dL (6.6-8.7)
[2021-01-28 12:20] LABS: Troponin(5th) Baseline 16 ng/L (0-10)
[2021-01-28 12:24] LABS: Bacteria Urine 1+ /hpf; RBC Urine 0-4 /hpf (0-2); WBC Urine 0-4 /hpf (0-5)
[2021-01-28 12:35] VITALS: BP 179/114; PULSE 80; O2SAT 92
--- NOTE | 2021-01-28 12:42 | ECG_ITS ---
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 Measurements Intervals [place] Rate: 83 P: 31 WA: 174 QRS: -21 QRSD: 93 T: 58 QT: 379 QTc: 446 Interpretive Statements SINUS RHYTHM WITH FREQUENT SUPRAVENTRICULAR PREMATURE COMPLEXES BORDERLINE LEFT AXIS DEVIATION [QRS AXIS < -20] MINIMAL VOLTAGE CRITERIA FOR LVH, CONSIDER NORMAL VARIANT [MEETS CRITERIA IN ONE OF: R(aVL), S(V1), R(V5), R(V5/V6)+S(V1)] Compared to ECG 01/28/2021 11:13:41 No significant changes Electronically Signed On 01-28-2021 17:43:05 LAWN SPRINKLER INSTALLER by Kristopher Fuchs M.D. [id number]
[2021-01-28] MEDS: sodium chloride 0.9% 500 ML 999 ML IV (13:59)
[2021-01-28 14:20] LABS: Troponin 5 2HR 13.64 ng/L (0-10)
[2021-01-28 14:22] LABS: Troponin 5 2HR Delta -2.36 ABS# (0-10)
[2021-01-28 15:38] VITALS: BP 174/86; PULSE 83; O2SAT 94
[2021-01-28 16:28] VITALS: BP 163/84; PULSE 84; O2SAT 94
--- NOTE | 2021-01-28 16:42 | ECG_ITS ---
[facility] Test Date: 2021-01-28 Pat Name: Nadja Dimas Department: Room: Gender: Female Web Ui Developer: : 1935 Requested By: Benny Rodriges Order Number: [id number] Karolina MD: Kristopher Fuchs M.D. Measurements Intervals [place] Rate: 84 P: 44 DC: 169 QRS: -24 QRSD: 93 T: 52 QT: 378 QTc: 447 Interpretive Statements SINUS RHYTHM WITH FREQUENT SUPRAVENTRICULAR PREMATURE COMPLEXES BORDERLINE LEFT AXIS DEVIATION [QRS AXIS < -20] MINIMAL VOLTAGE CRITERIA FOR LVH, CONSIDER NORMAL VARIANT [MEETS CRITERIA IN ONE OF: R(aVL), S(V1), R(V5), R(V5/V6)+S(V1)] ABNORMAL RHYTHM ECG Compared to ECG 10/12/2020 01:37:21 Myocardial infarct finding no longer present Electronically Signed On 01-28-2021 17:43:55 MANPOWER DEVELOPMENT MANAGER by Kristopher Fuchs M.D. [id number]
--- NOTE | 2021-01-28 17:03 | PM.HP ---
Providers/Chief Complaint Admitting Physician: Sujit Mora MD Primary Care Provider: Christofer William MD Chief Complaint: RENAL FAIURE/ LETHARGY/ AMS History of Present Illness 84 year old female with PMH of recurrent UTI Including ESBL previously treated with carbapenems , depression hypertension , came in with chief complaint of worsening confusion, lethargy, irritation, Patients daughter stated this is similar Presentation to her prior Urine tract infections.She was recently diagnosed with shingles on her abdomen and was started on valacyclovir as an outpatient. History was mainly provided by daughter at bedside. Upon arrival in the ER she was worked up for above-mentioned complaint: Pertinent imaging studies: CT head without contrast: No acute intracranial pathology CT C-spine: No acute cervical spine fracture. X-ray chest: No infiltrates no effusion no pneumothorax EKG sinus rhythm Pertinent labs: WBC 7 H&H 13.7/39.4,PLT : 125 , serum sodium 131, serum potassium 4 BUN / serum creatinine : 11/0.8 , random blood glucose 137, serum lactic acid 1.5, total bilirubin 1.6, AST 29 ALT 20 alk phos 144 , troponin trend without significant delta, TSH 0.99 , Urinalysis: Urine WBC 0-4, urine leukocyte esterase negative, urine nitrite negative, urine bacteria 1+ Review of Systems Resp: Denies: productive cough or wheezing GI: Denies: diarrhea or constipation Musc: Denies: extremity pain Medications/Allergies Home Medications Medication Instructions Recorded Confirmed Last Taken Type alprazolam 0.25 mg tablet 0.25 mg PO BID PRN tab 03/02/19 01/28/21 Unknown History folic acid 1 mg tablet 1 mg PO DAILY tab 03/02/19 01/28/21 01/27/21 History acetaminophen 650 mg PO Q4H PRN #0 tab 03/21/19 01/28/21 Unknown Rx loratadine 10 mg capsule 10 mg PO DAILY PRN #90 cap 06/25/20 01/28/21 Unknown Rx mupirocin 2 % topical ointment 1 applic TOPICAL BID #22 g 07/16/20 01/28/21 Unknown Rx methotrexate sodium 15 mg PO Q7D 10/12/20 01/28/21 10/11/20 History losartan 50 mg PO DAILY #90 tab 10/14/20 01/28/21 01/27/21 Rx venlafaxine 75 mg PO DAILY #0 tab 10/14/20 01/28/21 01/27/21 Rx amlodipine 10 mg tablet 10 mg PO DAILY 12/30/20 01/28/21 01/27/21 History nitrofurantoin 100 mg PO BID #60 cap 01/21/21 01/28/21 01/27/21 Rx monohydrate/macrocrystals 100 mg capsule hydrocodone-acetaminophen 1 tab PO Q6H PRN 01/28/21 01/28/21 Unknown History pantoprazole 40 mg PO DAILY 01/28/21 01/28/21 01/27/21 History valacyclovir 1,000 mg PO TID 01/28/21 01/28/21 01/27/21 History Allergies Allergy/AdvReac Type Severity Reaction Status Date / Time tizanidine [From Zanaflex] Allergy Mild Unknown Verified 01/28/21 10:41 ciprofloxacin [From Cipro] Allergy ALGY-Rash Verified 01/28/21 10:41 meperidine [From Demerol] Allergy ADR-Confusi Verified 01/28/21 10:41 on Penicillins Allergy ALGY-Swell Verified 01/28/21 10:41 Lip/Tongue/Throat PFSH Acute PFSH: Medical History Depression GERD (gastroesophageal reflux disease) HTN (hypertension) Hypothyroidism GERALDO (obstructive sleep apnea) Recurrent UTI Sepsis Urgency incontinence Family History Son Diabetes Brother Stroke Cancer Hypertension Sister Cancer Hypertension Mother , at age 86 Heart attack Dementia Father , at age 73 Heart attack Social History Alcohol intake: never Marital status: Current occupational status: retired History of recent travel: No Vitals/I&O/Wt Last Vital Signs Temp 99.1 F 01/28/21 10:31 Pulse 84 01/28/21 16:28 Resp 16 01/28/21 10:31 BP 163/84 01/28/21 16:28 Pulse Ox 94 01/28/21 16:28 Physical Exam Narrative: EXAM NARRATIVE: Alert and awake HENMT: COMMON NORMALS: normocephalic and atraumatic HEAD & SCALP: normocephalic and atraumatic Resp: COMMON NORMALS: clear to auscultation bilaterally AUSCULTATION: clear to auscultation bilaterally Cardio: COMMON NORMALS: regular rate, regular rhythm, S1 normal heart sound present, S2 normal heart sound present, No gallops present (Cardio), No murmurs present (Cardio), No rub (Cardio) and Peripheral pulses 2+ throughout RATE: regular rate RHYTHM: regular rhythm HEART SOUNDS: S1 normal heart sound present and S2 normal heart sound present PERIPHERAL PULSES: Peripheral pulses 2+ throughout GI: COMMON NORMALS: Normal to inspection, nondistended, normoactive bowel sounds present, Soft to palpation, non-tender, No hepatosplenomegaly present and no masses AUSCULTATION: Yes normoactive bowel sounds PALPATION: Yes Soft to palpation and Yes No hepatosplenomegaly present RECTAL EXAM: deferred Extremity: COMMON NORMALS: no clubbing, cyanosis or edema and no pedal edema Neuro: COMMON NORMALS: patient oriented x3 Skin: OTHER: Dermatomal distribution of erythematous rash extending from right breast to back Urinary Catheter Management^: Hernandez: Cath Placed During This Visit: no Data : 01/28/21 11:17 01/28/21 11:17 Micro: Microbiology 01/28/21 13:43 Blood Culture - Preliminary Blood SPECIMEN COLLECTED 01/28/21 13:35 Blood Culture - Preliminary Blood SPECIMEN COLLECTED A&P Assessment and plan (1) Acute encephalopathy: Status: Acute (2) Recurrent UTI: Status: Acute (3) Shingles: Status: Acute (4) HTN (hypertension): Status: Acute (5) Depression: Status: Acute Additional A&P Information 84 year old female with PMH of recurrent UTI Including ESBL previously treated with carbapenems , depression hypertension , came in with chief complaint of worsening confusion, lethargy, irritation, Patients daughter stated this is similar Presentation to her prior Urine tract infections.She was recently diagnosed with shingles on her abdomen and was started on valacyclovir as an outpatient. # Acute metabolic encephalopathy likely secondary to UTI/'SHINGLES: Follow blood culture urine culture, continue patient on Primaxin, will tailor antibiotic based on the culture result. #'SHINGLES: Continue valacyclovir : 1000 mg p.o. 3 times daily #Hypertension: Continue amlodipine and losartan #DVT prophylaxis: Lovenox 40 subcu daily #CODE STATUS:AND Attestations Medical Necessity Statement*: Patient needs to be in hospital for management of above defined problems.Anticipated length of stay greater than 2 midnights. Coding Level of Care Code Acute Pyrometer Temperature Regulator for Chg Fwd Diagnoses Acute encephalopathy G93.40 Recurrent UTI N39.0 Shingles B02.9 HTN (hypertension) I10 Depression F32.9
[2021-01-28 18:25] LABS: Troponin 5 6HR 19.17 ng/L (0-10); Troponin 5 6HR Delta 3.17 ng/L (0-12)
[2021-01-28] MEDS: enoxaparin 40 mg/0.4 mL Syringe SUBCUT (18:33)
[2021-01-28 19:00] VITALS: BP 174/77; PULSE 80; RESP 20; TEMP 36.5; O2SAT 95
[2021-01-28] MEDS: ALPRAZolam 0.5 mg Tablet 0.25 MG PO (21:10)
[2021-01-28] MEDS: valACYclovir 1,000 mg Tablet 1000 MG PO (21:10)
[2021-01-28] MEDS: HYDROcodone-acetaminophen 5-325 mg Tablet 1 TAB PO (21:10)
[2021-01-29] VITALS (7 sets, daily range): BP systolic 132–157; BP diastolic 62–79; PULSE 80–86; RESP 16–18; TEMP 36.7–36.9; O2SAT 90–93
[2021-01-29 06:39] LABS: Blood Urea Nitrogen 13 mg/dL (8-23); Calcium 8.7 mg/dL (8.5-10.5); Carbon Dioxide 18 mmol/L (22-29); Chloride 103 mmol/L (98-107); Glucose 146 mg/dL (65-115); Magnesium 1.8 mg/dL (1.7-2.3); Osmolality Calculated 281 mOsm/kg (285-295); Sodium 134 mmol/L (136-145)
[2021-01-29] MEDS: losartan 50 mg Tablet PO (08:55)
[2021-01-29] MEDS: pantoprazole DR 40 mg Tablet PO (08:55)
[2021-01-29] MEDS: valACYclovir 1,000 mg Tablet 1000 MG PO ×3 (08:55→21:08)
[2021-01-29] MEDS: amlodipine 10 mg Tablet PO (08:55)
[2021-01-29] MEDS: folic acid 1 mg Tablet PO (08:56)
[2021-01-29 09:07] LABS: Basophils # 0.1 10^3/uL (0.0-0.1); Basophils % 0.9 %; Eosinophils # 0.2 10^3/uL (0.0-0.8); Eosinophils % 3.3 %; Hematocrit 38.5 % (37.0-47.0); Hemoglobin 12.6 g/dL (11.5-15.3); Lymphocytes # 1.5 10^3/uL (0.8-4.8); Lymphocytes % 21.1 %; Mean Corpuscular HGB Conc 32.7 g/dL (30.0-36.0); Mean Corpuscular Hemoglobin 33.9 pg (28.0-34.0); Mean Corpuscular Volume 103.5 fl (81-99); Mean Platelet Volume 10.4 fL (7.4-10.4); Monocytes # 0.8 10^3/uL (0.2-0.9); Neutrophils # 4.37 10^3/uL (1.8-7.7); Neutrophils % 62.7 %; Nucleated Red Blood Cells % 0 %; Platelet Count 106 10^3/cmm (130-400); Red Blood Count 3.72 10^6/uL (4.1-5.3); Red Cell Distribution Width 14.8 % (12.1-15.1)
--- NOTE | 2021-01-29 10:38 | PC.CHAP ---
Pastoral Care Encounter/Spiritual Assessment Type of Contact [] Declined media professional visit [] Patient/Family/Request visit [] Outpatient visit [] Follow-up visit [] Physician referral [] Code/Alert [x] Routine visit [] Staff referral [] Actively dying [] Patient sleeping [] Family support [] [] Out of room [] Palliative care [] [x] Receiving care in room [] Pre-surgical visit [] Trauma [x] Long length of stay [] ICU visit [] Other: Relational/Emotional Strength [] Patient feels connected with others/family/visitors/staff [x] Distress [] Loneliness/isolation [] Abandonment Spirituality of Patient [x] Person of Nevaeh [] Attends Baptist of their Nevaeh [x] Believes in Prayer [] Reads Bible or Gnosticist materials [] There are Spiritual issues to be addressed Unit Aide Tech Interventions [x] Prayer [x] Active listening [x] Non-anxious presence [x] Spiritual/emotional support [] Crisis/trauma care [x] Spiritual counseling [] Bereavement support [] Provided bereavement packet [] Provided Bible/devotional materials [] Provided toy/stuffed animal, coloring book to patient or family member [] Provided Communion [] Anointing/Strunk [] Salvation [x] Completed spiritual assessment [] Other: Impact on Illness or Injury [] Angry [x] Fearful [] Anxious [] Often cries [] Exhaustion [x] Unable to work [] Unable to attend hinduism [] Unable to walk/stand [] Unable to read [] Unable to drive [] Unable to eat/drink [] Unable to sleep [] Unable to be with family [] Patient intubated [] Other: Summary renal faiure has negative out look on her health will be going home at some poibt Time spent with patient 10 mjns
[2021-01-29] MEDS: sodium chloride 0.9% 1,000 ML 50 ML IV (12:48)
[2021-01-29] MEDS: venlafaxine ER (24HR) 75 mg Capsule PO (12:50)
--- NOTE | 2021-01-29 13:22 | PM.PN ---
Subjective Subjective: Interval history: Patient continues to be extremely lethargic,continues to be very weak.Daughter is at bedside Says that her mentation is not at her baseline, at baseline she is more active and alert. Medications: Reviewed: Yes Vitals/I&O/Wt Last Vital Signs Temp 98.0 F 01/29/21 11:23 Pulse 86 01/29/21 11:23 Resp 16 01/29/21 11:23 BP 145/77 01/29/21 11:23 Pulse Ox 93 01/29/21 11:23 01/28/21 01/29/21 01/29/21 22:59 06:59 14:59 Intake Total 700 / 700 100 / 800 700 / 700 Output Total 150 / 150 Balance 700 / 700 -50 / 650 700 / 700 Physical Exam Narrative: EXAM NARRATIVE: Alert and awake Const: COMMON NORMALS: patient oriented x3 HENMT: COMMON NORMALS: normocephalic and atraumatic HEAD & SCALP: normocephalic and atraumatic Resp: COMMON NORMALS: clear to auscultation bilaterally AUSCULTATION: clear to auscultation bilaterally Cardio: COMMON NORMALS: regular rate, regular rhythm, S1 normal heart sound present, S2 normal heart sound present, No gallops present (Cardio), No murmurs present (Cardio), No rub (Cardio) and Peripheral pulses 2+ throughout RATE: regular rate RHYTHM: regular rhythm HEART SOUNDS: S1 normal heart sound present and S2 normal heart sound present PERIPHERAL PULSES: Peripheral pulses 2+ throughout GI: COMMON NORMALS: Normal to inspection, nondistended, normoactive bowel sounds present, Soft to palpation, non-tender, No hepatosplenomegaly present and no masses AUSCULTATION: Yes normoactive bowel sounds PALPATION: Yes Soft to palpation and Yes No hepatosplenomegaly present RECTAL EXAM: deferred Extremity: COMMON NORMALS: no clubbing, cyanosis or edema and no pedal edema Neuro: COMMON NORMALS: patient oriented x3 Skin: OTHER: Dermatomal distribution of erythematous rash extending from right breast to back Urinary Catheter Management^: Hernandez: Cath Placed During This Visit: no Reason for Continuing Indwelling Catheter: Other Data : 01/29/21 08:45 01/29/21 05:40 Micro: Microbiology 01/28/21 13:43 Blood Culture - Preliminary Blood SPECIMEN COLLECTED 01/28/21 13:35 Blood Culture - Preliminary Blood SPECIMEN COLLECTED A&P Assessment and plan (1) Acute encephalopathy: Status: Acute (2) Recurrent UTI: Status: Acute (3) Shingles: Status: Acute (4) HTN (hypertension): Status: Acute (5) Depression: Status: Acute Additional A&P Information 84 year old female with PMH of recurrent UTI Including ESBL previously treated with carbapenems , depression hypertension , came in with chief complaint of worsening confusion, lethargy, irritation, Patients daughter stated this is similar Presentation to her prior Urine tract infections.She was recently diagnosed with shingles on her abdomen and was started on valacyclovir as an outpatient. # Acute metabolic encephalopathy likely secondary to UTI/'SHINGLES: Follow blood culture urine culture, continue patient on Primaxin, will tailor antibiotic based on the culture result. #'SHINGLES: Continue valacyclovir : 1000 mg p.o. 3 times daily #Hypertension: Continue amlodipine and losartan #DVT prophylaxis: Lovenox 40 subcu daily #CODE STATUS:AND Attestations Medical Necessity Statement*: Patient needs to be in hospital for management of altered mental status. Coding Level of Care Code Acute Demand Generator Manager for [facility] Fwd Exam Detailed Diagnoses Acute encephalopathy G93.40 Recurrent UTI N39.0 Shingles B02.9 HTN (hypertension) I10 Depression F32.9
[2021-01-29] MEDS: enoxaparin 40 mg/0.4 mL Syringe SUBCUT (15:51)
[2021-01-30] VITALS (7 sets, daily range): BP systolic 108–138; BP diastolic 62–75; PULSE 77–83; RESP 16–22; TEMP 36.4–36.9; O2SAT 90–98
[2021-01-30] MEDS: ALPRAZolam 0.5 mg Tablet 0.25 MG PO (00:22)
[2021-01-30 04:12] LABS: Basophils # 0.1 10^3/uL (0.0-0.1); Basophils % 0.8 %; Eosinophils # 0.3 10^3/uL (0.0-0.8); Eosinophils % 3.6 %; Hematocrit 33.8 % (37.0-47.0); Hemoglobin 11.9 g/dL (11.5-15.3); Lymphocytes # 2.8 10^3/uL (0.8-4.8); Lymphocytes % 38.2 %; Mean Corpuscular HGB Conc 35.2 g/dL (30.0-36.0); Mean Corpuscular Hemoglobin 33.9 pg (28.0-34.0); Mean Corpuscular Volume 96.3 fl (81-99); Mean Platelet Volume 11.6 fL (7.4-10.4); Monocytes # 0.9 10^3/uL (0.2-0.9); Monocytes % 11.5 %; Neutrophils # 3.31 10^3/uL (1.8-7.7); Neutrophils % 44.8 %; Nucleated Red Blood Cells % 0 %; Platelet Count 173 10^3/cmm (130-400); Red Blood Count 3.51 10^6/uL (4.1-5.3); Red Cell Distribution Width 14.8 % (12.1-15.1); White Blood Count 7.4 10^3/uL (4.0-10.0)
[2021-01-30 04:47] LABS: Slide Review Slide Review Perform
[2021-01-30 07:33] LABS: Anion Gap 13.8 (5-19); Blood Urea Nitrogen 13 mg/dL (8-23); Calcium 8.7 mg/dL (8.5-10.5); Carbon Dioxide 22 mmol/L (22-29); Chloride 103 mmol/L (98-107); Glucose 131 mg/dL (65-115); Osmolality Calculated 282 mOsm/kg (285-295); Potassium 3.8 mmol/L (3.5-5.1); Sodium 135 mmol/L (136-145)
[2021-01-30] MEDS: amlodipine 10 mg Tablet PO (10:02)
[2021-01-30] MEDS: venlafaxine ER (24HR) 75 mg Capsule PO (10:02)
[2021-01-30] MEDS: pantoprazole DR 40 mg Tablet PO (10:03)
[2021-01-30] MEDS: folic acid 1 mg Tablet PO (10:03)
[2021-01-30] MEDS: losartan 50 mg Tablet PO (10:04)
[2021-01-30] MEDS: valACYclovir 1,000 mg Tablet 1000 MG PO ×3 (10:07→21:27)
[2021-01-30] MEDS: sodium chloride 0.9% 1,000 ML 50 ML IV (10:10)
--- NOTE | 2021-01-30 11:18 | MR_ITS ---
WS: [id number] MRI BRAIN WITHOUT CONTRAST HISTORY: Altered Mental Status COMPARISON: 05/07/2020 TECHNIQUE: Diffusion imaging, multiplanar T1, T2 and FLAIR imaging obtained. Bilateral, multifocal acute lacunar infarcts are identified in multiple vascular territories. Largest lacunar infarct is slightly bilobed measuring 7 mm in the RIGHT centrum semiovale involving the post erior RIGHT frontal lobe. There are additional small tiny lacunar infarcts towards the vertex of the bilateral frontal lobes. Tiny lacunar infarct in the cortex of the posterior LEFT parietal lobe. Tiny lacunar infarcts bilaterally in the posterior cerebellum. No hemorrhage associated with these areas of acute infarction. There is additional T2 shine through which was previously described RIGHT ashley radiata. Ventricles and extra-axial spaces are mildly dilated on the basis of atrophy. There is extensive chemical equipment controller se T2 and FLAIR signal hyperintensities which have actually progressed since 05/07/2020. Prior small l acunar infarct in the LEFT cerebellum. Small vessel ischemic changes in the prasanna. No inferior displacement of cerebellar tonsils. The sella turcica and pituitary gland are unremarkabl e. Dural venous sinuses and rosebud of Mack demonstrate no abnormality on this unenhanced studies. Paranasal sinuses: Clear. Mastoid air cells: Normal. Calvarium and scalp: Intact. MR/MR head wo con* [id number] IMPRESSION: 1. Multiple small bilateral lacunar infarcts in several arterial distributions . Consistent with embolic source. Consider evaluation of the heart for source o f the emboli. 2. Mild progression of chronic microvascular ischemic changes and prior lacuna r infarcts since 05/07/2020. 3. No hemorrhage.
--- NOTE | 2021-01-30 11:58 | PC.CHAP ---
Pastoral Care Encounter/Spiritual Assessment Type of Contact [] Declined firer automatic stoker visit [] Patient/Family/Request visit [] Outpatient visit [xx] Follow-up visit [] Physician referral [] Code/Alert [xx] Routine visit [] Staff referral [] Actively dying [] Patient sleeping [] Family support [] [] Out of room [] Palliative care [] [] Receiving care in room [] Pre-surgical visit [] Trauma [] Long length of stay [] ICU visit [] Other: Relational/Emotional Strength [xx] Patient feels connected with others/family/visitors/staff [] Distress [] Loneliness/isolation [] Abandonment Spirituality of Patient [xx] Person of Nevaeh [] Attends Gnosticist of their Nevaeh [xx] Believes in Prayer [xx] Reads Bible or Anabaptism materials [] There are Spiritual issues to be addressed Appellate Law Clerk Interventions [xx] Prayer [xx] Active listening [xx] Non-anxious presence [] Spiritual/emotional support [] Crisis/trauma care [] Spiritual counseling [] Bereavement support [] Provided bereavement packet [xx] Provided Bible/devotional materials [] Provided toy/stuffed animal, coloring book to patient or family member [] Provided Communion [] Anointing/Rudyard [] Salvation [xx] Completed spiritual assessment [] Other: Impact on Illness or Injury [] Angry [] Fearful [] Anxious [] Often cries [] Exhaustion [] Unable to work [] Unable to attend methodist [] Unable to walk/stand [] Unable to read [] Unable to drive [] Unable to eat/drink [] Unable to sleep [] Unable to be with family [] Patient intubated [] Other: Summary Patient's daughter, Nickie, present. Patient stated she feels better and was sitting up in a chair. Nickie was encouraging her mother to stay as mobile as possible so she can go home and not to a prison. Time spent with patient 5 minutes
--- NOTE | 2021-01-30 12:55 | USCV_ITS ---
Nadja Dimas Age: 85 Gender: F : 1935 Exam Date: 01/30/2021 15:52 Ordering Phys: Sujit Mora MD Technologist: Corrine Parker [place] [facility] [place]: AC Stroke BP: 135 / 75 HR: 81 Rhythm: Sinus Technical Quality: Technically difficult study MEASUREMENTS (Male / Female) Normal Values 2D ECHO LV Diastolic Diameter PLAX 1.9 cm 4.2 - 5.9 / 3.9 - 5.3 cm LV Systolic Diameter PLAX 1.2 cm LV Chamber Size 3.1 cm IVS Diastolic Thickness 1.6 cm 0.6 - 1.0 / 0.6 - 0.9 cm IVS Systolic Thickness 2.2 cm LVPW Diastolic Thickness 1.3 cm 0.6 - 1.0 / 0.6 - 0.9 cm LVPW Systolic Thickness 1.8 cm LVOT Diameter 1.6 cm LV Ejection Fraction 2D Teich 67.9 % LV Ejection Fraction MOD 2C 72.1 % LV Ejection Fraction 2C AL 72.9 % LA Diameter 2.4 cm LA Width 3.6 cm LA Height 5.4 cm Aorta at Sinotubular Diameter 2.2 cm DOPPLER AV Peak Velocity 155.0 cm/s LVOT Peak Velocity 135.0 cm/s AV Area Cont Eq vti 2.0 cm squared AV Area Cont Eq pk 1.8 cm squared MV Area PHT 1.4 cm squared Mitral E to A Ratio 0.6 MV E' Velocity 44.0 cm/s Mitral E to MV E' Ratio 12.9 Mitral E to LV E' Lateral Ratio 10.5 Mitral E to LV E' Septal Ratio 16.6 TR Peak Velocity 240.0 cm/s TR Peak Gradient 23.0 mmHg TV Peak E Velocity 49.0 cm/s Right Atrial Pressure 3.0 mmHg Pulmonary Artery Systolic Pressu 26.0 mmHg FINDINGS Left Ventricle Normal left ventricular cavity size. Hyperdynamic left ventricle ejection fraction estimated ejection fraction 75%.Grade I/IV diastolic dysfunction (abnormal relaxation filling pattern), normal to mildly elevated filling pressures. Right Ventricle Normal right ventricular size. Right Atrium Normal right atrial size. Left Atrium The left atrium is normal in size. Mitral Valve Severely thickened mitral valve. Severe mitral annular calcification. No mitral valve stenosis. Moderate mitral valve regurgitation. Aortic Valve Moderate aortic valve calcification. No aortic valve stenosis. Trace aortic valve regurgitation. Tricuspid Valve Mild tricuspid valve regurgitation. Pulmonic Valve Structurally normal pulmonic valve without significant stenosis. There is no pulmonic regurgitation. Pericardium Normal pericardium without effusion. Aorta Normal ascending aorta dimension. CONCLUSIONS 1-Normal left ventricular cavity size. Hyperdynamic left ventricle ejection fraction estimated ejection fraction 75%.Grade I/IV diastolic dysfunction (abnormal relaxation filling pattern), normal to mildly elevated filling pressures. 2-Severely thickened mitral valve. Severe mitral annular calcification. No mitral valve stenosis. Moderate mitral valve regurgitation. 3-Moderate aortic valve calcification. No aortic valve stenosis. Trace aortic valve regurgitation. 4-Normal right ventricular size. 5-There is no pericardial effusion. 6-Pulmonary artery systolic pressure is within normal limits. 7-Right atrial pressure is around 5 mm of mercury. 8-When compared to the prior echocardiogram dated December 13, 2017 there appeared to be worsening of mitral valve annulus calcification and mitral valve regurgitation from mild to moderate now. Overall rest of the echo remains unchanged Latisha Cotter MD (Electronically Signed) Final Date: 01 February 2021 12:48 S
[2021-01-30] MEDS: aspirin 81 mg EC Tablet PO (14:00)
[2021-01-30] MEDS: enoxaparin 40 mg/0.4 mL Syringe SUBCUT (16:37)
--- NOTE | 2021-01-30 18:37 | P.PN_ITS ---
Subjective Subjective: Interval history: Patient continues to be extremely lethargic,continues to be very weak. Medications: Reviewed: Yes Vitals/I&O/Wt Last Vital Signs Temp 98.3 F 01/31/21 15:55 Pulse 82 01/31/21 15:55 Resp 18 01/31/21 15:55 BP 121/66 01/31/21 15:55 Pulse Ox 96 01/31/21 15:55 01/31/21 01/31/21 01/31/21 06:59 14:59 22:59 Intake Total 1460 / 3480 340 / 340 100 / 440 Balance 1460 / 2905 340 / 340 100 / 440 Physical Exam Narrative: EXAM NARRATIVE: Alert and awake Const: COMMON NORMALS: patient oriented x3 HENMT: COMMON NORMALS: normocephalic and atraumatic HEAD & SCALP: normocephalic and atraumatic Resp: COMMON NORMALS: clear to auscultation bilaterally AUSCULTATION: clear to auscultation bilaterally Cardio: COMMON NORMALS: regular rate, regular rhythm, S1 normal heart sound present, S2 normal heart sound present, No gallops present (Cardio), No murmurs present (Cardio), No rub (Cardio) and Peripheral pulses 2+ throughout RATE: regular rate RHYTHM: regular rhythm HEART SOUNDS: S1 normal heart sound present and S2 normal heart sound present PERIPHERAL PULSES: Peripheral pulses 2+ throughout GI: COMMON NORMALS: Normal to inspection, nondistended, normoactive bowel sounds present, Soft to palpation, non-tender, No hepatosplenomegaly present and no masses AUSCULTATION: Yes normoactive bowel sounds PALPATION: Yes Soft to palpation and Yes No hepatosplenomegaly present RECTAL EXAM: deferred Extremity: COMMON NORMALS: no clubbing, cyanosis or edema and no pedal edema Neuro: COMMON NORMALS: patient oriented x3 Skin: OTHER: Dermatomal distribution of erythematous rash extending from right breast to back Urinary Catheter Management^: Hernandez: Cath Placed During This Visit: no Reason for Continuing Indwelling Catheter: Other Data : 01/31/21 04:24 01/31/21 04:24 Micro: Microbiology 01/30/21 10:25 Urine Culture - Preliminary Urine,Voided A&P Assessment and plan (1) Acute encephalopathy: Status: Acute (2) Recurrent UTI: Status: Acute (3) Shingles: Status: Acute (4) HTN (hypertension): Status: Acute (5) Depression: Status: Acute Additional A&P Information 84 year old female with PMH of recurrent UTI Including ESBL previously treated with carbapenems , depression hypertension , came in with chief complaint of worsening confusion, lethargy, irritation, Patients daughter stated this is similar Presentation to her prior Urine tract infections.She was recently diagnosed with shingles on her abdomen and was started on valacyclovir as an outpatient. # Acute metabolic encephalopathy likely secondary to Ac CVA/Shingles/possible UTI CT head wo con:No acute intracranial hemorrhage, midline shift or mass effect. Tiny lacunar infarct in the anterior limb of the RIGHT internal capsule. CTA head and neck: 2D echo MRI without contrast: Multiple small bilateral lacunar infarcts in several arterial distributions. Aspirin, Plavix, statin Follow blood culture urine culture, continue patient on Primaxin, will tailor antibiotic based on the culture result. #'SHINGLES: Continue valacyclovir : 1000 mg p.o. 3 times daily #Hypertension: Continue amlodipine and losartan #DVT prophylaxis: Lovenox 40 subcu daily #CODE STATUS:AND Attestations Medical Necessity Statement*: Patient needs to be in the hospital for the management of acute CVA. Coding Level of Care Code Acute Senior Account Clerk for Joelle Marcelino Diagnoses Acute encephalopathy G93.40 Recurrent UTI N39.0 Shingles B02.9 HTN (hypertension) I10 Depression F32.9
[2021-01-30] MEDS: atorvastatin 40 mg Tablet PO (21:40)
[2021-01-31] VITALS (8 sets, daily range): BP systolic 108–138; BP diastolic 65–78; PULSE 78–85; RESP 17–19; TEMP 36.4–37.3; O2SAT 95–98
[2021-01-31 05:42] LABS: Basophils # 0.1 10^3/uL (0.0-0.1); Basophils % 0.6 %; Eosinophils # 0.3 10^3/uL (0.0-0.8); Eosinophils % 3.4 %; Hematocrit 35.6 % (37.0-47.0); Hemoglobin 12.3 g/dL (11.5-15.3); Lymphocytes # 2.8 10^3/uL (0.8-4.8); Mean Corpuscular HGB Conc 34.6 g/dL (30.0-36.0); Mean Corpuscular Volume 98.3 fl (81-99); Mean Platelet Volume 10.4 fL (7.4-10.4); Monocytes # 0.7 10^3/uL (0.2-0.9); Neutrophils # 4.75 10^3/uL (1.8-7.7); Neutrophils % 54.8 %; Nucleated Red Blood Cells % 0 %; Platelet Count 130 10^3/cmm (130-400); Red Blood Count 3.62 10^6/uL (4.1-5.3); White Blood Count 8.7 10^3/uL (4.0-10.0)
[2021-01-31 06:00] LABS: Blood Urea Nitrogen 15 mg/dL (8-23); Calcium 8.4 mg/dL (8.5-10.5); Carbon Dioxide 17 mmol/L (22-29); Chloride 104 mmol/L (98-107); Glucose 135 mg/dL (65-115); Osmolality Calculated 281 mOsm/kg (285-295); Sodium 134 mmol/L (136-145)
[2021-01-31 06:08] LABS: Anion Gap 16.6 (5-19); Potassium 3.6 mmol/L (3.5-5.1)
--- NOTE | 2021-01-31 07:00 | CTR_ITS ---
PROCEDURE INFORMATION: Exam: CT Angiography Head With Contrast, Arteriography Exam date and time: 01/31/2021 7:00 AM Age: 85 years old Clinical indication: Cognitive deficit; Altered mental status; Patient HX: Ams/lethargy; Additional info: Jarett stroke TECHNIQUE: Imaging protocol: Computed tomography angiography of the head with contrast. Exam focused on the arteries. 3D rendering (Not supervised by radiologist): MIP and/or 3D reconstructed images were created by the technologist. Total images: 747 Radiation optimization: All CT scans at this facility use at least one of these dose optimization techniques: automated exposure control; mA and/or kV adjustment per patient size (includes targeted exams where dose is matched to clinical indication); or iterative reconstruction. 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 Intracranial segment is patent with no hemodynamically significant stenosis. No aneurysm. Right middle cerebral artery: Unremarkable. No occlusion or hemodynamically significant stenosis. No aneurysm. Right anterior cerebral artery: Unremarkable. No occlusion or hemodynamically significant stenosis. No aneurysm. 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 Intracranial segment is patent with no hemodynamically significant stenosis. No aneurysm. Left middle cerebral artery: Unremarkable. No occlusion or hemodynamically significant stenosis. No aneurysm. Left anterior cerebral artery: Unremarkable. No occlusion or hemodynamically significant stenosis. No aneurysm. POSTERIOR CIRCULATION: Right vertebral artery: Unremarkable. No occlusion or significant stenosis. No aneurysm. Left vertebral artery: Unremarkable. No occlusion or significant stenosis. No aneurysm. Basilar artery: Unremarkable. No occlusion or significant stenosis. No aneurysm. Right posterior cerebral artery: Unremarkable. No occlusion or significant stenosis. No aneurysm. Left posterior cerebral artery: Unremarkable. No occlusion or significant stenosis. No aneurysm. IMPRESSION: 1. No large vessel hemodynamically significant stenosis or occlusion. 2. 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 PROCEDURE INFORMATION: Exam: CT Angiography Neck With Contrast Exam date and time: 01/31/2021 7:00 AM Age: 85 years old Clinical indication: Cognitive deficit; Altered mental status; Patient HX: Ams/lethargy; Additional info: Ac stroke TECHNIQUE: Imaging protocol: Computed tomography angiography of the neck with contrast. 3D rendering (Not supervised by radiologist): MIP and/or 3D reconstructed images were created by the technologist. Radiation optimization: All CT scans at this facility use at least one of these dose optimization techniques: automated exposure control; mA and/or kV adjustment per patient size (includes targeted exams where dose is matched to clinical indication); or iterative reconstruction. Contrast material: OMNI 350; Contrast volume: 95 ml; Contrast route: INTRAVENOUS (IV); COMPARISON: MRA Head [id number] 12/12/2017 2:32 PM RADIATION DOSE METRICS: Total DLP (mGy-cm): 1869.2 FINDINGS: Right common carotid artery: Arteriosclerosis of the common carotid artery bulb with approximately 50% stenosis. No hemodynamically significant stenosis of 70% or greater next to. No dissection or occlusion. Right internal carotid artery: No hemodynamically significant stenosis of the extracranial segment. No dissection or occlusion. Right external carotid artery: No occlusion or hemodynamically significant stenosis of the origin. Left common carotid artery: No hemodynamically significant stenosis. No dissection or occlusion. Left internal carotid artery: Approximately 60% short-segment stenosis of the ostium of the extracranial segment. No dissection or occlusion. Left external carotid artery: No occlusion or hemodynamically significant stenosis of the origin. Right vertebral artery: No stenosis. No dissection or occlusion. Left vertebral artery: No stenosis. No dissection or occlusion. Soft tissues: Unremarkable for age. No significant soft tissue swelling. Bones/joints: No visible acute osseous abnormality. Degenerative disease and degenerative disc disease of the cervical spine. Lungs: Small 4 mm pulmonary nodule left upper lobe. CT/CT angio headneck* [id number] IMPRESSION: 1. Approximately 60% short-segment stenosis of the ostium left internal carotid artery. 2. Arteriosclerosis of the right common carotid artery bulb with approximately 50% stenosis. 3. Small 4 mm pulmonary nodule left upper lobe. For patients at low risk (minimal or absent history of smoking and of other known risk factors), no routine follow-up is indicated. For patients at high risk (history of smoking or of other known risk factors), consider optional CT Chest at 12 months. (Reference: Stephanie) REFERENCES: 1. Stephanie Treadwell, et al. Guidelines for Management of Incidental Pulmonary Nodules Detected on CT Images: From the Fleischner Society 2017. Radiology. 2017;284(1):228-243. 2. NASCET CRITERIA. The degree of internal carotid artery stenosis is based on NASCET criteria. Normal is no stenosis. Mild is less than 50% stenosis. Moderate is 50-69% stenosis. Severe is 70% to 99% stenosis. Total occlusion is no detectable patent lumen. Radiation Dose CTDIVOL = (mGy): DLP = 1869.2~1869.2 (mGy-cm)
[2021-01-31] MEDS: venlafaxine ER (24HR) 75 mg Capsule PO (08:18)
[2021-01-31] MEDS: aspirin 81 mg EC Tablet PO (08:18)
[2021-01-31] MEDS: pantoprazole DR 40 mg Tablet PO (08:18)
[2021-01-31] MEDS: valACYclovir 1,000 mg Tablet 1000 MG PO ×3 (08:18→21:34)
[2021-01-31] MEDS: folic acid 1 mg Tablet PO (08:18)
[2021-01-31] MEDS: clopidogrel 75 mg Tablet PO (08:20)
[2021-01-31] MEDS: amlodipine 10 mg Tablet PO (08:20)
[2021-01-31] MEDS: losartan 50 mg Tablet PO (08:31)
[2021-01-31] MEDS: sodium chloride 0.9% 1,000 ML 50 ML IV (09:59)
--- NOTE | 2021-01-31 10:35 | PC.SOCIAL ---
IMM update Discussed medicare rights with patient and her daughter at bedside. Patient seemed confused. Daughter verbalized understanding. Placed copy on patient's bedside table and placed initialed, timed, dated copy in patient's chart.
[2021-01-31] MEDS: iohexol 350 mg/mL 100 mL Btl IV (17:01)
--- NOTE | 2021-01-31 18:43 | PM.PN ---
Subjective Subjective: Interval history: Patient was seen and examined this morning, continues to be very weak, working with physical therapy, currently requiring walker.Much more alert and awake today. Her other vitals and labs have been reviewed. Medications: Reviewed: Yes Vitals/I&O/Wt Last Vital Signs Temp 98.3 F 01/31/21 15:55 Pulse 82 01/31/21 15:55 Resp 18 01/31/21 15:55 BP 121/66 01/31/21 15:55 Pulse Ox 96 01/31/21 15:55 01/31/21 01/31/21 01/31/21 06:59 14:59 22:59 Intake Total 1460 / 3480 340 / 340 100 / 440 Balance 1460 / 2905 340 / 340 100 / 440 Physical Exam Narrative: EXAM NARRATIVE: Alert and awake Const: COMMON NORMALS: patient oriented x3 HENMT: COMMON NORMALS: normocephalic and atraumatic HEAD & SCALP: normocephalic and atraumatic Resp: COMMON NORMALS: clear to auscultation bilaterally AUSCULTATION: clear to auscultation bilaterally Cardio: COMMON NORMALS: regular rate, regular rhythm, S1 normal heart sound present, S2 normal heart sound present, No gallops present (Cardio), No murmurs present (Cardio), No rub (Cardio) and Peripheral pulses 2+ throughout RATE: regular rate RHYTHM: regular rhythm HEART SOUNDS: S1 normal heart sound present and S2 normal heart sound present PERIPHERAL PULSES: Peripheral pulses 2+ throughout GI: COMMON NORMALS: Normal to inspection, nondistended, normoactive bowel sounds present, Soft to palpation, non-tender, No hepatosplenomegaly present and no masses AUSCULTATION: Yes normoactive bowel sounds PALPATION: Yes Soft to palpation and Yes No hepatosplenomegaly present RECTAL EXAM: deferred Extremity: COMMON NORMALS: no clubbing, cyanosis or edema and no pedal edema Neuro: COMMON NORMALS: patient oriented x3 Skin: OTHER: Dermatomal distribution of erythematous rash extending from right breast to back Urinary Catheter Management^: Hernandez: Cath Placed During This Visit: no Reason for Continuing Indwelling Catheter: Other Data : 01/31/21 04:24 01/31/21 04:24 Micro: Microbiology 01/30/21 10:25 Urine Culture - Preliminary Urine,Voided A&P Assessment and plan (1) Acute encephalopathy: Status: Acute (2) Recurrent UTI: Status: Acute (3) Shingles: Status: Acute (4) HTN (hypertension): Status: Acute (5) Depression: Status: Acute Additional A&P Information 84 year old female with PMH of recurrent UTI Including ESBL previously treated with carbapenems , depression hypertension , came in with chief complaint of worsening confusion, lethargy, irritation, Patients daughter stated this is similar Presentation to her prior Urine tract infections.She was recently diagnosed with shingles on her abdomen and was started on valacyclovir as an outpatient. # Acute metabolic encephalopathy likely secondary to Ac CVA/Shingles/possible UTI CT head wo con:No acute intracranial hemorrhage, midline shift or mass effect. Tiny lacunar infarct in the anterior limb of the RIGHT internal capsule. CTA head and neck:Approximately 60% short-segment stenosis of the ostium left internal carotid artery. Arteriosclerosis of the right common carotid artery bulb with approximately 50% stenosis. MRI without contrast: Multiple small bilateral lacunar infarcts in several arterial distributions. 2D echo: Aspirin, Eliquis, statin Follow blood culture urine culture, continue patient on Primaxin, will tailor antibiotic based on the culture result. #New onset A. fib: Telemetry review has shown new onset A. fib. Currently rate controlled. Patient has been started on Eliquis for anticoagulation #'SHINGLES: Continue valacyclovir : 1000 mg p.o. 3 times daily #Hypertension: Continue amlodipine and losartan #DVT prophylaxis: Lovenox 40 subcu daily #CODE STATUS:AND Attestations Medical Necessity Statement*: Patient is to be in hospital for management of acute encephalopathy. 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
[2021-01-31] MEDS: atorvastatin 40 mg Tablet PO (21:34)
[2021-01-31] MEDS: apixaban 5 mg Tablet PO (21:34)
[2021-02-01] VITALS: BP 125/59; PULSE 83; RESP 16; TEMP 37; O2SAT 96
[2021-02-01] MEDS: ALPRAZolam 0.5 mg Tablet 0.25 MG PO ×2 (00:44→22:27)
[2021-02-01] MEDS: HYDROcodone-acetaminophen 5-325 mg Tablet 1 TAB PO ×2 (00:44→22:27)
[2021-02-01 04:00] VITALS: BP 134/69; PULSE 80; RESP 16; TEMP 36.4; O2SAT 92
[2021-02-01 06:46] LABS: Basophils % 0.4 %; Eosinophils # 0.2 10^3/uL (0.0-0.8); Eosinophils % 3.4 %; Hematocrit 32.7 % (37.0-47.0); Hemoglobin 11.1 g/dL (11.5-15.3); Lymphocytes # 1.3 10^3/uL (0.8-4.8); Lymphocytes % 22.3 %; Mean Corpuscular HGB Conc 33.9 g/dL (30.0-36.0); Mean Corpuscular Hemoglobin 33.7 pg (28.0-34.0); Mean Corpuscular Volume 99.4 fl (81-99); Monocytes # 0.6 10^3/uL (0.2-0.9); Monocytes % 9.8 %; Neutrophils # 3.52 10^3/uL (1.8-7.7); Neutrophils % 62.8 %; Nucleated Red Blood Cells % 0 %; Platelet Count 130 10^3/cmm (130-400); Red Blood Count 3.29 10^6/uL (4.1-5.3); White Blood Count 5.6 10^3/uL (4.0-10.0)
[2021-02-01 07:19] LABS: Anion Gap 11.8 (5-19); Blood Urea Nitrogen 9 mg/dL (8-23); Calcium 8.4 mg/dL (8.5-10.5); Carbon Dioxide 20 mmol/L (22-29); Chloride 106 mmol/L (98-107); Glucose 115 mg/dL (65-115); Osmolality Calculated 278 mOsm/kg (285-295); Potassium 3.8 mmol/L (3.5-5.1); Sodium 134 mmol/L (136-145)
[2021-02-01 08:10] VITALS: BP 130/71; PULSE 75; RESP 20; TEMP 36.6; O2SAT 95
[2021-02-01] MEDS: pantoprazole DR 40 mg Tablet PO (08:25)
[2021-02-01] MEDS: amlodipine 10 mg Tablet PO (08:25)
[2021-02-01] MEDS: apixaban 5 mg Tablet PO ×2 (08:25→20:33)
[2021-02-01] MEDS: folic acid 1 mg Tablet PO (08:25)
[2021-02-01] MEDS: aspirin 81 mg EC Tablet PO (08:25)
[2021-02-01] MEDS: losartan 50 mg Tablet PO (08:25)
[2021-02-01] MEDS: venlafaxine ER (24HR) 75 mg Capsule PO (08:25)
[2021-02-01] MEDS: valACYclovir 1,000 mg Tablet 1000 MG PO ×3 (08:25→20:33)
[2021-02-01 12:49] VITALS: BP 119/74; PULSE 80; RESP 16; TEMP 36.4; O2SAT 94
--- NOTE | 2021-02-01 13:35 | P.PN_ITS ---
Subjective Subjective: Interval history: Patient was seen and examined this morning, was complaining of left arm pain, working with physical therapy, making slowly progress. Her other vitals and labs have been reviewed. Medications: Reviewed: Yes Vitals/I&O/Wt Last Vital Signs Temp 97.5 F L 02/01/21 12:49 Pulse 80 02/01/21 12:49 Resp 16 02/01/21 12:49 BP 119/74 02/01/21 12:49 Pulse Ox 94 02/01/21 12:49 01/31/21 02/01/21 02/01/21 22:59 06:59 14:59 Intake Total 1150 / 1490 100 / 1590 440 / 440 Output Total 350 / 350 400 / 750 650 / 650 Balance 800 / 1140 -300 / 840 -210 / -210 Weight last 48 hrs Weight 80.286 kg Physical Exam Narrative: EXAM NARRATIVE: Alert and awake Const: COMMON NORMALS: patient oriented x3 HENMT: COMMON NORMALS: normocephalic and atraumatic HEAD & SCALP: normocephalic and atraumatic Resp: COMMON NORMALS: clear to auscultation bilaterally AUSCULTATION: clear to auscultation bilaterally Cardio: COMMON NORMALS: regular rate, regular rhythm, S1 normal heart sound present, S2 normal heart sound present, No gallops present (Cardio), No murmurs present (Cardio), No rub (Cardio) and Peripheral pulses 2+ throughout RATE: regular rate RHYTHM: regular rhythm HEART SOUNDS: S1 normal heart sound present and S2 normal heart sound present PERIPHERAL PULSES: Peripheral pulses 2+ throughout GI: COMMON NORMALS: Normal to inspection, nondistended, normoactive bowel sounds present, Soft to palpation, non-tender, No hepatosplenomegaly present and no masses AUSCULTATION: Yes normoactive bowel sounds PALPATION: Yes Soft to palpation and Yes No hepatosplenomegaly present RECTAL EXAM: deferred Extremity: COMMON NORMALS: no clubbing, cyanosis or edema and no pedal edema Neuro: COMMON NORMALS: patient oriented x3 Skin: OTHER: Dermatomal distribution of erythematous rash extending from right breast to back Urinary Catheter Management^: Hernandez: Cath Placed During This Visit: no Reason for Continuing Indwelling Catheter: Other Data : 02/01/21 06:13 02/01/21 06:13 Micro: Microbiology 01/30/21 10:25 Urine Culture - Final Urine,Voided A&P Assessment and plan (1) Acute encephalopathy: Status: Acute (2) Recurrent UTI: Status: Acute (3) Shingles: Status: Acute (4) HTN (hypertension): Status: Acute (5) Depression: Status: Acute Additional A&P Information 84 year old female with PMH of recurrent UTI Including ESBL previously treated with carbapenems , depression hypertension , came in with chief complaint of worsening confusion, lethargy, irritation, Patients daughter stated this is similar Presentation to her prior Urine tract infections.She was recently diagnosed with shingles on her abdomen and was started on valacyclovir as an outpatient. # Acute metabolic encephalopathy secondary to Ac CVA/Shingles/possible UTI: Resolved CT head wo con:No acute intracranial hemorrhage, midline shift or mass effect. Tiny lacunar infarct in the anterior limb of the RIGHT internal capsule. CTA head and neck:Approximately 60% short-segment stenosis of the ostium left internal carotid artery. Arteriosclerosis of the right common carotid artery bulb with approximately 50% stenosis. MRI without contrast: Multiple small bilateral lacunar infarcts in several arterial distributions. 2D echo: Normal LV cavity size, LVEF 75%,Moderate mitral valve regurgitation, No aortic valve stenosis. Trace aortic valve regurgitation. Normal right v entricular size.Pulmonary artery systolic pressure is within normal limits. On Aspirin, Eliquis, statin Blood culture: urine culture:ntd , Initially empirically on Primaxin for possible UTI, has been discontinued. #New onset A. fib: Telemetry review has shown new onset A. fib. Currently rate controlled. Patient has been started on Eliquis for anticoagulation. Risk and benefit of anticoagulation has been discussed with the family #'SHINGLES: Continue valacyclovir : 1000 mg p.o. 3 times daily for 6 days started on Tuesday. #Hypertension: Continue amlodipine and losartan #DVT prophylaxis: Lovenox 40 subcu daily #CODE STATUS:AND #Awaiting placement to [facility] Attestations Medical Necessity Statement*: Patient is to be in hospital for management of acute metabolic encephalopathy. Currently she is awaiting discharge to correction. Medically cleared for discharge. 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
[2021-02-01 16:33] VITALS: BP 121/73; PULSE 76; RESP 15; TEMP 36.6; O2SAT 93
[2021-02-01 20:00] VITALS: BP 104/61; PULSE 75; RESP 17; TEMP 36.6; O2SAT 98
[2021-02-01] MEDS: atorvastatin 40 mg Tablet PO (20:34)
[2021-02-02] VITALS: BP 125/68; PULSE 77; RESP 16; TEMP 36.8; O2SAT 96
[2021-02-02 04:00] VITALS: BP 95/55; PULSE 66; RESP 16; TEMP 36.6; O2SAT 96
[2021-02-02 07:02] LABS: Basophils # 0.1 10^3/uL (0.0-0.1); Basophils % 0.7 %; Eosinophils # 0.3 10^3/uL (0.0-0.8); Hematocrit 35.2 % (37.0-47.0); Hemoglobin 11.9 g/dL (11.5-15.3); Lymphocytes # 2.1 10^3/uL (0.8-4.8); Lymphocytes % 31.4 %; Mean Corpuscular HGB Conc 33.8 g/dL (30.0-36.0); Mean Corpuscular Hemoglobin 33.9 pg (28.0-34.0); Mean Corpuscular Volume 100.3 fl (81-99); Mean Platelet Volume 10.1 fL (7.4-10.4); Monocytes # 0.6 10^3/uL (0.2-0.9); Monocytes % 9.4 %; Neutrophils % 53.9 %; Nucleated Red Blood Cells % 0 %; Platelet Count 128 10^3/cmm (130-400); Red Blood Count 3.51 10^6/uL (4.1-5.3); Red Cell Distribution Width 15.4 % (12.1-15.1); White Blood Count 6.7 10^3/uL (4.0-10.0)
[2021-02-02 07:26] LABS: Anion Gap 12.7 (5-19); Blood Urea Nitrogen 13 mg/dL (8-23); Calcium 8.7 mg/dL (8.5-10.5); Carbon Dioxide 20 mmol/L (22-29); Chloride 109 mmol/L (98-107); Glucose 111 mg/dL (65-115); Osmolality Calculated 287 mOsm/kg (285-295); Potassium 3.7 mmol/L (3.5-5.1); Sodium 138 mmol/L (136-145)
[2021-02-02 08:00] VITALS: BP 119/73; PULSE 72; RESP 16; TEMP 36.7; O2SAT 97
[2021-02-02] MEDS: amlodipine 10 mg Tablet PO (10:08)
[2021-02-02] MEDS: pantoprazole DR 40 mg Tablet PO (10:08)
[2021-02-02] MEDS: folic acid 1 mg Tablet PO (10:08)
[2021-02-02] MEDS: venlafaxine ER (24HR) 75 mg Capsule PO (10:09)
[2021-02-02 10:10] VITALS: BP 119/73
[2021-02-02] MEDS: losartan 50 mg Tablet PO (10:10)
[2021-02-02] MEDS: aspirin 81 mg EC Tablet PO (10:10)
[2021-02-02] MEDS: apixaban 5 mg Tablet PO (10:10)
--- NOTE | 2021-02-02 10:14 | PC.CHAP ---
Pastoral Care Encounter/Spiritual Assessment Type of Contact [] Declined plate cleaner visit [] Patient/Family/Request visit [] Outpatient visit [] Follow-up visit [] Physician referral [] Code/Alert [x] Routine visit [] Staff referral [] Actively dying [] Patient sleeping [] Family support [] [] Out of room [] Palliative care [] [] Receiving care in room [] Pre-surgical visit [] Trauma [] Long length of stay [] ICU visit [] Other: Relational/Emotional Strength [x] Patient feels connected with others/family/visitors/staff [] Distress [] Loneliness/isolation [] Abandonment Spirituality of Patient [x] Person of Nevaeh [x] Attends Scientologist of their Nevaeh [x] Believes in Prayer [] Reads Bible or Quaker materials [] There are Spiritual issues to be addressed [address] [employer] Interventions []x Prayer [x] Active listening [x] Non-anxious presence x[] Spiritual/emotional support [] Crisis/trauma care [] Spiritual counseling [] Bereavement support [] Provided bereavement packet [] Provided Bible/devotional materials [] Provided toy/stuffed animal, coloring book to patient or family member [] Provided Communion [] Anointing/Amorita [] Salvation [x] Completed spiritual assessment [] Other: Impact on Illness or Injury [] Angry [] Fearful [] Anxious [] Often cries [] Exhaustion [] Unable to work [] Unable to attend lutheran [] Unable to walk/stand [] Unable to read [] Unable to drive [] Unable to eat/drink [] Unable to sleep [] Unable to be with family [] Patient intubated [] Other: Summary Time spent with patient 15 min
[2021-02-02] MEDS: valACYclovir 1,000 mg Tablet 1000 MG PO (10:59)
[2021-02-02 12:00] VITALS: BP 116/74; PULSE 78; RESP 16; TEMP 36.4; O2SAT 97
[2021-02-02 13:42] LABS: SARS Covid-2 Antigen Negative (Negative)
--- NOTE | 2021-02-02 13:42 | P.DS_ITS ---
Discharge Providers Date of Admission: 01/28/21 13:56 Date of Discharge: February 02, 2021 Attending Provider at Admission: Sujit Mora MD Attending Provider at Discharge: Artem Sprague MD Primary Care Provider: Christofer William MD Diagnoses at Discharge Discharge Diagnosis (1) Acute encephalopathy: Status: Acute (2) Recurrent UTI: Status: Acute (3) Shingles: Status: Acute (4) HTN (hypertension): Status: Acute (5) Depression: Status: Acute Reason for Visit Reason for Visit: RENAL FAIURE/ LETHARGY/ AMS Hospital Course Hospital Course This is a 85-year-old female with a past medical history of UTIs including ESBL, hypertension, recent history of shingles on valacyclovir, who presents to [facility] due to confusion Patient was admitted to [facility] for acute metabolic encephalopathy secondary to CVA, shingles, possible UTI. Patient's CT of the head showed no acute stroke, did show tiny lacunar infarct in the anterior limb of the right internal capsule, CTA of the head and neck showed approximately 60% short segment stenosis of the ostium left internal c arotid, with arteriosclerosis of the right common carotid artery bulb with approximate 50% stenosis, MRI of the brain showed multiple small bilateral lacunar infarcts in several arterial distributions. Patient was managed with aspirin, Eliquis, statin,. 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 Patient received PT OT, was clinically monitored, mentation returned turned back to baseline alert oriented x3, patient did have complaints of more generalized weakness, but some left more than right weakness, which significantly improved throughout her hospitalization. Discharged to [facility] for PT OT. Follow-up with neurology as outpatient. Patient was advised to monitor for bloody or black stools, monitor hemoglobin if she becomes anemic or develop bloody or black stools go to the emergency room. For atrial fibrillation, discharged on Eliquis, low-dose Metroprolol 12.5 twice daily follow-up with cardiology as outpatient Initially was treated for UTI, given her ESBL history in the past, urine cultures were negative, antibiotics were stopped For her shingles, last dose of treatment is Tuesday Echocardiogram showed worsening mitral valve regurg, moderate, will have patient follow-up with cardiology Physical Exam Const: COMMON NORMALS: no acute distress and patient oriented x3 Resp: COMMON NORMALS: normal respiratory effort, No retractions, No use of accessory muscles and clear to auscultation bilaterally AUSCULTATION: clear to auscultation bilaterally Cardio: COMMON NORMALS: regular rate, S1 normal heart sound present and S2 normal heart sound present RATE: regular rate RHYTHM: abnormal rhythm irregularly irregular HEART SOUNDS: S1 normal heart sound present and S2 normal heart sound present GI: COMMON NORMALS: Normal to inspection, nondistended, normoactive bowel sounds present, Soft to palpation and non-tender PALPATION: Yes Soft to palpation Extremity: COMMON NORMALS: no pedal edema Neuro: COMMON NORMALS: patient oriented x3 Psych: COMMON NORMALS: mental status grossly normal Urinary Catheter Management^: Hernandez: Cath Placed During This Visit: no Reason for Continuing Indwelling Catheter: Other Discharge Data Data Completed and Pending: Completed Studies During Hospitalization Category Date Time Status CT angio headneck * [id number] Rout ine Cat Scan 01/31/21 07:[address] cervical spin wo con* [id number] Urge nt Cat Scan 01/28/21 10:[address] head wo con* 7 0450 Urgent Cat Scan 01/28/21 10:41 Completed XR chest 1V judit ble [id number] Urgent Exams 01/28/21 10:41 Completed MR head wo con* 7 0551 Routine MRI 01/30/21 11:18 Completed CV. echo complete * [id number] Routine Ultrasound 01/30/21 12:55 Completed Pending at discharge Category Date Time Status Basic Metabolic P dipti AM LABS Lab 02/03/21 04:00 Ordered Blood Culture Sta t Lab 01/28/21 13:43 Results Complete Blood Co unt w/Auto AM LABS Lab 02/03/21 04:00 Ordered SARS Covid-2 Anti gen Routine Lab 02/02/21 13:10 Received Labs from last 24 hours 02/02/21 02/02/21 02/02/21 13:10 05:48 05:48 WBC 6.7 RBC 3.51 L Hgb 11.9 Hct 35.2 L MCV 100.3 H MCH 33.9 MCHC 33.8 RDW 15.4 H Plt Count 128 L MPV 10.1 Neut % (Auto) 53.9 Lymph % (Auto) 31.4 [place] % (Auto) 9.4 Eos % (Auto) 4.0 Baso % (Auto) 0.7 Neut # (Auto) 3.60 Lymph # (Auto) 2.1 Fallon # (Auto) 0.6 Eos # (Auto) 0.3 Baso # (Auto) 0.1 Nucleated RBC % (a uto) 0 Nucleated RBCs # 0.0 Sodium 138 Potassium 3.7 Chloride 109 H Carbon Dioxide 20 L Anion Gap 12.7 BUN 13 Creatinine 0.7 GFR Calculation Not Reportable Glucose 111 Calculated Osmolal ity 287 Calcium 8.7 SARS-CoV-2 Ag (Rap id) Pending Vitals: Last Vital Signs Temp 97.6 F 02/02/21 12:00 Pulse 78 02/02/21 12:00 Resp 16 02/02/21 12:00 BP 116/74 02/02/21 12:00 Pulse Ox 97 02/02/21 12:00 Discharge Plan Discharge Patient Disposition: Xfer SNF Condition: Stable Prescriptions: New atorvastatin 40 mg Tablet 40 mg PO BEDTIME 30 Days Qty: 30 RF: 0 aspirin 81 mg Tablet,Delayed Release (Dr/Ec) 81 mg PO DAILY 30 Days Qty: 30 RF: 0 lidocaine 5 % Adhesive Patch,Medicated 1 patch topical [id number] 7 Days Qty: 7 RF: 0 Eliquis 5 mg Tablet 5 mg PO BID@0900,2100 30 Days Qty: 60 RF: 0 hydrocodone-acetaminophen 5-325 mg Tablet 1 tab PO Q12H PRN (Reason: Moderate Pain) 7 Days Qty: 14 RF: 0 metoprolol tartrate 25 mg tablet 12.5 mg PO BID 30 Days Qty: 30 RF: 0 Continued folic acid 1 mg tablet 1 mg PO DAILY RF: 0 alprazolam 0.25 mg tablet 0.25 mg PO BID PRN (Reason: anxiety) RF: 0 loratadine 10 mg capsule 10 mg PO DAILY PRN (Reason: Allergy Symptoms) Qty: 90 RF: 3 mupirocin 2 % ointment 1 applic topical BID Qty: 22 RF: 0 methotrexate sodium 2.5 mg Tablet 15 mg PO Q7D RF: 0 losartan 100 mg tablet 50 mg PO DAILY Qty: 90 RF: 3 venlafaxine 150 mg Tablet Extended Release 24hr 75 mg PO DAILY Qty: 0 RF: 0 pantoprazole 40 mg tablet,delayed release (DR/EC) 40 mg PO DAILY RF: 0 valacyclovir 1 gram Tablet 1,000 mg PO TID 1 Days Qty: 3 RF: 0 Discontinued amlodipine 10 mg tablet 10 mg PO DAILY RF: 0 nitrofurantoin monohyd/m-cryst [Macrobid] 100 mg capsule 100 mg PO BID Qty: 60 RF: 2 acetaminophen 325 mg Tablet 650 mg PO Q4H PRN (Reason: Mild Pain Or Increase Temp) Qty: 0 RF: 0 hydrocodone-acetaminophen 5-325 mg Tablet 1 tab PO Q6H PRN (Reason: Pain) RF: 0 Discharge Orders: Discharge Order (Routine); Ordered 02/02/21 Ordered By: Artem Sprague Referrals: Reba Do MD [Physician] - 1 month (cva) Latisha Cotter MD [Physician] - 1 week (afib) Christofer William MD [Primary Care Provider] - Discharge Diet: Cardiac Discharge Activity: Resume usual activity Activity Restrictions/Additional Instructions: -For atrial fibrillation take Eliquis as prescribed, monitor for bloody or black stools, repeat CBC in 1 week -Discharged on low-dose metoprolol 12.5 twice daily -Please follow-up with cardiology -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 -1 more day of valacyclovir for shingles -Continue to keep shingles rash covered -Monitor for postherpetic neuralgia, hydrocodone, topical lidocaine for pain -PT OT Discharge Attestations Time Spent in Discharge Care*: less than 30 min Status at Discharge: Cognitive status at discharge: cognitively intact , Behavioral status at discharge: cooperative , Quality Metrics Clinical Quality Measures During this hospital stay, did patient experience: None Coding Level of Care Code Acute Chg FW DC note Diagnoses Acute encephalopathy G93.40 Recurrent UTI N39.0 Shingles B02.9 HTN (hypertension) I10 Depression F32.9
[2021-02-02 14:05] VITALS: BP 116/74; PULSE 78; RESP 16; TEMP 36.4; O2SAT 97
== END 2021-02-02 14:55 | disposition skilled nursing facility (03) | DRG 64 ==
LOC: ER 13:56 → MEDSURG 15:24
PROVIDERS: Admitting Provider Internal Medicine; Emergency Provider Emergency Medicine; PCP Family Medicine; Visit Provider Family Medicine
DX: I63.81 Other cerebral infarction due to occlusion or stenosis of small artery (principal); G93.41 Metabolic encephalopathy; N39.0 Urinary tract infection, site not specified; B96.20 Unspecified Escherichia coli [E. coli] as the cause of diseases classified elsewhere; Z87.440 Personal history of urinary (tract) infections; F32.A Depression, unspecified; K21.9 Gastro-esophageal reflux disease without esophagitis; I10 Essential (primary) hypertension; E03.9 Hypothyroidism, unspecified; G47.33 Obstructive sleep apnea (adult) (pediatric); B02.9 Zoster without complications; I48.91 Unspecified atrial fibrillation; I34.0 Nonrheumatic mitral (valve) insufficiency
CPT/HCPCS: 36415; 36416; 51702; 70450; 70496; 70498; 70551; 71045; 72125; 80048; 80053; 81001; 82962; 83605; 83735; 84100; 84145; 84443; 84484; 85025; 87040; 87086; 87426; 93005; 93306; 96365; 96372; 97110; 97161; 97530; 99285; J0743; J1650; J7030; J7040; Q9967

== ENCOUNTER 2021-03-17 14:06 | Emergency (ER) | payer MEDICARE, OTHER, SELFPAY ==
--- NOTE | 2021-03-17 14:29 | ECG_ITS ---
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 Measurements Intervals [place] Rate: 59 P: 44 MO: 192 QRS: -35 QRSD: 96 T: 65 QT: 449 QTc: 445 Interpretive Statements SINUS BRADYCARDIA WITH OCCASIONAL SUPRAVENTRICULAR PREMATURE COMPLEXES LEFT AXIS DEVIATION [QRS AXIS < -30] Compared to ECG 01/28/2021 13:26:28 Sinus rhythm no longer present Electronically Signed On 03-18-2021 19:53:12 ASP NET DEVELOPER by Romi Shafer M.D. [id number]
--- NOTE | 2021-03-17 14:29 | ED_ITS ---
HPI - Chest Pain General: Chief Complaint: General Medical Stated Complaint: CP Time Seen by Provider: 03/17/21 14:28 History of Present Illness: HPI narrative: 85-year-old female presents emergency room with complaint of right upper back pain. Patient fell few days ago from a sitting position she had some trouble with her chair states the chair was just too big and she fell out of it onto her right side on her back. She reports upper back pain since then particularly around the right scapula. Onset (ago): day(s) Onset: during rest Pain location: other (Right upper back) Pain radiation: none and right scapula Severity: moderate Quality: aching Relieving factors: rest Exacerbating factors: palpation and movement Associated symptoms: Deny abdominal pain, diaphoresis, dyspnea, fever(s), leg edema, nausea, palpitations, sense of impending doom, syncope or vomiting Treatment prior to arrival: none Review of Systems Const: Denies: fever(s) or diaphoresis ENMT: Denies: throat pain, ear or mastoid pain, nasal discharge or nasal congestion Card: Denies: palpitations or syncope Resp: Denies: dyspnea GI: Denies: abdominal pain, nausea or vomiting : Denies: flank pain, difficulty voiding, dysuria, urinary frequency or urinary urgency Skin/Breast: Denies: rash or pruritus PFSH ED PFSH: Medical History Depression GERD (gastroesophageal reflux disease) HTN (hypertension) Hypothyroidism GERALDO (obstructive sleep apnea) Recurrent UTI Sepsis Urgency incontinence Family History Son Diabetes Brother Stroke Cancer Hypertension Sister Cancer Hypertension Mother , at age 86 Heart attack Dementia Father , at age 73 Heart attack Social History Alcohol intake: never Marital status: Current occupational status: retired History of recent travel: No Physical Exam Const: COMMON NORMALS: no acute distress GENERAL APPEARANCE: cooperative and comfortable ORIENTATION/CONSCIOUSNESS: Yes awake, Yes oriented to person, Yes oriented to place and Yes oriented to time HENMT: COMMON NORMALS: normocephalic, atraumatic and hearing grossly normal bilaterally HEAD & SCALP: normocephalic and atraumatic Neck/C-Spine: COMMON NORMALS: no JVD Resp: COMMON NORMALS: normal respiratory effort, No retractions, No use of accessory muscles and clear to auscultation bilaterally AUSCULTATION: clear to auscultation bilaterally Cardio: COMMON NORMALS: no JVD, regular rate, regular rhythm and No murmurs present (Cardio) RATE: regular rate RHYTHM: regular rhythm GI: COMMON NORMALS: Soft to palpation and No hepatosplenomegaly present AUSCULTATION: Yes normoactive bowel sounds PALPATION: Yes Soft to palpation, No Tenderness to palpation present (GI), No Guarding due to palpation present (GI) and Yes No hepatosplenomegaly present Extremity: COMMON NORMALS: normal to inspection, capillary refill normal, no clubbing, cyanosis or edema, no calf tenderness and no pedal edema Neuro: SENSORIUM/ORIENTATION: Yes oriented to person, Yes oriented to place and Yes oriented to time Skin: COMMON NORMALS: no rashes or lesions noted GENERAL SKIN EXAM: no rashes or lesions noted Course Vital Signs: Vital signs: Vital Signs Temperature 97.8 F 03/17/21 17:10 Pulse Rate 74 03/17/21 17:10 Respiratory Rate 18 03/17/21 17:10 Blood Pressure 172/76 03/17/21 17:10 Pulse Oximetry 99 03/17/21 17:10 MDM - Chest Pain MDM Narrative: Medical decision making narrative: Imaging reviewed no acute fracture tramadol as needed for pain follow-up as needed Discharge Plan Discharge Patient Disposition: Home Clinical Impression: Fall, Upper back pain on right side Condition: Stable Prescriptions: New tramadol 50 mg tablet 50 mg PO Q8H PRN (Reason: pain) Qty: 10 RF: 0 No Action alprazolam 0.25 mg tablet 0.25 mg PO BID PRN (Reason: anxiety) RF: 0 Eliquis 5 mg tablet 5 mg PO BID@0900,2100 30 Days Qty: 60 RF: 3 folic acid 1 mg tablet 1 mg PO DAILY Qty: 30 RF: 3 losartan 100 mg tablet 50 mg PO DAILY Qty: 90 RF: 3 methotrexate sodium 2.5 mg tablet 15 mg PO Q7D 84 Days Qty: 72 RF: 0 metoprolol tartrate 25 mg tablet 12.5 mg PO BID 30 Days Qty: 30 RF: 6 mupirocin 2 % ointment 1 applic topical BID Qty: 22 RF: 0 pantoprazole 40 mg tablet,delayed release (DR/EC) 40 mg PO DAILY Qty: 90 RF: 3 venlafaxine 150 mg tablet extended release 24hr 75 mg PO DAILY Qty: 45 RF: 3 valacyclovir 1 gram tablet 1,000 mg PO TID 1 Days Qty: 3 RF: 0 atorvastatin 40 mg tablet 40 mg PO BEDTIME 30 Days Qty: 30 RF: 3 aspirin 81 mg tablet,delayed release (DR/EC) 81 mg PO DAILY 30 Days Qty: 30 RF: 3 Discharge Orders: Discharge ED (Routine); Ordered 03/17/21 Ordered By: Saji Torres Referrals: Baldo Lara MD [Primary Care Provider] - Patient Instructions: Opioid Safety Activity Restrictions/Additional Instructions: Follow-up with your primary care doctor as needed. Coding Level of Care Code ED Proof Machine Operator Supervisor for Joelle Fwd Exam Comprehensive
[2021-03-17 14:38] VITALS: BP 164/78; PULSE 61; RESP 18; TEMP 36.5; O2SAT 98; BMI 32.3
--- NOTE | 2021-03-17 14:41 | XRR_ITS ---
PROCEDURE INFORMATION: Exam: XR Right Scapula Exam date and time: 03/17/2021 2:41 PM Age: 85 years old Clinical indication: Pain and injury or trauma; Blunt trauma (contusions or hematomas); Shoulder; Injury details: Fall right scapula pain; Additional info: Pain/fall TECHNIQUE: Imaging protocol: XR Right scapula, complete. COMPARISON: CR XR chest 1V portable [id number] 01/28/2021 10:50 AM FINDINGS: Bones/joints: Normal. Soft tissues: Normal. XR/[place] [id number] IMPRESSION: No acute findings.
--- NOTE | 2021-03-17 15:03 | XRR_ITS ---
PROCEDURE INFORMATION: Exam: XR Chest Exam date and time: 03/17/2021 3:03 PM Age: 85 years old Clinical indication: Injury or trauma; Fall; Cough and dyspnea; Blunt trauma (contusions or hematomas); Additional info: Dyspnea/cough TECHNIQUE: Imaging protocol: XR of the chest. Views: 1 view. COMPARISON: CR XR chest 1V portable [id number] 01/28/2021 10:50 AM FINDINGS: Lungs: Unremarkable. No consolidation. Pleural spaces: Unremarkable. No pleural effusion. No pneumothorax. Heart/Mediastinum: Unremarkable. No cardiomegaly. Bones/joints: Unremarkable. XR/XR chest 1V portable [id number] IMPRESSION: No acute findings.
--- NOTE | 2021-03-17 16:25 | PC.NURSE ---
patient in no obvious distress. patient sleeping comfortably in bed. patient aroused to verbal stimuli. patient ifnormed of wait. patient/family denies questions/concerns at this time. 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 side rails raised x 2 and bed in low, locked position. call light iwthinr each.
[2021-03-17 17:10] VITALS: BP 172/76; PULSE 74; RESP 18; TEMP 36.6; O2SAT 99
== END 2021-03-17 17:19 | disposition home or self-care (01) ==
PROVIDERS: Emergency Provider Family Medicine; PCP Internal Medicine
DX: M54.6 Pain in thoracic spine (principal); Z79.01 Long term (current) use of anticoagulants; Z79.82 Long term (current) use of aspirin; I10 Essential (primary) hypertension
CPT/HCPCS: 71045; 73010; 93005; 99282

== ENCOUNTER → 2021-04-27 12:06 | Outpatient (BNVA) | payer MEDICARE, OTHER, SELFPAY | PROVIDERS: PCP Physician Assistant; Visit Provider Urology | DX: A41.50 Gram-negative sepsis, unspecified (principal) | CPT/HCPCS: 87086 ==

== ENCOUNTER 2021-05-18 09:29 | Emergency (ER) | payer MEDICARE, OTHER, SELFPAY ==
[2021-05-18 09:31] VITALS: BP 145/84; PULSE 88; RESP 14; TEMP 36.6; O2SAT 94; BMI 24.7
--- NOTE | 2021-05-18 09:31 | XR_ITS ---
WS: [id number] Right hip, AP and frog-leg views, AP pelvis, 05/18/2021 Clinical Data: fall/pain Comparison: AP pelvis and right hip, 05/25/2020. Findings: No fractures or dislocations are seen. The right hip hip joint is intact. The soft tissues are not re markable. The adjacent pelvis is normal. 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 There is a posterior lumbosacral fusion with bilateral pedicle screws. XR/XR hip RT 2-3V wo/w pel* [id number] Impression: Negative right hip and pelvis. Tonnis classification: grade 1: sclerosis of femoral head and acetabulum or sli ght joint space narrowing or slight lipping at joint margins of both hips
[2021-05-18 09:42] VITALS: BP 145/84; PULSE 88; RESP 14; TEMP 36.6; O2SAT 94
--- NOTE | 2021-05-18 10:08 | CT_ITS ---
WS: [id number] CT HEAD TECHNIQUE: Noncontrast CT of the head obtained from the skullbase to the vertex. CLINICAL INFORMATION: fall COMPARISON: MRI 01/30/21 CT January 28, 2021 DLP: 1581.[address] scans at [facility] use at least one of these dose optimization techniques: automated e xposure control; mA and/or kV adjustment per patient size (includes targeted exams where dose is matc hed to clinical indication); or iterative reconstruction. FINDINGS: No evidence of intracranial hemorrhage or mass effect. Ventricular system and basal cisterns are reyes nt. Moderate small vessel changes with moderate parenchymal volume loss. No extra-axial fluid collect ions. No evidence of mass or mass effect. Chronic lacunar infarcts in the basal ganglia. Chronic lacu lenin infarcts in the ashley radiata. Intracranial vascular calcification. Paranasal sinuses and mastoid air cells are well aerated. .Normal visualized soft tissues. CT/CT head wo con* [id number] IMPRESSION: 1. No evidence of intracranial hemorrhage or mass effect. 2. Moderate small vessel changes. Moderate parenchymal volume loss. 3. No acute intracranial findings.
[2021-05-18 10:13] LABS: Basophils % 0.2 %; Hematocrit 37.6 % (37.0-47.0); Hemoglobin 12.2 g/dL (11.5-15.3); Lymphocytes # 0.9 10^3/uL (0.8-4.8); Lymphocytes % 4.7 %; Mean Corpuscular HGB Conc 32.4 g/dL (30.0-36.0); Mean Corpuscular Hemoglobin 33.6 pg (28.0-34.0); Mean Corpuscular Volume 103.6 fl (81-99); Mean Platelet Volume 9.7 fL (7.4-10.4); Monocytes # 1.1 10^3/uL (0.2-0.9); Monocytes % 5.9 %; Neutrophils # 16.98 10^3/uL (1.8-7.7); Neutrophils % 88.6 %; Nucleated Red Blood Cells % 0 %; Platelet Count 106 10^3/cmm (130-400); Red Blood Count 3.63 10^6/uL (4.1-5.3); Red Cell Distribution Width 15.5 % (12.1-15.1); White Blood Count 19.2 10^3/uL (4.0-10.0)
--- NOTE | 2021-05-18 10:30 | ED_ITS ---
HPI - Fall General: Chief Complaint: Fall Stated Complaint: FALL R HIP PAIN Time Seen by Provider: 05/18/21 09:30 Source: patient Mode of arrival: EMS Limitations: no limitations History of Present Illness: 85-year-old female who fell last evening. She has some dementia she lives at home with her local family member check on her frequently to help she tripped up in her walker. She was down for an unknown length of time probably several hours she is awake and alert she is slow to answer questions but she has a long history of dementia there is notations from couple years ago already. Her biggest complaint seems to be of right hip pain. She was able to bear weight on it she is able to move it spontaneously forming. She has no facial droop or weakness no weakness in the extremities she denies any difficulty speech or swallowing MD complaint: fall Onset (ago): minute(s) Fall from: standing Fall witnessed: no Place fall occurred: home Loss of consciousness: Unsure Prolonged down time: yes Symptoms prior to fall: none Context: tripped/slipped Location of injury - extremities: Right: thigh (Right hip) Severity: mild Quality: sharp Associated symptoms-after fall: Denies abdominal pain, chest pain, confusion, difficulty walking, headache(s), hematuria, lightheadedness, neck pain, numbness, short of breath, vertigo or weakness Review of Systems Const: Denies: fever(s), chills, body aches, change in appetite, fatigue or malaise ENMT: Denies: throat pain, ear or mastoid pain, nasal discharge or nasal congestion Card: Denies: chest pain or lightheadedness Resp: Denies: dyspnea, productive cough or non-productive cough GI: Denies: abdominal pain : Denies: hematuria Musc: Denies: neck pain Skin/Breast: Denies: rash or pruritus Neuro: Denies: headache(s), difficulty walking, vertigo or confusion PFSH ED PFSH: Medical History Depression GERD (gastroesophageal reflux disease) HTN (hypertension) Hypothyroidism GERALDO (obstructive sleep apnea) Recurrent UTI Sepsis Urgency incontinence Family History Son Diabetes Brother Stroke Cancer Hypertension Sister Cancer Hypertension Mother , at age 86 Heart attack Dementia Father , at age 73 Heart attack Social History Smoking and tobacco status: never smoked Alcohol intake: never Marital status: Current occupational status: retired History of recent travel: No Physical Exam Const: GENERAL APPEARANCE: cooperative and comfortable ORIENTATION/CONSCIOUSNESS: Yes awake HENMT: COMMON NORMALS: normocephalic and atraumatic HEAD & SCALP: normocephalic and atraumatic Eye: COMMON NORMALS: Equal, round and reactive pupils present, EOMs intact bilaterally, conjunctivae normal and no scleral icterus CONJUNCTIVA: Yes conjunctivae normal PUPIL: Yes Equal, round and reactive pupils present Neck/C-Spine: COMMON NORMALS: full ROM, no lymphadenopathy, supple and no JVD Resp: COMMON NORMALS: normal respiratory effort, No retractions, No use of accessory muscles and clear to auscultation bilaterally AUSCULTATION: clear to auscultation bilaterally Cardio: COMMON NORMALS: no JVD, regular rate, regular rhythm and No murmurs present (Cardio) RATE: regular rate RHYTHM: regular rhythm GI: COMMON NORMALS: Soft to palpation and No hepatosplenomegaly present AUSCULTATION: Yes normoactive bowel sounds PALPATION: Yes Soft to palpation, No Tenderness to palpation present (GI), No Guarding due to palpation present (GI) and Yes No hepatosplenomegaly present Extremity: COMMON NORMALS: normal to inspection, capillary refill normal, no clubbing, cyanosis or edema, no calf tenderness and no pedal edema Neuro: OTHER: No focal neurologic deficits strength in all extremities equal. No sensation abnormalities. Skin: COMMON NORMALS: no rashes or lesions noted GENERAL SKIN EXAM: no rashes or lesions noted Course Vital Signs: Vital signs: Vital Signs Temperature 97.9 F 05/18/21 09:42 Pulse Rate 91 05/18/21 13:29 Respiratory Rate 18 05/18/21 13:29 Blood Pressure 152/77 05/18/21 13:29 Pulse Oximetry 92 05/18/21 13:29 MDM - Fall Medical Decision Making Labs and imaging reviewed. After we finished everything we are going to discharge the patient evidently was a brief time she would not respond to anybody to look at them and follow commands and track but just would not ve rbalize when I went in the room she spontaneously verbalized. On her daughter's told her to talk to us she responded what you want me to talk about . She continues to deny any chest pain repeat neurologic exam does not show any evidence of stroke. We will go and discharge patient home. There is no evidence of cystitis her white count is elevated think it is demargination from her fall. Follow-up with primary care doctor as needed Medical Records I reviewed the patient's medical records. Lab Data I reviewed the patient's lab results. : 05/18/21 10:06 05/18/21 10:06 Radiology Impressions Hip/Pelvis X-Ray 05/18/21 09:31 Impression: Negative right hip and pelvis. Tonnis classification: grade 1: sclerosis of femoral head and acetabulum or slight joint space narrowing or slight lipping at joint margins of both hips Head CT 05/18/21 10:08 IMPRESSION: 1. No evidence of intracranial hemorrhage or mass effect. 2. Moderate small vessel changes. Moderate parenchymal volume loss. 3. No acute intracranial findings. Laboratory Results WBC 19.2 10^3/uL (4.0-10.0) H 05/18/21 10:06 RBC 3.63 10^6/uL (4.1-5.3) L 05/18/21 10:06 Hgb 12.2 g/dL (11.5-15.3) 05/18/21 10:06 Hct 37.6 % (37.0-47.0) 05/18/21 10:06 MCV 103.6 fl (81-99) H 05/18/21 10:06 MCH 33.6 pg (28.0-34.0) 05/18/21 10:06 MCHC 32.4 g/dL (30.0-36.0) 05/18/21 10:06 RDW 15.5 % (12.1-15.1) H 05/18/21 10:06 Plt Count 106 10^3/cmm (130-400) L 05/18/21 10:06 MPV 9.7 fL (7.4-10.4) 05/18/21 10:06 Neut % (Auto) 88.6 % 05/18/21 10:06 Lymph % (Auto) 4.7 % 05/18/21 10:06 [place] % (Auto) 5.9 % 05/18/21 10:06 Eos % (Auto) 0.0 % 05/18/21 10:06 Baso % (Auto) 0.2 % 05/18/21 10:06 Neut # (Auto) 16.98 10^3/uL (1.8-7.7) H 05/18/21 10:06 Lymph # (Auto) 0.9 10^3/uL (0.8-4.8) 05/18/21 10:06 [place] # (Auto) 1.1 10^3/uL (0.2-0.9) H 05/18/21 10:06 Eos # (Auto) 0.0 10^3/uL (0.0-0.8) 05/18/21 10:06 Baso # (Auto) 0.0 10^3/uL (0.0-0.1) 05/18/21 10:06 Nucleated RBC % (auto) 0 % 05/18/21 10:06 Nucleated RBCs # 0.0 /100WBC 05/18/21 10:06 Sodium 138 mmol/L (136-145) 05/18/21 10:06 Potassium 4.3 mmol/L (3.5-5.1) 05/18/21 10:06 Chloride 109 mmol/L (98-107) H 05/18/21 10:06 Carbon Dioxide 16 mmol/L (22-29) L 05/18/21 10:06 Anion Gap 17.3 (5-19) 05/18/21 10:06 BUN 24 mg/dL (8-23) H 05/18/21 10:06 Creatinine 0.9 mg/dL (0.5-0.9) 05/18/21 10:06 GFR Calculation Not Reportable 05/18/21 10:06 Glucose 186 mg/dL (65-115) H 05/18/21 10:06 Calculated Osmolality 295 mOsm/kg (285-295) 05/18/21 10:06 Calcium 8.9 mg/dL (8.5-10.5) 05/18/21 10:06 Total Bilirubin 1.4 mg/dL (0.15-1.2) H 05/18/21 10:06 AST 34 U/L (0-32) H 05/18/21 10:06 ALT 29 U/L (0-33) 05/18/21 10:06 Alkaline Phosphatase 123 IU/L (35-105) H 05/18/21 10:06 Total Protein 6.3 g/dL (6.6-8.7) L 05/18/21 10:06 Albumin 3.6 g/dL (3.5-5.2) 05/18/21 10:06 Globulin 2.7 g/dL (1.3-4.6) 05/18/21 10:06 Urine Color [place] (Yellow) 05/18/21 12:00 Urine Appearance Cloudy (CLEAR) 05/18/21 12:00 Urine pH 5 (5-7) 05/18/21 12:00 Ur Specific [place] 1.020 (1.005-1.030) 05/18/21 12:00 Urine Protein Trace (Negative) 05/18/21 12:00 Urine Glucose (UA) Norm (Normal) 05/18/21 12:00 Urine Ketones Negative (Negative) 05/18/21 12:00 Urine Blood Neg (Negative) 05/18/21 12:00 Urine Nitrate Negative (Negative) 05/18/21 12:00 Urine Bilirubin 2+ (Negative) H 05/18/21 12:00 Urine Urobilinogen 8 mg/dL (Negative) H 05/18/21 12:00 Ur Leukocyte Esterase Negative (Negative) 05/18/21 12:00 Urine RBC 0-4 /hpf (0-2) H 05/18/21 12:00 Urine WBC 0-4 /hpf (0-5) H 05/18/21 12:00 Ur Squamous Epith Cells 5-10 /hpf (0-5) H 05/18/21 12:00 Calcium Oxalate Crystal 0-4 /hpf H 05/18/21 12:00 Amorphous Sediment Not Reportable 05/18/21 12:00 Urine Bacteria 1+ /hpf (NONE) H 05/18/21 12:00 Hyaline Casts 0-4 /lpf H 05/18/21 12:00 Urine Mucus 1+ /hpf 05/18/21 12:00 Discharge Plan Discharge Patient Disposition: Home Clinical Impression: Fall Condition: Stable Prescriptions: No Action gabapentin 100 mg capsule 100 mg PO BID 0RF gabapentin 300 mg capsule 300 mg PO DAILY 0RF loratadine [Allergy Relief (loratadine)] 10 mg tablet 10 mg PO DAILY 0RF venlafaxine 150 mg tablet extended release 24hr 150 mg PO DAILY 0RF nitrofurantoin monohyd/m-cryst [Macrobid] 100 mg capsule 100 mg PO DAILY Qty: 30 1RF Rx Instructions: must administer with a meal/food losartan 100 mg tablet 50 mg PO DAILY Qty: 90 3RF methotrexate sodium 2.5 mg tablet 15 mg PO Q7D 84 Days Qty: 72 0RF Rx Instructions: TAKE (6) 2.5 MG PO ON SATURDAYS metoprolol tartrate 25 mg tablet 12.5 mg PO BID 30 Days Qty: 30 6RF pantoprazole 40 mg tablet,delayed release (DR/EC) 40 mg PO DAILY Qty: 90 3RF atorvastatin 40 mg tablet 40 mg PO BEDTIME 30 Days Qty: 30 3RF aspirin 81 mg tablet,delayed release (DR/EC) 81 mg PO DAILY 30 Days Qty: 30 3RF Discharge Orders: Discharge ED (Routine); Ordered 05/18/21 Ordered By: Saji Torres Referrals: Monica William PA [Primary Care Provider] - Discharge Diet: Usual diet Discharge Activity: Increase activity as tolerated Patient Instructions: Opioid Safety Coding Level of Care Code ED Yardage Caller for Joelle Fwd Exam Comprehensive
[2021-05-18 10:41] LABS: Alanine Aminotransferase 29 U/L (0-33); Albumin Level 3.6 g/dL (3.5-5.2); Alkaline Phosphatase 123 IU/L (35-105); Blood Urea Nitrogen 24 mg/dL (8-23); Calcium 8.9 mg/dL (8.5-10.5); Carbon Dioxide 16 mmol/L (22-29); Chloride 109 mmol/L (98-107); Globulin 2.7 g/dL (1.3-4.6); Glucose 186 mg/dL (65-115); Osmolality Calculated 295 mOsm/kg (285-295); Sodium 138 mmol/L (136-145); Total Bilirubin 1.4 mg/dL (0.15-1.2); Total Protein 6.3 g/dL (6.6-8.7)
[2021-05-18 10:49] LABS: Anion Gap 17.3 (5-19); Aspartate Amino Transferase 34 U/L (0-32); Potassium 4.3 mmol/L (3.5-5.1)
--- NOTE | 2021-05-18 11:43 | PC.NURSE ---
FAMILY MEMBER PRESENT FOR DISCHARGE. IV REMOVED. PATIENT FAMILY MEMBER CONCERNED BECAUSE THIS IS NOT HER NORMAL. PATIENT IS USUALLY TALKATIVE AND SPEAKING. PROVIDER NOTIFIED OF PATIENT CHANGES.
[2021-05-18 12:22] VITALS: BP 161/80; PULSE 90; RESP 18; O2SAT 92
[2021-05-18 12:59] LABS: Add Urine Microscopic? YES; Bilirubin Urine 2+ (Negative); Blood Urine Neg (Negative); Glucose Urine UA Norm (Normal); Ketones Urine Negative (Negative); Leukocyte Esterase Urine Negative (Negative); Nitrate Urine Negative (Negative); Protein Urine Trace (Negative); Urine Appearance Cloudy (CLEAR); Urine Color Amber (Yellow); Urobilinogen Urine 8 mg/dL (Negative); pH Urine 5 (5-7)
[2021-05-18 13:00] LABS: Bacteria Urine 1+ /hpf; Calcium Oxalate Crystals Urine 0-4 /hpf; Hyaline Casts Urine 0-4 /lpf; Mucus Urine 1+ /hpf; RBC Urine 0-4 /hpf (0-2); WBC Urine 0-4 /hpf (0-5)
[2021-05-18 13:29] VITALS: BP 152/77; PULSE 91; RESP 18; O2SAT 92
== END 2021-05-18 13:31 | disposition home or self-care (01) ==
PROVIDERS: Emergency Provider Family Medicine; PCP Physician Assistant
DX: M25.551 Pain in right hip (principal); Z79.82 Long term (current) use of aspirin; I10 Essential (primary) hypertension; F03.90 Unspecified dementia, unspecified severity, without behavioral disturbance, psychotic disturbance, mood disturbance, and anxiety
CPT/HCPCS: 70450; 73502; 80053; 81001; 85025; 99283

== ENCOUNTER 2021-07-24 13:49 | Inpatient (IN) | payer MEDICARE, OTHER, SELFPAY ==
[2021-07-24] VITALS (42 sets, daily range): BP systolic 133–195; BP diastolic 64–111; PULSE 64–93; RESP 15–23; TEMP 36.6; O2SAT 94–97
--- NOTE | 2021-07-24 13:50 | XRR_ITS ---
PROCEDURE INFORMATION: Exam: XR Chest Exam date and time: 07/24/2021 2:19 PM Age: 85 years old Clinical indication: Other: CVA TECHNIQUE: Imaging protocol: XR of the chest. Views: 1 view. COMPARISON: CR XR chest 1V portable [id number] 03/17/2021 3:09 PM FINDINGS: Lungs: Unremarkable. No consolidation. Pleural spaces: Unremarkable. No pleural effusion. No pneumothorax. Heart/Mediastinum: Unremarkable. No cardiomegaly. Bones/joints: Unremarkable. XR/XR chest 1V portable [id number] IMPRESSION: No acute findings.
--- NOTE | 2021-07-24 13:51 | ECG_ITS ---
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 Measurements Intervals [place] Rate: 74 P: 7 CO: 148 QRS: -29 QRSD: 93 T: 52 QT: 410 QTc: 456 Interpretive Statements SINUS RHYTHM BORDERLINE LEFT AXIS DEVIATION [QRS AXIS < -20] MODERATE ST DEPRESSION [0.05+ mV ST DEPRESSION] Compared to ECG 03/17/2021 14:37:29 ST (T wave) deviation now present Sinus bradycardia no longer present Electronically Signed On 07-24-2021 16:16:01 CDT by Adrianna Burk M.D. [id number]
--- NOTE | 2021-07-24 13:51 | CT_ITS ---
WS: [id number] CT HEAD NONCONTRAST HISTORY: Symptoms of Acute Stroke TECHNIQUE: Contiguous axial imaging performed through the brain in 2.5 mm imaging. Bone and soft tiss ue windows. Sagittal and coronal reformats reviewed. All CT scans at [facility] use at least one of these dose optimization techniques: automated exposure control; mA and/or kV adjustment per pa tient size (includes targeted exams where dose is matched to clinical indication); or iterative recon struction. DLP: 664.28 mGy-cm. COMPARISON: 05/18/2021 No acute intracranial hemorrhage, midline shift or mass effect. Mild atrophy with moderate small vessel ischemic changes. Chronic lacunar infarcts in the basal gangl ia and the ashley radiata. No obvious progression of disease. No focal area of acute infarct or dumas e identified. Ventricles: Normal size with no hydrocephalus. Paranasal sinuses: As visualized are clear. Mastoid air cells: Well pneumatized. Calvarium and scalp: Skull is intact with no soft tissue edema or swelling. There is a small amount of air near the optic foramen and in the sella turcica that was not present o n the prior study. No fractures are identified. CT/CT head wo con* [id number] IMPRESSION: 1. No acute intracranial hemorrhage or edema. Stable atrophy and small vessel ischemic change and lacunar infarcts. 2. New foci of intracranial air consistent with pneumocephalus near the optic foramen and cavernous sinus. Etiology may be from gas embolism related to IV ac cess, posttraumatic or obstruction. Additional things to consider are coughing Notified James Lorenzo MD at 07/24/2021 2:19 PM.
--- NOTE | 2021-07-24 14:08 | CTR_ITS ---
PROCEDURE INFORMATION: Exam: CT Angiography Head With Contrast, Arteriography Exam date and time: 07/24/2021 3:20 PM Age: 85 years old Clinical indication: Weakness; Additional info: CVA TECHNIQUE: Imaging protocol: Computed tomography angiography of the head with contrast. Exam focused on the arteries. 3D rendering (Not supervised by radiologist): MIP and/or 3D reconstructed images were created by the technologist. Radiation optimization: All CT scans at this facility use at least one of these dose optimization techniques: automated exposure control; mA and/or kV adjustment per patient size (includes targeted exams where dose is matched to clinical indication); or iterative reconstruction. Contrast material: VISI 320; Contrast volume: 95 ml; Contrast route: INTRAVENOUS (IV); COMPARISON: CT angio headneck* [id number] 01/31/2021 4:56 PM RADIATION DOSE METRICS: Total DLP (mGy-cm): 2140.23 FINDINGS: ANTERIOR CIRCULATION: Right internal carotid artery: Calcified plaque and mild luminal narrowing/stenosis of the intracranial segment noted. No severe stenosis or occlusion. No aneurysm. Right middle cerebral artery: Unremarkable. No occlusion or significant stenosis. No aneurysm. Right anterior cerebral artery: Unremarkable. No occlusion or significant stenosis. No aneurysm. Left internal carotid artery: Calcified plaque and mild luminal narrowing/stenosis of the intracranial segment noted. No severe stenosis or occlusion. No aneurysm. Left middle cerebral artery: Unremarkable. No occlusion or significant stenosis. No aneurysm. Left anterior cerebral artery: Unremarkable. No occlusion or significant stenosis. No aneurysm. POSTERIOR CIRCULATION: Right vertebral artery: Unremarkable. No occlusion or significant stenosis. No aneurysm. Left vertebral artery: Unremarkable. No occlusion or significant stenosis. No aneurysm. Basilar artery: Unremarkable. No occlusion or significant stenosis. No aneurysm. Right posterior cerebral artery: Unremarkable. No occlusion or significant stenosis. No aneurysm. Left posterior cerebral artery: Unremarkable. No occlusion or significant stenosis. No aneurysm. Brain: No definite mass, mass effect, or midline shift. Cerebral ventricles: No ventriculomegaly. Bones/joints: Unremarkable. No acute fracture. Soft tissues: Unremarkable. PROCEDURE INFORMATION: Exam: CT Angiography Neck With Contrast Exam date and time: 07/24/2021 3:20 PM Age: 85 years old Clinical indication: Weakness; Additional info: CVA TECHNIQUE: Imaging protocol: Computed tomography angiography of the neck with contrast. 3D rendering (Not supervised by radiologist): MIP and/or 3D reconstructed images were created by the technologist. Radiation optimization: All CT scans at this facility use at least one of these dose optimization techniques: automated exposure control; mA and/or kV adjustment per patient size (includes targeted exams where dose is matched to clinical indication); or iterative reconstruction. Contrast material: VISI 320; Contrast volume: 95 ml; Contrast route: INTRAVENOUS (IV); COMPARISON: CT angio headneck* [id number] 01/31/2021 4:56 PM RADIATION DOSE METRICS: Total DLP (mGy-cm): 2140.23 FINDINGS: Right common carotid artery: Mild luminal narrowing at the carotid bulb with less than 50% stenosis. No dissection or occlusion. Right internal carotid artery: Mild luminal narrowing at the origin with less than 50% stenosis. No dissection or occlusion. Right external carotid artery: No occlusion or stenosis of the origin. Left common carotid artery: Mild luminal narrowing at the carotid bulb with less than 50% stenosis. No dissection or occlusion. Left internal carotid artery: Mild luminal narrowing at the origin with less than 50% stenosis. No dissection or occlusion. Left external carotid artery: No occlusion or stenosis of the origin. Right vertebral artery: Calcification with mild luminal narrowing at the distal aspect of the vertebral artery just proximal to the basilar artery. No dissection or occlusion. Left vertebral artery: Calcification with mild luminal narrowing at the distal aspect of the vertebral artery just proximal to the basilar artery. No dissection or occlusion. Soft tissues: Normal. No significant soft tissue swelling. Bones/joints: No acute fracture. [facility] [id number] IMPRESSION: Calcified plaque with mild stenosis of the intracranial segments of the internal carotid arteries. No severe stenosis or occlusion. IMPRESSION: Mild stenosis of the carotid bulbs, origins of the internal carotid arteries, and just proximal to the basilar artery. No severe stenosis or occlusion. REFERENCES: NASCET CRITERIA. The degree of internal carotid artery stenosis is based on NASCET criteria. Normal is no stenosis. Mild is less than 50% stenosis. Moderate is 50-69% stenosis. Severe is 70% to 99% stenosis. Total occlusion is no detectable patent lumen.
--- NOTE | 2021-07-24 14:28 | ED_ITS ---
HPI - Weakness General: Chief complaint: Weakness Stated complaint: STROKE Time Seen by Provider: 07/24/21 13:50 Source: patient and EMS Mode of arrival: EMS Limitations: no limitations History of Present Illness: 85-year-old female who was eating dinner with family members roughly 1215 at 1230 started having right-sided facial droop along with some right-sided weakness and slurred speech patient continues to have some slurred speech here and weakness with NIH is 6 denies any headache no recent injuries patient is not on any blood thinners. Associated symptoms: Denies chest pain, chills, dysuria, easy bruising, fever(s), nausea or vomiting Review of Systems Const: Denies: fever(s), chills, body aches or change in appetite Eyes: Denies: blurry vision or eye discomfort ENMT: Denies: throat pain or dental pain Card: Denies: chest pain Resp: Denies: dyspnea GI: Denies: abdominal pain, nausea, vomiting or diarrhea : Denies: dysuria Musc: Denies: neck pain or back pain Skin/Breast: Denies: rash Neuro: Reports: weakness in extremities and Slurred speech present Psych: Denies: depression Bharat/Lymph: Denies: easy bruising All/Imm: Denies: urticaria PFSH ED PFSH: Medical History Depression GERD (gastroesophageal reflux disease) HTN (hypertension) Hypothyroidism GERALDO (obstructive sleep apnea) Recurrent UTI Sepsis Urgency incontinence Family History Son Diabetes Brother Stroke Cancer Hypertension Sister Cancer Hypertension Mother , at age 86 Heart attack Dementia Father , at age 73 Heart attack Social History Smoking and tobacco status: never smoked Alcohol intake: never Marital status: Current occupational status: retired History of recent travel: No Physical Exam Const: COMMON NORMALS: patient oriented x3 GENERAL APPEARANCE: ill appearing HENMT: COMMON NORMALS: normocephalic and atraumatic HEAD & SCALP: normocephalic and atraumatic Eye: COMMON NORMALS: Equal, round and reactive pupils present and EOMs intact bilaterally PUPIL: Yes Equal, round and reactive pupils present Neck/C-Spine: COMMON NORMALS: full ROM and supple Chest: COMMONS NORMALS: normal inspection of the chest and normal palpation of entire chest wall Resp: COMMON NORMALS: normal respiratory effort, No retractions, No use of accessory muscles and clear to auscultation bilaterally AUSCULTATION: clear to auscultation bilaterally Cardio: COMMON NORMALS: regular rate, regular rhythm and No murmurs present (Cardio) RATE: regular rate RHYTHM: regular rhythm GI: COMMON NORMALS: Normal to inspection, nondistended, normoactive bowel sounds present, Soft to palpation, non-tender and no masses PALPATION: Yes Soft to palpation Extremity: COMMON NORMALS: normal to inspection and full ROM Neuro: COMMON NORMALS: patient oriented x3 SPEECH: abnormal speech Psych: COMMON NORMALS: mental status grossly normal, Normal thought process present and cooperative THOUGHT PROCESS: Normal thought process present Skin: COMMON NORMALS: no rashes or lesions noted and no wounds GENERAL SKIN EXAM: no rashes or lesions noted Course Vital Signs: Vital signs: Vital Signs Pulse Rate 84 07/24/21 15:47 Respiratory Rate 16 07/24/21 15:47 Blood Pressure 153/64 07/24/21 15:47 Pulse Oximetry 97 07/24/21 15:47 MDM - Weakness Medical Decision Making Patient presents here with a likely stroke. Patient was treated with tPA here she did have a slight hypertensive episode was treated with labetalol and her blood pressure is improved. She does have a urinary tract infection as well and will treat with Keflex I spoke to hospitalist will admit to the ICU at this time. Lab Data : 07/24/21 14:31 07/24/21 14:31 Radiology Impressions Chest X-Ray 07/24/21 13:50 IMPRESSION: No acute findings. Head CT 07/24/21 13:51 IMPRESSION: 1. No acute intracranial hemorrhage or edema. Stable atrophy and small vessel ischemic change and lacunar infarcts. 2. New foci of intracranial air consistent with pneumocephalus near the optic foramen and cavernous sinus. Etiology may be from gas embolism related to IV access, posttraumatic or obstruction. Additional things to consider are coughing Notified James Lorenzo MD at 07/24/2021 2:19 PM. Head/Neck CTA 07/24/21 14:08 IMPRESSION: Calcified plaque with mild stenosis of the intracranial segments of the internal carotid arteries. No severe stenosis or occlusion. IMPRESSION: Mild stenosis of the carotid bulbs, origins of the internal carotid arteries, and just proximal to the basilar artery. No severe stenosis or occlusion. REFERENCES: NASCET CRITERIA. The degree of internal carotid artery stenosis is based on NASCET criteria. Normal is no stenosis. Mild is less than 50% stenosis. Moderate is 50-69% stenosis. Severe is 70% to 99% stenosis. Total occlusion is no detectable patent lumen. Laboratory Results WBC 5.9 10^3/uL (4.0-10.0) 07/24/21 14: RBC 3.57 10^6/uL (4.1-5.3) L 07/24/21 14:31 Hgb 12.3 g/dL (11.5-15.3) 07/24/21 14:31 Hct 35.5 % (37.0-47.0) L 07/24/21 14: MCV 99.4 fl (81-99) H 07/24/21 14:31 MCH 34.5 pg (28.0-34.0) H 07/24/21 14:31 MCHC 34.6 g/dL (30.0-36.0) 07/24/21 14: RDW 15.1 % (12.1-15.1) 07/24/21 14:31 Plt Count 95 10^3/cmm (130-400) L 07/24/21 14:31 MPV 10.0 fL (7.4-10.4) 07/24/21 14:31 Neut % (Auto) 65.6 % 07/24/21 14:31 Lymph % (Auto) 22.4 % 07/24/21 14:31 [place] % (Auto) 9.5 % 07/24/21 14:31 Eos % (Auto) 1.9 % 07/24/21 14: Baso % (Auto) 0.3 % 07/24/21 14:31 Neut # (Auto) 3.85 10^3/uL (1.8-7.7) 07/24/21 14:31 Lymph # (Auto) 1.3 10^3/uL (0.8-4.8) 07/24/21 14:31 [place] # (Auto) 0.6 10^3/uL (0.2-0.9) 07/24/21 14:31 Eos # (Auto) 0.1 10^3/uL (0.0-0.8) 07/24/21 14:31 Baso # (Auto) 0.0 10^3/uL (0.0-0.1) 07/24/21 14:31 Nucleated RBC % (auto) 0 % 07/24/21 14:31 Nucleated RBCs # 0.0 /100WBC 07/24/21 14:31 PT 15.70 SECONDS (12.1-14.9) H 07/24/21 14:31 INR 1.22 (0.8-1.2) H 07/24/21 14:31 APTT 30.9 SECONDS (23.9-36.7) 07/24/21 14:31 Sodium 140 mmol/L (136-145) 07/24/21 14:31 Potassium 3.8 mmol/L (3.5-5.1) 07/24/21 14:31 Chloride 106 mmol/L (98-107) 07/24/21 14:31 Carbon Dioxide 23 mmol/L (22-29) 07/24/21 14:31 Anion Gap 14.8 (5-19) 07/24/21 14:31 BUN 13 mg/dL (8-23) 07/24/21 14:31 Creatinine 0.8 mg/dL (0.5-0.9) 07/24/21 14:31 GFR Calculation Not Reportable 07/24/21 14:31 Glucose 103 mg/dL (65-115) 07/24/21 14:31 Calculated Osmolality 290 mOsm/kg (285-295) 07/24/21 14:31 Calcium 9.0 mg/dL (8.5-10.5) 07/24/21 14:31 Total Bilirubin 0.9 mg/dL (0.15-1.2) 07/24/21 14:31 AST 27 U/L (0-32) 07/24/21 14:31 ALT 27 U/L (0-33) 07/24/21 14:31 Alkaline Phosphatase 162 IU/L (35-105) H 07/24/21 14:31 Total Protein 6.4 g/dL (6.6-8.7) L 07/24/21 14:31 Albumin 3.9 g/dL (3.5-5.2) 07/24/21 14:31 Globulin 2.5 g/dL (1.3-4.6) 07/24/21 14:31 Urine Color Yellow (Yellow) 07/24/21 15:40 Urine Appearance Cloudy (CLEAR) 07/24/21 15:40 Urine pH 5 (5-7) 07/24/21 15:40 Ur Specific [place] 1.010 (1.005-1.030) 07/24/21 15:40 Urine Protein Trace (Negative) 07/24/21 15:40 Urine Glucose (UA) Norm (Normal) 07/24/21 15:40 Urine Ketones Negative (Negative) 07/24/21 15:40 Urine Blood 2+ (Negative) H 07/24/21 15:40 Urine Nitrate Positive (Negative) H 07/24/21 15:40 Urine Bilirubin Neg (Negative) 07/24/21 15:40 Urine Urobilinogen 4 mg/dL (Negative) H 07/24/21 15:40 Ur Leukocyte Esterase 2+ (Negative) H 07/24/21 15:40 Urine RBC 0-4 /hpf (0-2) H 07/24/21 15:40 Urine WBC Too numerous to cnt /hpf (0-5) H 07/24/21 15:40 Ur Squamous Epith Cells 0-4 /hpf (0-5) H 07/24/21 15:40 Amorphous Sediment Not Reportable 07/24/21 15:40 Urine Bacteria 4+ /hpf (NONE) H 07/24/21 15:40 Urine Mucus None /hpf 07/24/21 15:40 Urine Opiates Screen Negative ng/mL (Negative) 07/24/21 15:40 Ur Barbiturates Screen Negative ng/mL (Negative) 07/24/21 15:40 Ur Phencyclidine Scrn Negative ng/mL (Negative) 07/24/21 15:40 Ur Amphetamines Screen Negative ng/mL (Negative) 07/24/21 15:40 U Benzodiazepines Scrn Positive ng/mL (Negative) H 07/24/21 15:40 Urine Cocaine Screen Negative ng/mL (Negative) 07/24/21 15:40 U Marijuana (THC) Screen Negative ng/mL (Negative) 07/24/21 15:40 EKG Data EKG 1: I personally reviewed and interpreted this EKG as follows: EKG interpretation date: 07/24/21 EKG interpretation time: 14:10 Interpretation: nsr hr [address] or t wave abnormalities qrs 93 qtc 437 Critical Care Time Critical Care Time: Critical Care Time: Yes Total Critical Care Time: 45 Attestation: The high probability of a clinically significant, sudden or life threatening deterioration of the patient's neuro system(s) required my full and direct attention, intervention and personal management. The critical care time is as shown. This time is in addition to time spent performing any reported procedures but includes the following: [x] Data and vital sign review and interpretation [x] Patient assessment, examination and intervention [x] Documentation [x] Medication orders and management Discharge Plan Discharge Patient Disposition: Admitted As Inpatient Clinical Impression: Acute CVA (cerebrovascular accident), Acute cystitis Condition: Stable Coding Level of Care Code ED Unemployment Inspector for Chg Fwd Exam Comprehensive NIH stroke score NIHSS Level Of Consciousness - 1a: 0 Level Of Consciousness Questions - 1b: One Correct Level Of Consciousness Commands - 1c: Both Correct Best Gaze - 2: Normal Visual Eddy - 3: No Visual Loss Facial Palsy - 4: Minor Paralysis Motor Arm Right - 5: Drift Motor Arm Left - 5: No Drift Motor Leg Right - 6: Effort Against [place] Motor Leg Left - 6: No Drift Limb Ataxia - 7: Absent Sensory - 8: Normal Best Language - 9: No Aphasia Dysarthia - 10: Mild/Moderate Dysarthia Extinction And Inattention - 11: 0 Score Total Score: 6
[2021-07-24] MEDS: labetalol 5 mg/mL SDV 20mL 20 MG IVP (14:30)
--- NOTE | 2021-07-24 14:33 | PC.PHAR ---
pt gets her medication from [facility] states they pill pack the pts medications-medications entered are meds the pharmacy states they fill and what the pt states she takes-pt states she took all her am meds
[2021-07-24 14:42] LABS: Basophils % 0.3 %; Eosinophils # 0.1 10^3/uL (0.0-0.8); Eosinophils % 1.9 %; Hematocrit 35.5 % (37.0-47.0); Hemoglobin 12.3 g/dL (11.5-15.3); Lymphocytes # 1.3 10^3/uL (0.8-4.8); Lymphocytes % 22.4 %; Mean Corpuscular HGB Conc 34.6 g/dL (30.0-36.0); Mean Corpuscular Hemoglobin 34.5 pg (28.0-34.0); Mean Corpuscular Volume 99.4 fl (81-99); Monocytes # 0.6 10^3/uL (0.2-0.9); Monocytes % 9.5 %; Neutrophils # 3.85 10^3/uL (1.8-7.7); Neutrophils % 65.6 %; Nucleated Red Blood Cells % 0 %; Platelet Count 95 10^3/cmm (130-400); Red Blood Count 3.57 10^6/uL (4.1-5.3); Red Cell Distribution Width 15.1 % (12.1-15.1); White Blood Count 5.9 10^3/uL (4.0-10.0)
[2021-07-24 14:53] LABS: INR 1.22 (0.8-1.2)
[2021-07-24 14:54] LABS: Partial Thromboplastin Time 30.9 SECONDS (23.9-36.7)
[2021-07-24 15:03] LABS: Alanine Aminotransferase 27 U/L (0-33); Albumin Level 3.9 g/dL (3.5-5.2); Alkaline Phosphatase 162 IU/L (35-105); Anion Gap 14.8 (5-19); Aspartate Amino Transferase 27 U/L (0-32); Blood Urea Nitrogen 13 mg/dL (8-23); Carbon Dioxide 23 mmol/L (22-29); Chloride 106 mmol/L (98-107); Globulin 2.5 g/dL (1.3-4.6); Glucose 103 mg/dL (65-115); Osmolality Calculated 290 mOsm/kg (285-295); Potassium 3.8 mmol/L (3.5-5.1); Sodium 140 mmol/L (136-145); Total Bilirubin 0.9 mg/dL (0.15-1.2); Total Protein 6.4 g/dL (6.6-8.7)
[2021-07-24] MEDS: iodixanol 320 mg/mL 100mL Btl IV (15:24)
--- NOTE | 2021-07-24 15:26 | PC.NURSE ---
Pt still having stroke symptoms with right sided facial droop and weakness. Pt's family states pt looks worse.
[2021-07-24 15:56] LABS: Leukocyte Esterase Urine 2+ (Negative); Nitrate Urine Positive (Negative); Urine Appearance Cloudy (CLEAR); Urine Color Yellow (Yellow); pH Urine 5 (5-7)
[2021-07-24 15:57] LABS: Add Urine Microscopic? YES; Bilirubin Urine Neg (Negative); Blood Urine 2+ (Negative); Glucose Urine UA Norm (Normal); Ketones Urine Negative (Negative); Protein Urine Trace (Negative); Urobilinogen Urine 4 mg/dL (Negative)
[2021-07-24 16:01] LABS: RBC Urine 0-4 /hpf (0-2); WBC Urine TOO NUMEROUS TO CNT /hpf (0-5)
[2021-07-24 16:02] LABS: Add Urine Culture? Yes; Bacteria Urine 4+ /hpf; Squamous Epithelial Cell Urine 0-4 /hpf (0-5)
[2021-07-24 16:04] LABS: Amphetamines Screen Urine Negative (Negative); Barbiturates Screen Urine Negative (Negative); Benzodiazepines Screen Urine Positive (Negative); Cocaine Screen Urine Negative (Negative); Opiate Screen Urine Negative (Negative); PCP Screen Urine Negative (Negative); THC Screen Urine Negative (Negative)
[2021-07-24] MEDS: cefTRIAXone 1,000 MG in sodium chloride 0.9% (plus) 50 ML 100 MG IV (16:36)
--- NOTE | 2021-07-24 17:00 | PM.HP ---
Providers/Chief Complaint Admitting Physician: Bib Arevalo MD Primary Care Provider: Monica William Chief Complaint: STROKE History of Present Illness Nadja Dimas is a 85 year old female with past medical history of ESBL E. coli UTI, CVA, obstructive sleep apnea, hypertension, hypothyroidism who was brought into the hospital by her family for right-sided weakness along with right-sided facial droop along with slurred speech. As per the family symptoms started at around 1230. Patient presented to the ER at around 1:50 PM. As per the ER physician documentation at presentation she had NIH score of 6 for which neurology was consulted and patient received tPA. She also received 1 dose of labetalol. On my examination patient has a blood pressure 174/88, awake and alert, slightly slow to respond, having facial droop, no slurred speech, weakness of the right side of body but able to move her arm purposefully. Patient herself complaining of slight lower abdominal pain, denies any dysuria but does complain of slight burning of micturition on and off. Denies any nausea, vomiting, headache, palpitations, chest pain, difficulty breathing. Blood work showed a white count of 5.9, hemoglobin of 12.3, INR 1.22, sodium 140, creatinine of 0.8, UA concerning for positive nitrite, 2+ leuk esterase with numerous WBCs, urine drug screen positive for benzos. Review of Systems General: Reports: 10 or more systems reviewed and unremarkable except in HPI and below Const: Denies: fever(s), chills, body aches, change in appetite, change in weight, malaise, night sweats, diaphoresis, change in sleep pattern, daytime sleepiness or snoring Eyes: Denies: change in vision, blurry vision, photophobia, eye discomfort or eye discharge ENMT: Denies: throat pain, enlarged tonsils, hoarseness, mouth pain, oral sores, dry mouth, tinnitus, nasal congestion or post nasal drip Card: Denies: chest pain, palpitations, irregular heart rhythm, edema, swelling of feet/ankles, lightheadedness, syncope, pre-syncope, dyspnea on exertion, orthopnea, leg pain with exertion or acrocyanosis Resp: Denies: dyspnea, productive cough, non-productive cough, wheezing, stridor, pain on inspiration, change in phlegm color, hemoptysis or chest congestion GI: Denies: abdominal pain, nausea, vomiting, hematemesis, coffee ground emesis, dysphagia, heartburn, diarrhea, constipation, bloating, GI cramping, change in bowel habits, pain on defecation, hematochezia or melena : Denies: flank pain, dysuria, urinary frequency, urinary urgency, urinary hesitancy, nocturia or hematuria Musc: Denies: neck pain, back pain, extremity pain, joint pain, joint swelling, joint redness, joint stiffness or limited range of motion Neuro: Denies: headache(s), numbness in extremities, weakness in extremities, sensory changes, lack of coordination, difficulty walking, frequent falls, dizziness, vertigo, confusion, Slurred speech present, difficulty communicating thoughts or seizure-like activity Psych: Denies: anxiety, depression, mood swings, panic attacks, hopelessness or irritability Endo: Denies: polyuria, polydipsia, tired all the time, cold intolerance, excessive sweating, flushing or heat intolerance Bharat/Lymph: Denies: easy bruising or easy bleeding All/Imm: Denies: tongue swelling, facial swelling or acute wheezing Medications/Allergies Home Medications Medication Instructions Recorded Confirmed Last Taken Type methotrexate sodium 2.5 mg tablet 15 mg PO Q7D 84 Days #72 tab 02/17/21 07/24/21 Unknown Rx metoprolol tartrate 25 mg tablet 12.5 mg PO BID 30 Days #30 tab 02/17/21 07/24/21 07/24/21 Rx atorvastatin 40 mg tablet 40 mg PO BEDTIME 30 Days #30 tab 03/09/21 07/24/21 07/23/21 Rx gabapentin 100 mg capsule 100 mg PO BID 04/20/21 07/24/21 07/24/21 History gabapentin 300 mg capsule 300 mg PO BEDTIME 04/20/21 07/24/21 07/23/21 History loratadine 10 mg tablet (Allergy 10 mg PO QAM 04/20/21 07/24/21 07/24/21 History Relief (loratadine)) venlafaxine 150 mg tablet,extended 150 mg PO QAM tab 04/20/21 07/24/21 07/23/21 History release 24 hr nitrofurantoin 100 mg PO BID #60 cap 06/12/21 07/24/21 07/24/21 Rx monohydrate/macrocrystals 100 mg capsule (Macrobid) aspirin 81 mg tablet,delayed 81 mg PO QAM 07/24/21 07/24/21 07/24/21 History release losartan 50 mg tablet 50 mg PO QAM 07/24/21 07/24/21 07/24/21 History olanzapine 2.5 mg tablet 2.5 mg PO BEDTIME 07/24/21 07/24/21 07/23/21 History pantoprazole 40 mg tablet,delayed 40 mg PO QPM 07/24/21 07/24/21 07/23/21 History release Allergies Allergy/AdvReac Type Severity Reaction Status Date / Time tizanidine [From Zanaflex] Allergy Mild Unknown Verified 06/12/21 10:14 ciprofloxacin [From Cipro] Allergy ALGY-Rash Verified 06/12/21 10:14 meperidine [From Demerol] Allergy ADR-Confusi Verified 06/12/21 10:14 on Penicillins Allergy ALGY-Swell Verified 06/12/21 10:14 Lip/Tongue/Throat PFSH Acute PFSH: Medical History (Updated 07/24/21 @ 17:06 by Bib Arevalo MD) SELVIN (acute kidney injury) Cognitive impairment Depression GERD (gastroesophageal reflux disease) Gram negative sepsis High risk medication use History of TIA (transient ischemic attack) HTN (hypertension) Hyperlipidemia Hypersomnia Hypothyroidism Neuropathy Obesity GERALDO (obstructive sleep apnea) Recurrent UTI RLS (restless legs syndrome) Sepsis Urgency incontinence Urinary incontinence, mixed UTI due to extended-spectrum beta lactamase (ESBL) producing Escherichia coli Surgical History (Updated 07/24/21 @ 17:06 by Bib Arevalo MD) H/O colonoscopy 05/03/2005 - diverticulosis H/O esophagogastroduodenoscopy 07/15/2010 - reflux esophagitis, gastritis H/O lumbar discectomy 11/2007 H/O lumpectomy x3 to right breast, x2 to left breast History of appendectomy 1954 History of cholecystectomy 1966 Hx of hysterectomy, total 1987 Family History Son Diabetes Brother Stroke Cancer Hypertension Sister Cancer Hypertension Mother , at age 86 Heart attack Dementia Father , at age 73 Heart attack Social History Smoking and tobacco status: never smoked Alcohol intake: never Marital status: Current occupational status: retired History of recent travel: No Vitals/I&O/Wt Last Vital Signs Pulse 71 07/24/21 16:37 Resp 18 07/24/21 16:37 BP 133/73 07/24/21 16:37 Pulse Ox 97 07/24/21 16:37 Weight last 48 hrs Weight 77.111 kg Physical Exam Narrative: General: No acute distress, AO x3, slightly slow to respond HEENT: PERRLA, pupils bilaterally equal and reactive Chest: Normal vesicular breath sounds, no added sounds, equal good air entry bilaterally CVS: S1-S2 regular, no murmurs, no tachycardia, no gallops, no rubs Abdomen: Soft, nontender, no organomegaly, bowel sounds present Neurology: Pupils bilaterally equal and reactive, facial droop to right side, decreased power right upper limb and lower limb 2/5, left upper limb and lower limb 4/5. Plantar right side downgoing Neuro: ESSENCE COMA SCALE: document GCS findings [place] coma scale eye opening: Spontaneous [place] coma scale verbal response: Orientated [place] coma scale motor response: Obey commands Ess[place] coma scale total score: 15 Data : 07/24/21 14:31 07/24/21 14:31 A&P Assessment and plan (1) Acute CVA (cerebrovascular accident): Status: Acute (2) Acute cystitis: Status: Acute Plan 85-year-old female presented to the ER with symptoms consistent with CVA. Patient received tPA after neurology recommendations. CVA: Post tPA. Neurochecks every hour. CT head within next 24 hours. CTA head and neck, echocardiogram, PT/OT/speech evaluation. Check lipid panel, A1c. Start aspirin 81 mg from tomorrow a.m. Atorvastatin 80 mg stat. As patient is post tPA we will monitor blood pressures. Goal blood pressure 180/1 05 mmHg. If needed can give labetalol. Hold off on all antihypertensives for now for permissible hypertension Acute cystitis: History of ESBL E. coli UTI. For now start on imipenem. Continue to monitor. CODE STATUS: Discussed in detail with patient and patient's family at bedside. DNR/DNI. Diet as per swallow evaluation. SCDs for DVT prophylaxis. Protonix for PUD Discharge planning: Discussed in detail with patient and patient's family at bedside. Depends on physical therapy evaluation. Family is open to SNF placement if needed. Case management consult. Attestations Medical Necessity Statement*: Admission for more than 2 midnights for management of stroke, post tPA in elderly, cystitis Critical Care Time: The high probability of a clinically significant, sudden or life threatening deterioration of the patient's [neurology system(s) required my full and direct attention, intervention and personal management. The critical care time is as shown. This time is in addition to time spent performing any reported procedures but includes the following: [x] Data and vital sign review and interpretation [x] Patient assessment, examination and intervention [x] Documentation [x] Medication orders and management Critical Care Time (min): 60 Coding Level of Care Code Acute Electronic Warfare Technician for [facility] Fwd Diagnoses Acute CVA (cerebrovascular accident) I63.9 Acute cystitis N30.00
--- NOTE | 2021-07-24 17:27 | USCV_ITS ---
Nadja Dimas Age: 85 Gender: F : 1935 Exam Date: 07/24/2021 21:07 Ordering Phys: Bib Arevalo MD Technologist: Seun Wayne Exam Location: [facility] – [place] Indication: stroke / post tPA BP: 178 / 69 HR: 72 Rhythm: Sinus Technical Quality: Adequate MEASUREMENTS (Male / Female) Normal Values 2D ECHO LV Diastolic Diameter PLAX 2.6 cm 4.2 - 5.9 / 3.9 - 5.3 cm LV Systolic Diameter PLAX 1.4 cm IVS Diastolic Thickness 1.5 cm 0.6 - 1.0 / 0.6 - 0.9 cm IVS Systolic Thickness 1.7 cm LVPW Diastolic Thickness 1.1 cm 0.6 - 1.0 / 0.6 - 0.9 cm LVPW Systolic Thickness 1.8 cm LVOT Diameter 2.1 cm LV Ejection Fraction 2D Teich 68.8 % LV Ejection Fraction MOD 2C 49.3 % LV Ejection Fraction 2C AL 49.6 % LA Diameter 3.1 cm Aorta at Sinotubular Diameter 2.2 cm M-MODE Aortic Annulus Diameter 3.0 cm LA Ao Ratio MM 1.1 MV E Point Septal Separation 0.9 cm DOPPLER AV Peak Velocity 148.7 cm/s LVOT Peak Velocity 129.0 cm/s AV Area Cont Eq vti 2.6 cm squared AV Area Cont Eq pk 2.9 cm squared MV Area PHT 2.2 cm squared Mitral E to A Ratio 0.7 MV E' Velocity 67.5 cm/s Mitral E to MV E' Ratio 15.8 Mitral E to LV E' Lateral Ratio 15.4 Mitral E to LV E' Septal Ratio 16.4 PV Peak Velocity 106.0 cm/s FINDINGS Left Ventricle Normal left ventricular size. LV systolic function is normal with EF of 55-60%. No regional wall motion abnormalities. Grade 1 diastolic dysfunction Right Ventricle The right ventricle is normal in size and function. Right Atrium The right atrium is normal in size. Left Atrium The left atrium is normal in size. Mitral Valve Severe mitral annular calcification without significant stenosis or prolapse. There is moderate mitral regurgitation. Aortic Valve Aortic valve is thickened without significant stenosis. There is no aortic regurgitation. Tricuspid Valve Grossly normal Pulmonic Valve Grossly normal Pericardium Normal pericardium without effusion. Aorta Normal ascending aorta dimension. IVC CONCLUSIONS LV systolic function is normal with EF 55 to 60%. Grade 1 diastolic dysfunction. Severe mitral annular calcification. Moderate mitral regurgitation. Aortic valve is thickened. Compared to prior echocardiogram from 01/30/2021, no significant changes are noted Kristopher Fuchs MD (Electronically Signed) Final Date: 25 Jul 2021 10:09 S
[2021-07-24 17:59] LABS: Iron 78 ug/dL (37-145); Percent Saturation 25.7 % (20-50); Thyroid Stimulating Hormone 2.25 uIU/mL (0.27-4.20); Total Iron Binding Capacity 303 mcg/dl; Unsaturated Iron Binding 225 ug/dL (112-347)
[2021-07-24] MEDS: pantoprazole DR 40 mg Tablet PO (18:35)
[2021-07-24] MEDS: metoprolol tartrate 25 mg Tablet 12.5 MG PO (18:35)
[2021-07-24] MEDS: gabapentin 100 mg Capsule PO (18:35)
[2021-07-24] MEDS: ferrous gluconate 324 mg Tablet PO (18:35)
[2021-07-24] MEDS: atorvastatin 40 mg Tablet PO (22:25)
[2021-07-24] MEDS: gabapentin 300 mg Capsule PO (22:25)
[2021-07-24] MEDS: OLANZapine 5 mg TABLET 2.5 MG PO (22:25)
[2021-07-25] VITALS (17 sets, daily range): BP systolic 121–185; BP diastolic 64–86; PULSE 65–93; RESP 15–29; TEMP 37; O2SAT 93–98
[2021-07-25 04:44] LABS: Basophils % 0.6 %; Eosinophils # 0.1 10^3/uL (0.0-0.8); Hematocrit 33.5 % (37.0-47.0); Hemoglobin 11.1 g/dL (11.5-15.3); Lymphocytes # 1.1 10^3/uL (0.8-4.8); Lymphocytes % 24.2 %; Mean Corpuscular HGB Conc 33.1 g/dL (30.0-36.0); Mean Corpuscular Hemoglobin 34.3 pg (28.0-34.0); Mean Corpuscular Volume 103.4 fl (81-99); Mean Platelet Volume 10.3 fL (7.4-10.4); Monocytes # 0.6 10^3/uL (0.2-0.9); Monocytes % 11.9 %; Neutrophils # 2.81 10^3/uL (1.8-7.7); Neutrophils % 59.7 %; Nucleated Red Blood Cells % 0 %; Platelet Count 91 10^3/cmm (130-400); Red Blood Count 3.24 10^6/uL (4.1-5.3); Red Cell Distribution Width 15.2 % (12.1-15.1); White Blood Count 4.7 10^3/uL (4.0-10.0)
[2021-07-25 05:04] LABS: Alanine Aminotransferase 25 U/L (0-33); Albumin Level 3.4 g/dL (3.5-5.2); Alkaline Phosphatase 150 IU/L (35-105); Anion Gap 15.8 (5-19); Aspartate Amino Transferase 26 U/L (0-32); Blood Urea Nitrogen 12 mg/dL (8-23); Calcium 8.6 mg/dL (8.5-10.5); Carbon Dioxide 21 mmol/L (22-29); Chloride 107 mmol/L (98-107); Chol HDL Ratio 2.82 mg/dL (0.0-4.40); Cholesterol 96 mg/dL (0-200); Globulin 2.3 g/dL (1.3-4.6); Glucose 125 mg/dL (65-115); HDL Cholesterol 34 mg/dL (60-100); LDL Cholesterol Calculated 36 mg/dL (50-129); LDL HDL Ratio 1.06 RATIO (0.00-3.22); Osmolality Calculated 291 mOsm/kg (285-295); Potassium 3.8 mmol/L (3.5-5.1); Sodium 140 mmol/L (136-145); Total Bilirubin 1.1 mg/dL (0.15-1.2); Total Protein 5.7 g/dL (6.6-8.7); Triglycerides 130 mg/dL (0-150)
[2021-07-25 05:10] LABS: Estmated Average Glucose 97
[2021-07-25] MEDS: aspirin 81 mg EC Tablet PO (06:35)
[2021-07-25] MEDS: venlafaxine ER (24HR) 150 mg Capsule PO (06:35)
[2021-07-25] MEDS: loratadine 10 mg Tablet PO (06:35)
[2021-07-25] MEDS: ferrous gluconate 324 mg Tablet PO ×2 (08:54→17:45)
[2021-07-25] MEDS: gabapentin 100 mg Capsule PO ×2 (08:55→17:45)
[2021-07-25] MEDS: metoprolol tartrate 25 mg Tablet 12.5 MG PO ×2 (08:55→17:45)
[2021-07-25] MEDS: losartan 50 mg Tablet 25 MG PO (10:39)
--- NOTE | 2021-07-25 11:10 | PC.NURSE ---
Dr. Arevalo at bedside, observed patient able to move right leg and arm though weaker than left, spoke with family about possible SNF, no n.o. at this time
--- NOTE | 2021-07-25 12:04 | P.PN_ITS ---
Subjective Subjective: No acute events overnight. Patient has remained hemodynamically stable and afebrile. Blood pressures have been acceptable. Family at bedside. Patient states she is feeling little better today. Able to move right arm with more purpose and strength today. AOx3 on examination. Vitals/I&O/Wt Last Vital Signs Temp 97.9 F 07/24/21 21:00 Pulse 76 07/25/21 07:59 Resp 16 07/25/21 04:00 BP 127/81 07/25/21 10:39 Pulse Ox 93 07/25/21 07:59 07/24/21 07/25/21 07/25/21 22:59 06:59 14:59 Intake Total 100 / 100 100 / 200 200 / 200 Balance 100 / 100 100 / 200 200 / 200 Weight last 48 hrs Weight 77.111 kg Physical Exam Narrative: General: No acute distress, AO x3, HEENT: PERRLA, pupils bilaterally equal and reactive Chest: Normal vesicular breath sounds, no added sounds, equal good air entry bilaterally CVS: S1-S2 regular, no murmurs, no tachycardia, no gallops, no rubs Abdomen: Soft, nontender, no organomegaly, bowel sounds present Neurology: Pupils bilaterally equal and reactive, facial droop to right side, decreased power right upper limb and lower limb 2/5, left upper limb and lower limb 4/5. Plantar right side downgoing Neuro: NELSON COMA SCALE: document GCS findings [place] coma scale eye opening: Spontaneous Nelson coma scale verbal response: Orientated [place] coma scale motor response: Obey commands [place] coma scale total score: 15 Data : 07/25/21 04:29 07/25/21 04:29 Micro: Microbiology 07/24/21 15:40 Urine Culture - Preliminary Urine,Clean Catch Gram Negative Rods A&P Assessment and plan (1) Acute CVA (cerebrovascular accident): Status: Acute (2) Acute cystitis: Status: Acute Plan 85-year-old female presented to the ER with symptoms consistent with CVA. Patient received tPA after neurology recommendations. CVA: Post tPA. Neurochecks every hour. CT head 24 hours post tPA. C/w aspirin 81 mg from tomorrow a.m, atorvastatin 80 mg stat. As patient is post tPA we will monitor blood pressures. Goal blood pressure is normal less than 140/90 mmHg now. Restart losartan at a lower dose of 25 mg daily. Acute cystitis: History of ESBL E. coli UTI. For now start on imipenem. Continue to monitor. CODE STATUS: Discussed in detail with patient and patient's family at bedside. DNR/DNI. Diet as per swallow evaluation. SCDs for DVT prophylaxis. Protonix for PUD Discharge planning: Discussed in detail with patient and patient's family. They would want placement to SNF. Case management alerted. Attestations Medical Necessity Statement*: Requires further hospitalization for post tPA care given acute CVA while safe discharge planning is sought Time Spent in Patient Care: Greater than 35 minutes Coding Level of Care Code Acute Concrete Technician for [facility] Fwd Diagnoses Acute CVA (cerebrovascular accident) I63.9 Acute cystitis N30.00
--- NOTE | 2021-07-25 14:34 | CTR_ITS ---
PROCEDURE INFORMATION: Exam: CT Head Without Contrast Exam date and time: 07/25/2021 2:47 PM Age: 85 years old Clinical indication: Weakness, extremity; Right; Patient HX: Post tpa f/u R sided weakness; Additional info: 24 hours after tpa TECHNIQUE: Imaging protocol: Computed tomography of the head without contrast. Radiation optimization: All CT scans at this facility use at least one of these dose optimization techniques: automated exposure control; mA and/or kV adjustment per patient size (includes targeted exams where dose is matched to clinical indication); or iterative reconstruction. COMPARISON: CT head wo con* [id number] 07/24/2021 1:52 PM RADIATION DOSE METRICS: Total DLP (mGy-cm): 774.8 FINDINGS: Brain: No hemorrhage. No edema. Moderate diffuse cerebral atrophy and sequela of old infarcts within the ashley radiata white matter tracts of both frontal lobes. No mass effect. Cerebral ventricles: No ventriculomegaly. Paranasal sinuses: Visualized sinuses are unremarkable. No fluid levels. Mastoid air cells: Visualized mastoid air cells are well aerated. Bones/joints: Unremarkable. No acute fracture. Soft tissues: Unremarkable. CT/CT head wo con* [id number] IMPRESSION: No acute intracranial abnormality.
[2021-07-25] MEDS: pantoprazole DR 40 mg Tablet PO (17:45)
[2021-07-25] MEDS: atorvastatin 40 mg Tablet PO (20:05)
[2021-07-25] MEDS: OLANZapine 5 mg TABLET 2.5 MG PO (20:05)
[2021-07-25] MEDS: hyDRALAzine 20 mg/mL INJ 1 mL 5 MG IVP (20:05)
[2021-07-25] MEDS: gabapentin 300 mg Capsule PO (20:05)
[2021-07-26] VITALS (16 sets, daily range): BP systolic 107–177; BP diastolic 53–80; PULSE 62–80; RESP 11–24; TEMP 36.6–37; O2SAT 92–97
--- NOTE | 2021-07-26 01:05 | PC.NURSE ---
Pt now alert to place, year, month, so less confused than previously noted.
--- NOTE | 2021-07-26 04:28 | PC.NURSE ---
Pt resting quietly in bed with eyes closed. Pt opens eyes to voice, then goes back to sleep.
[2021-07-26] MEDS: venlafaxine ER (24HR) 150 mg Capsule PO (05:28)
[2021-07-26] MEDS: aspirin 81 mg EC Tablet PO (05:28)
[2021-07-26] MEDS: loratadine 10 mg Tablet PO (05:28)
[2021-07-26 05:49] LABS: Basophils % 0.4 %; Eosinophils # 0.2 10^3/uL (0.0-0.8); Eosinophils % 3.8 %; Hematocrit 33.5 % (37.0-47.0); Hemoglobin 10.9 g/dL (11.5-15.3); Lymphocytes # 1.4 10^3/uL (0.8-4.8); Lymphocytes % 25.8 %; Mean Corpuscular HGB Conc 32.5 g/dL (30.0-36.0); Mean Corpuscular Hemoglobin 33.5 pg (28.0-34.0); Mean Corpuscular Volume 103.1 fl (81-99); Mean Platelet Volume 10.1 fL (7.4-10.4); Monocytes # 0.7 10^3/uL (0.2-0.9); Monocytes % 13.8 %; Neutrophils # 2.94 10^3/uL (1.8-7.7); Neutrophils % 55.4 %; Nucleated Red Blood Cells % 0 %; Platelet Count 99 10^3/cmm (130-400); Red Blood Count 3.25 10^6/uL (4.1-5.3); Red Cell Distribution Width 15.1 % (12.1-15.1); White Blood Count 5.3 10^3/uL (4.0-10.0)
--- NOTE | 2021-07-26 05:51 | PC.NURSE ---
Pt awakened to take medications from sound sleep. Initially pt having difficulty finding words, but speech became more clear after several minutes. Pt alert to person only. She continues to say that she is in [place], and can't find the words to tell me the year. She appears to know that she cannot find words and laughs. When I say, 2021, she laughs and says yes. Pt able to tell me her daughter and 's names.
--- NOTE | 2021-07-26 05:54 | PC.NURSE ---
redness of groin appears improved.
--- NOTE | 2021-07-26 05:56 | PC.NURSE ---
Swallows of water given to pt from spoon, then sips out of cup, then from a straw. Pt swallows without signs or symptoms of aspiration. No coughing noted. Pt able to take pills with sips of water.
[2021-07-26 06:15] LABS: Alanine Aminotransferase 23 U/L (0-33); Albumin Level 3.3 g/dL (3.5-5.2); Alkaline Phosphatase 142 IU/L (35-105); Anion Gap 14.5 (5-19); Aspartate Amino Transferase 22 U/L (0-32); Blood Urea Nitrogen 11 mg/dL (8-23); Calcium 8.6 mg/dL (8.5-10.5); Carbon Dioxide 22 mmol/L (22-29); Chloride 106 mmol/L (98-107); Globulin 2.4 g/dL (1.3-4.6); Glucose 107 mg/dL (65-115); Osmolality Calculated 288 mOsm/kg (285-295); Potassium 3.5 mmol/L (3.5-5.1); Sodium 139 mmol/L (136-145); Total Bilirubin 1.2 mg/dL (0.15-1.2); Total Protein 5.7 g/dL (6.6-8.7)
[2021-07-26 07:34] LABS: Glucose Point of Care 137 mg/dL (70-110)
[2021-07-26] MEDS: gabapentin 100 mg Capsule PO ×2 (08:04→17:21)
[2021-07-26] MEDS: losartan 50 mg Tablet 25 MG PO (08:04)
[2021-07-26] MEDS: ferrous gluconate 324 mg Tablet PO ×2 (08:04→17:21)
[2021-07-26] MEDS: metoprolol tartrate 25 mg Tablet 12.5 MG PO (08:05)
--- NOTE | 2021-07-26 10:29 | PM.PN ---
Subjective Subjective: No events overnight. Patient continues to improve. Able to move her right arm more today. Keeping steady during movement. Has remained hemodynamically stable and afebrile. Blood pressure is better controlled. Vitals/I&O/Wt Last Vital Signs Temp 98.4 F 07/26/21 04:00 Pulse 80 07/26/21 07:00 Resp 15 07/26/21 06:00 BP 164/68 07/26/21 08:04 Pulse Ox 95 07/26/21 07:00 07/25/21 07/26/21 07/26/21 22:59 06:59 14:59 Intake Total 100 / 400 200 / 600 Balance 100 / 400 200 / 600 Weight last 48 hrs Weight 77.111 kg Physical Exam Narrative: General: No acute distress, AO x3, HEENT: PERRLA, pupils bilaterally equal and reactive Chest: Normal vesicular breath sounds, no added sounds, equal good air entry bilaterally CVS: S1-S2 regular, no murmurs, no tachycardia, no gallops, no rubs Abdomen: Soft, nontender, no organomegaly, bowel sounds present Neurology: Pupils bilaterally equal and reactive, facial droop to right side, decreased power right upper limb and lower limb 2/5, left upper limb and lower limb 4/5. Plantar right side downgoing Neuro: NELSON COMA SCALE: document GCS findings [place] coma scale eye opening: Spontaneous Nelson coma scale verbal response: Orientated [place] coma scale motor response: Obey commands [place] coma scale total score: 15 Data : 07/26/21 04:20 07/26/21 04:20 Micro: Microbiology 07/24/21 15:40 Urine Culture - Final Urine,Clean Catch Klebsiella pneumoniae A&P Assessment and plan (1) Acute CVA (cerebrovascular accident): Status: Acute (2) Acute cystitis: Status: Acute Plan 85-year-old female presented to the ER with symptoms consistent with CVA. Patient received tPA after neurology recommendations. CVA: Post tPA. Neurochecks every hour. CT head 24 hours post tPA. C/w aspirin 81 mg from tomorrow a.m, atorvastatin 80 mg stat. As patient is post tPA we will monitor blood pressures. Goal blood pressure is normal less than 140/90 mmHg now. Will adjust antihypertensives. Acute cystitis: History of ESBL E. coli UTI. Urine culture growing Klebsiella. Sensitivities appreciated. Continue to monitor. CODE STATUS: Discussed in detail with patient and patient's family at bedside. DNR/DNI. Diet as per swallow evaluation. SCDs for DVT prophylaxis. Protonix for PUD Plan for day: Neurochecks Q6h, ASA 81 mg, statin. Increase his losartan to 50 mg daily. Increase dose of metoprolol 25 mg twice daily. Transfer to [facility] floor. Awaiting placement. Urine cultures growing Klebsiella. Sensitivities appreciated. Switch antibiotic to ceftriaxone daily as per culture results. Discharge planning: Discharge to SNF as per physical therapy and family request. Awaiting placement. Attestations Medical Necessity Statement*: Requires further hospitalization for post tPA care care for CVA, acute cystitis while safe discharge planning is sought. Time Spent in Patient Care: Greater than 35 minutes Coding Level of Care Code Acute Bundle Collector for [facility] Diagnoses Acute CVA (cerebrovascular accident) I63.9 Acute cystitis N30.00
[2021-07-26] MEDS: levoFLOXacin 500 mg Tablet PO (11:06)
--- NOTE | 2021-07-26 11:27 | CTR_ITS ---
PROCEDURE INFORMATION: Exam: CT Head Without Contrast Exam date and time: 07/26/2021 11:58 AM Age: 85 years old Clinical indication: Other: Weakness; Additional info: Possible reccurence of stroke like symptoms TECHNIQUE: Imaging protocol: Computed tomography of the head without contrast. Radiation optimization: All CT scans at this facility use at least one of these dose optimization techniques: automated exposure control; mA and/or kV adjustment per patient size (includes targeted exams where dose is matched to clinical indication); or iterative reconstruction. COMPARISON: CT head wo con* [id number] 07/25/2021 2:47 PM RADIATION DOSE METRICS: Total DLP (mGy-cm): 819.45 FINDINGS: Brain: No hemorrhage. Moderate diffuse cerebral atrophy. Old lacunar infarcts within the deep white matter tracts of the frontal lobes. No mass effect. Cerebral ventricles: No ventriculomegaly. Paranasal sinuses: Visualized sinuses are unremarkable. No fluid levels. Mastoid air cells: Visualized mastoid air cells are well aerated. Bones/joints: Unremarkable. No acute fracture. Soft tissues: Unremarkable. CT/CT head wo con* [id number] IMPRESSION: 1. No acute intracranial abnormality. 2. Moderate diffuse cerebral atrophy. Old lacunar infarcts within the deep white matter tracts of the frontal lobes.
--- NOTE | 2021-07-26 11:30 | PC.NURSE ---
R arm strength less than this morning, right sided facial droop slightly worse, Dr. Arevalo at bedside gave v.o. for Head CT
--- NOTE | 2021-07-26 14:00 | P.PNCC_ITS ---
Stroke Alert Activation ED Arrival Date: 07/24/21 ED Arrival Time: 13:46 ED Physican at Bedside: 13:50 Last Known Normal/at Baseline: 1-2 hours ago Other Last Known Well Infomation: I was called stat for stroke at 1323 and I was waiting when the helicopter landed. We took her straight to CAT scan and I reviewed her CT of the head which showed diffuse atrophy and an old left Subcortical frontal stroke. I help to get the patient back on the stretcher and performed a stroke scale during that procedure, discovering that she had significant right-sided weakness and dysarthria, with total NIH stroke scale score of 6. By the time we got her off of the CAT scan table we had a glucose test from EMS, blood pressure within the window for tPA administration and known witnessed time of onset so I asked the patient care nurse to prepare tPA so that we could give her the bolus on arrival back to the emergency department. We got a weight on the way there. Dr. Lorenzo and I repeated the NIH stroke scale as the patient was receiving her tPA bolus at 1400, 14 minutes from arrival. The patient said that she ate her dinner. She walked to the table having no difficulty. She talked with family members while she was having dinner. When she tried to stand up from the table at 1245 she discovered that she could not stand up. She knows that she was normal at 1230 when she sat down at the table. She has risk factors including previous stroke, hypertension. The risks and benefits of tPA were discussed with the patient and she agreed to receive the clot Buster. I saw this patient in July 2019 for previous left middle cerebral artery TIA that included expressive aphasia, weakness and visual changes. She had a very sedentary lifestyle. She had not had recurrent symptoms so I discharged her from my care. Stroke Alert Activated by: [place] helicopter Stroke Alert Activation Time: 13:23 Stroke MD @ Bedside Time: 13:40 NIH Stroke Scale Time: 13:50 NIH stroke score NIHSS: Level Of Consciousness - 1a: 1 Level Of Consciousness Questions - 1b: Both Correct Level Of Consciousness Commands - 1c: Both Correct Best Gaze - 2: Normal Visual Eddy - 3: No Visual Loss Facial Palsy - 4: Minor Paralysis Motor Arm Right - 5: Drift Motor Arm Left - 5: No Drift Motor Leg Right - 6: Effort Against Firth Motor Leg Left - 6: No Drift Limb Ataxia - 7: Absent Sensory - 8: Normal Best Language - 9: No Aphasia Dysarthia - 10: Mild/Moderate Dysarthia Extinction And Inattention - 11: 0 Score: Total Score: 6 Stroke Alert Data/Treatment Time to CT of Head: 13:48 CT Results Time: 13:50 CT Impression: Old subcortical infarct left frontal Stroke Risk Factors: hyperlipidemia, hypertension, obesity and sleep apnea tPA Started Time: tPA Started - Time: 14:00 tPA Admin Prior to Arrival: No Patient & Family Educated on: Treament Plan and tPA Risks/Benefits Standardized Stroke Orders Used: Yes Critical Care Time Critical Care Time: less than 30 mins Additional information about critical care time: 30 minutes A&P Assessment and plan (1) Left acute arterial ischemic stroke, MCA (middle cerebral artery): 85-year-old woman who developed acute left middle cerebral artery ischemic symptoms approximately 1 hour prior to arrival here and received tPA within an hour and a half of symptom onset. On completion of the bolus her blood pressure has increased. Dr. Lorenzo will address that. Since her NIH stroke scale score is 6 she should have CTA to make sure she does not have a retrievable clot and then be admitted to ICU. Search for etiology. I will see her post discharge, in the neurology clinic. Status: Acute Coding Level of Care Code Acute Health Economist for [facility] Diagnoses Left acute arterial ischemic stroke, MCA (middle cerebral artery) I63.512
[2021-07-26] MEDS: metoprolol tartrate 25 mg Tablet PO (17:21)
[2021-07-26] MEDS: pantoprazole DR 40 mg Tablet PO (17:21)
[2021-07-26] MEDS: gabapentin 300 mg Capsule PO (21:28)
[2021-07-26] MEDS: OLANZapine 5 mg TABLET 2.5 MG PO (21:28)
[2021-07-26] MEDS: atorvastatin 40 mg Tablet PO (21:28)
[2021-07-26] MEDS: acetaminophen 500 mg Tablet 650 MG PO (21:32)
--- NOTE | 2021-07-26 22:22 | PC.NURSE ---
per verbal report from Hollis COLD ROLLER pt NIH score was 8 for morning scale, but not seen in chart. This RN's NIH scale was slightly worse at 9.
[2021-07-27] VITALS (7 sets, daily range): BP systolic 111–133; BP diastolic 62–74; PULSE 61–73; RESP 14–18; TEMP 36.4; O2SAT 93–96
[2021-07-27] MEDS: loratadine 10 mg Tablet PO (05:35)
[2021-07-27] MEDS: levoFLOXacin 500 mg Tablet PO (05:35)
[2021-07-27] MEDS: aspirin 81 mg EC Tablet PO (05:35)
[2021-07-27] MEDS: venlafaxine ER (24HR) 150 mg Capsule PO (05:35)
[2021-07-27] MEDS: ferrous gluconate 324 mg Tablet PO (07:58)
[2021-07-27] MEDS: gabapentin 100 mg Capsule PO (08:00)
[2021-07-27] MEDS: metoprolol tartrate 25 mg Tablet PO (08:00)
[2021-07-27] MEDS: losartan 50 mg Tablet PO (08:00)
[2021-07-27] MEDS: cyanocobalamin 1,000 mcg Tablet 500 MCG PO (09:58)
[2021-07-27] MEDS: heparin 5,000 unit/mL INJ 1 mL 5000 UNIT SUBCUT (09:59)
--- NOTE | 2021-07-27 10:10 | PC.SLP ---
Patient requested therapist come back at a later time. Patient was noted to have residue from breakfast. Nursing gave patient a drink while therapist was in the room. Therapist will check back with patient.
--- NOTE | 2021-07-27 11:04 | P.DS_ITS ---
Discharge Providers Date of Admission: 07/24/21 16:08 Date of Discharge: July 27, 2021 Attending Provider at Admission: Bib Arevalo MD Attending Provider at Discharge: Bib Arevalo MD Consults: Neurology: Dr. Do Primary Care Provider: Monica William Diagnoses at Discharge Discharge Diagnosis (1) Left acute arterial ischemic stroke, MCA (middle cerebral artery): Status: Acute Reason for Visit Reason for Visit: STROKE Hospital Course Hospital Course Nadja Dimas is a 85 year old female with past medical history of ESBL E. coli UTI, CVA, obstructive sleep apnea, hypertension, hypothyroidism who was brought into the hospital by her family for right-sided weakness along with right-sided facial droop along with slurred speech.? As per the family symptoms started at around 1230.? Patient presented to the ER at around 1:50 PM.? As per the ER physician documentation at presentation she had NIH score of 6 for which neurology was consulted and patient received tPA.? She also received 1 dose of labetalol. On my examination patient has a blood pressure 174/88, awake and alert, slightly slow to respond, having facial droop, no slurred speech, weakness of the right side of body but able to move her arm purposefully. Patient herself complaining of slight lower abdominal pain, denies any dysuria but does complain of slight burning of micturition on and off.? Denies any nausea, vomiting, headache, palpitations, chest pain, difficulty breathing. Blood work showed a white count of 5.9, hemoglobin of 12.3, INR 1.22, sodium 140, creatinine of 0.8, UA concerning for positive nitrite, 2+ leuk esterase with numerous WBCs, urine drug screen positive for benzos. Patient was admitted to the ICU for post tPA care for CVA. On admission she was also found to be having a UTI. Urine culture grew Klebsiella. Antibiotics were changed as per culture sensitivities. Her hospitalization was unremarkable. He underwent physical therapy and was evaluated by occupational and speech therapy as well. Safe discharge planning were discussed in detail with patient and patient's family given extensive debilitation currently from her advanced age and acute stroke. Family wanted patient to leave placed at SNF at least for short-term. She is been discharged in imminently stable condition with advised to take Levaquin for 3 days and to follow-up with neurology within next 2 weeks. Physical Exam Narrative: General: No acute distress, AO x3, HEENT: PERRLA, pupils bilaterally equal and reactive Chest: Normal vesicular breath sounds, no added sounds, equal good air entry bilaterally CVS: S1-S2 regular, no murmurs, no tachycardia, no gallops, no rubs Abdomen: Soft, nontender, no organomegaly, bowel sounds present Neurology: Pupils bilaterally equal and reactive, facial droop to right side, decreased power right upper limb and lower limb 2/5, left upper limb and lower limb 4/5. Plantar right side downgoing Neuro: ESSENCE COMA SCALE: document GCS findings [place] coma scale eye opening: Spontaneous Essence coma scale verbal response: Orientated [place] coma scale motor response: Obey commands Essence coma scale total score: 15 Discharge Data Studies Completed and Pending Completed Studies During Hospitalization Category Date Time Status CT head wo con* 36014 Routine Cat Scan 07/25/21 14:[address] head wo con* [id number] Routine Cat Scan 07/26/21 11:[address] head wo con* [id number] Stat Cat Scan 07/24/21 13:51 Completed CTA head neck [CT angio headneck* [id number]/47941] Urgent Cat Scan 07/24/21 14:08 Completed XR chest 1V portable [id number] Stat Exams 07/24/21 13:50 Completed CV. echo complete* [id number] Routine Ultrasound 07/24/21 17:27 Completed Pending at discharge Category Date Time Status B12 [Vitamin B12] Routine Lab 07/27/21 09:45 Ordered Complete Blood Count w/Auto Routine Lab 07/27/21 09:46 Ordered Comprehensive Metabolic Panel Routine Lab 07/27/21 09:45 Ordered Folate Level Routine Lab 07/27/21 09:45 Ordered Radiology Impressions Chest X-Ray 07/24/21 13:50 IMPRESSION: No acute findings. Head/Neck CTA 07/24/21 14:08 IMPRESSION: Calcified plaque with mild stenosis of the intracranial segments of the internal carotid arteries. No severe stenosis or occlusion. IMPRESSION: Mild stenosis of the carotid bulbs, origins of the internal carotid arteries, and just proximal to the basilar artery. No severe stenosis or occlusion. REFERENCES: NASCET CRITERIA. The degree of internal carotid artery stenosis is based on NASCET criteria. Normal is no stenosis. Mild is less than 50% stenosis. Moderate is 50-69% stenosis. Severe is 70% to 99% stenosis. Total occlusion is no detectable patent lumen. Head CT 07/26/21 11:27 IMPRESSION: 1. No acute intracranial abnormality. 2. Moderate diffuse cerebral atrophy. Old lacunar infarcts within the deep white matter tracts of the frontal lobes. Laboratory Results WBC 5.3 10^3/uL (4.0-10.0) 07/26/21 04:20 RBC 3.25 10^6/uL (4.1-5.3) L 07/26/21 04:20 Hgb 10.9 g/dL (11.5-15.3) L 07/26/21 04:20 Hct 33.5 % (37.0-47.0) L 07/26/21 04:20 MCV 103.1 fl (81-99) H 07/26/21 04:20 MCH 33.5 pg (28.0-34.0) 07/26/21 04:20 MCHC 32.5 g/dL (30.0-36.0) 07/26/21 04:20 RDW 15.1 % (12.1-15.1) 07/26/21 04:20 Plt Count 99 10^3/cmm (130-400) L 07/26/21 04:20 MPV 10.1 fL (7.4-10.4) 07/26/21 04:20 Neut % (Auto) 55.4 % 07/26/21 04:20 Lymph % (Auto) 25.8 % 07/26/21 04:20 [place] % (Auto) 13.8 % 07/26/21 04:20 Eos % (Auto) 3.8 % 07/26/21 04:20 Baso % (Auto) 0.4 % 07/26/21 04:20 Neut # (Auto) 2.94 10^3/uL (1.8-7.7) 07/26/21 04:20 Lymph # (Auto) 1.4 10^3/uL (0.8-4.8) 07/26/21 04:20 [place] # (Auto) 0.7 10^3/uL (0.2-0.9) 07/26/21 04:20 Eos # (Auto) 0.2 10^3/uL (0.0-0.8) 07/26/21 04:20 Baso # (Auto) 0.0 10^3/uL (0.0-0.1) 07/26/21 04:20 Nucleated RBC % (auto) 0 % 07/26/21 04:20 Nucleated RBCs # 0.0 /100WBC 07/26/21 04:20 PT 15.70 SECONDS (12.1-14.9) H 07/24/21 14:31 INR 1.22 (0.8-1.2) H 07/24/21 14:31 APTT 30.9 SECONDS (23.9-36.7) 07/24/21 14:31 Sodium 139 mmol/L (136-145) 07/26/21 04:20 Potassium 3.5 mmol/L (3.5-5.1) 07/26/21 04:20 Chloride 106 mmol/L (98-107) 07/26/21 04:20 Carbon Dioxide 22 mmol/L (22-29) 07/26/21 04:20 Anion Gap 14.5 (5-19) 07/26/21 04:20 BUN 11 mg/dL (8-23) 07/26/21 04:20 Creatinine 0.6 mg/dL (0.5-0.9) 07/26/21 04:20 GFR Calculation Not Reportable 07/26/21 04:20 Glucose 107 mg/dL (65-115) 07/26/21 04:20 POC Glucose 137 mg/dL (70-110) H 07/26/21 07:31 Estimat Average Glucose 97 07/25/21 04:29 Hemoglobin A1c 5.0 % (4.0-6.0) 07/25/21 04:29 Calculated Osmolality 288 mOsm/kg (285-295) 07/26/21 04:20 Calcium 8.6 mg/dL (8.5-10.5) 07/26/21 04:20 Iron 78 ug/dL (37-145) 07/24/21 14:31 TIBC 303 mcg/dl 07/24/21 14:31 % Saturation 25.7 % (20-50) 07/24/21 14:31 Unsat Iron Binding 225 ug/dL (112-347) 07/24/21 14:31 Total Bilirubin 1.2 mg/dL (0.15-1.2) 07/26/21 04:20 AST 22 U/L (0-32) 07/26/21 04:20 ALT 23 U/L (0-33) 07/26/21 04:20 Alkaline Phosphatase 142 IU/L (35-105) H 07/26/21 04:20 Total Protein 5.7 g/dL (6.6-8.7) L 07/26/21 04:20 Albumin 3.3 g/dL (3.5-5.2) L 07/26/21 04:20 Globulin 2.4 g/dL (1.3-4.6) 07/26/21 04:20 Triglycerides 130 mg/dL (0-150) 07/25/21 04:29 Cholesterol 96 mg/dL (0-200) 07/25/21 04:29 LDL Cholesterol, Calc 36 mg/dL (50-129) L 07/25/21 04:29 HDL Cholesterol 34 mg/dL (60-100) L 07/25/21 04:29 LDL/HDL Ratio 1.06 RATIO (0.00-3.22) 07/25/21 04:29 Cholesterol/HDL Ratio 2.82 mg/dL (0.0-4.40) 07/25/21 04:29 TSH 2.25 uIU/mL (0.27-4.20) 07/24/21 14:31 Urine Color Yellow (Yellow) 07/24/21 15:40 Urine Appearance Cloudy (CLEAR) 07/24/21 15:40 Urine pH 5 (5-7) 07/24/21 15:40 Ur Specific [place] 1.010 (1.005-1.030) 07/24/21 15:40 Urine Protein Trace (Negative) 07/24/21 15:40 Urine Glucose (UA) Norm (Normal) 07/24/21 15:40 Urine Ketones Negative (Negative) 07/24/21 15:40 Urine Blood 2+ (Negative) H 07/24/21 15:40 Urine Nitrate Positive (Negative) H 07/24/21 15:40 Urine Bilirubin Neg (Negative) 07/24/21 15:40 Urine Urobilinogen 4 mg/dL (Negative) H 07/24/21 15:40 Ur Leukocyte Esterase 2+ (Negative) H 07/24/21 15:40 Urine RBC 0-4 /hpf (0-2) H 07/24/21 15:40 Urine WBC Too numerous to cnt /hpf (0-5) H 07/24/21 15:40 Ur Squamous Epith Cells 0-4 /hpf (0-5) H 07/24/21 15:40 Amorphous Sediment Not Reportable 07/24/21 15:40 Urine Bacteria 4+ /hpf (NONE) H 07/24/21 15:40 Urine Mucus None /hpf 07/24/21 15:40 Urine Opiates Screen Negative ng/mL (Negative) 07/24/21 15:40 Ur Barbiturates Screen Negative ng/mL (Negative) 07/24/21 15:40 Ur Phencyclidine Scrn Negative ng/mL (Negative) 07/24/21 15:40 Ur Amphetamines Screen Negative ng/mL (Negative) 07/24/21 15:40 U Benzodiazepines Scrn Positive ng/mL (Negative) H 07/24/21 15:40 Urine Cocaine Screen Negative ng/mL (Negative) 07/24/21 15:40 U Marijuana (THC) Screen Negative ng/mL (Negative) 07/24/21 15:40 Vitals Last Vital Signs Temp 97.6 F 07/27/21 07:29 Pulse 72 07/27/21 08:00 Resp 18 07/27/21 07:29 BP 128/73 07/27/21 07:29 Pulse Ox 93 07/27/21 07:47 Discharge Plan Discharge Patient Disposition: Xfer SNF Condition: Stable Prescriptions: New cyanocobalamin (vitamin B-12) [Vitamin B-12] 1,000 mcg Tablet 500 mcg PO DAILY Qty: 30 0RF levofloxacin 500 mg Tablet 500 mg PO DAILY@0600 Qty: 3 0RF ferrous gluconate 324 mg (37.5 mg iron) Tablet 324 mg PO BIDWM Qty: 60 0RF clopidogrel [Plavix] 75 mg tablet 75 mg PO DAILY Qty: 30 0RF Continued gabapentin 100 mg capsule 100 mg PO BID 0RF Rx Instructions: am and pm gabapentin 300 mg capsule 300 mg PO BEDTIME 0RF loratadine [Allergy Relief (loratadine)] 10 mg tablet 10 mg PO QAM 0RF venlafaxine 150 mg tablet extended release 24hr 150 mg PO QAM 0RF nitrofurantoin monohyd/m-cryst [Macrobid] 100 mg capsule 100 mg PO BID Qty: 60 2RF Rx Instructions: must administer with a meal/food methotrexate sodium 2.5 mg tablet 15 mg PO Q7D 84 Days Qty: 72 0RF Rx Instructions: TAKE (6) 2.5 MG PO ON SATURDAYS atorvastatin 40 mg tablet 40 mg PO BEDTIME 30 Days Qty: 30 3RF losartan 50 mg Tablet 50 mg PO QAM 0RF olanzapine 2.5 mg Tablet 2.5 mg PO BEDTIME 0RF pantoprazole 40 mg tablet,delayed release (DR/EC) 40 mg PO QPM 0RF Changed metoprolol tartrate 25 mg tablet 25 mg PO BID 30 Days Qty: 30 6RF Discontinued aspirin 81 mg tablet,delayed release (DR/EC) 81 mg PO QAM 0RF Discharge Orders: Discharge Order (Routine); Ordered 07/27/21 Ordered By: Bib Arevalo Referrals: Monica William PA [Primary Care Provider] - Reba Do MD [Physician] - 2 weeks Discharge Diet: Advance as tolerated and Usual diet Discharge Activity: Resume usual activity and Increase activity as tolerated Patient Instructions: Levofloxacin (By mouth), Clopidogrel (By mouth), Vitamin B-12 (By mouth), Opioid Safety Discharge Attestations Time Spent in Discharge Care*: greater than 30 min Specific Discharge Activities: educating patient, educating and/or supporting family/caregiver, discussing with showcase maker/social workers/dc planners, documenting/other paperwork and evaluating patient/reviewing data Status at Discharge: Cognitive status at discharge: cognitively intact , Behavioral status at discharge: cooperative , Functional status at discharge: other assisted ambulation , Overall status at discharge: patient has a new baseline Quality Metrics Clinical Quality Measures [ Cerebrovascular Accident { Contraindication to Antithrombotic: None; antithrombotic prescribed; Contraindication to Anticoagulation: Overlap treatment not indicated; Contraindication to Statin: None; Statin prescribed; C ontraindication to tPA: None; TPA given;}] Coding Level of Care Code Acute Chg FW DC note Diagnoses Left acute arterial ischemic stroke, MCA (middle cerebral artery) I63.512
[2021-07-27 11:06] LABS: Glucose Point of Care 155 mg/dL (70-110)
--- NOTE | 2021-07-27 11:09 | PC.SOCIAL ---
IMM update IMM updated with patient's daughter at bedside. Verbalized an understanding. Copy PG 2 provided. Initialled, dated, timed, and placed in chart.
[2021-07-27 13:13] LABS: SARS Covid-2 Antigen Negative (Negative)
== END 2021-07-27 15:48 | disposition skilled nursing facility (03) | DRG 62 ==
LOC: ER 16:10 → ICU 16:24 → MEDSURG 07-26 19:57
PROVIDERS: Admitting Provider Student in an Organized Health Care Education/Training Program; Emergency Provider Emergency Medicine; PCP Physician Assistant; Visit Provider Student in an Organized Health Care Education/Training Program
DX: I63.9 Cerebral infarction, unspecified (principal); G81.91 Hemiplegia, unspecified affecting right dominant side; N30.00 Acute cystitis without hematuria; R47.1 Dysarthria and anarthria; R29.810 Facial weakness; R29.706 NIHSS score 6; F32.A Depression, unspecified; K21.9 Gastro-esophageal reflux disease without esophagitis; I10 Essential (primary) hypertension; E03.9 Hypothyroidism, unspecified; G47.33 Obstructive sleep apnea (adult) (pediatric); Z87.440 Personal history of urinary (tract) infections; N39.46 Mixed incontinence; Z86.73 Personal history of transient ischemic attack (TIA), and cerebral infarction without residual deficits; G25.81 Restless legs syndrome; B96.1 Klebsiella pneumoniae [K. pneumoniae] as the cause of diseases classified elsewhere
CPT/HCPCS: 36415; 36416; 70450; 70496; 70498; 71045; 80053; 80061; 80306; 81001; 82962; 83036; 83540; 83550; 84443; 85025; 85610; 85730; 87077; 87086; 87186; 87426; 92523; 92610; 93005; 93306; 94664; 96365; 96372; 96375; 97110; 97162; 97165; 99291; J0360; J0696; J0743; J1644; J2997; J3490; Q9967

== ENCOUNTER 2021-08-25 14:00 | Emergency (ER) | payer MEDICARE, OTHER, SELFPAY ==
--- NOTE | 2021-08-25 14:05 | ECG_ITS ---
[facility] Test Date: 2021-08-25 Pat Name: Nadja Dimas Department: Room: Gender: Female Change Management Analyst: : 1935 Requested By: Saji Montes Order Number: [id number] Karolina MD: Romi Shafer M.D. Measurements Intervals [place] Rate: 81 P: 41 MA: 175 QRS: -23 QRSD: 102 T: 47 QT: 398 QTc: 462 Interpretive Statements SINUS RHYTHM BORDERLINE LEFT AXIS DEVIATION [QRS AXIS < -20] LEFT VENTRICULAR HYPERTROPHY AND ST-T CHANGE [VOLTAGE CRITERIA PLUS ST/T ABNORMALITY] Compared to ECG 07/24/2021 14:10:44 Left ventricular hypertrophy now present ST (T wave) deviation still present Electronically Signed On 08-25-2021 22:29:16 CDT by Romi Shafer M.D. [id number]
--- NOTE | 2021-08-25 14:05 | CT_ITS ---
WS: [id number] CT HEAD TECHNIQUE: Noncontrast CT of the head obtained from the skullbase to the vertex. CLINICAL INFORMATION: AMS COMPARISON: CT July 26, 2021 DLP: 807.[address] scans at [facility] use at least one of these dose optimization techniques: automated e xposure control; mA and/or kV adjustment per patient size (includes targeted exams where dose is matc hed to clinical indication); or iterative reconstruction. FINDINGS: No evidence of intracranial hemorrhage or mass effect. Ventricular system and basal cisterns are reyes nt. Moderate small vessel changes with moderate parenchymal volume loss. Moderate cerebellar parenchy mal volume loss. Chronic infarcts in the bilateral centrum semiovale and ashley radiata. New small area of ischemia in the LEFT periventricular white matter appears new or progressed compare d to previous likely subacute to late subacute measuring 1.6 CM. This can be followed up with MRI. Ot herwise stable deep white matter and periventricular infarcts. Intracranial vascular calcification. Paranasal sinuses and mastoid air cells are well aerated. Normal visualized soft tissues. CT/CT head wo con* [id number] IMPRESSION: 1. No evidence of intracranial hemorrhage or mass effect. 2. Moderate small vessel changes with moderate parenchymal volume loss. Modera te cerebellar atrophy. 3. Small area of ischemia within the LEFT deep frontal periventricular white m atter measuring 1.6 cm appears new compared to previous. This has a subacute to late subacute appearance. This can be followed up with MRI. 4. Otherwise no other significant changes compared to previous. 5. Stable chronic appearing lacunar infarcts in the deep frontal and periventr icular white matter. Notified Saji Torres DO at 08/25/2021 2:54 PM.
--- NOTE | 2021-08-25 14:13 | W.ED.GENADLT ---
HPI - General Adult General: Chief complaint: Altered Mental Status Stated complaint: AMS Time Seen by Provider: 08/25/21 14:01 Source: EMS Mode of arrival: EMS Limitations: altered mental status History of Present Illness: 85-year-old female brought in by EMS with reported altered mental status. She has baseline dementia seem to be off of her normal baseline last few days. Suspected she had an urinary tract infection verbal report from EMS with blood work and UA was done and the blood work was normal and there were signs of cystitis. Family asked that the patient be evaluated in the emergency room. Patient answers a few simple questions but none that contribute to history. Family arrived later states over the last several weeks she has been steadily declining but about 3 to 4 days ago she had a sudden marked change and was not speaking as well progressed to the point where she did not speak at all she did speak 1 time today daughter mentioned that she seemed to bead picker where the last conversation left off. They do not want any kind of aggressive interventions. Onset (ago): unknown Relieving factors: none Exacerbating factors: none Associated symptoms: Reports malaise and weakness; Deny chest pain, confusion, cough, diaphoresis, decreased appetite, dyspnea, fevers/chills, headache(s), nausea, rash, palpitations, seizures, short of breath, syncope or vomiting Treatments prior to arrival: none Review of Systems General: Reports: ROS unobtainable due to mental status Const: Reports: fatigue and malaise; Denies: diaphoresis Card: Denies: chest pain, palpitations or syncope Resp: Denies: dyspnea GI: Denies: nausea or vomiting Skin/Breast: Denies: rash Neuro: Denies: headache(s) or confusion PFS ED PFSH: Medical History SELVIN (acute kidney injury) Cognitive impairment Depression GERD (gastroesophageal reflux disease) Gram negative sepsis High risk medication use History of TIA (transient ischemic attack) HTN (hypertension) Hyperlipidemia Hypersomnia Hypothyroidism Neuropathy Obesity GERALDO (obstructive sleep apnea) Recurrent UTI RLS (restless legs syndrome) Sepsis Urgency incontinence Urinary incontinence, mixed UTI due to extended-spectrum beta lactamase (ESBL) producing Escherichia coli Surgical History H/O colonoscopy 05/03/2005 - diverticulosis H/O esophagogastroduodenoscopy 07/15/2010 - reflux esophagitis, gastritis H/O lumbar discectomy 11/2007 H/O lumpectomy x3 to right breast, x2 to left breast History of appendectomy 1954 History of cholecystectomy 1966 Hx of hysterectomy, total 1988 Family History Son Diabetes Brother Stroke Cancer Hypertension Sister Cancer Hypertension Mother , at age 86 Heart attack Dementia Father , at age 73 Heart attack Social History Smoking and tobacco status: never smoked Alcohol intake: never Marital status: Current occupational status: retired History of recent travel: No Physical Exam Const: GENERAL APPEARANCE: cooperative and comfortable ORIENTATION/CONSCIOUSNESS: Yes awake Neck/C-Spine: COMMON NORMALS: no JVD Resp: COMMON NORMALS: normal respiratory effort, No retractions, No use of accessory muscles and clear to auscultation bilaterally AUSCULTATION: clear to auscultation bilaterally Cardio: COMMON NORMALS: no JVD, regular rate, regular rhythm and No murmurs present (Cardio) RATE: regular rate RHYTHM: regular rhythm GI: COMMON NORMALS: Soft to palpation and No hepatosplenomegaly present AUSCULTATION: Yes normoactive bowel sounds PALPATION: Yes Soft to palpation, No Tenderness to palpation present (GI), No Guarding due to palpation present (GI) and Yes No hepatosplenomegaly present Extremity: COMMON NORMALS: normal to inspection, capillary refill normal, no clubbing, cyanosis or edema, no calf tenderness and no pedal edema Skin: COMMON NORMALS: no rashes or lesions noted GENERAL SKIN EXAM: no rashes or lesions noted Course Vital Signs: Vital signs: Vital Signs Temperature 98.9 F 08/25/21 14:15 Pulse Rate 87 08/25/21 18:41 Respiratory Rate 16 08/25/21 18:41 Blood Pressure 178/87 08/25/21 18:41 Pulse Oximetry 97 08/25/21 18:41 MDM - General Adult Medical Decision Making CT shows subacute CVA. Patient is likely 3 to 4 days out which consistent with the finding on the CT. She is showing little improvement she has began to vocalize some now. Discussed with the family they do not want any intervention. I discussed possible admission for further evaluation however they would not pursue any intervention regardless of findings. Based on this we decided to maximize medical therapy she is already on a statin and clopidogrel we will add aspirin daily and have her initiate what therapy she can tolerate at the shelter. Family prefers this approach at this time. Medical Records I reviewed the patient's medical records. Lab Data I reviewed the patient's lab results. : 08/25/21 14:48 08/25/21 15:[address] 08/25/21 14:05 IMPRESSION: 1. No evidence of intracranial hemorrhage or mass effect. 2. Moderate small vessel changes with moderate parenchymal volume loss. Moderate cerebellar atrophy. 3. Small area of ischemia within the LEFT deep frontal periventricular white matter measuring 1.6 cm appears new compared to previous. This has a subacute to late subacute appearance. This can be followed up with MRI. 4. Otherwise no other significant changes compared to previous. 5. Stable chronic appearing lacunar infarcts in the deep frontal and periventricular white matter. Notified Saji Torres DO at 08/25/2021 2:54 PM. Laboratory Results WBC 6.1 10^3/uL (4.0-10.0) 08/25/21 14:48 RBC 3.76 10^6/uL (4.1-5.3) L 08/25/21 14:48 Hgb 12.7 g/dL (11.5-15.3) 08/25/21 14:48 Hct 34.5 % (37.0-47.0) L 08/25/21 14:48 MCV 91.8 fl (81-99) 08/25/21 14:48 MCH 33.8 pg (28.0-34.0) 08/25/21 14:48 MCHC 36.8 g/dL (30.0-36.0) H 08/25/21 14:48 RDW 13.8 % (12.1-15.1) 08/25/21 14:48 Plt Count 134 10^3/cmm (130-400) 08/25/21 14:48 MPV 10.1 fL (7.4-10.4) 08/25/21 14:48 Neut % (Auto) 64.2 % 08/25/21 14:48 Lymph % (Auto) 23.9 % 08/25/21 14:48 [place] % (Auto) 9.3 % 08/25/21 14:48 Eos % (Auto) 2.0 % 08/25/21 14:48 Baso % (Auto) 0.3 % 08/25/21 14:48 Neut # (Auto) 3.94 10^3/uL (1.8-7.7) 08/25/21 14:48 Lymph # (Auto) 1.5 10^3/uL (0.8-4.8) 08/25/21 14:48 [place] # (Auto) 0.6 10^3/uL (0.2-0.9) 08/25/21 14:48 Eos # (Auto) 0.1 10^3/uL (0.0-0.8) 08/25/21 14:48 Baso # (Auto) 0.0 10^3/uL (0.0-0.1) 08/25/21 14:48 Nucleated RBC % (auto) 0 % 08/25/21 14:48 Nucleated RBCs # 0.0 /100WBC 08/25/21 14:48 Sodium 136 mmol/L (136-145) 08/25/21 15:40 Potassium 3.6 mmol/L (3.5-5.1) 08/25/21 15:40 Chloride 103 mmol/L (98-107) 08/25/21 15:40 Carbon Dioxide 22 mmol/L (22-29) 08/25/21 15:40 Anion Gap 14.6 (5-19) 08/25/21 15:40 BUN 14 mg/dL (8-23) 08/25/21 15:40 Creatinine 0.7 mg/dL (0.5-0.9) 08/25/21 15:40 GFR Calculation Not Reportable 08/25/21 15:40 Glucose 94 mg/dL (65-115) 08/25/21 15:40 Calculated Osmolality 282 mOsm/kg (285-295) L 08/25/21 15:40 Calcium 9.3 mg/dL (8.5-10.5) 08/25/21 15:40 Total Bilirubin 1.5 mg/dL (0.15-1.2) H 08/25/21 15:40 AST 24 U/L (0-32) 08/25/21 15:40 ALT 16 U/L (0-33) 08/25/21 15:40 Alkaline Phosphatase 121 IU/L (35-105) H 08/25/21 15:40 Creatine Kinase 249 U/L (26-192) H 08/25/21 15:40 Troponin T Baseline 34 ng/L (0-10) H 08/25/21 14:48 Troponin T 120 Minute 37.24 ng/L (0-10) H 08/25/21 17:06 Delta Troponin T 3.24 ABS# (0-10) 08/25/21 17:06 Total Protein 6.8 g/dL (6.6-8.7) 08/25/21 15:40 Albumin 3.6 g/dL (3.5-5.2) 08/25/21 15:40 Globulin 3.2 g/dL (1.3-4.6) 08/25/21 15:40 Urine Color [place] (Yellow) 08/25/21 17:30 Urine Appearance Clear (CLEAR) 08/25/21 17:30 Urine pH 5 (5-7) 08/25/21 17:30 Ur Specific [place] 1.025 (1.005-1.030) 08/25/21 17:30 Urine Protein Trace (Negative) 08/25/21 17:30 Urine Glucose (UA) Norm (Normal) 08/25/21 17:30 Urine Ketones 1+ (Negative) H 08/25/21 17:30 Urine Blood Neg (Negative) 08/25/21 17:30 Urine Nitrate Negative (Negative) 08/25/21 17:30 Urine Bilirubin 1+ (Negative) H 08/25/21 17:30 Urine Urobilinogen 4 mg/dL (Negative) H 08/25/21 17:30 Ur Leukocyte Esterase Negative (Negative) 08/25/21 17:30 Urine RBC Rare /hpf (0-2) 08/25/21 17:30 Urine WBC Rare /hpf (0-5) 08/25/21 17:30 Ur Squamous Epith Cells 5-10 /hpf (0-5) H 08/25/21 17:30 Amorphous Sediment Not Reportable 08/25/21 17:30 Urine Bacteria None /hpf (NONE) 08/25/21 17:30 Urine Mucus 1+ /hpf 08/25/21 17:30 Discharge Plan Discharge Patient Disposition: Home Clinical Impression: Acute CVA (cerebrovascular accident) Condition: Stable Prescriptions: New aspirin 81 mg capsule 81 mg PO DAILY Qty: 30 0RF No Action loratadine [Allergy Relief (loratadine)] 10 mg tablet 10 mg PO QAM 0RF venlafaxine 150 mg tablet extended release 24hr 150 mg PO QAM 0RF nitrofurantoin monohyd/m-cryst [Macrobid] 100 mg capsule 100 mg PO BID Qty: 60 2RF Rx Instructions: must administer with a meal/food methotrexate sodium 2.5 mg tablet 15 mg PO Q7D 84 Days Qty: 72 0RF Rx Instructions: TAKE (6) 2.5 MG PO ON SATURDAYS atorvastatin 40 mg tablet 40 mg PO BEDTIME 30 Days Qty: 30 3RF Tylenol 325 mg Tablet 650 mg PO Q6H PRN (Reason: Pain) 0RF Zofran 4 mg Tablet 4 mg PO Q6H PRN (Reason: Nausea) 0RF Milk of Magnesia 400 mg/5 mL Suspension 30 ml PO DAILY PRN (Reason: Constipation) 0RF Dulcolax (bisacodyl) 10 mg Suppository 10 mg IN DAILY PRN (Reason: Constipation) 0RF Fleet Enema 19-7 gram/118 mL Enema 118 ml IN DAILY PRN (Reason: Constipation) 0RF Dulcolax (bisacodyl) 5 mg Tablet,Delayed Release (Dr/Ec) 10 mg PO DAILY PRN (Reason: Constipation) 0RF losartan 50 mg Tablet 50 mg PO QAM 0RF pantoprazole 40 mg tablet,delayed release (DR/EC) 40 mg PO QPM 0RF cyanocobalamin (vitamin B-12) [Vitamin B-12] 1,000 mcg Tablet 500 mcg PO DAILY Qty: 30 0RF clopidogrel [Plavix] 75 mg tablet 75 mg PO DAILY Qty: 30 0RF metoprolol tartrate 25 mg tablet 25 mg PO BID 30 Days Qty: 30 6RF Discharge Orders: Discharge ED (Routine); Ordered 08/25/21 Ordered By: Saji Torres Referrals: Monica William PA [Primary Care Provider] - Discharge Diet: Usual diet Discharge Activity: Increase activity as tolerated Patient Instructions: Opioid Safety Activity Restrictions/Additional Instructions: Follow-up with your primary care doctor for rehab from the stroke through the shelter. Coding Level of Care Code ED Labor Conciliator for Chg Fwd Exam Detailed
[2021-08-25 14:15] VITALS: BP 153/91; PULSE 82; RESP 18; TEMP 37.2; O2SAT 97
[2021-08-25 15:02] LABS: Basophils % 0.3 %; Eosinophils # 0.1 10^3/uL (0.0-0.8); Hematocrit 34.5 % (37.0-47.0); Hemoglobin 12.7 g/dL (11.5-15.3); Lymphocytes # 1.5 10^3/uL (0.8-4.8); Lymphocytes % 23.9 %; Mean Corpuscular HGB Conc 36.8 g/dL (30.0-36.0); Mean Corpuscular Hemoglobin 33.8 pg (28.0-34.0); Mean Corpuscular Volume 91.8 fl (81-99); Mean Platelet Volume 10.1 fL (7.4-10.4); Monocytes # 0.6 10^3/uL (0.2-0.9); Monocytes % 9.3 %; Neutrophils # 3.94 10^3/uL (1.8-7.7); Neutrophils % 64.2 %; Nucleated Red Blood Cells % 0 %; Platelet Count 134 10^3/cmm (130-400); Red Blood Count 3.76 10^6/uL (4.1-5.3); Red Cell Distribution Width 13.8 % (12.1-15.1); White Blood Count 6.1 10^3/uL (4.0-10.0)
[2021-08-25 15:20] LABS: Troponin(5th) Baseline 34 ng/L (0-10)
--- NOTE | 2021-08-25 16:05 | ECG_ITS ---
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 Measurements Intervals [place] Rate: 76 P: 18 NV: 179 QRS: -20 QRSD: 98 T: 45 QT: 403 QTc: 455 Interpretive Statements SINUS RHYTHM LEFT VENTRICULAR HYPERTROPHY AND ST-T CHANGE [VOLTAGE CRITERIA PLUS ST/T ABNORMALITY] Compared to ECG 08/25/2021 14:17:20 No significant changes Electronically Signed On 08-25-2021 22:37:43 CDT by Romi Shafer M.D. [id number]
[2021-08-25 16:29] LABS: Alanine Aminotransferase 16 U/L (0-33); Albumin Level 3.6 g/dL (3.5-5.2); Alkaline Phosphatase 121 IU/L (35-105); Blood Urea Nitrogen 14 mg/dL (8-23); Calcium 9.3 mg/dL (8.5-10.5); Carbon Dioxide 22 mmol/L (22-29); Chloride 103 mmol/L (98-107); Creatine Phosphokinase 249 U/L (26-192); Globulin 3.2 g/dL (1.3-4.6); Glucose 94 mg/dL (65-115); Osmolality Calculated 282 mOsm/kg (285-295); Sodium 136 mmol/L (136-145); Total Bilirubin 1.5 mg/dL (0.15-1.2); Total Protein 6.8 g/dL (6.6-8.7)
[2021-08-25 16:30] LABS: Anion Gap 14.6 (5-19); Potassium 3.6 mmol/L (3.5-5.1)
[2021-08-25 16:52] LABS: Aspartate Amino Transferase 24 U/L (0-32)
[2021-08-25 17:49] LABS: Troponin 5 2HR 37.24 ng/L (0-10)
[2021-08-25 17:50] LABS: Troponin 5 2HR Delta 3.24 ABS# (0-10)
--- NOTE | 2021-08-25 17:58 | PC.NURSE ---
report called to talita MORGAN at [facility]
[2021-08-25 18:32] LABS: Urine Appearance Clear (CLEAR); Urine Color Amber (Yellow)
[2021-08-25 18:33] LABS: Add Urine Microscopic? YES; Bilirubin Urine 1+ (Negative); Blood Urine Neg (Negative); Glucose Urine UA Norm (Normal); Ketones Urine 1+ (Negative); Leukocyte Esterase Urine Negative (Negative); Nitrate Urine Negative (Negative); Protein Urine Trace (Negative); RBC Urine RARE /hpf (0-2); Specific Gravity, Urine 1.025 (1.005-1.030); Urobilinogen Urine 4 mg/dL (Negative); WBC Urine RARE /hpf (0-5); pH Urine 5 (5-7)
[2021-08-25 18:34] LABS: Add Urine Culture? No; Mucus Urine 1+ /hpf
[2021-08-25 18:41] VITALS: BP 178/87; PULSE 87; RESP 16; O2SAT 97
== END 2021-08-25 18:47 | disposition home or self-care (01) ==
PROVIDERS: Emergency Provider Family Medicine; PCP Physician Assistant
DX: I63.9 Cerebral infarction, unspecified (principal); Z79.02 Long term (current) use of antithrombotics/antiplatelets; Z86.73 Personal history of transient ischemic attack (TIA), and cerebral infarction without residual deficits; I10 Essential (primary) hypertension; E78.5 Hyperlipidemia, unspecified
CPT/HCPCS: 36415; 70450; 80053; 81001; 82550; 84484; 85025; 93005; 99284

== ENCOUNTER → 2021-08-31 14:51 | Outpatient (BNVA) | payer MEDICARE, OTHER, SELFPAY | PROVIDERS: PCP Physician Assistant; Visit Provider Nurse Practitioner | DX: I69.90 Unspecified sequelae of unspecified cerebrovascular disease (principal); I10 Essential (primary) hypertension; G62.9 Polyneuropathy, unspecified | CPT/HCPCS: 99204 ==

== ENCOUNTER → 2021-09-17 14:41 | Outpatient (BNVA) | payer OTHER, MEDICARE, SELFPAY | PROVIDERS: PCP Physician Assistant; Visit Provider Urology | DX: N39.41 Urge incontinence (principal); N30.20 Other chronic cystitis without hematuria | CPT/HCPCS: 51798; 81003; 99213 ==

== ENCOUNTER 2021-09-21 11:36 | Emergency (ER) | payer MEDICARE, OTHER, SELFPAY ==
--- NOTE | 2021-09-21 11:43 | CT_ITS ---
WS: [id number] CT HEAD TECHNIQUE: Noncontrast CT of the head obtained from the skullbase to the vertex. CLINICAL INFORMATION: headache COMPARISON: CT August 25, 2021 DLP: 668.[address] scans at [facility] use at least one of these dose optimization techniques: automated e xposure control; mA and/or kV adjustment per patient size (includes targeted exams where dose is matc hed to clinical indication); or iterative reconstruction. FINDINGS: No evidence of intracranial hemorrhage or mass effect. Ventricular system and basal cisterns are reyes nt. Moderate small vessel changes with moderate parenchymal volume loss. Changes of chronic ischemia in the periventricular white matter and ashley radiata bilaterally. Intracranial vascular calcificati on. Paranasal sinuses and mastoid air cells are well aerated. .Normal visualized soft tissues. CT/CT head wo con* [id number] IMPRESSION: 1. No evidence of intracranial hemorrhage or mass effect. 2. Moderate small vessel changes moderate parenchymal volume loss. 3. Changes of chronic ischemia in the periventricular white matter and ashley radiata bilaterally. 4. No acute intracranial findings and no significant changes compared to previ ous.
[2021-09-21 11:58] VITALS: PULSE 64; RESP 18; TEMP 36; O2SAT 98
== END 2021-09-21 15:39 | disposition left against medical advice (07) ==
PROVIDERS: Emergency Provider Family Medicine; PCP Physician Assistant
DX: Z53.21 Procedure and treatment not carried out due to patient leaving prior to being seen by health care provider (principal)
CPT/HCPCS: 70450

== ENCOUNTER 2021-10-30 03:37 | Emergency (ER) | payer MEDICARE, OTHER, SELFPAY ==
[2021-10-30 03:37] VITALS: BP 139/63; PULSE 67; RESP 18; TEMP 36.3; O2SAT 95
--- NOTE | 2021-10-30 03:40 | XRR_ITS ---
PROCEDURE INFORMATION: Exam: XR Right Hip Exam date and time: 10/30/2021 3:42 AM Age: 85 years old Clinical indication: Injury or trauma; Fall; Blunt trauma (contusions or hematomas); Right; Patient HX: jail patient with dementiafell from wheel chair onto RT hip. Patient non verbal. TECHNIQUE: Imaging protocol: Radiologic exam of the Right hip. Views: 1 view hip with pelvis when performed. COMPARISON: 1. CR XR hip RT 2-3V wo/w pel* [id number] 2021-05-18 08:[address] abdomen pelvis wo con [id number] 2020-10-12 10:57 3. CR XR hip RT 2-3V wo/w pel* [id number] 2020-05-25 07:[address] chest abd pel w con* 2019-03-22 06:39 FINDINGS: Bones/joints: Mild moderate degenerative joint disease with spurring and mild joint space loss. Soft tissues: Unremarkable. XR/XR hip RT 2-3V wo/w pel* [id number] IMPRESSION: No acute findings.
--- NOTE | 2021-10-30 03:42 | ED_ITS ---
HPI - Fall General: Chief Complaint: Fall Stated Complaint: Fall/R Hip Pain Time Seen by Provider: 10/30/21 03:40 Source: EMS Mode of arrival: EMS Limitations: altered mental status History of Present Illness: 85-year-old female who is here from skilled nursing after a fall yesterday per skilled nursing patient got out of her wheelchair fell onto her right hip patient's had increasing pain throughout the night patient does have dementia no history available from her skilled nursing denies her having any head injury no signs of head injury Review of Systems General: Reports: ROS unobtainable due to mental status Musc: Reports: extremity pain PFS ED PFSH: Medical History SELVIN (acute kidney injury) Chronic cystitis Cognitive impairment Depression GERD (gastroesophageal reflux disease) Gram negative sepsis High risk medication use History of TIA (transient ischemic attack) HTN (hypertension) Hyperlipidemia Hypersomnia Hypothyroidism Neuropathy Obesity GERALDO (obstructive sleep apnea) Recurrent UTI RLS (restless legs syndrome) Sepsis Urgency incontinence Urinary incontinence, mixed UTI due to extended-spectrum beta lactamase (ESBL) producing Escherichia coli Surgical History H/O colonoscopy 05/03/2005 - diverticulosis H/O esophagogastroduodenoscopy 07/15/2010 - reflux esophagitis, gastritis H/O lumbar discectomy 11/2007 H/O lumpectomy x3 to right breast, x2 to left breast History of appendectomy 1954 History of cholecystectomy 1966 Hx of hysterectomy, total 1987 Family History Son Diabetes Brother Stroke Cancer Hypertension Sister Cancer Hypertension Mother , at age 86 Heart attack Dementia Father , at age 73 Heart attack Social History Smoking and tobacco status: never smoked Alcohol intake: never Marital status: Marital status details: 71 years Current occupational status: retired History of recent travel: No Physical Exam Const: COMMON NORMALS: no acute distress and healthy appearing; negative for patient oriented x3 EXAM LIMITATIONS: altered mental status HENMT: COMMON NORMALS: normocephalic and atraumatic HEAD & SCALP: normocephalic and atraumatic Eye: COMMON NORMALS: Equal, round and reactive pupils present and EOMs intact bilaterally PUPIL: Yes Equal, round and reactive pupils present Neck/C-Spine: COMMON NORMALS: full ROM and supple Chest: COMMONS NORMALS: normal inspection of the chest and normal palpation of entire chest wall Resp: COMMON NORMALS: normal respiratory effort, No retractions, No use of accessory muscles and clear to auscultation bilaterally AUSCULTATION: clear to auscultation bilaterally Cardio: COMMON NORMALS: regular rate, regular rhythm and No murmurs present (Cardio) RATE: regular rate RHYTHM: regular rhythm GI: COMMON NORMALS: Normal to inspection, nondistended, normoactive bowel sounds present, Soft to palpation, non-tender and no masses PALPATION: Yes Soft to palpation Extremity: NARRATIVE EXTREMITY EXAM: tenderness over right hip Neuro: COMMON NORMALS: moves all extremities and no focal motor deficits; negative for patient oriented x3 Psych: COMMON NORMALS: Normal thought process present and cooperative; negative for mental status grossly normal THOUGHT PROCESS: Normal thought process present Skin: COMMON NORMALS: no rashes or lesions noted and no wounds GENERAL SKIN EXAM: no rashes or lesions noted Course Vital Signs: Vital signs: Vital Signs Temperature 97.3 F L 10/30/21 03:37 Pulse Rate 67 10/30/21 03:37 Respiratory Rate 18 10/30/21 03:37 Blood Pressure 139/63 10/30/21 03:37 Pulse Oximetry 95 10/30/21 03:37 Oxygen Delivery Me thod 10/30/21 03:37 MDM - Fall Medical Decision Making Patient presents with a right hip contusion from a fall x-ray here shows no fracture patient was able to bear weight and ambulate she is stable for discharge she is discharged back to the skilled nursing she has no signs of head injury no neck pain. Discharge Plan Discharge Patient Disposition: Home Clinical Impression: Fall Contusion of right hip Qualifiers: Encounter type: initial encounter Qualified Code(s): S70.01XA - Contusion of right hip, initial encounter Condition: Stable Prescriptions: No Action loratadine [Allergy Relief (loratadine)] 10 mg tablet 10 mg PO QAM venlafaxine 150 mg tablet extended release 24hr 150 mg PO QAM nitrofurantoin monohyd/m-cryst [Macrobid] 100 mg capsule 100 mg PO BID Qty: 60 2RF Rx Instructions: must administer with a meal/food alprazolam [Xanax] 0.25 mg tablet 0.25 mg PO BID PRN lorazepam [Ativan] 0.5 mg tablet 0.5 mg PO DAILY PRN gabapentin 300 mg capsule 300 mg PO .AT HS ferrous sulfate 325 mg (65 mg iron) tablet 325 mg PO BID folic acid 1 mg tablet 1 mg PO DAILY gabapentin 100 mg capsule 100 mg PO DAILY olanzapine 2.5 mg tablet 2.5 mg PO DAILY methotrexate sodium 2.5 mg tablet 15 mg PO Q7D 84 Days Qty: 72 0RF Rx Instructions: TAKE (6) 2.5 MG PO ON SATURDAYS atorvastatin 40 mg tablet 40 mg PO BEDTIME 30 Days Qty: 30 3RF Tylenol 325 mg Tablet 650 mg PO Q6H PRN (Reason: Pain) Zofran 4 mg Tablet 4 mg PO Q6H PRN (Reason: Nausea) Milk of Magnesia 400 mg/5 mL Suspension 30 ml PO DAILY PRN (Reason: Constipation) Dulcolax (bisacodyl) 10 mg Suppository 10 mg PA DAILY PRN (Reason: Constipation) Fleet Enema 19-7 gram/118 mL Enema 118 ml PA DAILY PRN (Reason: Constipation) Dulcolax (bisacodyl) 5 mg Tablet,Delayed Release (Dr/Ec) 10 mg PO DAILY PRN (Reason: Constipation) aspirin 81 mg capsule 81 mg PO DAILY Qty: 30 0RF losartan 50 mg Tablet 50 mg PO QAM pantoprazole 40 mg tablet,delayed release (DR/EC) 40 mg PO QPM cyanocobalamin (vitamin B-12) [Vitamin B-12] 1,000 mcg Tablet 500 mcg PO DAILY Qty: 30 0RF clopidogrel [Plavix] 75 mg tablet 75 mg PO DAILY Qty: 30 0RF metoprolol tartrate 25 mg tablet 25 mg PO BID 30 Days Qty: 30 6RF Discharge Orders: Discharge ED (Routine); Ordered 10/30/21 Ordered By: James Lorenzo Referrals: Monica William PA [Primary Care Provider] - 1-3 days Discharge Diet: Advance as tolerated Discharge Activity: Resume usual activity Patient Instructions: Contusion in Adults (ED), Fall Prevention (ED) Coding Level of Care Code 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
--- NOTE | 2021-10-30 04:15 | PC.NURSE ---
Attempted to ambulate pt with 2 RN's and a walker. Pt was able to stand, but would not take any steps. When asked if she was in pain, she said yes . When asked where she hurts she pointed to right hip. Pt assisted back to the bed and Dr. Lorenzo notified.
[2021-10-30 04:41] VITALS: BP 140/63; PULSE 63; RESP 18; O2SAT 94
== END 2021-10-30 05:35 | disposition home or self-care (01) ==
PROVIDERS: Emergency Provider Emergency Medicine; PCP Physician Assistant
DX: S70.01XA Contusion of right hip, initial encounter (principal); Z79.82 Long term (current) use of aspirin; Z79.02 Long term (current) use of antithrombotics/antiplatelets; Z86.73 Personal history of transient ischemic attack (TIA), and cerebral infarction without residual deficits; I10 Essential (primary) hypertension; E78.5 Hyperlipidemia, unspecified; W18.30XA Fall on same level, unspecified, initial encounter; Y92.129 Unspecified place in nursing home as the place of occurrence of the external cause
CPT/HCPCS: 73502; 99283

== ENCOUNTER 2021-12-19 16:37 | Emergency (ER) | payer MEDICARE, OTHER, SELFPAY ==
[2021-12-19 16:39] VITALS: BP 158/84; PULSE 71; RESP 16; TEMP 36.3; O2SAT 97; BMI 26.6
--- NOTE | 2021-12-19 16:41 | CTR_ITS ---
PROCEDURE INFORMATION: Exam: CT Cervical Spine Without Contrast Exam date and time: 12/19/2021 5:00 PM Age: 86 years old Clinical indication: Injury or trauma; Fall; Blunt trauma TECHNIQUE: Imaging protocol: Computed tomography of the cervical spine without contrast. Radiation optimization: All CT scans at this facility use at least one of these dose optimization techniques: automated exposure control; mA and/or kV adjustment per patient size (includes targeted exams where dose is matched to clinical indication); or iterative reconstruction. COMPARISON: CT angio headneck* [id number] 07/24/2021 3:20 PM RADIATION DOSE METRICS: Total DLP (mGy-cm): 208.4 FINDINGS: Bones/joints: Minimal sphenoid and maxillary sinus mucosal thickening. Osteopenia. Multilevel endplate/uncovertebral osteophytes and facet arthropathy are noted. No acute spine fracture or subluxation. C2-C3: No significant disc protrusion. No severe spinal canal stenosis. No significant neural foraminal narrowing. C3-C4: No significant disc protrusion. No severe spinal canal stenosis. No significant neural foraminal narrowing. C4-C5: No significant disc protrusion. No severe spinal canal stenosis. No significant neural foraminal narrowing. C5-C6: Moderate disc space loss. No significant disc protrusion. No severe spinal canal stenosis. Moderate right neural foraminal narrowing. C6-C7: Moderate-severe disc space loss. No significant disc protrusion. No severe spinal canal stenosis. Moderate bilateral neural foraminal narrowing. C7-T1: Mild disc space loss. No significant disc protrusion. No severe spinal canal stenosis. No significant neural foraminal narrowing. Lungs: Minimal biapical pleuroparenchymal scarring. Soft tissues: Unremarkable. CT/CT cervical spin wo con* [id number] IMPRESSION: No acute spine fracture-subluxation. Multilevel disc disease and chronic endplate/facet disease with spondylosis as described above. No significant central canal stenosis related to osseous elements.
--- NOTE | 2021-12-19 16:41 | CTR_ITS ---
PROCEDURE INFORMATION: Exam: CT Head Without Contrast Exam date and time: 12/19/2021 5:00 PM Age: 86 years old Clinical indication: Injury or trauma; Fall; Blunt trauma (contusions or hematomas) TECHNIQUE: Imaging protocol: Computed tomography of the head without contrast. Radiation optimization: All CT scans at this facility use at least one of these dose optimization techniques: automated exposure control; mA and/or kV adjustment per patient size (includes targeted exams where dose is matched to clinical indication); or iterative reconstruction. COMPARISON: CT head wo con* [id number] 09/21/2021 12:09 PM RADIATION DOSE METRICS: Total DLP (mGy-cm): 1141.81 FINDINGS: Brain: Moderate diffuse hypodense changes are noted in the bilateral periventricular regions, likely related to chronic ischemic small vessel disease. There is moderate brain parenchymal atrophy. No acute intracranial hemorrhage, mass effect or midline shift. Cerebral ventricles: No pathologic ventricular dilatation. Paranasal sinuses: Minimal maxillary sinus mucosal thickening. No air-fluid level. Mastoid air cells: Visualized mastoid air cells are well aerated. Bones/joints: Unremarkable. No acute fracture. Soft tissues: Soft tissue swelling in the right lateral periorbital/maxillary region, presumably soft tissue contusion and probable small regional soft tissue hematoma. CT/CT head wo con* [id number] IMPRESSION: 1. No acute intracranial findings. 2. Soft tissue and sinus findings as above.
[2021-12-19 16:48] VITALS: BP 158/84; PULSE 71; RESP 16; TEMP 36.3; O2SAT 97
--- NOTE | 2021-12-19 16:48 | ED_ITS ---
Documented by User: Parker Cuevas DO 12/19/21 17:40 HPI - Wound/Laceration General: Chief Complaint: Wound/Laceration Stated Complaint: head laceration Time Seen by Provider: 12/19/21 16:41 History of Present Illness: 86-year-old female with encephalopathy admitted to SNF presenting today with ground-level fall. Patient was in her wheelchair when she fell forward striking her head. Noted to sustain a laceration above her right eye. No loss of consciousness. No other history is available due to patient's encephalopathy. Review of records demonstrating patient is a DNR. Review of Systems General: Reports: ROS unobtainable due to medical condition and ROS unobta inable due to mental status PFSH ED PFSH: Medical History SELVIN (acute kidney injury) Chronic cystitis Cognitive impairment Depression GERD (gastroesophageal reflux disease) Gram negative sepsis High risk medication use History of TIA (transient ischemic attack) HTN (hypertension) Hyperlipidemia Hypersomnia Hypothyroidism Neuropathy Obesity GERALDO (obstructive sleep apnea) Recurrent UTI RLS (restless legs syndrome) Sepsis Urgency incontinence Urinary incontinence, mixed UTI due to extended-spectrum beta lactamase (ESBL) producing Escherichia coli Surgical History H/O colonoscopy 05/03/2005 - diverticulosis H/O esophagogastroduodenoscopy 07/15/2010 - reflux esophagitis, gastritis H/O lumbar discectomy 11/2007 H/O lumpectomy x3 to right breast, x2 to left breast History of appendectomy 1954 History of cholecystectomy 1966 Hx of hysterectomy, total 1987 Family History Son Diabetes Brother Stroke Cancer Hypertension Sister Cancer Hypertension Mother , at age 86 Heart attack Dementia Father , at age 73 Heart attack Social History Smoking and tobacco status: never smoked Alcohol intake: never Marital status: Marital status details: 71 years Current occupational status: retired History of recent travel: No Physical Exam Const: COMMON NORMALS: no acute distress and alert GENERAL APPEARANCE: cooperative ORIENTATION/CONSCIOUSNESS: Yes awake, Yes oriented to person and Yes confused HENMT: COMMON NORMALS: normocephalic, atraumatic, external ears normal, Normal external nose present and moist oral mucous membranes HEAD & SCALP: normal to inspection, normocephalic and atraumatic NOSE: Normal external nose present GENERAL EAR: hearing grossly impaired EXTERNAL EAR: Yes external ears normal Eye: COMMON NORMALS: Equal, round and reactive pupils present, EOMs intact bilaterally, conjunctivae normal and no scleral icterus GENERAL EYE: appearance normal, both eyes and all related structures EYELID: eyelids normal CONJUNCTIVA: Yes conjunctivae normal SCLERA: sclerae normal PUPIL: Yes Equal, round and reactive pupils present Neck/C-Spine: COMMON NORMALS: full ROM, supple and no JVD GENERAL: Yes normal visual inspection Lymph: LYMPHATIC: no lymphadenopathy noted and no lymphedema noted Chest: COMMONS NORMALS: normal inspection of the chest Resp: COMMON NORMALS: normal respiratory effort, No retractions and No use of accessory muscles Cardio: COMMON NORMALS: no JVD, regular rate and regular rhythm RATE: regular rate RHYTHM: regular rhythm GI: COMMON NORMALS: Normal to inspection, nondistended, normoactive bowel sounds present : COMMON NORMALS: Yes no CVA tenderness BLADDER/KIDNEY EXAM: Yes no CVA tenderness Back/Pelvis: COMMON NORMALS: no CVA tenderness and thoracic and lumbar spine normal to inspection Extremity: COMMON NORMALS: normal to inspection, full ROM and capillary refill normal GENERAL: Yes normal exam except as noted Neuro: COMMON NORMALS: CN's II-XII intact bilaterally, moves all extremities, no focal motor deficits, no sensory deficits noted and gait normal SENSORIUM/ORIENTATION: Yes alert and Yes oriented to person Psych: COMMON NORMALS: mental status grossly normal, Normal thought process present, cooperative and normal affect THOUGHT PROCESS: Normal thought process present Skin: COMMON NORMALS: no rashes or lesions noted and no wounds (3 cm laceration of the right eyelid well approximated.) GENERAL SKIN EXAM: no rashes or lesions noted Procedures Laceration Laceration 1: Site: face Side (If applicable): right Size (cm): 4 Description: linear Depth: simple, single layer Skin layer closed with: other (Dermabond) Course Vital Signs: Vital signs: Vital Signs Temperature 97.3 F L 12/19/21 16:48 Pulse Rate 70 12/19/21 18:04 Respiratory Rate 16 12/19/21 18:04 Blood Pressure 158/84 12/19/21 16:48 Pulse Oximetry 97 12/19/21 18:04 Oxygen Delivery Me thod 12/19/21 18:04 MDM - Wound/Laceration Medical Decision Making 86-year-old female presenting today with laceration above her right eye. Minimal bleeding. Will obtain CT head and C-spine. Due to limited history will obtain further labs. Wound repaired using Dermabond. EKG without significant ST wave changes to suggest acute ischemia. Patient signed out pending CT results. Lab Data : 12/19/21 17:25 12/19/21 17:25 Radiology Impressions Cervical Spine CT 12/19/21 16:41 IMPRESSION: No acute spine fracture-subluxation. Multilevel disc disease and chronic endplate/facet disease with spondylosis as described above. No significant central canal stenosis related to osseous elements. Head CT 12/19/21 16:41 IMPRESSION: 1. No acute intracranial findings. 2. Soft tissue and sinus findings as above. Chest X-Ray 12/19/21 17:59 IMPRESSION: No obvious acute consolidation. Suboptimal lung base assessment. Followup including lateral view may be obtained if clinically indicated. Laboratory Results WBC 6.0 10^3/uL (4.0-10.0) 12/19/21 17:25 RBC 4.34 10^6/uL (4.1-5.3) 12/19/21 17:25 Hgb 13.5 g/dL (11.5-15.3) 12/19/21 17:25 Hct 40.2 % (37.0-47.0) 12/19/21 17:25 MCV 92.6 fl (81-99) 12/19/21 17:25 MCH 31.1 pg (28.0-34.0) 12/19/21 17:25 MCHC 33.6 g/dL (30.0-36.0) 12/19/21 17:25 RDW 14.4 % (12.1-15.1) 12/19/21 17:25 Plt Count 114 10^3/cmm (130-400) L 12/19/21 17:25 MPV 10.7 fL (7.4-10.4) H 12/19/21 17:25 Neut % (Auto) 65.1 % 12/19/21 17:25 Lymph % (Auto) 22.7 % 12/19/21 17:25 Daggett % (Auto) 8.9 % 12/19/21 17:25 Eos % (Auto) 2.5 % 12/19/21 17:25 Baso % (Auto) 0.5 % 12/19/21 17:25 Neut # (Auto) 3.88 10^3/uL (1.8-7.7) 12/19/21 17:25 Lymph # (Auto) 1.4 10^3/uL (0.8-4.8) 12/19/21 17:25 Daggett # (Auto) 0.5 10^3/uL (0.2-0.9) 12/19/21 17:25 Eos # (Auto) 0.2 10^3/uL (0.0-0.8) 12/19/21 17:25 Baso # (Auto) 0.0 10^3/uL (0.0-0.1) 12/19/21 17:25 Nucleated RBC % (auto) 0 % 12/19/21 17:25 Nucleated RBCs # 0.0 /100WBC 12/19/21 17:25 Chloride 98 mmol/L (98-107) 12/19/21 17:25 Carbon Dioxide 26 mmol/L (22-29) 12/19/21 17:25 Anion Gap 10.4 (5-19) 12/19/21 17:25 BUN 17 mg/dL (8-23) 12/19/21 17:25 Creatinine 0.8 mg/dL (0.5-0.9) 12/19/21 17:25 GFR Calculation Not Reportable 12/19/21 17:25 Calcium 10.0 mg/dL (8.5-10.5) 12/19/21 17:25 Total Bilirubin 1.1 mg/dL (0.15-1.2) 12/19/21 17:25 AST 23 U/L (0-32) 12/19/21 17:25 ALT 21 U/L (0-33) 12/19/21 17:25 Total Protein 6.8 g/dL (6.6-8.7) 12/19/21 17:25 Albumin 3.9 g/dL (3.5-5.2) 12/19/21 17:25 Globulin 2.9 g/dL (1.3-4.6) 12/19/21 17:25 Discharge Plan Discharge Patient Disposition: Home Clinical Impression: Fall from ground level, Laceration of face, Head injury Condition: Stable Prescriptions: No Action loratadine [Allergy Relief (loratadine)] 10 mg tablet 10 mg PO QAM venlafaxine 150 mg tablet extended release 24hr 150 mg PO QAM nitrofurantoin monohyd/m-cryst [Macrobid] 100 mg capsule 100 mg PO BID Qty: 60 2RF Rx Instructions: must administer with a meal/food alprazolam [Xanax] 0.25 mg tablet 0.25 mg PO BID PRN lorazepam [Ativan] 0.5 mg tablet 0.5 mg PO DAILY PRN gabapentin 300 mg capsule 300 mg PO .AT HS ferrous sulfate 325 mg (65 mg iron) tablet 325 mg PO BID folic acid 1 mg tablet 1 mg PO DAILY gabapentin 100 mg capsule 100 mg PO DAILY olanzapine 2.5 mg tablet 2.5 mg PO DAILY methotrexate sodium 2.5 mg tablet 15 mg PO Q7D 84 Days Qty: 72 0RF Rx Instructions: TAKE (6) 2.5 MG PO ON SATURDAYS atorvastatin 40 mg tablet 40 mg PO BEDTIME 30 Days Qty: 30 3RF Tylenol 325 mg Tablet 650 mg PO Q6H PRN (Reason: Pain) Zofran 4 mg Tablet 4 mg PO Q6H PRN (Reason: Nausea) Milk of Magnesia 400 mg/5 mL Suspension 30 ml PO DAILY PRN (Reason: Constipation) Dulcolax (bisacodyl) 10 mg Suppository 10 mg WI DAILY PRN (Reason: Constipation) Fleet Enema 19-7 gram/118 mL Enema 118 ml WI DAILY PRN (Reason: Constipation) Dulcolax (bisacodyl) 5 mg Tablet,Delayed Release (Dr/Ec) 10 mg PO DAILY PRN (Reason: Constipation) aspirin 81 mg capsule 81 mg PO DAILY Qty: 30 0RF losartan 50 mg Tablet 50 mg PO QAM pantoprazole 40 mg tablet,delayed release (DR/EC) 40 mg PO QPM cyanocobalamin (vitamin B-12) [Vitamin B-12] 1,000 mcg Tablet 500 mcg PO DAILY Qty: 30 0RF clopidogrel [Plavix] 75 mg tablet 75 mg PO DAILY Qty: 30 0RF metoprolol tartrate 25 mg tablet 25 mg PO BID 30 Days Qty: 30 6RF Discharge Orders: Discharge ED (Routine); Ordered 12/19/21 Ordered By: James Lorenzo Referrals: Monica William PA [Primary Care Provider] - 1-3 days Discharge Diet: Advance as tolerated Discharge Activity: Resume usual activity Patient Instructions: Laceration (ED) Coding Level of Care Code ED Energy Conservation Technician for Chg Fwd Exam Comprehensive Documented by User: James Lorenzo MD 12/19/21 18:34 HPI - Wound/Laceration General: Chief Complaint: Wound/Laceration Stated Complaint: head laceration Time Seen by Provider: 12/19/21 16:41 PFSH ED PFSH: Medical History SELVIN (acute kidney injury) Chronic cystitis Cognitive impairment Depression GERD (gastroesophageal reflux disease) Gram negative sepsis High risk medication use History of TIA (transient ischemic attack) HTN (hypertension) Hyperlipidemia Hypersomnia Hypothyroidism Neuropathy Obesity GERALDO (obstructive sleep apnea) Recurrent UTI RLS (restless legs syndrome) Sepsis Urgency incontinence Urinary incontinence, mixed UTI due to extended-spectrum beta lactamase (ESBL) producing Escherichia coli Surgical History H/O colonoscopy 05/03/2005 - diverticulosis H/O esophagogastroduodenoscopy 07/15/2010 - reflux esophagitis, gastritis H/O lumbar discectomy 11/2007 H/O lumpectomy x3 to right breast, x2 to left breast History of appendectomy 1954 History of cholecystectomy 1966 Hx of hysterectomy, total 1987 Family History Son Diabetes Brother Stroke Cancer Hypertension Sister Cancer Hypertension Mother , at age 86 Heart attack Dementia Father , at age 73 Heart attack Social History Smoking and tobacco status: never smoked Alcohol intake: never Marital status: Marital status details: 71 years Current occupational status: retired History of recent travel: No Course Vital Signs: Vital signs: Vital Signs Temperature 97.3 F L 12/19/21 16:48 Pulse Rate 70 12/19/21 18:04 Respiratory Rate 16 12/19/21 18:04 Blood Pressure 158/84 12/19/21 16:48 Pulse Oximetry 97 12/19/21 18:04 Oxygen Delivery Me thod 12/19/21 18:04 MDM - Wound/Laceration Medical Decision Making 86-year-old female presenting today with laceration above her right eye. Min imal bleeding. Will obtain CT head and C-spine. Due to limited history will obtain further labs. Wound repaired using Dermabond. EKG without significant ST wave changes to suggest acute ischemia. Patient signed out pending CT results. Patient CT scans here are all normal she is well-appearing here she is stable for discharge back to correction. Lab Data : 12/19/21 17:25 12/19/21 17:25 Radiology Impressions Cervical Spine CT 12/19/21 16:41 IMPRESSION: No acute spine fracture-subluxation. Multilevel disc disease and chronic endplate/facet disease with spondylosis as described above. No significant central canal stenosis related to osseous elements. Head CT 12/19/21 16:41 IMPRESSION: 1. No acute intracranial findings. 2. Soft tissue and sinus findings as above. Chest X-Ray 12/19/21 17:59 IMPRESSION: No obvious acute consolidation. Suboptimal lung base assessment. Followup including lateral view may be obtained if clinically indicated. Laboratory Results WBC 6.0 10^3/uL (4.0-10.0) 12/19/21 17:25 RBC 4.34 10^6/uL (4.1-5.3) 12/19/21 17:25 Hgb 13.5 g/dL (11.5-15.3) 12/19/21 17:25 Hct 40.2 % (37.0-47.0) 12/19/21 17:25 MCV 92.6 fl (81-99) 12/19/21 17:25 MCH 31.1 pg (28.0-34.0) 12/19/21 17:25 MCHC 33.6 g/dL (30.0-36.0) 12/19/21 17:25 RDW 14.4 % (12.1-15.1) 12/19/21 17:25 Plt Count 114 10^3/cmm (130-400) L 12/19/21 17:25 MPV 10.7 fL (7.4-10.4) H 12/19/21 17:25 Neut % (Auto) 65.1 % 12/19/21 17:25 Lymph % (Auto) 22.7 % 12/19/21 17:25 Daggett % (Auto) 8.9 % 12/19/21 17:25 Eos % (Auto) 2.5 % 12/19/21 17:25 Baso % (Auto) 0.5 % 12/19/21: Neut # (Auto) 3.88 10^3/uL (1.8-7.7) 12/19/21 17:25 Lymph # (Auto) 1.4 10^3/uL (0.8-4.8) 12/19/21 17:25 Daggett # (Auto) 0.5 10^3/uL (0.2-0.9) 12/19/21 17:25 Eos # (Auto) 0.2 10^3/uL (0.0-0.8) 12/19/21 17:25 Baso # (Auto) 0.0 10^3/uL (0.0-0.1) 12/19/21 17:25 Nucleated RBC % (auto) 0 % 12/19/21 17:25 Nucleated RBCs # 0.0 /100WBC 12/19/21 17:25 Chloride 98 mmol/L (98-107) 12/19/21 17:25 Carbon Dioxide 26 mmol/L (22-29) 12/19/21 17:25 Anion Gap 10.4 (5-19) 12/19/21 17:25 BUN 17 mg/dL (8-23) 12/19/21 17:25 Creatinine 0.8 mg/dL (0.5-0.9) 12/19/21 17:25 GFR Calculation Not Reportable 12/19/21 17:25 Calcium 10.0 mg/dL (8.5-10.5) 12/19/21 17:25 Total Bilirubin 1.1 mg/dL (0.15-1.2) 12/19/21 17:25 AST 23 U/L (0-32) 12/19/21 17:25 ALT 21 U/L (0-33) 12/19/21 17:25 Total Protein 6.8 g/dL (6.6-8.7) 12/19/21 17:25 Albumin 3.9 g/dL (3.5-5.2) 12/19/21 17:25 Globulin 2.9 g/dL (1.3-4.6) 12/19/21 17:25 Discharge Plan Discharge Patient Disposition: Home Clinical Impression: Fall from ground level, Laceration of face, Head injury Condition: Stable Prescriptions: No Action loratadine [Allergy Relief (loratadine)] 10 mg tablet 10 mg PO QAM venlafaxine 150 mg tablet extended release 24hr 150 mg PO QAM nitrofurantoin monohyd/m-cryst [Macrobid] 100 mg capsule 100 mg PO BID Qty: 60 2RF Rx Instructions: must administer with a meal/food alprazolam [Xanax] 0.25 mg tablet 0.25 mg PO BID PRN lorazepam [Ativan] 0.5 mg tablet 0.5 mg PO DAILY PRN gabapentin 300 mg capsule 300 mg PO .AT HS ferrous sulfate 325 mg (65 mg iron) tablet 325 mg PO BID folic acid 1 mg tablet 1 mg PO DAILY gabapentin 100 mg capsule 100 mg PO DAILY olanzapine 2.5 mg tablet 2.5 mg PO DAILY methotrexate sodium 2.5 mg tablet 15 mg PO Q7D 84 Days Qty: 72 0RF Rx Instructions: TAKE (6) 2.5 MG PO ON SATURDAYS atorvastatin 40 mg tablet 40 mg PO BEDTIME 30 Days Qty: 30 3RF Tylenol 325 mg Tablet 650 mg PO Q6H PRN (Reason: Pain) Zofran 4 mg Tablet 4 mg PO Q6H PRN (Reason: Nausea) Milk of Magnesia 400 mg/5 mL Suspension 30 ml PO DAILY PRN (Reason: Constipation) Dulcolax (bisacodyl) 10 mg Suppository 10 mg WI DAILY PRN (Reason: Constipation) Fleet Enema 19-7 gram/118 mL Enema 118 ml WI DAILY PRN (Reason: Constipation) Dulcolax (bisacodyl) 5 mg Tablet,Delayed Release (Dr/Ec) 10 mg PO DAILY PRN (Reason: Constipation) aspirin 81 mg capsule 81 mg PO DAILY Qty: 30 0RF losartan 50 mg Tablet 50 mg PO QAM pantoprazole 40 mg tablet,delayed release (DR/EC) 40 mg PO QPM cyanocobalamin (vitamin B-12) [Vitamin B-12] 1,000 mcg Tablet 500 mcg PO DAILY Qty: 30 0RF clopidogrel [Plavix] 75 mg tablet 75 mg PO DAILY Qty: 30 0RF metoprolol tartrate 25 mg tablet 25 mg PO BID 30 Days Qty: 30 6RF Discharge Orders: Discharge ED (Routine); Ordered 12/19/21 Ordered By: James Lorenzo Referrals: Monica William PA [Primary Care Provider] - 1-3 days Discharge Diet: Advance as tolerated Discharge Activity: Resume usual activity Patient Instructions: Laceration (ED) Coding Level of Care Code ED Energy Conservation Technician for Joelle Fwd Exam Comprehensive
--- NOTE | 2021-12-19 16:51 | ECG_ITS ---
[facility] Test Date: 2021-12-19 Pat Name: Nadja Dimas Department: Room: Gender: Female Campaign Specialist: : 1935 Requested By: Parker Cuevas Order Number: [id number] Karolina MD: Kristopher Fuchs M.D. Measurements Intervals [place] Rate: 69 P: 45 PA: 176 QRS: -10 QRSD: 97 T: -10 QT: 416 QTc: 448 Interpretive Statements SINUS RHYTHM VOLTAGE CRITERIA FOR LVH [MEETS CRITERIA IN ONE OF: R(aVL), S(V1), R(V5), R(V5/V6)+S(V1)] POSSIBLE ANTERIOR MYOCARDIAL INFARCTION , PROBABLY OLD [30 ms Q WAVE IN V3/V4, OR R < 0.2 mV IN V4] Compared to ECG 08/25/2021 16:12:05 Myocardial infarct finding now present ST (T wave) deviation no longer present Electronically Signed On 12-20-2021 22:00:25 CDT by Kristopher Fuchs M.D. [id number]
[2021-12-19 17:41] LABS: Basophils % 0.5 %; Eosinophils # 0.2 10^3/uL (0.0-0.8); Eosinophils % 2.5 %; Hematocrit 40.2 % (37.0-47.0); Hemoglobin 13.5 g/dL (11.5-15.3); Lymphocytes # 1.4 10^3/uL (0.8-4.8); Lymphocytes % 22.7 %; Mean Corpuscular HGB Conc 33.6 g/dL (30.0-36.0); Mean Corpuscular Hemoglobin 31.1 pg (28.0-34.0); Mean Corpuscular Volume 92.6 fl (81-99); Mean Platelet Volume 10.7 fL (7.4-10.4); Monocytes # 0.5 10^3/uL (0.2-0.9); Monocytes % 8.9 %; Neutrophils # 3.88 10^3/uL (1.8-7.7); Neutrophils % 65.1 %; Nucleated Red Blood Cells % 0 %; Platelet Count 114 10^3/cmm (130-400); Red Blood Count 4.34 10^6/uL (4.1-5.3); Red Cell Distribution Width 14.4 % (12.1-15.1)
--- NOTE | 2021-12-19 17:51 | PC.NURSE ---
ARM BANDAGED WITH TELFA AND COBAN.
--- NOTE | 2021-12-19 17:59 | XRR_ITS ---
PROCEDURE INFORMATION: Exam: XR Chest Exam date and time: 12/19/2021 6:04 PM Age: 86 years old Clinical indication: Injury or trauma; Fall TECHNIQUE: Imaging protocol: Radiologic exam of the chest. Views: 1 view. COMPARISON: CR XR chest 1V portable [id number] 07/24/2021 2:19 PM FINDINGS: Lungs: The lung bases are suboptimally assessed due to technique however the upper lungs are clear of focal consolidation. Pleural spaces: Unremarkable. No pleural effusion. No pneumothorax. Heart/Mediastinum: Cardiac silhouette appears normal in size. No obvious vascular congestion. Bones/joints: No acute osseous findings. Osteopenia. Other findings: Single view was submitted. XR/XR chest 1V portable [id number] IMPRESSION: No obvious acute consolidation. Suboptimal lung base assessment. Followup including lateral view may be obtained if clinically indicated.
[2021-12-19 18:04] VITALS: PULSE 70; RESP 16; O2SAT 97
[2021-12-19 18:13] LABS: Alanine Aminotransferase 21 U/L (0-33); Albumin Level 3.9 g/dL (3.5-5.2); Alkaline Phosphatase 137 U/L (35-105); Anion Gap 10.4 (5-19); Aspartate Amino Transferase 23 U/L (0-32); Blood Urea Nitrogen 17 mg/dL (8-23); Carbon Dioxide 26 mmol/L (22-29); Chloride 98 mmol/L (98-107); Globulin 2.9 g/dL (1.3-4.6); Glucose 119 mg/dL (65-115); Osmolality Calculated 275 mOsm/kg (285-295); Potassium 3.4 mmol/L (3.5-5.1); Sodium 131 mmol/L (136-145); Total Bilirubin 1.1 mg/dL (0.15-1.2); Total Protein 6.8 g/dL (6.6-8.7)
[2021-12-19] MEDS: HYDROcodone-acetaminophen 5-325 mg Tablet 1 TAB PO (18:22)
[2021-12-19 18:48] VITALS: PULSE 78; O2SAT 97
== END 2021-12-19 18:50 | disposition home or self-care (01) ==
PROVIDERS: Emergency Medicine; Emergency Provider Emergency Medicine; PCP Physician Assistant
DX: S09.90XA Unspecified injury of head, initial encounter (principal); S01.111A Laceration without foreign body of right eyelid and periocular area, initial encounter; W05.0XXA Fall from non-moving wheelchair, initial encounter; Z86.73 Personal history of transient ischemic attack (TIA), and cerebral infarction without residual deficits; I10 Essential (primary) hypertension; E78.5 Hyperlipidemia, unspecified; Z79.82 Long term (current) use of aspirin; Z79.02 Long term (current) use of antithrombotics/antiplatelets
CPT/HCPCS: 12013; 70450; 71045; 72125; 80053; 85025; 93005; 99285

== ENCOUNTER 2022-02-19 21:13 | Emergency (ER) | payer MEDICARE, OTHER, SELFPAY ==
--- NOTE | 2022-02-19 21:16 | CTR_ITS ---
PROCEDURE INFORMATION: Exam: CT Head Without Contrast Exam date and time: 02/19/2022 9:24 PM Age: 86 years old Clinical indication: Injury or trauma; Fall; Blunt trauma (contusions or hematomas) TECHNIQUE: Imaging protocol: Computed tomography of the head without contrast. Radiation optimization: All CT scans at this facility use at least one of these dose optimization techniques: automated exposure control; mA and/or kV adjustment per patient size (includes targeted exams where dose is matched to clinical indication); or iterative reconstruction. COMPARISON: 1. CT head wo con* [id number] 2021-12-19 17:[address] head wo con* [id number] 2021-09-21 12:09 RADIATION DOSE METRICS: Total DLP (mGy-cm): 1094.68 FINDINGS: Brain: Moderate cerebral volume loss and chronic cerebral white matter disease and numerous chronic periventricular lacunar infarcts. No acute hemorrhage, midline shift, mass, or fluid collections. Cerebral ventricles: No ventriculomegaly. Paranasal sinuses: Visualized sinuses are unremarkable. No fluid levels. Mastoid air cells: Visualized mastoid air cells are well aerated. Bones/joints: Unremarkable. No acute fracture. Soft tissues: Forehead soft tissue scalp injury and laceration. CT/CT head wo con* [id number] IMPRESSION: Forehead soft tissue scalp injury and laceration.
--- NOTE | 2022-02-19 21:16 | CTR_ITS ---
PROCEDURE INFORMATION: Exam: CT Cervical Spine Without Contrast Exam date and time: 02/19/2022 9:27 PM Age: 86 years old Clinical indication: Injury or trauma; Fall; Concussion/head injury TECHNIQUE: Imaging protocol: Computed tomography of the cervical spine without contrast. Radiation optimization: All CT scans at this facility use at least one of these dose optimization techniques: automated exposure control; mA and/or kV adjustment per patient size (includes targeted exams where dose is matched to clinical indication); or iterative reconstruction. COMPARISON: 1. CT cervical spin wo con* [id number] 2021-12-19 17:[address] cervical spin wo con* [id number] 2021-01-28 11:00 RADIATION DOSE METRICS: Total DLP (mGy-cm): 154.87 FINDINGS: Bones/joints: Degenerative disc and joint disease with multilevel mild moderate spinal and foraminal stenosis. Maintained cervical vertebral body heights. No acute fractures or subluxations. Lungs: Lung apices are normal. Soft tissues: Unremarkable. CT/CT cervical spin wo con* [id number] IMPRESSION: No acute fracture or subluxations.
--- NOTE | 2022-02-19 21:17 | ED_ITS ---
HPI - Head Injury General: Chief complaint: Fall Stated complaint: FALL Time Seen by Provider: 02/19/22 21:16 Source: patient and EMS Mode of arrival: EMS Limitations: no limitations History of Present Illness: 86-year-old female is here from the longterm patient had fell in her room she does have a head laceration she complains of headache also mild neck pain she denies any other injuries she does have some dementia. Associated symptoms: Deny nausea, neck pain or vomiting Review of Systems Const: Denies: fever(s), chills, body aches or change in appetite Eyes: Denies: blurry vision or eye discomfort ENMT: Denies: throat pain or dental pain Card: Denies: chest pain Resp: Denies: dyspnea GI: Denies: abdominal pain, nausea, vomiting or diarrhea : Denies: dysuria Musc: Denies: neck pain or back pain Skin/Breast: Denies: rash Neuro: Reports: headache(s) Psych: Denies: depression Bharat/Lymph: Denies: easy bruising All/Imm: Denies: urticaria PFSH ED PFSH: Medical History SELVIN (acute kidney injury) Chronic cystitis Cognitive impairment Depression GERD (gastroesophageal reflux disease) Gram negative sepsis High risk medication use History of TIA (transient ischemic attack) HTN (hypertension) Hyperlipidemia Hypersomnia Hypothyroidism Neuropathy Obesity GERALDO (obstructive sleep apnea) Recurrent UTI RLS (restless legs syndrome) Sepsis Urgency incontinence Urinary incontinence, mixed UTI due to extended-spectrum beta lactamase (ESBL) producing Escherichia coli Surgical History H/O colonoscopy 05/03/2005 - diverticulosis H/O esophagogastroduodenoscopy 07/15/2010 - reflux esophagitis, gastritis H/O lumbar discectomy 11/2007 H/O lumpectomy x3 to right breast, x2 to left breast History of appendectomy 1954 History of cholecystectomy 1966 Hx of hysterectomy, total 1987 Family History Son Diabetes Brother Stroke Cancer Hypertension Sister Cancer Hypertension Mother , at age 86 Heart attack Dementia Father , at age 73 Heart attack Social History Smoking and tobacco status: never smoked Alcohol intake: never Marital status: Marital status details: 70 years Current occupational status: retired History of recent travel: No Physical Exam Const: COMMON NORMALS: no acute distress and healthy appearing HENMT: COMMON NORMALS: normocephalic; head/scalp not atraumatic (5cm laceration to forehead) HEAD & SCALP: normocephalic; not atraumatic (5cm laceration to forehead) Eye: COMMON NORMALS: Equal, round and reactive pupils present and EOMs intact bilaterally PUPIL: Yes Equal, round and reactive pupils present Neck/C-Spine: COMMON NORMALS: full ROM and supple Chest: COMMONS NORMALS: normal inspection of the chest and normal palpation of entire chest wall Resp: COMMON NORMALS: normal respiratory effort, No retractions, No use of accessory muscles and clear to auscultation bilaterally AUSCULTATION: clear to auscultation bilaterally Cardio: COMMON NORMALS: regular rate, regular rhythm and No murmurs present (Cardio) RATE: regular rate RHYTHM: regular rhythm GI: COMMON NORMALS: Normal to inspection, nondistended, normoactive bowel sounds present, Soft to palpation, non-tender and no masses PALPATION: Yes Soft to palpation Extremity: COMMON NORMALS: normal to inspection and full ROM Neuro: COMMON NORMALS: moves all extremities and no focal motor deficits Psych: COMMON NORMALS: mental status grossly normal, Normal thought process present and cooperative THOUGHT PROCESS: Normal thought process present Skin: COMMON NORMALS: no rashes or lesions noted and no wounds GENERAL SKIN EXAM: no rashes or lesions noted Procedures Laceration Laceration 1: Site: face Size (cm): 6 Description: linear Depth: simple, single layer Local Anesthetic: lidocaine 1% Amount of anesthesia used (mL): 10 Pre-repair: wound explored and irrigated extensively Skin layer closed with: nylon Size (cm): 5-0 Number of sutures: 8 Technique: simple, interrupted Course Vital Signs: Vital signs: Vital Signs Temperature 97.7 F 02/19/22 21:20 Pulse Rate 81 02/19/22 21:20 Respiratory Rate 17 02/19/22 21:20 Blood Pressure 172/98 02/19/22 21:20 Pulse Oximetry 98 02/19/22 21:20 Oxygen Delivery Or thod 02/19/22 21:20 MDM - Head Injury Medcial Decision Making Patient presents here with a head laceration from a fall head CT C-spine CT are normal patient's wound was sutured she is to have sutures removed in 10 days return if worsening. Lab Data Radiology Impressions Cervical Spine CT 02/19/22 21:16 IMPRESSION: No acute fracture or subluxations. Head CT 02/19/22 21:16 IMPRESSION: Forehead soft tissue scalp injury and laceration. Discharge Plan Discharge Patient Disposition: Home Clinical Impression: Fall, Laceration of head Condition: Stable Prescriptions: No Action loratadine [Allergy Relief (loratadine)] 10 mg tablet 10 mg PO QAM venlafaxine 150 mg tablet extended release 24hr 150 mg PO QAM nitrofurantoin monohyd/m-cryst [Macrobid] 100 mg capsule 100 mg PO BID Qty: 60 2RF Rx Instructions: must administer with a meal/food alprazolam [Xanax] 0.25 mg tablet 0.25 mg PO BID PRN lorazepam [Ativan] 0.5 mg tablet 0.5 mg PO DAILY PRN gabapentin 300 mg capsule 300 mg PO .AT HS ferrous sulfate 325 mg (65 mg iron) tablet 325 mg PO BID folic acid 1 mg tablet 1 mg PO DAILY gabapentin 100 mg capsule 100 mg PO DAILY olanzapine 2.5 mg tablet 2.5 mg PO DAILY methotrexate sodium 2.5 mg tablet 15 mg PO Q7D 84 Days Qty: 72 0RF Rx Instructions: TAKE (6) 2.5 MG PO ON SATURDAYS atorvastatin 40 mg tablet 40 mg PO BEDTIME 30 Days Qty: 30 3RF Tylenol 325 mg Tablet 650 mg PO Q6H PRN (Reason: Pain) Zofran 4 mg Tablet 4 mg PO Q6H PRN (Reason: Nausea) Milk of Magnesia 400 mg/5 mL Suspension 30 ml PO DAILY PRN (Reason: Constipation) Dulcolax (bisacodyl) 10 mg Suppository 10 mg MI DAILY PRN (Reason: Constipation) Fleet Enema 19-7 gram/118 mL Enema 118 ml MI DAILY PRN (Reason: Constipation) Dulcolax (bisacodyl) 5 mg Tablet,Delayed Release (Dr/Ec) 10 mg PO DAILY PRN (Reason: Constipation) aspirin 81 mg capsule 81 mg PO DAILY Qty: 30 0RF losartan 50 mg Tablet 50 mg PO QAM pantoprazole 40 mg tablet,delayed release (DR/EC) 40 mg PO QPM cyanocobalamin (vitamin B-12) [Vitamin B-12] 1,000 mcg Tablet 500 mcg PO DAILY Qty: 30 0RF clopidogrel [Plavix] 75 mg tablet 75 mg PO DAILY Qty: 30 0RF metoprolol tartrate 25 mg tablet 25 mg PO BID 30 Days Qty: 30 6RF Discharge Orders: Discharge ED (Routine); Ordered 02/19/22 Ordered By: James Lorenzo Referrals: Monica William PA [Primary Care Provider] - Discharge Diet: Advance as tolerated Discharge Activity: Resume usual activity Patient Instructions: Laceration (ED) Activity Restrictions/Additional Instructions: suture removal in 10 days Coding Level of Care Code ED Collision Technician for Joelle Fwd Exam Comprehensive
[2022-02-19 21:20] VITALS: BP 172/98; PULSE 81; RESP 17; TEMP 36.5; O2SAT 98; BMI 25.0
[2022-02-19 22:09] VITALS: BP 147/71; PULSE 80; RESP 20; O2SAT 96
== END 2022-02-19 22:20 | disposition home or self-care (01) ==
PROVIDERS: Emergency Provider Emergency Medicine; PCP Physician Assistant
DX: S01.81XA Laceration without foreign body of other part of head, initial encounter (principal); Z79.82 Long term (current) use of aspirin; Z79.02 Long term (current) use of antithrombotics/antiplatelets; Z86.73 Personal history of transient ischemic attack (TIA), and cerebral infarction without residual deficits; I10 Essential (primary) hypertension; E78.5 Hyperlipidemia, unspecified; W19.XXXA Unspecified fall, initial encounter; Y92.122 Bedroom in nursing home as the place of occurrence of the external cause; F03.90 Unspecified dementia, unspecified severity, without behavioral disturbance, psychotic disturbance, mood disturbance, and anxiety
CPT/HCPCS: 12014; 70450; 72125; 99284